=== PATIENT | female | born 1990 | race Caucasian/White ===

== ENCOUNTER 2017-05-08 08:36 | Emergency (ER) | payer OTHER ==
[2017-05-08] MEDS ORDERED: NS 0.9% 1000 ML* 1,000 ML IV ONE (09:36)
--- NOTE | 2017-05-08 10:30 | RAD ---
HISTORY: Left knee pain COMPARISONS: None VIEWS: 3, Frontal and lateral views of the left knee FINDINGS: BONE DENSITY: Normal. BONES: There is no displaced fracture. JOINTS: There is no arthropathy. ALIGNMENT: There is no dislocation. SOFT TISSUES: Unremarkable. OTHER FINDINGS: None. IMPRESSION: NO ACUTE OSSEOUS INJURY. IF SYMPTOMS PERSIST, RECOMMEND REPEAT IMAGING.
[2017-05-08 10:36] LABS: Hematocrit 38 % (35-47); Hemoglobin 12.7 g/dl (12.0-16.0); Mean Corpuscular HGB Conc 34 g/dl (31-36); Mean Corpuscular Hemoglobin 27 pg (27-31); Mean Corpuscular Volume 79 fL (80-97); Mean Platelet Volume 7 um3 (7.4-10.4); Red Blood Count 4.76 10^6/ul (4.0-5.4); Red Cell Distribution Width 14 % (10.5-15); White Blood Count 11.1 10^3/ul (3.5-10.8)
[2017-05-08] MEDS ORDERED: Ketorolac INJ* 30 MG/ML 1 ML VIAL IM ONE (10:42)
[2017-05-08 10:52] LABS: Albumin 3.7 g/dL (3.2-5.2); BUN/Creatinine Ratio 14.8 (8-20); C Reactive Protein 33.64 mg/L (< 5.00); EGFR African American 172.9 (>60); EGFR Non-African American 134.4 (>60); Globulin 2.8 g/dL (2-4); Magnesium 1.8 mg/dL (1.9-2.7); Potassium 3.5 mmol/L (3.5-5.0); Total Bilirubin 0.5 mg/dL (0.2-1.0); Total Protein 6.5 g/dL (6.4-8.9)
[2017-05-08] MEDS ORDERED: Magnesium Oxide TAB* 400 MG PO ONE (11:33)
--- NOTE | 2017-05-08 11:48 | RAD ---
HISTORY: Abdominal pain COMPARISONS: None VIEWS: Frontal views of the abdomen. FINDINGS: BOWEL: There is a nonobstructive bowel gas pattern. There is a moderate amount of stool within the colon. CALCULI: There are no abnormal calculi. BONES AND SOFT TISSUES: There is mild scoliotic curvature of the spine OTHER FINDINGS: The lung bases are clear. There is no subphrenic gas. IMPRESSION: NONOBSTRUCTIVE BOWEL GAS PATTERN
[2017-05-08 19:40] VITALS: BP 126/74
--- NOTE | 2017-05-09 12:03 | ED ---
Claudine Madden Rebecca, scribed for Nick Stearns MD on 05/08/17 at 0954 . Lower Extremity - HPI Summary HPI Summary: Pt is a 27 F presenting to the ED c/o pain and swelling in the left knee for the past year. Pt states she took Ibuprofen within the last 24 hours but had no relief. Sx is aggravated by pressure and alleviated by nothing. Denies any pain in the back of the knee and the calf. Previously seen for edema; had an XR done and physician saw no tears or breaks. Pt also c/o diarrhea that has been constant for the last three months. She has taken Imodium to treat Sx. Takes no medications and has no known allergies. - History of Current Complaint Chief Complaint: EDAbdPain Stated Complaint: LT KNEE SWELLING\PAIN Time Seen by Provider: 05/08/17 09:19 Hx Obtained From: Patient Hx Last Menstrual Period: currently Onset of Pain: Prior to Arrival Onset/Duration: Weeks - a year Severity Currently: Severe Pain Intensity: 8 Pain Scale Used: 0-10 Numeric Location: Is Discrete @ - L knee Associated Signs And Symptoms: Positive: Swelling - L knee, Other - Diarrhea for past three months Aggravating Factor(s): Movement - Bending the L knee, Other - Pressure Alleviating Factor(s): Nothing - Allergies/Home Medications Allergies/Adverse Reactions: Allergies Allergy/AdvReac Type Severity Reaction Status Date / Time No Known Allergies Allergy Verified 05/08/17 08:59 Home Medications: Home Medications Sertraline* [Zoloft*] 100 mg PO DAILY 05/08/17 [History Confirmed 05/08/17] PMH/Surg Hx/FS Hx/Imm Hx Endocrine/Hematology History: Denies: Hx Bone Marrow Disease, Hx Diabetes, Hx Sickle Cell Disease, Hx Thyroid Disease, Hx Anemia Cardiovascular History: Denies: Hx Hypertension Respiratory History: Denies: Hx Asthma, Hx Chronic Obstructive Pulmonary Disease (COPD) GI History: Reports: Hx Gastroesophageal Reflux Disease - takes tums daily Denies: Hx Ulcer Psychiatric History: Reports: Hx Anxiety, Hx Depression, Hx Panic Disorder - Surgical History Surgery Procedure, Year, and Place: May 2001 Open appy Hx Anesthesia Reactions: No Infectious Disease History: Denies: Hx Clostridium Difficile, Hx Hepatitis, Hx Human Immunodeficiency Virus (HIV), Hx of Known/Suspected MRSA, Hx Tuberculosis, History Other Infectious Disease, Traveled Outside the [place] in Last 30 Days - Family History Known Family History: Positive: Cardiac Disease - Mother had CAD - Social History Alcohol Use: Rare Hx Substance Use: No Substance Use Type: Reports: None Hx Tobacco Use: Yes Smoking Status (MU): Current Some Day Smoker Type: Cigarettes Review of Systems Positive: Diarrhea - present for last three months, did not see a physician, took Imodium Positive: Other - L knee swelling All Other Systems Reviewed And Are Negative: Yes Physical Exam - Summary Physical Exam Summary: VITAL SIGNS: Reviewed. GENERAL: ~Patient is a well-developed and nourished FEMALE who is in mild distress. HEAD AND FACE: No signs of trauma. ~No ecchymosis, hematomas or skull depressions. No sinus tenderness. EYES: PERRLA, EOMI x 2, No injected conjunctiva, no nystagmus. EARS: Hearing grossly intact. Ear canals and tympanic membranes are within normal limits. MOUTH: Oropharynx within normal limits. NECK: Supple, trachea is midline, no adenopathy, no JVD, no carotid bruit, no c- spine tenderness, neck with full ROM. CHEST: Symmetric, no tenderness at palpation LUNGS: Clear to auscultation bilaterally. No wheezing or crackles. CVS: Regular rate and rhythm, S1 and S2 present, no murmurs or gallops appreciated. ABDOMEN: Lower abdominal tenderness. No signs of distention. No rebound no guarding, and no masses palpated. Bowel sounds are normal. EXTREMITIES: FROM in all major joints, no cyanosis or clubbing. Swelling and pain in L knee, tender along medial and lateral ligaments, good pulses and capillary refill. NEURO: Alert and oriented x 3. No acute neurological deficits. Speech is normal and follows commands. SKIN: Dry and warm Triage Information Reviewed: Yes Vital Signs On Initial Exam: Initial Vitals Temp Pulse Resp BP Pulse Ox 98 F 108 20 129/95 98 05/08/17 09:00 05/08/17 09:00 05/08/17 09:00 05/08/17 09:00 05/08/17 09:00 Vital Signs Reviewed: Yes Appearance: Positive: Pain Distress - L knee edema and pain Skin: Positive: Tender - tender along med and lat ligaments Musculoskeletal: Positive: Strength/ROM Intact, Edema Left - L knee Diagnostics - Vital Signs Vital Signs Temp Pulse Resp BP Pulse Ox 05/08/17 09:00 98 F 108 20 129/95 98 - Laboratory Lab Results: Lab Results 05/08/17 05/08/17 05/08/17 Range/Units 10:20 10:20 10:20 WBC 11.1 H (3.5-10.8) 10^3/ul RBC 4.76 (4.0-5.4) 10^6/ul Hgb 12.7 (12.0-16.0) g/dl Hct 38 (35-47) % MCV 79 L (80-97) fL MCH 27 (27-31) pg MCHC 34 (31-36) g/dl RDW 14 (10.5-15) % Plt Count 383 (150-450) 10^3/ul MPV 7 L (7.4-10.4) um3 Neut % (Auto) 75.2 (38-83) % Lymph % (Auto) 17.7 L (25-47) % [place] % (Auto) 6.5 (1-9) % Eos % (Auto) 0.2 (0-6) % Baso % (Auto) 0.4 (0-2) % Absolute Neuts (auto) 8.4 H (1.5-7.7) 10^3/ul Absolute Lymphs (auto) 2.0 (1.0-4.8) 10^3/ul Absolute Monos (auto) 0.7 (0-0.8) 10^3/ul Absolute Eos (auto) 0 (0-0.6) 10^3/ul Absolute Basos (auto) 0 (0-0.2) 10^3/ul Absolute Nucleated RBC 0 10^3/ul Nucleated RBC % 0 Sodium 137 (133-145) mmol/L Potassium 3.5 (3.5-5.0) mmol/L Chloride 105 (101-111) mmol/L Carbon Dioxide 24 (22-32) mmol/L Anion Gap 8 (2-11) mmol/L BUN 8 (6-24) mg/dL Creatinine 0.54 (0.51-0.95) mg/dL Est GFR ( Amer) 172.9 (>60) Est GFR (Non-Af Amer) 134.4 (>60) BUN/Creatinine Ratio 14.8 (8-20) Glucose 84 (70-100) mg/dL Lactic Acid 0.9 (0.5-2.0) mmol/L Calcium 9.0 (8.6-10.3) mg/dL Magnesium 1.8 L (1.9-2.7) mg/dL Total Bilirubin 0.50 (0.2-1.0) mg/dL AST 9 L (13-39) U/L ALT 10 (7-52) U/L Alkaline Phosphatase 65 (34-104) U/L C-Reactive Protein 33.64 H (< 5.00) mg/L Total Protein 6.5 (6.4-8.9) g/dL Albumin 3.7 (3.2-5.2) g/dL Globulin 2.8 (2-4) g/dL Albumin/Globulin Ratio 1.3 (1-3) Lipase 20 (11.0-82.0) U/L Beta HCG, Quant 0.60 mIU/mL Result Diagrams: 05/08/17 10:20 05/08/17 10:20 Lab Statement: Any lab studies that have been ordered have been reviewed, and results considered in the medical decision making process. - Radiology Knee XR Xray Interpretation: No Acute Changes - NO ACUTE OSSEOUS INJURY. IF SYMPTOMS PERSIST, RECOMMEND REPEAT IMAGING. Radiology Interpretation Completed By: Radiologist Abd XR Xray Interpretation: No Acute Changes - NONOBSTRUCTIVE BOWEL GAS PATTERN Radiology Interpretation Completed By: Radiologist - EKG 1139 Cardiac Rate: NL - 78 bpm EKG Rhythm: Sinus Rhythm ST Segment: Normal Re-Evaluation - Re-Evaluation First Eval Re-Evaluation Time: 14:29 Change: Improved Comment: Pt has no complaints at this time. Lower Extremity Course/Dx - Course Assessment/Plan: Pt is a 27 F presenting to the ED c/o pain and swelling in the left knee for the past year. Pt states she took Ibuprofen within the last 24 hours but had no relief. Sx is aggravated by pressure and alleviated by nothing. Denies any pain in the back of the knee and the calf. Previously seen for edema; had an XR done and physician saw no tears or breaks. Pt also c/o diarrhea that has been constant for the last three months. She has taken Imodium to treat Sx. Takes no medications and has no known allergies. Test results w/o any significant abnormalities except WBC of 11.1, Magnesium of 1.8 and CRP of 33.6. Knee XR reveals NO ACUTE OSSEOUS INJURY, Abd XR reveals NONOBSTRUCTIVE BOWEL GAS PATTERN, EKG reveals sinus rhythm with no ST elevations. In the ED course, the pt was hydrated with IV fluids and she was given Toradol for the knee pain. The pt is eating and drinking without any N/V and she did not have any diarrhea. She was observed for almost 8 hours and the pt was not able to give any stool samples. The sx have improved. The pt has been having diarrhea for almost 3 months, intermittently, w/o any fever, chills and abd pain, therefore I have low suspicion for C. Diff. However, we recommended for the pt to follow up with GI for further workup and management. For the knee, the pt will f/u with orthopedics. The pt does not have any erythema, she has a FROM of the knee, therefore I have low suspicion for septic joint or cellulitis. The pt is hemodynamically stable and A&Ox3. I discussed all the findings and test results with the patient. Patient was instructed to return to the emergency room immediately if any of the symptoms return or worsens. Plan of care was discussed with the patient and understands and agrees. All questions were answered at patient satisfaction. There were no further complaints or concerns. Lung exam before discharge: CTA B/L. Good air exchange. No wheezing or crackles heard. CVS: S1 and S2 present. No murmurs appreciated. Patient is alert and oriented x 3. Patient is hemodynamically stable. Patient will be discharged home with follow up PCP in the next 2-3 days - Diagnoses Differential Diagnosis/HQI/PQRI: Positive: Bursitis, Cellulitis, Contusion, Dislocation, Fracture (Closed), Infection, Sprain, Strain, Other - Diarrhea, nausea, vomiting Provider Diagnoses: Abdominal pain, Nausea vomiting and diarrhea, Left knee pain Discharge - Discharge Plan Condition: Stable Disposition: HOME Patient Education Materials: Abdominal Pain (ED), Acute Nausea and Vomiting (ED ), Acute Diarrhea (ED) Referrals: [facility] [place] [facility] [Outside] - 3 Days The documentation as recorded by the Claudine buckner Rebecca accurately reflects the service I personally performed and the decisions made by , Nick Stearns MD.
== END 2017-05-08 15:00 | disposition home or self-care (01) ==
LOC: ED 08:36
DX: R10.9 Unspecified abdominal pain (principal); R19.7 Diarrhea, unspecified; Z72.0 Tobacco use; R11.2 Nausea with vomiting, unspecified; M25.562 Pain in left knee
CPT/HCPCS: 36415; 74020; 80053; 83605; 83690; 83735; 84702; 85025; 86140; 93005; 96372; 99284; J1885

== ENCOUNTER 2017-05-10 18:41 | Emergency (ER) | payer OTHER ==
[2017-05-10] MEDS ORDERED: Ondansetron INJ* 2 MG/ML VIAL IV ONE (20:44)
[2017-05-10] MEDS ORDERED: NS 0.9% 1000 ML* 2,000 ML IV ONE (20:44)
[2017-05-10] MEDS ORDERED: Ketorolac INJ* 30 MG/ML 1 ML VIAL IV PUSH ONE (20:45)
--- NOTE | 2017-05-10 21:21 | RAD ---
HISTORY: Right upper quadrant pain COMPARISONS: None TECHNIQUE: Multiple transverse and longitudinal ultrasound images were obtained of the right upper quadrant of the abdomen using grayscale and color Doppler imaging. FINDINGS: LIVER: The liver is normal in shape, size, contour, and echogenicity. There are no focal parenchymal masses. There is normal hepatopedal flow of the portal vein on Doppler imaging. BILIARY TREE: There is no intrahepatic or extrahepatic biliary dilatation. The common duct measures 0.2 cm. GALLBLADDER: The gallbladder is incompletely distended but is grossly normal. PANCREAS: The head of the pancreas is unremarkable. The tail of the pancreas is not well visualized secondary to overlying bowel gas. RIGHT KIDNEY: The right kidney is normal in shape, size, contour, and echogenicity. There is no hydronephrosis or nephrolithiasis. The right kidney measures 12.5 x 5.1 x 4.3 cm. AORTA AND IVC: The aorta and IVC are unremarkable. FLUID: There are no pleural effusions. There is no free fluid within the hepatorenal recess. OTHER FINDINGS: None. IMPRESSION: NO ACUTE SONOGRAPHIC PATHOLOGY OF THE VISUALIZED PORTION OF THE ABDOMEN.
[2017-05-10] MEDS ORDERED: Iohexol 300* (CONTRAST) 10 ML SDV IV ONE (21:44)
[2017-05-10 22:15] LABS: Hematocrit 36 % (35-47); Mean Corpuscular HGB Conc 34 g/dl (31-36); Mean Corpuscular Hemoglobin 27 pg (27-31); Mean Corpuscular Volume 79 fL (80-97); Mean Platelet Volume 7 um3 (7.4-10.4); Red Blood Count 4.51 10^6/ul (4.0-5.4); Red Cell Distribution Width 14 % (10.5-15); White Blood Count 10.6 10^3/ul (3.5-10.8)
[2017-05-10 22:29] LABS: Urine Bacteria Absent (Absent); Urine Bilirubin Negative (Negative); Urine Glucose Negative (Negative); Urine Nitrite Negative (Negative)
[2017-05-10 22:30] LABS: ALT 12 U/L (7-52); AST 11 U/L (13-39); Albumin 3.6 g/dL (3.2-5.2); Alkaline Phosphatase 59 U/L (34-104); Anion Gap 4 mmol/L (2-11); BUN/Creatinine Ratio 10.9 (8-20); Blood Urea Nitrogen 6 mg/dL (6-24); CO2 Carbon Dioxide 27 mmol/L (22-32); Calcium 8.9 mg/dL (8.6-10.3); Chloride 105 mmol/L (101-111); EGFR African American 169.3 (>60); EGFR Non-African American 131.6 (>60); Globulin 2.7 g/dL (2-4); Glucose 87 mg/dL (70-100); Lipase 40 U/L (11.0-82.0); Potassium 3.2 mmol/L (3.5-5.0); Sodium 136 mmol/L (133-145); Total Protein 6.3 g/dL (6.4-8.9)
[2017-05-11] MEDS ORDERED: Morphine INJ* 4 MG/ML 1 ML SYRINGE IV ONE (00:20)
--- NOTE | 2017-05-11 01:23 | ED ---
GI/ HPI - HPI Summary HPI Summary: 27F presents with diarrhea for 3 months, vomiting for 1 week. Pt also states she has had a sig wt loss of over 25lbs. Also cannot eat anything without having vomiting and diarrhea. She states it does not matter what she eats. She has been seen by her primary that is concerned for crohns. She has a follow up with GI in a couple months but she wants an immediate solution. she denies any fevers, blood in her stool. She denies any family history of GI issues. She states she was having diffuse body aches and joint pain but that has resolved. She denies any vaginal discharge, dysuria, frequency, urgency, hematuria or flank pain. - History of Current Complaint Chief Complaint: EDAbdPain Time Seen by Provider: 05/10/17 20:34 Stated Complaint: ABD PAIN/VOMITING Hx Last Menstrual Period: currently Pain Intensity: 8 - Allergy/Home Medications Allergies/Adverse Reactions: Allergies Allergy/AdvReac Type Severity Reaction Status Date / Time No Known Allergies Allergy Verified 05/08/17 08:59 PMH/Surg Hx/FS Hx/Imm Hx Endocrine/Hematology History: Denies: Hx Bone Marrow Disease, Hx Diabetes, Hx Sickle Cell Disease, Hx Thyroid Disease, Hx Anemia Cardiovascular History: Denies: Hx Hypertension Respiratory History: Denies: Hx Asthma, Hx Chronic Obstructive Pulmonary Disease (COPD) GI History: Reports: Hx Gastroesophageal Reflux Disease - takes tums daily Denies: Hx Ulcer Psychiatric History: Reports: Hx Anxiety, Hx Depression, Hx Panic Disorder - Surgical History Surgery Procedure, Year, and Place: May 2001 Open appy Hx Anesthesia Reactions: No Infectious Disease History: No Infectious Disease History: Denies: Hx Clostridium Difficile, Hx Hepatitis, Hx Human Immunodeficiency Virus (HIV), Hx of Known/Suspected MRSA, Hx Tuberculosis, History Other Infectious Disease, Traveled Outside the [place] in Last 30 Days - Family History Known Family History: Positive: Cardiac Disease - Mother had CAD - Social History Alcohol Use: Rare Alcohol Amount: a few time a week Hx Substance Use: No Substance Use Type: Reports: None Hx Tobacco Use: Yes Smoking Status (MU): Current Some Day Smoker Type: Cigarettes Review of Systems Negative: Fever Negative: Chest Pain Negative: Shortness Of Breath Positive: Abdominal Pain, Vomiting, Diarrhea, Nausea All Other Systems Reviewed And Are Negative: Yes Physical Exam Triage Information Reviewed: Yes Vital Signs On Initial Exam: Initial Vitals Temp Pulse Resp BP Pulse Ox 98.5 F 97 20 139/96 99 05/10/17 18:44 05/10/17 18:44 05/10/17 18:44 05/10/17 18:44 05/10/17 18:44 Vital Signs Reviewed: Yes Appearance: Positive: Well-Appearing Skin: Positive: Warm, Dry Head/Face: Positive: Normal Head/Face Inspection Eyes: Positive: Normal, EOMI, ERNESTO, Conjunctiva Clear ENT: Positive: Normal ENT inspection, Pharynx normal, TMs normal Respiratory/Lung Sounds: Positive: Clear to Auscultation, Breath Sounds Present Cardiovascular: Positive: Normal, RRR Abdomen Description: Positive: Soft, Other: - mild diffuse tenderness Bowel Sounds: Positive: Present - Wolfgang Coma Scale Coma Scale Total: 15 Diagnostics - Vital Signs Vital Signs Temp Pulse Resp BP Pulse Ox 05/11/17 01:00 82 135/90 100 05/11/17 00:45 137/99 05/11/17 00:43 16 05/11/17 00:01 78 124/66 99 05/11/17 00:00 78 98 05/10/17 23:44 76 99 05/10/17 23:05 80 99 05/10/17 23:00 128/84 05/10/17 22:30 106/84 05/10/17 22:00 86 124/87 99 05/10/17 21:36 98.8 F 90 16 128/69 99 05/10/17 21:35 88 99 05/10/17 21:34 128/69 05/10/17 18:44 98.5 F 97 20 139/96 99 - Laboratory Lab Results: Lab Results 05/10/17 05/10/17 05/10/17 Range/Units 21:55 21:55 21:55 WBC 10.6 (3.5-10.8) 10^3/ul RBC 4.51 (4.0-5.4) 10^6/ul Hgb 12.0 (12.0-16.0) g/dl Hct 36 (35-47) % MCV 79 L (80-97) fL MCH 27 (27-31) pg MCHC 34 (31-36) g/dl RDW 14 (10.5-15) % Plt Count 406 (150-450) 10^3/ul MPV 7 L (7.4-10.4) um3 Neut % (Auto) 66.0 (38-83) % Lymph % (Auto) 26.1 (25-47) % [place] % (Auto) 7.0 (1-9) % Eos % (Auto) 0.4 (0-6) % Baso % (Auto) 0.5 (0-2) % Absolute Neuts (auto) 7.0 (1.5-7.7) 10^3/ul Absolute Lymphs (auto) 2.8 (1.0-4.8) 10^3/ul Absolute Monos (auto) 0.7 (0-0.8) 10^3/ul Absolute Eos (auto) 0 (0-0.6) 10^3/ul Absolute Basos (auto) 0 (0-0.2) 10^3/ul Absolute Nucleated RBC 0.01 10^3/ul Nucleated RBC % 0.1 Sodium 136 (133-145) mmol/L Potassium 3.2 L (3.5-5.0) mmol/L Chloride 105 (101-111) mmol/L Carbon Dioxide 27 (22-32) mmol/L Anion Gap 4 (2-11) mmol/L BUN 6 (6-24) mg/dL Creatinine 0.55 (0.51-0.95) mg/dL Est GFR ( Amer) 169.3 (>60) Est GFR (Non-Af Amer) 131.6 (>60) BUN/Creatinine Ratio 10.9 (8-20) Glucose 87 (70-100) mg/dL Calcium 8.9 (8.6-10.3) mg/dL Total Bilirubin 0.30 (0.2-1.0) mg/dL AST 11 L (13-39) U/L ALT 12 (7-52) U/L Alkaline Phosphatase 59 (34-104) U/L C-React Prot High Sens 20.53 mg/L Total Protein 6.3 L (6.4-8.9) g/dL Albumin 3.6 (3.2-5.2) g/dL Globulin 2.7 (2-4) g/dL Albumin/Globulin Ratio 1.3 (1-3) Lipase 40 (11.0-82.0) U/L Beta HCG, Quant < 0.60 mIU/mL Urine Color Yellow Urine Appearance Cloudy Urine pH 6.0 (5-9) Ur Specific [place] 1.023 (1.010-1.030) Urine Protein Negative (Negative) Urine Ketones Negative (Negative) Urine Blood 3+ H (Negative) Urine Nitrate Negative (Negative) Urine Bilirubin Negative (Negative) Urine Urobilinogen Negative (Negative) Ur Leukocyte Esterase Trace H (Negative) Urine WBC (Auto) 1+(6-10/hpf) H (Absent) Urine RBC (Auto) 3+(>10/hpf) H (Absent) Ur Squamous Epith Cells Present H (Absent) Calcium Oxalate Crystal Present H (Absent) Urine Bacteria Absent (Absent) Urine Glucose Negative (Negative) Result Diagrams: 05/10/17 21:55 05/10/17 21:55 Lab Statement: Any lab studies that have been ordered have been reviewed, and results considered in the medical decision making process. - CT abd CT Interpretation: Positive (See Comments) - possible enteritis at distal ileum CT Interpretation Completed By: Radiologist WILSON Course/Dx - Course Course Of Treatment: 27F presents with diarrhea for 3 months, vomiting for 1 week. Pt also states she has had a sig wt loss of over 25lbs. Also cannot eat anything without having vomiting and diarrhea. She states it does not matter what she eats. She has been seen by her primary that is concerned for crohns. She has a follow up with GI in a couple months but she wants an immediate solution. she denies any fevers, blood in her stool. She denies any family history of GI issues. She states she was having diffuse body aches and joint pain but that has resolved. She denies any vaginal discharge, dysuria, frequency, urgency, hematuria or flank pain. on exam diffusely tender. labs normal wbc as compared to previous two days ago. CT shows nonspecific enteritis. patient will need to see GI for further evaluation. patient understands and agrees with plan. - Diagnoses Differential Diagnoses - Female: Gastroenteritis (Bacterial), Ulcerative Colitis /Crohn's Disease, Urinary Tract Infection Provider Diagnoses: Abdominal pain Discharge - Discharge Plan Condition: Good Disposition: HOME Prescriptions: Ondansetron ODT TAB* [Zofran 4 MG Odt TAB*] 4 mg PO Q6H PRN #30 tab.odt PRN Reason: Nausea Patient Education Materials: Abdominal Pain (ED) Referrals: Non Staff,Doctor [Primary Care Provider] - Heriberto Salazar MD [Medical Doctor] - Additional Instructions: Follow up with GI Take zofran every 6 hours for nausea Take imiodium for diarrhea Eat a bland diet Return to ED if develop any new or worsening symptoms
[2017-05-11 01:46] VITALS: BP 135/98
--- NOTE | 2017-05-11 07:53 | RAD ---
INDICATION: Right-sided abdominal pain. Diarrhea. History of appendectomy. COMPARISON: Gallbladder sonogram February 07, 2017 TECHNIQUE: Axial source images were obtained from the hemidiaphragms to the symphysis pubis following administration of oral and intravenous contrast. 97 mL Omnipaque 300 was utilized. Coronal and sagittal reconstructed images were acquired. Lung bases: The lung bases are clear. Liver: The liver is normal in size. There are no masses. There is no ductal dilatation. Gallbladder: There are no calcified gallstones. There is no evidence of wall thickening or pericholecystic fluid. Spleen: The spleen is normal in size. There are no masses. Pancreas: There is no focal pancreatic mass or ductal dilatation. Adrenal glands: There is no evidence of adrenal mass. Kidneys: The kidneys are normal in size and position. There are prompt nephrograms and there is prompt excretion bilaterally. There are no renal parenchymal masses. There is no evidence of nephrolithiasis. Adenopathy: There is no evidence of adenopathy by size criteria. Fluid collections: There are no free or localized fluid collections. Vessels:There are no significant atherosclerotic changes involving the aorta. There is no focal aneurysm. The iliac vessels are normal in caliber. The IVC appears normal. GI tract: There are no acute CT bowel findings. There is no obstruction. The stomach and small bowel appear normal. The lower GI tract is normal. The cecum, ileocecal valve, and terminal ileum appear normal. There is appendectomy by surgical history. Pelvic organs: The uterus and left adnexa are unremarkable. There is a 2.6 cm right adnexal cyst, likely functional cyst Bladder: There are no bladder masses. Abdominal and pelvic soft tissues: The extraperitoneal abdominal and pelvic soft tissues appear normal.. Osseous structures: There are no acute osseous findings. Other: None IMPRESSION: 2.6 CM RIGHT ADNEXAL CYST, LIKELY A FUNCTIONAL CYST.
== END 2017-05-11 01:46 | disposition home or self-care (01) ==
LOC: ED 18:41
DX: R10.9 Unspecified abdominal pain (principal); R11.2 Nausea with vomiting, unspecified; R19.7 Diarrhea, unspecified; R63.4 Abnormal weight loss; Z32.02 Encounter for pregnancy test, result negative; K21.9 Gastro-esophageal reflux disease without esophagitis; Z72.0 Tobacco use
CPT/HCPCS: 36415; 74177; 76705; 80053; 81003; 81015; 83690; 84702; 85025; 86141; 87086; 96361; 96374; 96375; 99284; J1885; J2270; J2405; Q9967

== ENCOUNTER 2017-08-02 11:09 | Inpatient (IN) | payer OTHER ==
[2017-08-02] MEDS ORDERED: NS 0.9% 1000 ML* 1,000 ML IV ONE ×2 (11:42→14:06)
[2017-08-02] MEDS ORDERED: Ondansetron ODT TAB* 4 MG PO ONE (11:42)
[2017-08-02] MEDS ORDERED: HYDROmorphone INJ* 1 MG/ML CARPUJECT SYRINGE IV ONE ×2 (11:42→14:06)
[2017-08-02 12:07] LABS: Hematocrit 43 % (35-47); Hemoglobin 13.9 g/dl (12.0-16.0); Mean Corpuscular HGB Conc 33 g/dl (31-36); Mean Corpuscular Hemoglobin 25 pg (27-31); Mean Corpuscular Volume 77 fL (80-97); Mean Platelet Volume 6 um3 (7.4-10.4); Red Blood Count 5.56 10^6/ul (4.0-5.4); Red Cell Distribution Width 15 % (10.5-15); White Blood Count 19.9 10^3/ul (3.5-10.8)
[2017-08-02 12:28] LABS: ALT 11 U/L (7-52); AST 9 U/L (13-39); Albumin 4.1 g/dL (3.2-5.2); Alkaline Phosphatase 70 U/L (34-104); Anion Gap 11 mmol/L (2-11); BUN/Creatinine Ratio 8.1 (8-20); Blood Urea Nitrogen 5 mg/dL (6-24); C Reactive Protein 5.22 mg/L (< 5.00); CO2 Carbon Dioxide 24 mmol/L (22-32); Calcium 9.3 mg/dL (8.6-10.3); Chloride 103 mmol/L (101-111); EGFR African American 147.4 (>60); EGFR Non-African American 114.6 (>60); Glucose 85 mg/dL (70-100); Potassium 3.1 mmol/L (3.5-5.0); Sodium 138 mmol/L (133-145); Total Protein 7.1 g/dL (6.4-8.9)
[2017-08-02] MEDS ORDERED: Ondansetron INJ* 2 MG/ML VIAL IV ONE (14:06)
[2017-08-02 16:06] LABS: Urine Bacteria Absent (Absent); Urine Bilirubin Negative (Negative); Urine Glucose Negative (Negative); Urine Nitrite Negative (Negative)
[2017-08-02] MEDS ORDERED: HYDROmorphone INJ* 2 MG/ML CARPUJECT SYRINGE ONE (16:55)
[2017-08-02] MEDS: HYDROmorphone INJ* 2 MG/ML CARPUJECT SYRINGE IV SLOW PU PRN ×3 (16:58→22:58)
[2017-08-02] MEDS ORDERED: Ondansetron INJ* 2 MG/ML VIAL IV PRN (17:08)
[2017-08-02] MEDS ORDERED: Acetaminophen TAB* 325 MG PO PRN (17:08)
[2017-08-02] MEDS ORDERED: NS 0.9% 1000 ML* 1,000 ML IV SCH ×2 (17:15→18:15)
[2017-08-02] MEDS ORDERED: Potassium Chlor TAB* 20 MEQ TAB.ER PO ONE (17:19)
[2017-08-02] MEDS ORDERED: Nicotine Inhaler* 10 MG AMP INH PRN (17:29)
--- NOTE | 2017-08-02 17:39 | ED ---
Carter Madden Thomas, scribed for Erwin Burris MD on 08/02/17 at 1405 . Abdominal Pain/Female - HPI Summary HPI Summary: The pt is a 27 y/o F with a Hx of Crohns disease presenting to the ED c/o chronic lower abdominal pain that has lasted for the past three months. The pain is constant and described as cramping. The pain is rated 8/10. The pain is aggravated by nothing and is alleviated by nothing. Pt additionally c/o constant stools described as bloody and mucous. Pt denies nausea. She takes three unspecified medication for her Crohns. - History of Current Complaint Chief Complaint: EDAbdPain Stated Complaint: GI ISSUES Time Seen by Provider: 08/02/17 11:23 Hx Obtained From: Patient Hx Last Menstrual Period: currently Onset/Duration: Lasting Weeks - x 3 months, Still Present Timing: Constant Severity Currently: Moderate Pain Intensity: 8 Pain Scale Used: 0-10 Numeric Location: Other - Lower Character: Cramping Aggravating Factor(s): Nothing Alleviating Factor(s): Nothing Associated Signs and Symptoms: Positive: Blood in Stool - with mucus. Negative : Nausea Allergies/Adverse Reactions: Allergies Allergy/AdvReac Type Severity Reaction Status Date / Time No Known Allergies Allergy Verified 08/02/17 11:14 Home Medications: Home Medications Budesonide [Entocort EC] 3 mg PO TID 08/02/17 [History Confirmed 08/02/17] Citalopram TAB* [CeleXA TAB*] 10 mg PO BEDTIME 08/02/17 [History Confirmed 08/02] Citalopram TAB* [CeleXA TAB*] 20 mg PO DAILY 08/02/17 [History Confirmed ] DULoxetine CAP* [Cymbalta CAP*] 60 mg PO DAILY 08/02/17 [History Confirmed ] Hydrocodone-Acetaminophen [Hydrocodone/Acetaminophen 5-325 mg] 1 tab PO Q6H PRN 08/02/17 [History Confirmed 08/02/17] Mesalamine [Asacol Hd] 800 mg PO TID 08/02/17 [History Confirmed 08/02/17] Pantoprazole TAB (NF) [Protonix TAB (NF)] 40 mg PO DAILY 08/02/17 [History Confirmed 08/02/17] Prednisone 5 mg PO DAILY 08/02/17 [History Confirmed 08/02/17] PMH/Surg Hx/FS Hx/Imm Hx Previously Healthy: No Endocrine/Hematology History: Denies: Hx Bone Marrow Disease, Hx Diabetes, Hx Sickle Cell Disease, Hx Thyroid Disease, Hx Anemia Cardiovascular History: Denies: Hx Hypertension Respiratory History: Denies: Hx Asthma, Hx Chronic Obstructive Pulmonary Disease (COPD) GI History: Reports: Hx Crohn's Disease, Hx Gastroesophageal Reflux Disease - takes tums daily Denies: Hx Ulcer History: Denies: Hx Renal Disease Psychiatric History: Reports: Hx Anxiety, Hx Depression, Hx Panic Disorder - Surgical History Surgery Procedure, Year, and Place: May 2001 Open appy Hx Anesthesia Reactions: No Infectious Disease History: No Infectious Disease History: Denies: Hx Clostridium Difficile, Hx Hepatitis, Hx Human Immunodeficiency Virus (HIV), Hx of Known/Suspected MRSA, Hx Tuberculosis, History Other Infectious Disease, Traveled Outside the [place] in Last 30 Days - Family History Known Family History: Positive: Cardiac Disease - Mother had CAD - Social History Alcohol Use: Rare Alcohol Amount: a few time a week Hx Substance Use: No Substance Use Type: Reports: None Hx Tobacco Use: Yes Smoking Status (MU): Current Some Day Smoker Type: Cigarettes Review of Systems Negative: Fever Positive: Abdominal Pain, Other - Bloody stools with mucus. Negative: Nausea All Other Systems Reviewed And Are Negative: Yes Physical Exam - Summary Physical Exam Summary: Appearance: The patient is well-nourished in no acute distress and in no acute pain. Skin: The skin is warm and dry and skin color reflects adequate perfusion. HEENT: The head is normocephalic and atraumatic. The pupils are equal and reactive. The conjunctivae are clear and without drainage. Nares are patent and without drainage. Mouth reveals moist mucous membranes and the throat is without erythema and exudate. The external ears are intact. The ear canals are patent and without drainage. The tympanic membranes are intact. Neck: The neck is supple with full range of motion and non-tender. There are no carotid bruits. There is no neck vein distension. Respiratory: Chest is non-tender. Lungs are clear to auscultation and breath sounds are symmetrical and equal. Cardiovascular: Heart is regular rate and rhythm. There is no murmur or rub auscultated. There is no peripheral edema and pulses are symmetrical and equal. Abdomen: The abdomen is soft. She has mild tenderness to her lower abdomen. There are normal bowel sounds heard in all four quadrants and there is no organomegaly palpated. Musculoskeletal: There is no back tenderness noted. Extremities are non-tender with full range of motion. There is good capillary refill. There is no peripheral edema or calf tenderness elicited. Neurological: Patient is alert and oriented to person, place and time. The patient has symmetrical motor strength in all four extremities. Cranial nerves are grossly intact. Deep tendon reflexes are symmetrical and equal in all four extremities. Psychiatric: The patient has an appropriate affect and does not exhibit any anxiety or depression. She is tearful. Triage Information Reviewed: Yes Vital Signs On Initial Exam: Initial Vitals Temp Pulse Resp BP Pulse Ox 97.3 F 118 17 154/93 98 08/02/17 11:11 08/02/17 11:11 08/02/17 11:11 08/02/17 11:11 08/02/17 11:11 Vital Signs Reviewed: Yes Diagnostics - Vital Signs Vital Signs Temp Pulse Resp BP Pulse Ox 08/02/17 11:11 97.3 F 118 17 154/93 98 - Laboratory Lab Results: Lab Results 08/02/17 08/02/17 08/02/17 Range/Units 11:50 11:50 11:50 WBC 19.9 H (3.5-10.8) 10^3/ul RBC 5.56 H (4.0-5.4) 10^6/ul Hgb 13.9 (12.0-16.0) g/dl Hct 43 (35-47) % MCV 77 L (80-97) fL MCH 25 L (27-31) pg MCHC 33 (31-36) g/dl RDW 15 (10.5-15) % Plt Count 504 H (150-450) 10^3/ul MPV 6 L (7.4-10.4) um3 Neut % (Auto) 80.6 (38-83) % Lymph % (Auto) 12.0 L (25-47) % [place] % (Auto) 6.8 (1-9) % Eos % (Auto) 0.2 (0-6) % Baso % (Auto) 0.4 (0-2) % Absolute Neuts (auto) 16.0 H (1.5-7.7) 10^3/ul Absolute Lymphs (auto) 2.4 (1.0-4.8) 10^3/ul Absolute Monos (auto) 1.4 H (0-0.8) 10^3/ul Absolute Eos (auto) 0 (0-0.6) 10^3/ul Absolute Basos (auto) 0.1 (0-0.2) 10^3/ul Absolute Nucleated RBC 0 10^3/ul Nucleated RBC % 0 Sodium 138 (133-145) mmol/L Potassium 3.1 L (3.5-5.0) mmol/L Chloride 103 (101-111) mmol/L Carbon Dioxide 24 (22-32) mmol/L Anion Gap 11 (2-11) mmol/L BUN 5 L (6-24) mg/dL Creatinine 0.62 (0.51-0.95) mg/dL Est GFR ( Amer) 147.4 (>60) Est GFR (Non-Af Amer) 114.6 (>60) BUN/Creatinine Ratio 8.1 (8-20) Glucose 85 (70-100) mg/dL Lactic Acid 1.7 (0.5-2.0) mmol/L Calcium 9.3 (8.6-10.3) mg/dL Total Bilirubin 0.60 (0.2-1.0) mg/dL AST 9 L (13-39) U/L ALT 11 (7-52) U/L Alkaline Phosphatase 70 (34-104) U/L C-Reactive Protein 5.22 H (< 5.00) mg/L Total Protein 7.1 (6.4-8.9) g/dL Albumin 4.1 (3.2-5.2) g/dL Globulin 3.0 (2-4) g/dL Albumin/Globulin Ratio 1.4 (1-3) Beta HCG, Quant < 0.60 mIU/mL Urine Color Urine Appearance Urine pH (5-9) Ur Specific [place] (1.010-1.030) Urine Protein (Negative) Urine Ketones (Negative) Urine Blood (Negative) Urine Nitrate (Negative) Urine Bilirubin (Negative) Urine Urobilinogen (Negative) Ur Leukocyte Esterase (Negative) Urine WBC (Auto) (Absent) Urine RBC (Auto) (Absent) Ur Squamous Epith Cells (Absent) Urine Bacteria (Absent) Urine Glucose (Negative) 08/02/17 Range/Units 15:19 WBC (3.5-10.8) 10^3/ul RBC (4.0-5.4) 10^6/ul Hgb (12.0-16.0) g/dl Hct (35-47) % MCV (80-97) fL MCH (27-31) pg MCHC (31-36) g/dl RDW (10.5-15) % Plt Count (150-450) 10^3/ul MPV (7.4-10.4) um3 Neut % (Auto) (38-83) % Lymph % (Auto) (25-47) % [place] % (Auto) (1-9) % Eos % (Auto) (0-6) % Baso % (Auto) (0-2) % Absolute Neuts (auto) (1.5-7.7) 10^3/ul Absolute Lymphs (auto) (1.0-4.8) 10^3/ul Absolute Monos (auto) (0-0.8) 10^3/ul Absolute Eos (auto) (0-0.6) 10^3/ul Absolute Basos (auto) (0-0.2) 10^3/ul Absolute Nucleated RBC 10^3/ul Nucleated RBC % Sodium (133-145) mmol/L Potassium (3.5-5.0) mmol/L Chloride (101-111) mmol/L Carbon Dioxide (22-32) mmol/L Anion Gap (2-11) mmol/L BUN (6-24) mg/dL Creatinine (0.51-0.95) mg/dL Est GFR ( Amer) (>60) Est GFR (Non-Af Amer) (>60) BUN/Creatinine Ratio (8-20) Glucose (70-100) mg/dL Lactic Acid (0.5-2.0) mmol/L Calcium (8.6-10.3) mg/dL Total Bilirubin (0.2-1.0) mg/dL AST (13-39) U/L ALT (7-52) U/L Alkaline Phosphatase (34-104) U/L C-Reactive Protein (< 5.00) mg/L Total Protein (6.4-8.9) g/dL Albumin (3.2-5.2) g/dL Globulin (2-4) g/dL Albumin/Globulin Ratio (1-3) Beta HCG, Quant mIU/mL Urine Color [place] Urine Appearance Cloudy Urine pH 5.0 (5-9) Ur Specific [place] 1.024 (1.010-1.030) Urine Protein 2+(100 mg/dl) H (Negative) Urine Ketones Trace H (Negative) Urine Blood 3+ H (Negative) Urine Nitrate Negative (Negative) Urine Bilirubin Negative (Negative) Urine Urobilinogen Negative (Negative) Ur Leukocyte Esterase Negative (Negative) Urine WBC (Auto) 1+(6-10/hpf) H (Absent) Urine RBC (Auto) Trace(0-2/hpf) (Absent) Ur Squamous Epith Cells Present H (Absent) Urine Bacteria Absent (Absent) Urine Glucose Negative (Negative) Result Diagrams: 08/02/17 11:50 08/02/17 11:50 Lab Statement: Any lab studies that have been ordered have been reviewed, and results considered in the medical decision making process. Re-Evaluation - Re-Evaluation First Eval Re-Evaluation Time: 14:01 Change: Unchanged Comment: The patient's medications are: Pantoprazole 40mg Daily, Budesonide 3mg TID, Hydrocodone / Acetaminophen 5/325 Q6H PRN, Mesalamine 800mg TID, Celexa: ( She has two orders in at the pharmacy) 10mg and 20mg. Abdominal Pain Fem Course/Dx - Course Course Of Treatment: Ms. Lynch was diagnosed four weeks ago on CT here with Crohn's. She F/U'd up [facility] who performed a colonoscopy and confirmed the diagnosis. She was started on budesimide and mesalamine but has had continued pain and bloody, mucousy stools. She was found to have a WBC of about 20 K and refractory pain. I asked the hospitalists to concult for possible admission. - Diagnoses Provider Diagnoses: Crohns disease - Provider Notifications Discussed Care Of Patient With: Gisele Kraft Time Discussed With Above Provider: 14:05 Instructed by Provider To: Other - Dr. Kraft, gastroenterology, made medication recommendations. At 16:30, I consulted Dr. Dean, hospitalist, who will admit the patient. Discharge - Discharge Plan Condition: Fair Disposition: ADMITTED TO [facility] Referrals: No Primary Care Phys,NOPCP [Medical Doctor] - The documentation as recorded by the Carter buckner Thomas accurately reflects the service I personally performed and the decisions made by me, Erwin Burris MD.
[2017-08-02] MEDS: methylPREDNISolone SOD 40 MG* 1 ML VIAL IV SCH (18:32)
[2017-08-02 18:46] LABS: Iron 48 ug/dL (50-212); Total Iron Binding Capacity 441 mcg/dL (250-450); Transferrin 315 mg/dL (203-362)
[2017-08-02] MEDS: diPHENhydraMINE IV* 50 MG/ML 1 ml VIAL (BENADRYL) SLOW PUSH PRN (19:49)
[2017-08-02] MEDS: metroNIDAZOLE TAB* 250 MG PO SCH (19:50)
[2017-08-02] MEDS: Citalopram TAB* 10 MG PO SCH (19:50)
[2017-08-02] MEDS ORDERED: LORazepam TAB(*) 0.5 MG PO ONE (22:11)
--- NOTE | 2017-08-03 00:47 | HP ---
ATTENDING ADDENDUM NOW INCLUDED ON THIS REPORT CC: Dr. Drummond of [place]; Dr. Yost of [place] * MEDICINE HISTORY AND PHYSICAL: DATE OF ADMISSION: 08/02/17 PROVIDER: Stephen Mojica NP ATTENDING PHYSICIAN: Dr. Soo Dean* (dictated by Stephen Mojica NP) PRIMARY CARE PROVIDER: Dr. Drummond of [facility]. PRIMARY TERRAZZO WORKER: Dr. Yost of [facility]. CONSULTING PHYSICIAN: Dr. Gisele Kraft, Gastroenterology. CHIEF COMPLAINT: Abdominal pain, bright red blood in stool. HISTORY OF PRESENT ILLNESS: This is a 27-year-old female who presented to the ER with concern for abdominal pain, frequent stools and bright red blood in stools that has been ongoing for several weeks, but worsening in the past week. Ms. Lynch states that she has been recently diagnosed with Crohn's sometime this past month. She has seen her gunite nozzle operator, Dr. Yost, 2 times ; the first being for endoscopy and colonoscopy and the second to receive her diagnosis and talk about medication. She states this past week she has had increase in her abdominal pain that is diffuse, but worse in the lower abdominal area as well as the rectal area. It has been ongoing for over 3 months, but worsening this week. It is constant and described as cramping. She cannot find any aggravating or alleviating factors. She also reports constant stools, stating that she has bloody mucousy stool, most recently up to 10 to 20 times a day. Prior to this past week, she notes that the stools were becoming more regulated with the medication that she was started on, but then worsened again this past week. The most recent symptoms started on Friday. She has not been able to tolerate food. She is only tolerating small amounts of soft foods and is trying to focus on keeping fluids down. She is managing her symptoms with Zofran. Her Grayson is not helping with her pain. Ms. Lynch does endorse taking her medications as prescribed. She is very agitated and frustrated and often tearful. Regarding her diagnosis, she states that she has not ever received good control of this. She denies any recent fevers and states that she has had subjective chills and hot flashes over the past week. She reports a 53 pound weight loss in this past year with 10 pounds over the last week. Again, she noticed abdominal pain, nausea, and vomiting as well as frequent watery stools with blood and mucus. She endorses rectal pain. She denies hematemesis. She generally feels dry and dehydrated. Here in the ER, the patient notably has a white count of 19,000, microcytic anemia and potassium of 3.1. Her CRP is 5. PAST MEDICAL HISTORY: Includes: 1. Crohn's disease, recently diagnosed in June of 2017. 2. 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 The patient follows with Rheumatology at [place]. 3. History of depression, the patient is currently on citalopram and duloxetine. 4. History of gastritis, the patient is currently taking pantoprazole. PAST SURGICAL HISTORY: Includes: 1. Appendectomy. 2. Ectopic . HOME MEDICATIONS: 1. Duloxetine 60 mg daily. 2. Citalopram 20 mg daily and 10 mg at bedtime. 3. Mesalamine 800 mg t.i.d. 4. Budesonide 3 mg t.i.d. 5. Grayson 5/325 one tab q.6 hours p.r.n. 6. Prednisone 5 mg daily. 7. Pantoprazole 40 mg daily. 8. Ondansetron ODT 4 mg q.6 hours p.r.n. ALLERGIES: No known allergies. FAMILY HISTORY: The patient endorses a history of IBS in her maternal grandmother. SOCIAL HISTORY: The patient is a current smoker. She reports smoking 5 to 6 cigarettes a day, although she is trying to cut back. She reports rare alcohol use stating that she cut back significantly since finding out she had Crohn's; however, her mother states that she had 3 glasses of wine last night. She denies illicit drug use. She is not currently working. She lives with her mother, Karmen Lynch, who is also her healthcare proxy. REVIEW OF SYSTEMS: As per HPI. All those not mentioned are negative. PHYSICAL EXAMINATION GENERAL APPEARANCE: This is a young female patient who is lying in the ED stretcher. She is in moderate discomfort and appears to be in pain. VITAL SIGNS: Temperature 97.3, heart rate 96, respiratory rate 18, blood pressure 122/73, and O2 saturation is 98% on room air. HEENT: Head is atraumatic, normocephalic. Face is symmetrical. Pupils are equal, round, and reactive to light. Extraocular movements are intact. Oral mucosa appears moist. There is no oropharyngeal exudate or erythema. NECK: Supple. Full range of motion present. No lymphadenopathy appreciated. LUNGS: Clear to auscultation. CARDIAC: S1 and S2 heart sounds. Regular rate and rhythm. No murmurs, rubs, or gallops. ABDOMEN: Soft. There is diffuse tenderness across the mid and lower abdomen. Bowel sounds are normoactive and present times all 4 quadrants. EXTREMITIES: No peripheral edema. Distal pulses are 2+ and symmetrical and equal. MUSCULOSKELETAL: The patient has full range of motion in all extremities. NEURO: The patient is alert and oriented x4. Strength is 5/5 in the upper and lower extremities. Cranial nerves II through XII are grossly intact. PSYCH: The patient has appropriate affect. She does have some mild anxiety that is appropriate to situation. She is tearful and visibly frustrated. LABORATORY DATA AND DIAGNOSTIC STUDIES: CBC: WBC 19.9, hemoglobin 13.9, hematocrit 43, platelet count 504. CMP: Sodium 138, potassium 3.1, chloride 103, carbon dioxide 24, BUN 5, creatinine 0.62, glucose 85, lactic acid 1.7, calcium 9.3. Total bilirubin 0.6, AST 9, ALT 11, alk phos 70, CRP 5.22, albumin 4.1. Beta hCG 0.6. Urinalysis shows 3+ blood and 1+ wbc's, no bacteria , nitrites or leukocyte esterase present. ASSESSMENT AND PLAN: This is a 27-year-old female who presents today with abdominal pain, nausea, vomiting, and reported bloody stools that appear to be secondary to her Crohn's disease flare. She will be admitted to the medicine floor. Plan is as follows: 1. Crohn's disease exacerbation with suspected infectious colitis. The patient will be admitted to the medicine floor and continued on hydration and p.r.n. pain medication. We will continue her home mesalamine as well as Zofran and p.r.n. hydromorphone for supportive care. We will hold her home budesonide and prednisone and start her on Solu-Medrol 40 mg b.i.d. per the direction of Dr. Kraft. We appreciate our consulting gunite nozzle operator, Dr. Kraft, who will see the patient tomorrow. We will attempt to obtain records from Dr. Yost and Dr. Drummond of [facility]. Given the patient's reports of increased diarrhea over the past week, I will start her on p.o. Flagyl and try to obtain a C. diff specimen, and we can also check for stool culture and fecal lactoferrin. The patient is requesting a soft diet, so that she can attempt to try a sandwich, which we will order at this time. If patient is unable to tolerate food, we could switch her back to clear liquids. 2. Crohn's arthritis. The patient should continue to follow up with Rheumatology. 3. History of gastritis. Continue home pantoprazole. 4. History of depression. Continue citalopram and duloxetine. 5. Leukocytosis. I suspect this is secondary to the inflammation from Crohn's disease flare and potential infectious etiology. We will continue to follow this and the CBC. The patient is ordered fluids, Solu-Medrol and Flagyl currently. 6. Hypokalemia. We will replace with oral potassium and recheck tomorrow, suspect that we may need to continue repleting this in the presence of significant watery stools. 7. FEN: Again, the patient is ordered soft diet and IV fluids. 8. DVT prophylaxis: The patient scores 1 on the DVT Risk Assessment Scale and is ordered SAMARA hose and should be up ab dale. 9. Code status: She is a full code. TIME SPENT: Time spent on this admission was approximately 60 minutes, more than half of that time was spent [id number] with the patient obtaining history and physical, performing physical examination, reviewing the plan of care. Plan of care was also reviewed with my attending, Dr. Dean, who is in agreement. STEPHEN MOJICA NP ADDENDUM: Ms. Lynch is a 27-year-old female who was diagnosed with Crohn's in the past month. Started on mesalamine and budesonide. Nevertheless, she had presented with exacerbation and multiple bloody stools. She has marked leukocytosis and appears dehydrated. She is going to be admitted to the hospital, started on Solu-Medrol and Gastroenterology consult will be requested. For further details of the patient's presentation and plan, please see history and physical dictated by Stephen Mojica on 08/02/17 with which I agreed. SOO DEAN MD [id number]/CPS #: [id number]/CPS #: [id number] LESA
--- NOTE | 2017-08-03 00:55 | HP ---
ADDENDUM: Ms. Lynch is a 27-year-old female who was diagnosed with Crohn' s in the past month. Started on mesalamine and budesonide. Nevertheless, she had presented with exacerbation and multiple bloody stools. She has marked leukocytosis and appears dehydrated. She is going to be admitted to the hospital, started on Solu-Medrol and Gastroenterology consult will be requested. For further details of the patient's presentation and plan, please see history and physical dictated by Sharri Eason on 08/02/17 with which I agreed. [id number]/[facility] #: [id number] MTDD
[2017-08-03] MEDS: diPHENhydraMINE IV* 50 MG/ML 1 ml VIAL (BENADRYL) SLOW PUSH PRN ×4 (01:57→20:22)
[2017-08-03] MEDS: HYDROmorphone INJ* 2 MG/ML CARPUJECT SYRINGE IV SLOW PU PRN ×9 (01:57→22:53)
[2017-08-03] MEDS: methylPREDNISolone SOD 40 MG* 1 ML VIAL IV SCH ×2 (05:04→18:04)
[2017-08-03 06:32] LABS: Hematocrit 33 % (35-47); Hemoglobin 10.7 g/dl (12.0-16.0); Mean Corpuscular HGB Conc 33 g/dl (31-36); Mean Corpuscular Hemoglobin 26 pg (27-31); Mean Corpuscular Volume 78 fL (80-97); Mean Platelet Volume 7 um3 (7.4-10.4); Red Blood Count 4.17 10^6/ul (4.0-5.4); Red Cell Distribution Width 14 % (10.5-15); White Blood Count 6.8 10^3/ul (3.5-10.8)
[2017-08-03 06:38] LABS: Calcium 8.3 mg/dL (8.6-10.3); EGFR African American 188.9 (>60); EGFR Non-African American 146.9 (>60); Potassium 3.8 mmol/L (3.5-5.0)
[2017-08-03] MEDS: DULoxetine DR CAP* 60 MG CAP.DR PO SCH (08:08)
[2017-08-03] MEDS: CMC: Pantoprazole TAB (NF) 40 MG TAB PO SCH (08:09)
[2017-08-03] MEDS: Citalopram TAB* 20 MG PO SCH (08:09)
[2017-08-03] MEDS: metroNIDAZOLE TAB* 250 MG PO SCH (08:09)
--- NOTE | 2017-08-03 13:28 | PN ---
Subjective Date of Service: 08/03/17 Interval History: Pt's abd pain got worse after eating a bagel for breakfast Pt has had multiple loose BM's, the bleeding with bowels had decreased Objective Active Medications: Acetaminophen (Tylenol Tab*) 650 mg PO Q4H PRN PRN Reason: FEVER/PAIN Citalopram Hydrobromide (Celexa Tab*) 10 mg PO BEDTIME [facility] Last Admin: 08/02/17 19:50 Dose: 10 mg Citalopram Hydrobromide (Celexa Tab*) 20 mg PO DAILY [facility] Last Admin: 08/03/17 08:09 Dose: 20 mg Diphenhydramine HCl (Benadryl Iv*) 25 mg SLOW PUSH Q6H PRN PRN Reason: ITCHING Last Admin: 08/03/17 08:11 Dose: 25 mg Duloxetine HCl (Cymbalta Cap*) 60 mg PO DAILY [facility] Last Admin: 08/03/17 08:08 Dose: Not Given Hydromorphone HCl (Dilaudid Inj*) 1.5 mg IV SLOW PU Q2H PRN PRN Reason: PAIN - BREAKTHROUGH Sodium Chloride (Ns 0.9% 1000 Ml*) 1,000 mls @ 100 mls/hr IV PER RATE [facility] Stop: 08/04/17 04:14 Last Admin: 08/03/17 04:06 Dose: 100 mls/hr Mesalamine (Mesalamine Dr Cap*) 800 mg PO TID [facility] Last Admin: 08/03/17 08:10 Dose: 800 mg Methylprednisolone Sodium Succinate (Solu-Medrol 40 Mg) 40 mg IV Q12H [facility] Last Admin: 08/03/17 05:04 Dose: 40 mg Nicotine (Nicotine Inhaler*) 10 mg INH Q2H PRN PRN Reason: CRAVING Ondansetron HCl (Zofran Inj*) 4 mg IV Q6H PRN PRN Reason: NAUSEA/VOMITING Pantoprazole Sodium (Protonix Tab (Nf)) 40 mg PO DAILY [facility] Last Admin: 08/03/17 08:09 Dose: 40 mg Vital Signs 08/02/17 08/02/17 08/02/17 16:58 17:00 17:30 Temperature Pulse Rate 96 91 Respiratory 18 Rate Blood Pressure 96/68 (mmHg) O2 Sat by Pulse 98 98 Oximetry 08/02/17 08/02/17 08/02/17 17:43 19:49 20:00 Temperature 98.3 F Pulse Rate 93 Respiratory 16 22 22 Rate Blood Pressure 124/66 (mmHg) O2 Sat by Pulse 99 Oximetry 08/02/17 08/02/17 08/02/17 20:01 22:07 22:57 Temperature Pulse Rate Respiratory 22 22 18 Rate Blood Pressure (mmHg) O2 Sat by Pulse Oximetry 08/02/17 08/02/17 08/03/17 22:58 23:27 01:50 Temperature 97.3 F Pulse Rate 82 Respiratory 20 16 20 Rate Blood Pressure 123/72 (mmHg) O2 Sat by Pulse 99 Oximetry 08/03/17 08/03/17 08/03/17 01:51 01:57 03:42 Temperature 97.7 F Pulse Rate 78 Respiratory 20 20 16 Rate Blood Pressure 109/69 (mmHg) O2 Sat by Pulse 99 Oximetry 08/03/17 08/03/17 08/03/17 03:54 05:05 07:23 Temperature 97.5 F Pulse Rate 74 Respiratory 16 18 18 Rate Blood Pressure 115/75 (mmHg) O2 Sat by Pulse 100 Oximetry 08/03/17 08/03/17 08/03/17 08:00 08:11 08:12 Temperature Pulse Rate Respiratory 18 18 18 Rate Blood Pressure (mmHg) O2 Sat by Pulse Oximetry 08/03/17 08/03/17 10:53 12:17 Temperature Pulse Rate Respiratory 18 16 Rate Blood Pressure (mmHg) O2 Sat by Pulse Oximetry Oxygen Devices in Use Now: None Appearance: 27 yo F in nAD, aAOx3 Eyes: No Scleral Icterus, PERRLA Ears/Nose/Mouth/Throat: NL Teeth, Lips, Gums, Mucous Membranes Moist Neck: NL Appearance and Movements; NL JVP, Trachea Midline Respiratory: Symmetrical Chest Expansion and Respiratory Effort, Clear to Auscultation Cardiovascular: NL Sounds; No Murmurs; No JVD, RRR Abdominal: NL Sounds; No Tenderness; No Distention, - - soft, diffuse tenderness , mostly in suprapubic area, no rebound, no guarding BS+ Extremities: No Edema, No Clubbing, Cyanosis Skin: No Rash or Ulcers, No Nodules or Sclerosis Neurological: Alert and Oriented x 3, NL Muscle Strength and Tone Result Diagrams: 08/03/17 05:39 08/03/17 05:39 Additional Lab and Data: Lab Results 08/02/17 08/02/17 08/02/17 Range/Units 11:50 11:50 11:50 WBC 19.9 H (3.5-10.8) 10^3/ul RBC 5.56 H (4.0-5.4) 10^6/ul Hgb 13.9 (12.0-16.0) g/dl Hct 43 (35-47) % MCV 77 L (80-97) fL MCH 25 L (27-31) pg MCHC 33 (31-36) g/dl RDW 15 (10.5-15) % Plt Count 504 H (150-450) 10^3/ul MPV 6 L (7.4-10.4) um3 Neut % (Auto) 80.6 (38-83) % Lymph % (Auto) 12.0 L (25-47) % [place] % (Auto) 6.8 (1-9) % Eos % (Auto) 0.2 (0-6) % Baso % (Auto) 0.4 (0-2) % Absolute Neuts (auto) 16.0 H (1.5-7.7) 10^3/ul Absolute Lymphs (auto) 2.4 (1.0-4.8) 10^3/ul Absolute Monos (auto) 1.4 H (0-0.8) 10^3/ul Absolute Eos (auto) 0 (0-0.6) 10^3/ul Absolute Basos (auto) 0.1 (0-0.2) 10^3/ul Absolute Nucleated RBC 0 10^3/ul Nucleated RBC % 0 Sodium 138 (133-145) mmol/L Potassium 3.1 L (3.5-5.0) mmol/L Chloride 103 (101-111) mmol/L Carbon Dioxide 24 (22-32) mmol/L Anion Gap 11 (2-11) mmol/L BUN 5 L (6-24) mg/dL Creatinine 0.62 (0.51-0.95) mg/dL Est GFR ( Amer) 147.4 (>60) Est GFR (Non-Af Amer) 114.6 (>60) BUN/Creatinine Ratio 8.1 (8-20) Glucose 85 (70-100) mg/dL Lactic Acid 1.7 (0.5-2.0) mmol/L Calcium 9.3 (8.6-10.3) mg/dL Total Bilirubin 0.60 (0.2-1.0) mg/dL AST 9 L (13-39) U/L ALT 11 (7-52) U/L Alkaline Phosphatase 70 (34-104) U/L C-Reactive Protein 5.22 H (< 5.00) mg/L Total Protein 7.1 (6.4-8.9) g/dL Albumin 4.1 (3.2-5.2) g/dL Globulin 3.0 (2-4) g/dL Albumin/Globulin Ratio 1.4 (1-3) Beta HCG, Quant < 0.60 mIU/mL Urine Color Urine Appearance Urine pH (5-9) Ur Specific [place] (1.010-1.030) Urine Protein (Negative) Urine Ketones (Negative) Urine Blood (Negative) Urine Nitrate (Negative) Urine Bilirubin (Negative) Urine Urobilinogen (Negative) Ur Leukocyte Esterase (Negative) Urine WBC (Auto) (Absent) Urine RBC (Auto) (Absent) Ur Squamous Epith Cells (Absent) Urine Bacteria (Absent) Urine Glucose (Negative) 08/02/17 Range/Units 15:19 WBC (3.5-10.8) 10^3/ul RBC (4.0-5.4) 10^6/ul Hgb (12.0-16.0) g/dl Hct (35-47) % MCV (80-97) fL MCH (27-31) pg MCHC (31-36) g/dl RDW (10.5-15) % Plt Count (150-450) 10^3/ul MPV (7.4-10.4) um3 Neut % (Auto) (38-83) % Lymph % (Auto) (25-47) % [place] % (Auto) (1-9) % Eos % (Auto) (0-6) % Baso % (Auto) (0-2) % Absolute Neuts (auto) (1.5-7.7) 10^3/ul Absolute Lymphs (auto) (1.0-4.8) 10^3/ul Absolute Monos (auto) (0-0.8) 10^3/ul Absolute Eos (auto) (0-0.6) 10^3/ul Absolute Basos (auto) (0-0.2) 10^3/ul Absolute Nucleated RBC 10^3/ul Nucleated RBC % Sodium (133-145) mmol/L Potassium (3.5-5.0) mmol/L Chloride (101-111) mmol/L Carbon Dioxide (22-32) mmol/L Anion Gap (2-11) mmol/L BUN (6-24) mg/dL Creatinine (0.51-0.95) mg/dL Est GFR ( Amer) (>60) Est GFR (Non-Af Amer) (>60) BUN/Creatinine Ratio (8-20) Glucose (70-100) mg/dL Lactic Acid (0.5-2.0) mmol/L Calcium (8.6-10.3) mg/dL Total Bilirubin (0.2-1.0) mg/dL AST (13-39) U/L ALT (7-52) U/L Alkaline Phosphatase (34-104) U/L C-Reactive Protein (< 5.00) mg/L Total Protein (6.4-8.9) g/dL Albumin (3.2-5.2) g/dL Globulin (2-4) g/dL Albumin/Globulin Ratio (1-3) Beta HCG, Quant mIU/mL Urine Color [place] Urine Appearance Cloudy Urine pH 5.0 (5-9) Ur Specific [place] 1.024 (1.010-1.030) Urine Protein 2+(100 mg/dl) H (Negative) Urine Ketones Trace H (Negative) Urine Blood 3+ H (Negative) Urine Nitrate Negative (Negative) Urine Bilirubin Negative (Negative) Urine Urobilinogen Negative (Negative) Ur Leukocyte Esterase Negative (Negative) Urine WBC (Auto) 1+(6-10/hpf) H (Absent) Urine RBC (Auto) Trace(0-2/hpf) (Absent) Ur Squamous Epith Cells Present H (Absent) Urine Bacteria Absent (Absent) Urine Glucose Negative (Negative) Microbiology and Other Data: Microbiology 08/03/17 01:15 Stool Gross Appearance - Final Stool C. difficile DNA Amplification - Final 027 Presumptive NEGATIVE Toxigenic C.diff NEGATIVE 08/03/17 01:15 Stool Gross Appearance - Final Stool Stool Lactoferrin - Final 08/03/17 01:15 Stool Gross Appearance - Final Stool Assess/Plan/Problems-Billing Assessment: 27 yo F with recent Crohn's dx with exacerbation of abd pain and bloody diarrhea - Patient Problems (1) Crohn disease Comment: with exacerbation Appreciate Dr. Kraft's consult continue IV steroids, stop flagyl. Cont mesalamine Pt still in significant pain-will increase frequency of Dilaudid Switch diet to clears-pt c/o more abd pain when eating, but continues to attempt to eat regular diet. (2) Depression Comment: cont home meds (3) DVT prophylaxis Comment: ambulation encouraged Status and Disposition: inpatient.
[2017-08-03] MEDS: Citalopram TAB* 10 MG PO SCH (20:23)
--- NOTE | 2017-08-03 20:45 | CONS ---
GASTROENTEROLOGY CONSULTATION: DATE OF ADMISSION: 08/02/17 DATE OF CONSULT: 08/03/17 HOSPITAL PROVIDER: Soo Dean MD PRIMARY CARE PHYSICIAN: Dr. Drummond of [facility]. PRIMARY SALES PERFORMANCE MANAGER: Dr. Yost of [facility]. REASON FOR CONSULT: Crohn's disease. HISTORY OF PRESENT ILLNESS: Frances is a 27-year-old female with a history of depression and the recent diagnosis of Crohn's disease of her large and small intestines, who presented to [facility] with complaints of severe abdominal pain, frequent watery bowel movements with bright red blood per rectum that has been worsening over the last week. She states she was diagnosed with Crohn's approximately a month ago by her accounts receivable clerk, Dr. Yost at the [facility]. She had an endoscopy and colonoscopy, which revealed severe gastritis and Crohn's disease of her small intestine and her large intestine. She was subsequently started on mesalamine therapy, budesonide therapy and was given narcotic medication for pain at that time. Since then, she initially felt better for approximately a week and then her symptoms began to return and have been worsening over time. She admits to right lower quadrant pain, epigastric pain, and left upper quadrant pain. She denies any nausea, vomiting. However, she has had a poor appetite and has lost 11 pounds over the last week. She states eating will worsen her diarrhea and increase her abdominal pain. She was started on pantoprazole 40 mg daily for her gastritis, which seems to have helped somewhat with her epigastric pain. She denies any fevers or chills. She denies odynophagia and dysphagia. Currently, she reports to 20 bowel movements occurring in a day that are described as loose and watery with occasional bright red blood per rectum. She is also taking Zofran as an outpatient to manage her symptoms and states her [place] is not alleviating any of her pain. She also admits to arthritic discomfort in her lower extremities. She has seen a perinatal breastfeeding assistant who has diagnosed her with arthritis due to her Crohn's. She also admits to some mild tenesmus that started overnight with her frequent bowel movements. She denies hematemesis. She denies a family history of inflammatory bowel disease. In the emergency room, she was noted to have a white count of 19. Her potassium was slightly low at 3.1 and her CRP was 5 on admission. Of note, she did have a CAT scan on her previous ER visit on 07/10/17 revealing inflammatory changes in the terminal ileum that were consistent with likely Crohn's disease. She has not had further imaging since then except for her subsequent endoscopy and colonoscopy. Her liver tests were normal on admission and has microcytic anemia. PAST MEDICAL HISTORY: 1. 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 2. Depression. 3. Gastritis. PAST SURGICAL HISTORY: 1. Appendectomy. 2. Ectopic . HOME MEDICATIONS: 1. Duloxetine. 2. Citalopram. 3. Mesalamine. 4. Budesonide. 5. [place]. 6. Pantoprazole. 7. Zofran. HOSPITAL MEDICATIONS: 1. Acetaminophen as needed. 2. Citalopram. 3. Benadryl. 4. Duloxetine. 5. Hydromorphone. 6. Mesalamine. 7. Methylprednisone. 8. Nicotine. 9. Zofran. 10. Pantoprazole. ALLERGIES: No known drug allergies. FAMILY HISTORY: Denies history of inflammatory bowel disease, but does admit to irritable bowel syndrome with her maternal grandmother. SOCIAL HISTORY: She is currently a smoker. She smokes about 5 to 6 cigarettes a day. She denies alcohol use, however, her mother did state that she does have frequent glasses of wine daily. Denies any recreational drug use. She currently does not have a job. She does live with her mother. REVIEW OF SYSTEMS: On a 14-point scale has been reviewed. All pertinent positives and negatives have been noted above in HPI. PHYSICAL EXAM: Vital Signs: Temperature 97.5, pulse 74, respirations 18, oxygenation is 100% on room air, blood pressure is 115/75. Generally, the patient is alert and oriented x3. Well nourished. HEENT: Anicteric sclerae bilaterally. Moist mucous membranes. Cardiovascular Exam: Regular rate and rhythm. Pulmonary Exam: Clear to auscultation bilaterally. Abdominal Exam: Positive bowel sounds in all 4 quadrants. Mild tenderness to palpation in the right lower quadrant. No rebound, guarding, or rigidity. Extremities: No clubbing, cyanosis, or edema; warm. Multiple tattoos. Neurological Exam: No gross focal deficits. LABORATORY DATA: WBC 6.8, hemoglobin 10.7, hematocrit 33, MCV 78, platelets 376. Sodium 135, potassium 3.8, chloride 108, CO2 of 25, anion gap 2, BUN 6, creatinine 0.50. Calcium 8.3. Iron 48, TIBC 441, percent sat 11, ferritin 20.0 , total bilirubin 0.6, AST 9, ALT 11, alkaline phosphatase 70, CRP 5.22, total protein 7.1, albumin 4.1, beta hCG is less than 0.60. Stool calprotectin 412. ASSESSMENT AND PLAN: Frances is a 27-year-old female with the recent diagnosis of Crohn's disease of her large and small intestines, approximately a month ago at [place]. She was initially started on budesonide, mesalamine and [place]. Her symptoms subsequently worsened over the last few weeks, which prompted her to present to [facility]. She has been having multiple loose watery bowel movements streaked with blood with abdominal pain. She admits to weight loss of 11 pounds over the last week and has had a poor appetite. She had an elevated CRP of 5 in the ER. She was admitted to the hospital for further evaluation and treatment. 1. Newly diagnosed Crohn's disease of the large and small intestines in June of 2017. We will switch the patient from budesonide to IV steroids, Solu-Medrol 40 mg twice daily for now. The patient's fecal lactoferrin was elevated on admission, which indicates likely Crohn's flare. Her C. diff was negative, therefore, Flagyl was discontinued. Enteric pathogen workup is in progress. She does not appear to be obstructed at this time. IV steroids will treat patient's arthritic symptoms as well. Given the degree of flare and exacerbation of her Crohn's and lack of response to mesalamine and budesonide, there is a possibility that the patient may need immunomodulator or biologic therapy in the future, however, for now we will treat the patient with IV steroids and see how she responds to a longer taper as an outpatient. Recommend a lactose-free and low-residue diet during her flare. Recommend minimizing narcotic use as the patient can develop narcotic bowel and dependence in the future. She will need a bone mineral density exam in the future as an outpatient for her baseline testing. 2. Leukocytosis. The patient's white blood cells count is normal now. We will continued to monitor. Again, the patient's stool for C. diff was negative. Enteric pathogens results are still pending. 3. Depression. Continue the patient's current medical regimen. 4. Iron deficiency anemia. Anemia is likely secondary to the patient's Crohn' s disease. Recent EGD and Colonoscopy was preformed with her diagnosis of Crohn 's disease. May also be due to superimposed menses. Will continue to monitor hemoglobin. 5. Gastritis. The patient is currently on her home dose of pantoprazole 40 mg daily. 6. Hypokalemia. We will continue to check electrolytes. Her potassium is back to a normal level. 7. Tobacco abuse. Thank you, Dr. Dean, for allowing us to participate in the care of your patient. If you should have any further questions or concerns, please do not hesitate to contact us. [id number]/CPS #: [id number] [place]
[2017-08-04] MEDS: HYDROmorphone INJ* 2 MG/ML CARPUJECT SYRINGE IV SLOW PU PRN ×9 (00:57→22:42)
[2017-08-04] MEDS: diPHENhydraMINE IV* 50 MG/ML 1 ml VIAL (BENADRYL) SLOW PUSH PRN ×4 (03:11→22:41)
[2017-08-04] MEDS: methylPREDNISolone SOD 40 MG* 1 ML VIAL IV SCH ×2 (05:20→18:04)
[2017-08-04 06:49] LABS: Hematocrit 33 % (35-47); Hemoglobin 10.7 g/dl (12.0-16.0); Mean Corpuscular HGB Conc 32 g/dl (31-36); Mean Corpuscular Hemoglobin 26 pg (27-31); Mean Corpuscular Volume 80 fL (80-97); Mean Platelet Volume 7 um3 (7.4-10.4); Red Blood Count 4.18 10^6/ul (4.0-5.4); Red Cell Distribution Width 15 % (10.5-15); White Blood Count 11.5 10^3/ul (3.5-10.8)
[2017-08-04 06:57] LABS: C Reactive Protein 8.5 mg/L (< 5.00); Calcium 8.6 mg/dL (8.6-10.3); EGFR African American 180.6 (>60); EGFR Non-African American 140.4 (>60); Potassium 3.7 mmol/L (3.5-5.0)
[2017-08-04] MEDS: Citalopram TAB* 20 MG PO SCH (07:25)
[2017-08-04] MEDS: CMC: Pantoprazole TAB (NF) 40 MG TAB PO SCH (07:25)
[2017-08-04] MEDS: DULoxetine DR CAP* 60 MG CAP.DR PO SCH ×2 (07:25→07:28)
[2017-08-04 08:42] LABS: BUN/Creatinine Ratio 7.7 (8-20)
--- NOTE | 2017-08-04 08:53 | PN ---
Subjective Date of Service: 08/04/17 Interval History: Pt c/o continuation of abd pain at 07/01 (pt is stating that when lying comfortably in bed, watching TV without any signs of discomfort).When told that her Dilaudid dose is going to be decreased in frequency from 2 to 3 hrs starts crying. Bowels still move "every second". Objective Active Medications: Acetaminophen (Tylenol Tab*) 650 mg PO Q4H PRN PRN Reason: FEVER/PAIN Citalopram Hydrobromide (Celexa Tab*) 10 mg PO BEDTIME [facility] Last Admin: 08/03/17 20:23 Dose: 10 mg Citalopram Hydrobromide (Celexa Tab*) 20 mg PO DAILY [facility] Last Admin: 08/04/17 07:25 Dose: 20 mg Diphenhydramine HCl (Benadryl Iv*) 25 mg SLOW PUSH Q6H PRN PRN Reason: ITCHING Last Admin: 08/04/17 03:11 Dose: 25 mg Duloxetine HCl (Cymbalta Cap*) 60 mg PO DAILY [facility] Last Admin: 08/04/17 07:28 Dose: Not Given Hydromorphone HCl (Dilaudid Inj*) 1.5 mg IV SLOW PU Q2H PRN PRN Reason: PAIN - BREAKTHROUGH Last Admin: 08/04/17 07:24 Dose: 1.5 mg Mesalamine (Mesalamine Dr Cap*) 800 mg PO TID [facility] Last Admin: 08/04/17 07:25 Dose: 800 mg Methylprednisolone Sodium Succinate (Solu-Medrol 40 Mg) 40 mg IV Q12H [facility] Last Admin: 08/04/17 05:20 Dose: 40 mg Nicotine (Nicotine Inhaler*) 10 mg INH Q2H PRN PRN Reason: CRAVING Ondansetron HCl (Zofran Inj*) 4 mg IV Q6H PRN PRN Reason: NAUSEA/VOMITING Last Admin: 08/03/17 13:55 Dose: 4 mg Pantoprazole Sodium (Protonix Tab (Nf)) 40 mg PO DAILY [facility] Last Admin: 08/04/17 07:25 Dose: 40 mg Vital Signs 08/03/17 08/03/17 08/03/17 10:53 11:19 12:17 Temperature 98.1 F Pulse Rate 63 Respiratory 18 16 16 Rate Blood Pressure 107/65 (mmHg) O2 Sat by Pulse 97 Oximetry 08/03/17 08/03/17 08/03/17 13:55 14:17 14:59 Temperature Pulse Rate Respiratory 20 18 16 Rate Blood Pressure (mmHg) O2 Sat by Pulse Oximetry 08/03/17 08/03/17 08/03/17 15:21 16:21 18:04 Temperature 97.4 F Pulse Rate 68 Respiratory 18 16 18 Rate Blood Pressure 134/82 (mmHg) O2 Sat by Pulse 100 Oximetry 08/03/17 08/03/17 08/03/17 19:15 19:31 20:00 Temperature 97.6 F Pulse Rate 68 Respiratory 18 18 16 Rate Blood Pressure 128/84 (mmHg) O2 Sat by Pulse 100 Oximetry 08/03/17 08/03/17 08/03/17 20:22 22:53 22:58 Temperature Pulse Rate Respiratory 18 16 16 Rate Blood Pressure (mmHg) O2 Sat by Pulse Oximetry 08/03/17 08/03/17 08/04/17 23:26 23:54 00:57 Temperature 98.0 F Pulse Rate 63 Respiratory 16 16 16 Rate Blood Pressure 112/62 (mmHg) O2 Sat by Pulse 100 Oximetry 08/04/17 08/04/17 08/04/17 03:11 03:12 03:18 Temperature 97.7 F Pulse Rate 71 Respiratory 16 16 16 Rate Blood Pressure 124/74 (mmHg) O2 Sat by Pulse 100 Oximetry 08/04/17 08/04/17 08/04/17 05:20 05:26 07:11 Temperature Pulse Rate Respiratory 16 16 18 Rate Blood Pressure (mmHg) O2 Sat by Pulse Oximetry 08/04/17 08/04/17 08/04/17 07:19 07:24 07:33 Temperature 97.3 F Pulse Rate 63 Respiratory 16 18 18 Rate Blood Pressure 144/80 (mmHg) O2 Sat by Pulse 100 Oximetry Oxygen Devices in Use Now: None Appearance: 27 yo F in nAD, AAOx3 Eyes: No Scleral Icterus, PERRLA Ears/Nose/Mouth/Throat: NL Teeth, Lips, Gums, Mucous Membranes Moist Neck: NL Appearance and Movements; NL JVP, Trachea Midline Respiratory: Symmetrical Chest Expansion and Respiratory Effort, Clear to Auscultation Cardiovascular: NL Sounds; No Murmurs; No JVD, RRR Abdominal: - - soft, diffuse tenderness noted on deep palpation, no rebound, no guarding, BS+. Pt is able to sit up from a lying to sitting position without worsening abd discomfort noted during eval Lymphatic: No Cervical Adenopathy Extremities: No Edema, No Clubbing, Cyanosis Skin: No Rash or Ulcers, No Nodules or Sclerosis Neurological: Alert and Oriented x 3, NL Muscle Strength and Tone Result Diagrams: 08/04/17 05:58 08/04/17 05:58 Additional Lab and Data: Lab Results 08/02/17 08/02/17 08/02/17 Range/Units 11:50 11:50 11:50 WBC 19.9 H (3.5-10.8) 10^3/ul RBC 5.56 H (4.0-5.4) 10^6/ul Hgb 13.9 (12.0-16.0) g/dl Hct 43 (35-47) % MCV 77 L (80-97) fL MCH 25 L (27-31) pg MCHC 33 (31-36) g/dl RDW 15 (10.5-15) % Plt Count 504 H (150-450) 10^3/ul MPV 6 L (7.4-10.4) um3 Neut % (Auto) 80.6 (38-83) % Lymph % (Auto) 12.0 L (25-47) % [place] % (Auto) 6.8 (1-9) % Eos % (Auto) 0.2 (0-6) % Baso % (Auto) 0.4 (0-2) % Absolute Neuts (auto) 16.0 H (1.5-7.7) 10^3/ul Absolute Lymphs (auto) 2.4 (1.0-4.8) 10^3/ul Absolute Monos (auto) 1.4 H (0-0.8) 10^3/ul Absolute Eos (auto) 0 (0-0.6) 10^3/ul Absolute Basos (auto) 0.1 (0-0.2) 10^3/ul Absolute Nucleated RBC 0 10^3/ul Nucleated RBC % 0 Sodium 138 (133-145) mmol/L Potassium 3.1 L (3.5-5.0) mmol/L Chloride 103 (101-111) mmol/L Carbon Dioxide 24 (22-32) mmol/L Anion Gap 11 (2-11) mmol/L BUN 5 L (6-24) mg/dL Creatinine 0.62 (0.51-0.95) mg/dL Est GFR ( Amer) 147.4 (>60) Est GFR (Non-Af Amer) 114.6 (>60) BUN/Creatinine Ratio 8.1 (8-20) Glucose 85 (70-100) mg/dL Lactic Acid 1.7 (0.5-2.0) mmol/L Calcium 9.3 (8.6-10.3) mg/dL Total Bilirubin 0.60 (0.2-1.0) mg/dL AST 9 L (13-39) U/L ALT 11 (7-52) U/L Alkaline Phosphatase 70 (34-104) U/L C-Reactive Protein 5.22 H (< 5.00) mg/L Total Protein 7.1 (6.4-8.9) g/dL Albumin 4.1 (3.2-5.2) g/dL Globulin 3.0 (2-4) g/dL Albumin/Globulin Ratio 1.4 (1-3) Beta HCG, Quant < 0.60 mIU/mL Urine Color Urine Appearance Urine pH (5-9) Ur Specific [place] (1.010-1.030) Urine Protein (Negative) Urine Ketones (Negative) Urine Blood (Negative) Urine Nitrate (Negative) Urine Bilirubin (Negative) Urine Urobilinogen (Negative) Ur Leukocyte Esterase (Negative) Urine WBC (Auto) (Absent) Urine RBC (Auto) (Absent) Ur Squamous Epith Cells (Absent) Urine Bacteria (Absent) Urine Glucose (Negative) 08/02/17 Range/Units 15:19 WBC (3.5-10.8) 10^3/ul RBC (4.0-5.4) 10^6/ul Hgb (12.0-16.0) g/dl Hct (35-47) % MCV (80-97) fL MCH (27-31) pg MCHC (31-36) g/dl RDW (10.5-15) % Plt Count (150-450) 10^3/ul MPV (7.4-10.4) um3 Neut % (Auto) (38-83) % Lymph % (Auto) (25-47) % [place] % (Auto) (1-9) % Eos % (Auto) (0-6) % Baso % (Auto) (0-2) % Absolute Neuts (auto) (1.5-7.7) 10^3/ul Absolute Lymphs (auto) (1.0-4.8) 10^3/ul Absolute Monos (auto) (0-0.8) 10^3/ul Absolute Eos (auto) (0-0.6) 10^3/ul Absolute Basos (auto) (0-0.2) 10^3/ul Absolute Nucleated RBC 10^3/ul Nucleated RBC % Sodium (133-145) mmol/L Potassium (3.5-5.0) mmol/L Chloride (101-111) mmol/L Carbon Dioxide (22-32) mmol/L Anion Gap (2-11) mmol/L BUN (6-24) mg/dL Creatinine (0.51-0.95) mg/dL Est GFR ( Amer) (>60) Est GFR (Non-Af Amer) (>60) BUN/Creatinine Ratio (8-20) Glucose (70-100) mg/dL Lactic Acid (0.5-2.0) mmol/L Calcium (8.6-10.3) mg/dL Total Bilirubin (0.2-1.0) mg/dL AST (13-39) U/L ALT (7-52) U/L Alkaline Phosphatase (34-104) U/L C-Reactive Protein (< 5.00) mg/L Total Protein (6.4-8.9) g/dL Albumin (3.2-5.2) g/dL Globulin (2-4) g/dL Albumin/Globulin Ratio (1-3) Beta HCG, Quant mIU/mL Urine Color [place] Urine Appearance Cloudy Urine pH 5.0 (5-9) Ur Specific [place] 1.024 (1.010-1.030) Urine Protein 2+(100 mg/dl) H (Negative) Urine Ketones Trace H (Negative) Urine Blood 3+ H (Negative) Urine Nitrate Negative (Negative) Urine Bilirubin Negative (Negative) Urine Urobilinogen Negative (Negative) Ur Leukocyte Esterase Negative (Negative) Urine WBC (Auto) 1+(6-10/hpf) H (Absent) Urine RBC (Auto) Trace(0-2/hpf) (Absent) Ur Squamous Epith Cells Present H (Absent) Urine Bacteria Absent (Absent) Urine Glucose Negative (Negative) Microbiology and Other Data: Microbiology 08/03/17 01:15 Stool Gross Appearance - Final Stool C. difficile DNA Amplification - Final 027 Presumptive NEGATIVE Toxigenic C.diff NEGATIVE 08/03/17 01:15 Stool Gross Appearance - Final Stool Stool Lactoferrin - Final 08/03/17 01:15 Stool Gross Appearance - Final Stool Assess/Plan/Problems-Billing Assessment: 27 yo F with recent Crohn's dx with exacerbation of abd pain and bloody diarrhea - Patient Problems (1) Crohn disease Comment: with exacerbation Appreciate Dr. Kraft's consult continue IV steroids. Cont mesalamine Pt still c/o significant pain that is out of proportion to the exam.-will decrease frequency of Dilaudid to Q3H and start Percocet Switch diet from clears to full liquid (2) Depression Comment: cont home meds (3) DVT prophylaxis Comment: ambulation encouraged Status and Disposition: inpatient.
[2017-08-04] MEDS ORDERED: Dicyclomine CAP* 10 MG PO PRN ×3 (09:03→14:56)
--- NOTE | 2017-08-04 18:31 | PN ---
Progress Note - Progress Note Date of Service: 08/04/17 - Gastroenterology Note: Patient seen and examined this morning. Had an episode of emesis last night with her bagel and increased abdominal pain. Diet was changed over to clear liquids. Had 20 bowel loose watery bowel movements since admission but decreasing in frequency today. Blood in stool has resolved. No fevers/chills. Requesting IV pain meds every 2 hours due to pain. No melena. +appetite and wants food to be advanced. Vital Signs: Temp Pulse Resp BP Pulse Ox 97.3 F 51 16 123/80 100 08/04/17 15:05 08/04/17 15:05 08/04/17 17:36 08/04/17 15:05 08/04/17 15:05 Physical Examination: GENERAL: AAOx3, NAD. HEENT: MMM. CV: RRR. PULM: CTAB. ABDOMEN: soft, nt/nd. +BS x 4 quadrants. EXTREMITIES: no edema. Laboratory Results - last 24 hr 08/04/17 08/04/17 05:58 05:58 WBC 11.5 H RBC 4.18 Hgb 10.7 L Hct 33 L MCV 80 MCH 26 L MCHC 32 RDW 15 Plt Count 385 MPV 7 L Neut % (Auto) 71.7 Lymph % (Auto) 18.1 L [place] % (Auto) 10.0 H Eos % (Auto) 0.1 Baso % (Auto) 0.1 Absolute Neuts (auto) 8.3 H Absolute Lymphs (auto) 2.1 Absolute Monos (auto) 1.2 H Absolute Eos (auto) 0 Absolute Basos (auto) 0 Absolute Nucleated RBC 0 Nucleated RBC % 0 Sodium 136 Potassium 3.7 Chloride 106 Carbon Dioxide 26 Anion Gap 4 BUN 4 L Creatinine 0.52 Est GFR ( Amer) 180.6 Est GFR (Non-Af Amer) 140.4 BUN/Creatinine Ratio 7.7 L Glucose 138 H Calcium 8.6 Magnesium 2.0 C-Reactive Protein 8.50 H A/P: 27 yo female with newly diagnosed Crohn's disease of small intestines and colon admitted for a Crohn's flare. Currently on IV steroids with clear liquid diet. Diarrhea is slowly improving in frequency and no longer bloody. C/o abdominal pain and need for pain medication. 1. Crohn's exacerbation (involving the small intestines and colon) ~Budesonide switched to IV steroids. Solumderol 40 mg IV BID. Will need a long prednisone taper as an outpatient. ~Recommend Pentasa as an outpatient as this targets the small intestines the best out of other mesalamines. ~C.diff and enteric pathogens negative. ~IVFs. ~Advanced diet to full liquids today. ~May advance to lactose-free and low residue diet tomorrow if no overnight issues. ~Will start bentyl 10mg q6 hours prn as this may help with underlying IBS. ~Recommend decreasing pain meds as this can cause narcotic bowel and dependence in the future. 2. Leukocytosis ~Likely due to steroids. ~Continue to monitor. 3. Microcytic Anemia ~Likely from Crohns disease and menses. ~Blood mixed with stool has resolved. 4. Depression ~On home medications. D/w Dr. Dean. Thank you for allowing us to participate in the care of this patient. Please do not hesitate to call us with any further questions or concerns. Gisele Kraft D.O.
[2017-08-04] MEDS: oxyCODONE/Acetamin 5/325 MG* TAB PO PRN ×2 (19:38→23:43)
[2017-08-04] MEDS: Citalopram TAB* 10 MG PO SCH (21:33)
[2017-08-05] MEDS: HYDROmorphone INJ* 2 MG/ML CARPUJECT SYRINGE IV SLOW PU PRN ×7 (01:47→21:25)
[2017-08-05] MEDS: diPHENhydraMINE IV* 50 MG/ML 1 ml VIAL (BENADRYL) SLOW PUSH PRN ×3 (04:58→18:16)
[2017-08-05] MEDS: methylPREDNISolone SOD 40 MG* 1 ML VIAL IV SCH ×2 (04:59→17:16)
[2017-08-05 06:54] LABS: Hematocrit 34 % (35-47); Hemoglobin 10.8 g/dl (12.0-16.0); Mean Corpuscular HGB Conc 32 g/dl (31-36); Mean Corpuscular Hemoglobin 25 pg (27-31); Mean Corpuscular Volume 79 fL (80-97); Mean Platelet Volume 7 um3 (7.4-10.4); Red Blood Count 4.25 10^6/ul (4.0-5.4); Red Cell Distribution Width 15 % (10.5-15); White Blood Count 11.4 10^3/ul (3.5-10.8)
[2017-08-05] MEDS: oxyCODONE/Acetamin 5/325 MG* TAB PO PRN ×4 (07:11→21:27)
[2017-08-05] MEDS: Citalopram TAB* 20 MG PO SCH (08:30)
[2017-08-05] MEDS: CMC: Pantoprazole TAB (NF) 40 MG TAB PO SCH (08:30)
[2017-08-05] MEDS: DULoxetine DR CAP* 60 MG CAP.DR PO SCH (08:31)
--- NOTE | 2017-08-05 11:25 | PN ---
Subjective Date of Service: 08/05/17 Interval History: Pt feels better, although still having profuse diarrhea, the pain is improving. bleeding is resolving Objective Active Medications: Acetaminophen (Tylenol Tab*) 650 mg PO Q4H PRN PRN Reason: FEVER/PAIN Citalopram Hydrobromide (Celexa Tab*) 10 mg PO BEDTIME [facility] Last Admin: 08/04/17 21:33 Dose: 10 mg Citalopram Hydrobromide (Celexa Tab*) 20 mg PO DAILY [facility] Last Admin: 08/05/17 08:30 Dose: 20 mg Dicyclomine HCl (Bentyl Cap*) 10 mg PO Q6H PRN PRN Reason: .ABDOMINAL PAIN Dicyclomine HCl (Bentyl Cap*) 20 mg PO Q6H PRN PRN Reason: .ABDOMINAL PAIN Diphenhydramine HCl (Benadryl Iv*) 25 mg SLOW PUSH Q6H PRN PRN Reason: ITCHING Last Admin: 08/05/17 04:58 Dose: 25 mg Duloxetine HCl (Cymbalta Cap*) 60 mg PO DAILY [facility] Last Admin: 08/05/17 08:31 Dose: Not Given Hydromorphone HCl (Dilaudid Inj*) 1.5 mg IV SLOW PU Q3H PRN PRN Reason: PAIN - BREAKTHROUGH Last Admin: 08/05/17 08:22 Dose: 1.5 mg Mesalamine (Mesalamine Dr Cap*) 800 mg PO TID [facility] Last Admin: 08/05/17 08:30 Dose: 800 mg Methylprednisolone Sodium Succinate (Solu-Medrol 40 Mg) 40 mg IV Q12H [facility] Last Admin: 08/05/17 04:59 Dose: 40 mg Nicotine (Nicotine Inhaler*) 10 mg INH Q2H PRN PRN Reason: CRAVING Ondansetron HCl (Zofran Inj*) 4 mg IV Q6H PRN PRN Reason: NAUSEA/VOMITING Last Admin: 08/03/17 13:55 Dose: 4 mg Oxycodone/Acetaminophen (Percocet 5/325 Tab*) 1 tab PO Q4H PRN PRN Reason: PAIN Last Admin: 08/05/17 07:11 Dose: 1 tab Pantoprazole Sodium (Protonix Tab (Nf)) 40 mg PO DAILY [facility] Last Admin: 11/14/17 08:30 Dose: 40 mg Vital Signs 08/04/17 08/04/17 08/04/17 11:27 13:26 14:11 Temperature 97.6 F Pulse Rate 69 Respiratory 16 18 16 Rate Blood Pressure 134/76 (mmHg) O2 Sat by Pulse 100 Oximetry 08/04/17 08/04/17 08/04/17 15:05 16:29 17:36 Temperature 97.3 F Pulse Rate 51 Respiratory 16 18 16 Rate Blood Pressure 123/80 (mmHg) O2 Sat by Pulse 100 Oximetry 08/04/17 08/04/17 08/04/17 19:31 19:38 20:00 Temperature Pulse Rate Respiratory 16 16 16 Rate Blood Pressure (mmHg) O2 Sat by Pulse Oximetry 08/04/17 08/04/17 08/04/17 20:27 20:46 22:09 Temperature 97.7 F Pulse Rate 69 Respiratory 18 16 16 Rate Blood Pressure 127/81 (mmHg) O2 Sat by Pulse 100 Oximetry 08/04/17 08/04/17 08/04/17 22:41 22:42 23:01 Temperature 98.0 F Pulse Rate 60 Respiratory 16 16 16 Rate Blood Pressure 143/95 (mmHg) O2 Sat by Pulse 100 Oximetry 08/04/17 08/04/17 08/05/17 23:43 23:45 00:13 Temperature Pulse Rate Respiratory 16 14 14 Rate Blood Pressure (mmHg) O2 Sat by Pulse Oximetry 08/05/17 08/05/17 08/05/17 01:47 03:10 03:31 Temperature 97.8 F Pulse Rate 68 Respiratory 14 14 16 Rate Blood Pressure 121/83 (mmHg) O2 Sat by Pulse 100 Oximetry 08/05/17 08/05/17 08/05/17 04:58 06:03 07:11 Temperature Pulse Rate Respiratory 16 14 18 Rate Blood Pressure (mmHg) O2 Sat by Pulse Oximetry 08/05/17 08/05/17 08/05/17 07:14 07:35 08:22 Temperature 98.0 F Pulse Rate 127 88 Respiratory 16 18 16 Rate Blood Pressure 152/94 138/74 (mmHg) O2 Sat by Pulse 100 Oximetry 08/05/17 08/05/17 08/05/17 09:19 09:22 09:53 Temperature Pulse Rate Respiratory 16 16 16 Rate Blood Pressure (mmHg) O2 Sat by Pulse Oximetry Oxygen Devices in Use Now: None Appearance: 27 yo F in nAD, AAOx3 Eyes: No Scleral Icterus, PERRLA Ears/Nose/Mouth/Throat: NL Teeth, Lips, Gums, Mucous Membranes Moist Neck: NL Appearance and Movements; NL JVP, Trachea Midline Respiratory: Symmetrical Chest Expansion and Respiratory Effort, Clear to Auscultation Cardiovascular: NL Sounds; No Murmurs; No JVD, RRR Abdominal: - - mild diffuse tenderness, no rebound, no guarding, BS+ Lymphatic: No Cervical Adenopathy Extremities: No Edema, No Clubbing, Cyanosis Skin: No Rash or Ulcers, No Nodules or Sclerosis Neurological: Alert and Oriented x 3, NL Muscle Strength and Tone Result Diagrams: 08/05/17 06:07 08/04/17 05:58 Additional Lab and Data: Lab Results 08/02/17 08/02/17 08/02/17 Range/Units 11:50 11:50 11:50 WBC 19.9 H (3.5-10.8) 10^3/ul RBC 5.56 H (4.0-5.4) 10^6/ul Hgb 13.9 (12.0-16.0) g/dl Hct 43 (35-47) % MCV 77 L (80-97) fL MCH 25 L (27-31) pg MCHC 33 (31-36) g/dl RDW 15 (10.5-15) % Plt Count 504 H (150-450) 10^3/ul MPV 6 L (7.4-10.4) um3 Neut % (Auto) 80.6 (38-83) % Lymph % (Auto) 12.0 L (25-47) % [place] % (Auto) 6.8 (1-9) % Eos % (Auto) 0.2 (0-6) % Baso % (Auto) 0.4 (0-2) % Absolute Neuts (auto) 16.0 H (1.5-7.7) 10^3/ul Absolute Lymphs (auto) 2.4 (1.0-4.8) 10^3/ul Absolute Monos (auto) 1.4 H (0-0.8) 10^3/ul Absolute Eos (auto) 0 (0-0.6) 10^3/ul Absolute Basos (auto) 0.1 (0-0.2) 10^3/ul Absolute Nucleated RBC 0 10^3/ul Nucleated RBC % 0 Sodium 138 (133-145) mmol/L Potassium 3.1 L (3.5-5.0) mmol/L Chloride 103 (101-111) mmol/L Carbon Dioxide 24 (22-32) mmol/L Anion Gap 11 (2-11) mmol/L BUN 5 L (6-24) mg/dL Creatinine 0.62 (0.51-0.95) mg/dL Est GFR ( Amer) 147.4 (>60) Est GFR (Non-Af Amer) 114.6 (>60) BUN/Creatinine Ratio 8.1 (8-20) Glucose 85 (70-100) mg/dL Lactic Acid 1.7 (0.5-2.0) mmol/L Calcium 9.3 (8.6-10.3) mg/dL Total Bilirubin 0.60 (0.2-1.0) mg/dL AST 9 L (13-39) U/L ALT 11 (7-52) U/L Alkaline Phosphatase 70 (34-104) U/L C-Reactive Protein 5.22 H (< 5.00) mg/L Total Protein 7.1 (6.4-8.9) g/dL Albumin 4.1 (3.2-5.2) g/dL Globulin 3.0 (2-4) g/dL Albumin/Globulin Ratio 1.4 (1-3) Beta HCG, Quant < 0.60 mIU/mL Urine Color Urine Appearance Urine pH (5-9) Ur Specific [place] (1.010-1.030) Urine Protein (Negative) Urine Ketones (Negative) Urine Blood (Negative) Urine Nitrate (Negative) Urine Bilirubin (Negative) Urine Urobilinogen (Negative) Ur Leukocyte Esterase (Negative) Urine WBC (Auto) (Absent) Urine RBC (Auto) (Absent) Ur Squamous Epith Cells (Absent) Urine Bacteria (Absent) Urine Glucose (Negative) 08/02/17 Range/Units 15:19 WBC (3.5-10.8) 10^3/ul RBC (4.0-5.4) 10^6/ul Hgb (12.0-16.0) g/dl Hct (35-47) % MCV (80-97) fL MCH (27-31) pg MCHC (31-36) g/dl RDW (10.5-15) % Plt Count (150-450) 10^3/ul MPV (7.4-10.4) um3 Neut % (Auto) (38-83) % Lymph % (Auto) (25-47) % [place] % (Auto) (1-9) % Eos % (Auto) (0-6) % Baso % (Auto) (0-2) % Absolute Neuts (auto) (1.5-7.7) 10^3/ul Absolute Lymphs (auto) (1.0-4.8) 10^3/ul Absolute Monos (auto) (0-0.8) 10^3/ul Absolute Eos (auto) (0-0.6) 10^3/ul Absolute Basos (auto) (0-0.2) 10^3/ul Absolute Nucleated RBC 10^3/ul Nucleated RBC % Sodium (133-145) mmol/L Potassium (3.5-5.0) mmol/L Chloride (101-111) mmol/L Carbon Dioxide (22-32) mmol/L Anion Gap (2-11) mmol/L BUN (6-24) mg/dL Creatinine (0.51-0.95) mg/dL Est GFR ( Amer) (>60) Est GFR (Non-Af Amer) (>60) BUN/Creatinine Ratio (8-20) Glucose (70-100) mg/dL Lactic Acid (0.5-2.0) mmol/L Calcium (8.6-10.3) mg/dL Total Bilirubin (0.2-1.0) mg/dL AST (13-39) U/L ALT (7-52) U/L Alkaline Phosphatase (34-104) U/L C-Reactive Protein (< 5.00) mg/L Total Protein (6.4-8.9) g/dL Albumin (3.2-5.2) g/dL Globulin (2-4) g/dL Albumin/Globulin Ratio (1-3) Beta HCG, Quant mIU/mL Urine Color [place] Urine Appearance Cloudy Urine pH 5.0 (5-9) Ur Specific [place] 1.024 (1.010-1.030) Urine Protein 2+(100 mg/dl) H (Negative) Urine Ketones Trace H (Negative) Urine Blood 3+ H (Negative) Urine Nitrate Negative (Negative) Urine Bilirubin Negative (Negative) Urine Urobilinogen Negative (Negative) Ur Leukocyte Esterase Negative (Negative) Urine WBC (Auto) 1+(6-10/hpf) H (Absent) Urine RBC (Auto) Trace(0-2/hpf) (Absent) Ur Squamous Epith Cells Present H (Absent) Urine Bacteria Absent (Absent) Urine Glucose Negative (Negative) Microbiology and Other Data: Microbiology 08/03/17 01:15 Stool Gross Appearance - Final Stool C. difficile DNA Amplification - Final 027 Presumptive NEGATIVE Toxigenic C.diff NEGATIVE 08/03/17 01:15 Stool Gross Appearance - Final Stool Stool Lactoferrin - Final 08/03/17 01:15 Stool Gross Appearance - Final Stool Assess/Plan/Problems-Billing Assessment: 27 yo F with recent Crohn's dx with exacerbation of abd pain and bloody diarrhea - Patient Problems (1) Crohn disease Comment: with exacerbation Appreciate Dr. Kraft's consult continue IV steroids. Cont mesalamine Pain is improving. Switch diet to low residue, pt argrees (2) Depression Comment: cont home meds (3) Anemia Comment: with mild micorcytosis, due to GI bleed secondary to Crohn's as well as hemodilution-stable Hb x 3 days (4) DVT prophylaxis Comment: ambulation encouraged Status and Disposition: inpatient.
--- NOTE | 2017-08-05 20:51 | PN ---
Progress Note - Progress Note Date of Service: 08/05/17 - Gastroenterology Note: Patient seen and examined. Only 10 loose bowel watery bowel movements and one bowel movement was brown and mushy this am. Abdominal pain improving and pain medications keeping pain under control. No nausea/emesis. No rectal bleeding. Tolerating a sandwich tonight. Vital Signs: Temp Pulse Resp BP Pulse Ox 97.4 F 57 14 131/73 100 08/05/17 16:32 08/05/17 16:32 08/05/17 20:29 08/05/17 16:32 08/05/17 16:32 Physical Examination: GENERAL: AAOx3, NAD. HEENT: Anicteric sclera b/l. CV: RRR. PULM: CTAB ABDOMINAL: soft, NT/ND. +BS. EXTREMITIES: No edema. Laboratory Results - last 24 hr 08/05/17 06:07 WBC 11.4 H RBC 4.25 Hgb 10.8 L Hct 34 L MCV 79 L MCH 25 L MCHC 32 RDW 15 Plt Count 375 MPV 7 L Neut % (Auto) 71.8 Lymph % (Auto) 18.2 L [place] % (Auto) 9.7 H Eos % (Auto) 0.2 Baso % (Auto) 0.1 Absolute Neuts (auto) 8.2 H Absolute Lymphs (auto) 2.1 Absolute Monos (auto) 1.1 H Absolute Eos (auto) 0 Absolute Basos (auto) 0 Absolute Nucleated RBC 0.01 Nucleated RBC % 0.1 A/P: 27 yo female with newly diagnosed Crohn's disease of small intestines and colon admitted for a Crohn's flare. Currently on IV steroids with low residue diet. Diarrhea is slowly improving in frequency and no longer bloody. Abdominal pain is well-controlled on pain medication. 1. Crohn's exacerbation (involving the small intestines and colon) ~Budesonide switched to IV steroids. Solumedrol 40 mg IV BID. Will need a long prednisone taper as an outpatient. ~Recommend Pentasa as an outpatient as this targets the small intestines the best out of other mesalamines. ~C.diff and enteric pathogens negative. ~IVFs. ~Advanced diet to lactose-free and low residue. ~On Bentyl 10mg q6 hours prn as this may help with underlying IBS. ~May need Biologics +/-immunomodulators in the future. Will follow-up with Dr. Yost (GI at [place]) as outpatient to discuss further treatments. ~Recommend minimal narcotics for pain management. 2. Leukocytosis ~Likely due to steroids. ~Continue to monitor. 3. Microcytic Anemia ~Likely from Crohn's disease and hx of menses. ~Rectal bleeding has resolved. 4. Depression ~On home medications. D/w Dr. Dean. Thank you for allowing us to participate in the care of this patient. Please do not hesitate to call us with any further questions or concerns. Gisele Kraft D.O.
[2017-08-05] MEDS: Citalopram TAB* 10 MG PO SCH (21:26)
[2017-08-06] MEDS: HYDROmorphone INJ* 2 MG/ML CARPUJECT SYRINGE IV SLOW PU PRN ×6 (00:33→19:56)
[2017-08-06] MEDS: diPHENhydraMINE IV* 50 MG/ML 1 ml VIAL (BENADRYL) SLOW PUSH PRN ×4 (00:33→20:02)
[2017-08-06] MEDS: oxyCODONE/Acetamin 5/325 MG* TAB PO PRN ×2 (01:32→07:28)
[2017-08-06] MEDS: methylPREDNISolone SOD 40 MG* 1 ML VIAL IV SCH ×2 (06:41→17:54)
[2017-08-06] MEDS: DULoxetine DR CAP* 60 MG CAP.DR PO SCH (08:28)
[2017-08-06] MEDS: CMC: Pantoprazole TAB (NF) 40 MG TAB PO SCH (08:31)
[2017-08-06] MEDS: Citalopram TAB* 20 MG PO SCH (08:31)
--- NOTE | 2017-08-06 11:14 | PN ---
Subjective Date of Service: 08/06/17 Interval History: Pt has had 15 loose BM's in 24 hrs, only scant blood. Agreed to stretching out Dilaudid dose and doubling the oxycodone PO instead. Vomited after a sandwich , but was able to keep another one down. Objective Active Medications: Acetaminophen (Tylenol Tab*) 650 mg PO Q4H PRN PRN Reason: FEVER/PAIN Citalopram Hydrobromide (Celexa Tab*) 10 mg PO BEDTIME [facility] Last Admin: 08/05/17 21:26 Dose: 10 mg Citalopram Hydrobromide (Celexa Tab*) 20 mg PO DAILY [facility] Last Admin: 08/06/17 08:31 Dose: 20 mg Dicyclomine HCl (Bentyl Cap*) 10 mg PO Q6H PRN PRN Reason: .ABDOMINAL PAIN Dicyclomine HCl (Bentyl Cap*) 20 mg PO Q6H PRN PRN Reason: .ABDOMINAL PAIN Last Admin: 08/06/17 01:31 Dose: 20 mg Diphenhydramine HCl (Benadryl Iv*) 25 mg SLOW PUSH Q6H PRN PRN Reason: ITCHING Last Admin: 08/06/17 06:41 Dose: 25 mg Duloxetine HCl (Cymbalta Cap*) 60 mg PO DAILY [facility] Last Admin: 08/06/17 08:28 Dose: Not Given Hydromorphone HCl (Dilaudid Inj*) 1 mg IV SLOW PU Q5H PRN PRN Reason: PAIN Mesalamine (Mesalamine Dr Cap*) 800 mg PO TID [facility] Last Admin: 08/06/17 08:31 Dose: 800 mg Methylprednisolone Sodium Succinate (Solu-Medrol 40 Mg) 40 mg IV Q12H [facility] Last Admin: 08/06/17 06:41 Dose: 40 mg Nicotine (Nicotine Inhaler*) 10 mg INH Q2H PRN PRN Reason: CRAVING Ondansetron HCl (Zofran Inj*) 4 mg IV Q6H PRN PRN Reason: NAUSEA/VOMITING Last Admin: 08/03/17 13:55 Dose: 4 mg Oxycodone HCl (Roxycodone Tab*) 10 mg PO Q4H PRN PRN Reason: PAIN Pantoprazole Sodium (Protonix Tab (Nf)) 40 mg PO DAILY [facility] Last Admin: 08/06/17 08:31 Dose: 40 mg Vital Signs 08/05/17 08/05/17 08/05/17 11:55 12:45 12:57 Temperature Pulse Rate Respiratory 18 16 18 Rate Blood Pressure (mmHg) O2 Sat by Pulse Oximetry 08/05/17 08/05/17 08/05/17 13:16 14:43 15:15 Temperature Pulse Rate 60 Respiratory 16 16 18 Rate Blood Pressure 144/92 (mmHg) O2 Sat by Pulse 100 Oximetry 08/05/17 08/05/17 08/05/17 16:32 17:16 18:14 Temperature 97.4 F Pulse Rate 57 Respiratory 18 18 16 Rate Blood Pressure 131/73 (mmHg) O2 Sat by Pulse 100 Oximetry 08/05/17 08/05/17 08/05/17 18:16 20:00 20:29 Temperature Pulse Rate Respiratory 18 14 14 Rate Blood Pressure (mmHg) O2 Sat by Pulse Oximetry 08/05/17 08/05/17 08/05/17 20:44 21:25 21:27 Temperature 98.1 F Pulse Rate 61 Respiratory 18 16 16 Rate Blood Pressure 140/92 (mmHg) O2 Sat by Pulse 100 Oximetry 08/05/17 08/05/17 08/05/17 22:41 23:09 23:51 Temperature 98.1 F Pulse Rate 56 Respiratory 14 16 16 Rate Blood Pressure 148/87 (mmHg) O2 Sat by Pulse 99 Oximetry 08/06/17 08/06/17 08/06/17 00:33 01:31 01:32 Temperature Pulse Rate Respiratory 14 16 14 Rate Blood Pressure (mmHg) O2 Sat by Pulse Oximetry 08/06/17 08/06/17 08/06/17 03:41 04:53 06:41 Temperature Pulse Rate Respiratory 16 14 16 Rate Blood Pressure (mmHg) O2 Sat by Pulse Oximetry 08/06/17 08/06/17 08/06/17 07:16 07:28 07:30 Temperature 98.1 F Pulse Rate 59 Respiratory 18 16 16 Rate Blood Pressure 152/89 (mmHg) O2 Sat by Pulse 100 Oximetry 08/06/17 08/06/17 08/06/17 07:36 09:44 09:45 Temperature Pulse Rate Respiratory 16 18 16 Rate Blood Pressure (mmHg) O2 Sat by Pulse Oximetry Oxygen Devices in Use Now: None Appearance: 27 yo f in nAD, aAOx3 Eyes: No Scleral Icterus, PERRLA Ears/Nose/Mouth/Throat: NL Teeth, Lips, Gums, Mucous Membranes Moist Neck: NL Appearance and Movements; NL JVP, Trachea Midline Respiratory: Symmetrical Chest Expansion and Respiratory Effort, Clear to Auscultation Cardiovascular: NL Sounds; No Murmurs; No JVD, RRR Abdominal: - - soft, mild diffuse tenderness, no rebound, no guarding, BS+ Lymphatic: No Cervical Adenopathy, No Inguinal Adenopathy Extremities: No Edema, No Clubbing, Cyanosis Skin: No Rash or Ulcers, No Nodules or Sclerosis Neurological: Alert and Oriented x 3, NL Muscle Strength and Tone Result Diagrams: 08/05/17 06:07 08/04/17 05:58 Additional Lab and Data: Lab Results 08/02/17 08/02/17 08/02/17 Range/Units 11:50 11:50 11:50 WBC 19.9 H (3.5-10.8) 10^3/ul RBC 5.56 H (4.0-5.4) 10^6/ul Hgb 13.9 (12.0-16.0) g/dl Hct 43 (35-47) % MCV 77 L (80-97) fL MCH 25 L (27-31) pg MCHC 33 (31-36) g/dl RDW 15 (10.5-15) % Plt Count 504 H (150-450) 10^3/ul MPV 6 L (7.4-10.4) um3 Neut % (Auto) 80.6 (38-83) % Lymph % (Auto) 12.0 L (25-47) % [place] % (Auto) 6.8 (1-9) % Eos % (Auto) 0.2 (0-6) % Baso % (Auto) 0.4 (0-2) % Absolute Neuts (auto) 16.0 H (1.5-7.7) 10^3/ul Absolute Lymphs (auto) 2.4 (1.0-4.8) 10^3/ul Absolute Monos (auto) 1.4 H (0-0.8) 10^3/ul Absolute Eos (auto) 0 (0-0.6) 10^3/ul Absolute Basos (auto) 0.1 (0-0.2) 10^3/ul Absolute Nucleated RBC 0 10^3/ul Nucleated RBC % 0 Sodium 138 (133-145) mmol/L Potassium 3.1 L (3.5-5.0) mmol/L Chloride 103 (101-111) mmol/L Carbon Dioxide 24 (22-32) mmol/L Anion Gap 11 (2-11) mmol/L BUN 5 L (6-24) mg/dL Creatinine 0.62 (0.51-0.95) mg/dL Est GFR ( Amer) 147.4 (>60) Est GFR (Non-Af Amer) 114.6 (>60) BUN/Creatinine Ratio 8.1 (8-20) Glucose 85 (70-100) mg/dL Lactic Acid 1.7 (0.5-2.0) mmol/L Calcium 9.3 (8.6-10.3) mg/dL Total Bilirubin 0.60 (0.2-1.0) mg/dL AST 9 L (13-39) U/L ALT 11 (7-52) U/L Alkaline Phosphatase 70 (34-104) U/L C-Reactive Protein 5.22 H (< 5.00) mg/L Total Protein 7.1 (6.4-8.9) g/dL Albumin 4.1 (3.2-5.2) g/dL Globulin 3.0 (2-4) g/dL Albumin/Globulin Ratio 1.4 (1-3) Beta HCG, Quant < 0.60 mIU/mL Urine Color Urine Appearance Urine pH (5-9) Ur Specific [place] (1.010-1.030) Urine Protein (Negative) Urine Ketones (Negative) Urine Blood (Negative) Urine Nitrate (Negative) Urine Bilirubin (Negative) Urine Urobilinogen (Negative) Ur Leukocyte Esterase (Negative) Urine WBC (Auto) (Absent) Urine RBC (Auto) (Absent) Ur Squamous Epith Cells (Absent) Urine Bacteria (Absent) Urine Glucose (Negative) 08/02/17 Range/Units 15:19 WBC (3.5-10.8) 10^3/ul RBC (4.0-5.4) 10^6/ul Hgb (12.0-16.0) g/dl Hct (35-47) % MCV (80-97) fL MCH (27-31) pg MCHC (31-36) g/dl RDW (10.5-15) % Plt Count (150-450) 10^3/ul MPV (7.4-10.4) um3 Neut % (Auto) (38-83) % Lymph % (Auto) (25-47) % [place] % (Auto) (1-9) % Eos % (Auto) (0-6) % Baso % (Auto) (0-2) % Absolute Neuts (auto) (1.5-7.7) 10^3/ul Absolute Lymphs (auto) (1.0-4.8) 10^3/ul Absolute Monos (auto) (0-0.8) 10^3/ul Absolute Eos (auto) (0-0.6) 10^3/ul Absolute Basos (auto) (0-0.2) 10^3/ul Absolute Nucleated RBC 10^3/ul Nucleated RBC % Sodium (133-145) mmol/L Potassium (3.5-5.0) mmol/L Chloride (101-111) mmol/L Carbon Dioxide (22-32) mmol/L Anion Gap (2-11) mmol/L BUN (6-24) mg/dL Creatinine (0.51-0.95) mg/dL Est GFR ( Amer) (>60) Est GFR (Non-Af Amer) (>60) BUN/Creatinine Ratio (8-20) Glucose (70-100) mg/dL Lactic Acid (0.5-2.0) mmol/L Calcium (8.6-10.3) mg/dL Total Bilirubin (0.2-1.0) mg/dL AST (13-39) U/L ALT (7-52) U/L Alkaline Phosphatase (34-104) U/L C-Reactive Protein (< 5.00) mg/L Total Protein (6.4-8.9) g/dL Albumin (3.2-5.2) g/dL Globulin (2-4) g/dL Albumin/Globulin Ratio (1-3) Beta HCG, Quant mIU/mL Urine Color [place] Urine Appearance Cloudy Urine pH 5.0 (5-9) Ur Specific [place] 1.024 (1.010-1.030) Urine Protein 2+(100 mg/dl) H (Negative) Urine Ketones Trace H (Negative) Urine Blood 3+ H (Negative) Urine Nitrate Negative (Negative) Urine Bilirubin Negative (Negative) Urine Urobilinogen Negative (Negative) Ur Leukocyte Esterase Negative (Negative) Urine WBC (Auto) 1+(6-10/hpf) H (Absent) Urine RBC (Auto) Trace(0-2/hpf) (Absent) Ur Squamous Epith Cells Present H (Absent) Urine Bacteria Absent (Absent) Urine Glucose Negative (Negative) Microbiology and Other Data: Microbiology 08/03/17 01:15 Stool Gross Appearance - Final Stool C. difficile DNA Amplification - Final 027 Presumptive NEGATIVE Toxigenic C.diff NEGATIVE 08/03/17 01:15 Stool Gross Appearance - Final Stool Stool Lactoferrin - Final 08/03/17 01:15 Stool Gross Appearance - Final Stool Assess/Plan/Problems-Billing Assessment: 27 yo F with recent Crohn's dx with exacerbation of abd pain and bloody diarrhea - Patient Problems (1) Crohn disease Comment: with exacerbation Appreciate Dr. Kraft's consult continue IV steroids. Cont mesalamine Pain is improving slowly cont low residue (2) Depression Comment: cont home meds (3) Anemia Comment: with mild micorcytosis, due to GI bleed secondary to Crohn's as well as hemodilution-stable Hb x 3 days (4) DVT prophylaxis Comment: ambulation encouraged Status and Disposition: inpatient.
[2017-08-06] MEDS: oxyCODONE TAB* 5 MG TAB PO PRN ×3 (11:37→22:49)
[2017-08-06] MEDS ORDERED: Tuberculin PPD* 5 TU/DOSE/0.1 ML INTRADERM ONE (17:30)
[2017-08-06] MEDS: Citalopram TAB* 10 MG PO SCH (21:02)
[2017-08-07] MEDS: HYDROmorphone INJ* 2 MG/ML CARPUJECT SYRINGE IV SLOW PU PRN ×5 (02:04→22:17)
[2017-08-07] MEDS: diPHENhydraMINE IV* 50 MG/ML 1 ml VIAL (BENADRYL) SLOW PUSH PRN ×5 (02:04→22:21)
[2017-08-07] MEDS: oxyCODONE TAB* 5 MG TAB PO PRN ×6 (04:22→20:58)
[2017-08-07] MEDS: methylPREDNISolone SOD 40 MG* 1 ML VIAL IV SCH ×2 (05:44→16:57)
[2017-08-07] MEDS: CMC: Pantoprazole TAB (NF) 40 MG TAB PO SCH (07:25)
[2017-08-07] MEDS: Citalopram TAB* 20 MG PO SCH (07:25)
[2017-08-07] MEDS: DULoxetine DR CAP* 60 MG CAP.DR PO SCH (07:26)
--- NOTE | 2017-08-07 09:06 | PN ---
Subjective Date of Service: 08/07/17 Interval History: Pt's pain is difficult t control. Has had 3 loose BM's /24 hrs-down form 15 previously Objective Active Medications: Acetaminophen (Tylenol Tab*) 650 mg PO Q4H PRN PRN Reason: FEVER/PAIN Citalopram Hydrobromide (Celexa Tab*) 10 mg PO BEDTIME [facility] Last Admin: 08/06/17 21:02 Dose: 10 mg Citalopram Hydrobromide (Celexa Tab*) 20 mg PO DAILY [facility] Last Admin: 08/07/17 07:25 Dose: 20 mg Dicyclomine HCl (Bentyl Cap*) 10 mg PO Q6H PRN PRN Reason: .ABDOMINAL PAIN Dicyclomine HCl (Bentyl Cap*) 20 mg PO Q6H PRN PRN Reason: .ABDOMINAL PAIN Last Admin: 08/06/17 01:31 Dose: 20 mg Diphenhydramine HCl (Benadryl Iv*) 25 mg SLOW PUSH Q6H PRN PRN Reason: ITCHING Last Admin: 08/07/17 06:57 Dose: 25 mg Duloxetine HCl (Cymbalta Cap*) 60 mg PO DAILY [facility] Last Admin: 08/07/17 07:26 Dose: Not Given Hydromorphone HCl (Dilaudid Inj*) 1 mg IV SLOW PU Q5H PRN PRN Reason: PAIN Last Admin: 08/07/17 06:57 Dose: 1 mg Mesalamine (Mesalamine Dr Cap*) 800 mg PO TID [facility] Last Admin: 08/07/17 07:25 Dose: 800 mg Methylprednisolone Sodium Succinate (Solu-Medrol 40 Mg) 40 mg IV Q12H [facility] Last Admin: 08/07/17 05:44 Dose: 40 mg Nicotine (Nicotine Inhaler*) 10 mg INH Q2H PRN PRN Reason: CRAVING Ondansetron HCl (Zofran Inj*) 4 mg IV Q6H PRN PRN Reason: NAUSEA/VOMITING Last Admin: 08/03/17 13:55 Dose: 4 mg Oxycodone HCl (Roxycodone Tab*) 10 mg PO Q4H PRN PRN Reason: PAIN Last Admin: 08/07/17 07:22 Dose: 10 mg Pantoprazole Sodium (Protonix Tab (Nf)) 40 mg PO DAILY [facility] Last Admin: 08/07/17 07:25 Dose: 40 mg Pharmacy Profile Note (Ppd Reading Note*) 1 note .SEE ORDER .ONCE NISA Stop: 08/08/17 23:59 Vital Signs 08/06/17 08/06/17 08/06/17 09:44 09:45 11:37 Temperature Pulse Rate Respiratory 18 16 16 Rate Blood Pressure (mmHg) O2 Sat by Pulse Oximetry 08/06/17 08/06/17 08/06/17 11:38 12:41 13:39 Temperature Pulse Rate Respiratory 16 16 16 Rate Blood Pressure (mmHg) O2 Sat by Pulse Oximetry 08/06/17 08/06/17 08/06/17 13:44 14:09 14:45 Temperature 98.6 F 98.1 F Pulse Rate 64 80 Respiratory 14 16 20 Rate Blood Pressure 136/84 121/55 (mmHg) O2 Sat by Pulse 96 97 Oximetry 08/06/17 08/06/17 08/06/17 15:40 15:41 18:00 Temperature Pulse Rate Respiratory 16 16 16 Rate Blood Pressure (mmHg) O2 Sat by Pulse Oximetry 08/06/17 08/06/17 08/06/17 19:25 19:56 20:00 Temperature 98.4 F Pulse Rate 60 Respiratory 17 16 16 Rate Blood Pressure 147/88 (mmHg) O2 Sat by Pulse 99 Oximetry 08/06/17 08/06/17 08/06/17 20:02 21:06 22:49 Temperature Pulse Rate Respiratory 16 16 16 Rate Blood Pressure (mmHg) O2 Sat by Pulse Oximetry 08/06/17 08/07/17 08/07/17 23:12 02:04 02:12 Temperature 98.1 F Pulse Rate 63 Respiratory 16 15 15 Rate Blood Pressure 135/79 (mmHg) O2 Sat by Pulse 97 Oximetry 08/07/17 08/07/17 08/07/17 03:44 04:22 06:57 Temperature 98.0 F Pulse Rate 63 Respiratory 16 16 16 Rate Blood Pressure 137/89 (mmHg) O2 Sat by Pulse 100 Oximetry 08/07/17 08/07/17 07:22 07:55 Temperature 98.1 F Pulse Rate 61 Respiratory 16 18 Rate Blood Pressure 185/99 (mmHg) O2 Sat by Pulse 100 Oximetry Oxygen Devices in Use Now: None Appearance: 27 yo F in nAD, aAOx3 Eyes: No Scleral Icterus, PERRLA Ears/Nose/Mouth/Throat: NL Teeth, Lips, Gums, Mucous Membranes Moist Neck: NL Appearance and Movements; NL JVP, Trachea Midline Respiratory: Symmetrical Chest Expansion and Respiratory Effort, Clear to Auscultation Cardiovascular: NL Sounds; No Murmurs; No JVD, RRR Abdominal: - - diffuse mild tenderness, no rebound, no guarding, soft, BS+ Extremities: No Edema, No Clubbing, Cyanosis Skin: No Rash or Ulcers, No Nodules or Sclerosis Neurological: Alert and Oriented x 3, NL Muscle Strength and Tone Result Diagrams: 08/05/17 06:07 08/04/17 05:58 Additional Lab and Data: Lab Results 08/02/17 08/02/17 08/02/17 Range/Units 11:50 11:50 11:50 WBC 19.9 H (3.5-10.8) 10^3/ul RBC 5.56 H (4.0-5.4) 10^6/ul Hgb 13.9 (12.0-16.0) g/dl Hct 43 (35-47) % MCV 77 L (80-97) fL MCH 25 L (27-31) pg MCHC 33 (31-36) g/dl RDW 15 (10.5-15) % Plt Count 504 H (150-450) 10^3/ul MPV 6 L (7.4-10.4) um3 Neut % (Auto) 80.6 (38-83) % Lymph % (Auto) 12.0 L (25-47) % [place] % (Auto) 6.8 (1-9) % Eos % (Auto) 0.2 (0-6) % Baso % (Auto) 0.4 (0-2) % Absolute Neuts (auto) 16.0 H (1.5-7.7) 10^3/ul Absolute Lymphs (auto) 2.4 (1.0-4.8) 10^3/ul Absolute Monos (auto) 1.4 H (0-0.8) 10^3/ul Absolute Eos (auto) 0 (0-0.6) 10^3/ul Absolute Basos (auto) 0.1 (0-0.2) 10^3/ul Absolute Nucleated RBC 0 10^3/ul Nucleated RBC % 0 Sodium 138 (133-145) mmol/L Potassium 3.1 L (3.5-5.0) mmol/L Chloride 103 (101-111) mmol/L Carbon Dioxide 24 (22-32) mmol/L Anion Gap 11 (2-11) mmol/L BUN 5 L (6-24) mg/dL Creatinine 0.62 (0.51-0.95) mg/dL Est GFR ( Amer) 147.4 (>60) Est GFR (Non-Af Amer) 114.6 (>60) BUN/Creatinine Ratio 8.1 (8-20) Glucose 85 (70-100) mg/dL Lactic Acid 1.7 (0.5-2.0) mmol/L Calcium 9.3 (8.6-10.3) mg/dL Total Bilirubin 0.60 (0.2-1.0) mg/dL AST 9 L (13-39) U/L ALT 11 (7-52) U/L Alkaline Phosphatase 70 (34-104) U/L C-Reactive Protein 5.22 H (< 5.00) mg/L Total Protein 7.1 (6.4-8.9) g/dL Albumin 4.1 (3.2-5.2) g/dL Globulin 3.0 (2-4) g/dL Albumin/Globulin Ratio 1.4 (1-3) Beta HCG, Quant < 0.60 mIU/mL Urine Color Urine Appearance Urine pH (5-9) Ur Specific [place] (1.010-1.030) Urine Protein (Negative) Urine Ketones (Negative) Urine Blood (Negative) Urine Nitrate (Negative) Urine Bilirubin (Negative) Urine Urobilinogen (Negative) Ur Leukocyte Esterase (Negative) Urine WBC (Auto) (Absent) Urine RBC (Auto) (Absent) Ur Squamous Epith Cells (Absent) Urine Bacteria (Absent) Urine Glucose (Negative) 08/02/17 Range/Units 15:19 WBC (3.5-10.8) 10^3/ul RBC (4.0-5.4) 10^6/ul Hgb (12.0-16.0) g/dl Hct (35-47) % MCV (80-97) fL MCH (27-31) pg MCHC (31-36) g/dl RDW (10.5-15) % Plt Count (150-450) 10^3/ul MPV (7.4-10.4) um3 Neut % (Auto) (38-83) % Lymph % (Auto) (25-47) % [place] % (Auto) (1-9) % Eos % (Auto) (0-6) % Baso % (Auto) (0-2) % Absolute Neuts (auto) (1.5-7.7) 10^3/ul Absolute Lymphs (auto) (1.0-4.8) 10^3/ul Absolute Monos (auto) (0-0.8) 10^3/ul Absolute Eos (auto) (0-0.6) 10^3/ul Absolute Basos (auto) (0-0.2) 10^3/ul Absolute Nucleated RBC 10^3/ul Nucleated RBC % Sodium (133-145) mmol/L Potassium (3.5-5.0) mmol/L Chloride (101-111) mmol/L Carbon Dioxide (22-32) mmol/L Anion Gap (2-11) mmol/L BUN (6-24) mg/dL Creatinine (0.51-0.95) mg/dL Est GFR ( Amer) (>60) Est GFR (Non-Af Amer) (>60) BUN/Creatinine Ratio (8-20) Glucose (70-100) mg/dL Lactic Acid (0.5-2.0) mmol/L Calcium (8.6-10.3) mg/dL Total Bilirubin (0.2-1.0) mg/dL AST (13-39) U/L ALT (7-52) U/L Alkaline Phosphatase (34-104) U/L C-Reactive Protein (< 5.00) mg/L Total Protein (6.4-8.9) g/dL Albumin (3.2-5.2) g/dL Globulin (2-4) g/dL Albumin/Globulin Ratio (1-3) Beta HCG, Quant mIU/mL Urine Color [place] Urine Appearance Cloudy Urine pH 5.0 (5-9) Ur Specific [place] 1.024 (1.010-1.030) Urine Protein 2+(100 mg/dl) H (Negative) Urine Ketones Trace H (Negative) Urine Blood 3+ H (Negative) Urine Nitrate Negative (Negative) Urine Bilirubin Negative (Negative) Urine Urobilinogen Negative (Negative) Ur Leukocyte Esterase Negative (Negative) Urine WBC (Auto) 1+(6-10/hpf) H (Absent) Urine RBC (Auto) Trace(0-2/hpf) (Absent) Ur Squamous Epith Cells Present H (Absent) Urine Bacteria Absent (Absent) Urine Glucose Negative (Negative) Microbiology and Other Data: Microbiology 08/03/17 01:15 Stool Gross Appearance - Final Stool C. difficile DNA Amplification - Final 027 Presumptive NEGATIVE Toxigenic C.diff NEGATIVE 08/03/17 01:15 Stool Gross Appearance - Final Stool Stool Lactoferrin - Final 08/03/17 01:15 Stool Gross Appearance - Final Stool Assess/Plan/Problems-Billing Assessment: 27 yo F with recent Crohn's dx with exacerbation of abd pain and bloody diarrhea - Patient Problems (1) Crohn disease Comment: with exacerbation . Pain and narcotic tolerance has been an issue. Will ask pain management to see pt in consult. For now will cont Oxycodone 10 mg and dilauudid [address] Kraft's consult. Dr. Roldan is scheduling pt for Remicade tx early next week(CMV, hepatitis titers pending, PPD placed) Pt would like to be ready to go home Friday. continue IV steroids. Cont mesalamine Pain is improving slowly cont low residue diet (2) Depression Comment: cont home meds (3) Anemia Comment: with mild micorcytosis, due to GI bleed secondary to Crohn's as well as hemodilution-stable Hb x 3 days (4) DVT prophylaxis Comment: ambulation encouraged Status and Disposition: inpatient.
--- NOTE | 2017-08-07 19:51 | PN ---
Progress Note - Progress Note Date of Service: 08/07/17 - Gastroenterology Note: Patient seen and examined this morning. Only 3 bowel movements overnight described as mushy and no blood. Abdominal pain improved. No nausea/emesis. Tolerating low residue diet. No fevers/chills. Arthritis slightly improved. Vital Signs: Temp Pulse Resp BP Pulse Ox 98.1 F 62 16 125/74 100 08/07/17 07:55 08/07/17 13:31 08/07/17 18:13 08/07/17 13:31 08/07/17 13:31 GENERAL: AAOx3, NAD. HEENT: Anicteric sclera B/L. CV: RRR. PULM: CTAB. ABDOMEN: Soft, NT/ND. +BS. EXTREMITIES: No edema. Laboratory Results - last 24 hr 08/07/17 05:41 Hepatitis B Antibody Reactive Hep Bs Antigen Nonreactive Hep Bs Antibody, Quant 12.06 A/P: 27 yo female with newly diagnosed Crohn's disease of small intestines and colon admitted for a Crohn's flare. Currently on IV steroids with low residue diet. Diarrhea is improving in frequency, consistency and no longer bloody. Abdominal pain is well-controlled on pain medication. 1. Crohn's exacerbation (involving the small intestines and colon) ~Solumedrol 40 mg IV BID. Will need a long prednisone taper as an outpatient. ~On mesalamine TID. ~C.diff and enteric pathogens negative. CMV pending. ~IVFs. ~On low-residue diet. ~Bentyl 10mg q6 hours prn as this may help with underlying IBS. ~Recommend minimal narcotics for pain management. ~Hepatitis panel negative. Awaiting TB testing results. ~Plan for Remicade on Friday as outpatient. Pre-authorization in progress. ~Recommend bone density as outpatient due to frequent use of prednisone in the past since January 2017. ~Has a nutritional assistant appt scheduled already as outpatient. 2. Leukocytosis ~Likely due to steroids. 3. Microcytic Anemia ~Stable. ~Rectal bleeding has resolved. 4. Depression ~On home medications. Thank you for allowing us to participate in the care of this patient. Please do not hesitate to call us with any further questions or concerns. Gisele Kraft D.O.
[2017-08-07] MEDS: Citalopram TAB* 10 MG PO SCH (20:58)
[2017-08-08] MEDS: oxyCODONE TAB* 5 MG TAB PO PRN ×6 (01:36→21:53)
[2017-08-08] MEDS: HYDROmorphone INJ* 2 MG/ML CARPUJECT SYRINGE IV SLOW PU PRN ×5 (03:21→19:51)
[2017-08-08] MEDS: diPHENhydraMINE IV* 50 MG/ML 1 ml VIAL (BENADRYL) SLOW PUSH PRN ×4 (03:21→19:50)
[2017-08-08] MEDS: methylPREDNISolone SOD 40 MG* 1 ML VIAL IV SCH ×2 (05:45→17:04)
[2017-08-08 05:54] LABS: Hematocrit 38 % (35-47); Hemoglobin 12.2 g/dl (12.0-16.0); Mean Corpuscular HGB Conc 33 g/dl (31-36); Mean Corpuscular Hemoglobin 26 pg (27-31); Mean Corpuscular Volume 78 fL (80-97); Mean Platelet Volume 7 um3 (7.4-10.4); Red Blood Count 4.79 10^6/ul (4.0-5.4); Red Cell Distribution Width 15 % (10.5-15); White Blood Count 20.8 10^3/ul (3.5-10.8)
[2017-08-08 05:58] LABS: Add Diff/Slide Review? Slide Review Added; Comments Flag Yes
[2017-08-08] MEDS ORDERED: PPD Reading 48-72 HRS NOTE SCH (06:00)
[2017-08-08 06:09] LABS: BUN/Creatinine Ratio 27.3 (8-20); Calcium 9.2 mg/dL (8.6-10.3); EGFR African American 169.3 (>60); EGFR Non-African American 131.6 (>60)
[2017-08-08] MEDS: CMC: Pantoprazole TAB (NF) 40 MG TAB PO SCH (08:06)
[2017-08-08] MEDS: Citalopram TAB* 20 MG PO SCH (08:06)
[2017-08-08] MEDS: DULoxetine DR CAP* 60 MG CAP.DR PO SCH (08:56)
--- NOTE | 2017-08-08 12:14 | PN ---
Subjective Date of Service: 08/08/17 Interval History: Patient seen and examined at bedside. Denies fever, chills, nasal congestion, sore throat, shortness of breath, chest discomfort, N/V/D. Pt reports joint pain and general malaise. She is very frustrated with being sick for so long and feels like she is never going to get better. Pt is very anxious about getting home, but continues to be using a fair amount of IV/PO narcotics. Family History: Unchanged from Admission Social History: Unchanged from Admission Past Medical History: Unchanged from Admission Objective Active Medications: Acetaminophen (Tylenol Tab*) 650 mg PO Q4H PRN Reason: FEVER/PAIN Citalopram Hydrobromide (Celexa Tab*) 10 mg PO BEDTIME [facility] Citalopram Hydrobromide (Celexa Tab*) 20 mg PO DAILY [facility] Dicyclomine HCl (Bentyl Cap*) 10 mg PO Q6H PRN Reason: .ABDOMINAL PAIN Dicyclomine HCl (Bentyl Cap*) 20 mg PO Q6H PRN Reason: .ABDOMINAL PAIN Diphenhydramine HCl (Benadryl Iv*) 25 mg SLOW PUSH Q6H PRN Reason: ITCHING Duloxetine HCl (Cymbalta Cap*) 60 mg PO DAILY [facility] Hydromorphone HCl (Dilaudid Inj*) 1 mg IV SLOW PU Q4H PRN Reason: PAIN Mesalamine (Mesalamine Dr Cap*) 800 mg PO TID [facility] Methylprednisolone Sodium Succinate (Solu-Medrol 40 Mg) 40 mg IV Q12H [facility] Nicotine (Nicotine Inhaler*) 10 mg INH Q2H PRN Reason: CRAVING Ondansetron HCl (Zofran Inj*) 4 mg IV Q6H PRN Reason: NAUSEA/VOMITING Oxycodone HCl (Roxycodone Tab*) 10 mg PO Q4H PRN Reason: PAIN Pantoprazole Sodium (Protonix Tab (Nf)) 40 mg PO DAILY [facility] Pharmacy Profile Note (Ppd Reading Note*) 1 note .SEE ORDER .ONCE NISA Stop: 08/08/17 23:59 Vital Signs 08/07/17 08/07/17 08/07/17 13:04 13:23 13:31 Temperature Pulse Rate 62 Respiratory 18 16 14 Rate Blood Pressure 125/74 (mmHg) O2 Sat by Pulse 100 Oximetry 08/07/17 08/07/17 08/07/17 22:21 22:25 23:02 Temperature 98.3 F Pulse Rate 79 Respiratory 16 14 14 Rate Blood Pressure 140/92 (mmHg) O2 Sat by Pulse 100 Oximetry 08/08/17 08/08/17 08/08/17 04:31 04:42 05:44 Temperature 97.9 F Pulse Rate 54 Respiratory 16 14 14 Rate Blood Pressure 139/82 (mmHg) O2 Sat by Pulse 99 Oximetry 08/08/17 08/08/17 08/08/17 07:57 08:00 08:05 Temperature 98.2 F Pulse Rate 57 Respiratory 16 16 18 Rate Blood Pressure 154/99 (mmHg) O2 Sat by Pulse 100 Oximetry Oxygen Devices in Use Now: None Appearance: NAD, laying in bed Respiratory: Symmetrical Chest Expansion and Respiratory Effort, Clear to Auscultation Cardiovascular: NL Sounds; No Murmurs; No JVD, RRR Abdominal: NL Sounds; No Tenderness; No Distention Extremities: No Edema Skin: No Rash or Ulcers Neurological: Alert and Oriented x 3, NL Muscle Strength and Tone Lines/Tubes/Other Access: Clean, Dry and Intact Peripheral IV - site benign Nutrition: Taking PO's Result Diagrams: 08/08/17 05:34 08/08/17 05:34 Additional Lab and Data: Microbiology and Other Data: Microbiology 08/03/17 01:15 Stool Gross Appearance - Final Stool C. difficile DNA Amplification - Final 027 Presumptive NEGATIVE Toxigenic C.diff NEGATIVE 08/03/17 01:15 Stool Gross Appearance - Final Stool Stool Lactoferrin - Final 08/03/17 01:15 Stool Gross Appearance - Final Stool Assess/Plan/Problems-Billing Assessment: Ms. Lynch is a 27 yo F with recent Crohn's dx with exacerbation of abd pain and bloody diarrhea - Patient Problems (1) Crohn disease Code(s): K50.90 - CROHN'S DISEASE, UNSPECIFIED, WITHOUT COMPLICATIONS SNOMED Code(s): 56785627 Comment: - with exacerbation . - Pain and narcotic tolerance has been an issue. Will ask pain management to see pt in consult. - For now will cont Oxycodone 10 mg and dilauudid 1 mg Q4H (increased today from 1mg Q5H). - Appreciate Dr. Kraft's consult. Dr. Roldan is scheduling pt for Remicade tx early next week (CMV, hepatitis titers pending, PPD placed) - Pt would like to be ready to go home Friday. - Continue IV steroids, plan for long prednisone taper at discharge. - Continue mesalamine. - Continue low residue diet. (2) Leukocytosis Code(s): D72.829 - ELEVATED WHITE BLOOD CELL COUNT, UNSPECIFIED SNOMED Code(s) : 492827560 Comment: - Suspect secondary to steroids vs viral illness - Afebrile - Will recheck CBC in AM (3) Anemia Code(s): D64.9 - ANEMIA, UNSPECIFIED SNOMED Code(s): 810475396 Comment: - With mild micorcytosis, due to GI bleed secondary to Crohn's as well as hemodilution - Stable Hb x 4 days (4) Depression Code(s): F32.9 - MAJOR DEPRESSIVE DISORDER, SINGLE EPISODE, UNSPECIFIED SNOMED Code(s): 27731503 Comment: - Continue home meds (5) DVT prophylaxis Code(s): UIO7042 - SNOMED Code(s): 975454166 Comment: - Ambulation encouraged (6) Full code status Code(s): Z78.9 - OTHER SPECIFIED HEALTH STATUS SNOMED Code(s): 654267499 Status and Disposition: Inpatient. Discharge to home when medically stable, possibly in 1-2 days.
[2017-08-08] MEDS ORDERED: fentaNYL PATCH 25 MCG/HR TRANSDERM SCH (17:00)
[2017-08-08] MEDS: fentaNYL Patch Check Q Shift 1 NOTE SCH (18:45)
[2017-08-08] MEDS: Citalopram TAB* 10 MG PO SCH (21:45)
[2017-08-08] MEDS: traZODone TAB* 50 MG TAB PO SCH (21:46)
[2017-08-09] MEDS: diPHENhydraMINE IV* 50 MG/ML 1 ml VIAL (BENADRYL) SLOW PUSH PRN ×4 (01:52→20:15)
--- NOTE | 2017-08-09 02:09 | CONS ---
INPATIENT PAIN CONSULTATION: DATE OF CONSULT: 08/08/17 REASON FOR CONSULT: Joint pain in a patient with Crohn's disease. HISTORY OF PRESENT ILLNESS: Frances Lynch is a 27-year-old female. She has had on and off diarrhea for the past 7 years. It became bloody about a year ago. She would have frequent episodes of bloody diarrhea with tissue in it. She was diagnosed with Crohn's disease. She has seen a new egg processing supervisor, Dr. Yost. She had been started on some medications by Dr. Yost. They were not entirely effective. She was started on mesalamine. She was also put on low dose prednisone. The patient continued to have significant diarrhea. The patient was admitted to the hospital on 08/02/17 with abdominal pain and bright red blood in the stool. She has continued to have 20 or so bowel movements. She was seen in consultation by Dr. Ramana Roldan, the local egg processing supervisor. She was put on high dose steroid. Plans are for her to start Remicade next week. I am asked to see her because of her significant complaints of pain. The patient tells me she has significant pain in both her hips and knees. Pain can be bad in both places. She is currently taking Percocet for her pain. The Percocet; however, because of her diarrhea can pass through undigested. She also has been taking IV Dilaudid for her pain. She wishes to go home; however, and cannot go home on IV Dilaudid. PAST MEDICAL HISTORY: The patient's past medical history outside of the Crohn' s disease is fairly benign. She has a history of depression in the past. CURRENT MEDICATIONS: As mentioned she is on oxycodone as well as IV Dilaudid. She is also on IV Solu-Medrol. She is on mesalamine, Bentyl, Celexa, and Cymbalta. ALLERGIES: No known drug allergies. SOCIAL HISTORY: She tells me she used to drink heavily in her early 20s, but has stopped drinking. She is a smoker, smokes 5 to 6 cigarettes a day. She denies illicit drug use. She lives with her mother and her father. She is not currently working. REVIEW OF SYSTEMS: No current shortness of breath or chest pain. PHYSICAL EXAM: The patient's temperature is 98.2, blood pressure is 126/69, pulse is 67, respirations 16. Brief physical exam, her heart sounds are regular. Abdomen is diffusely tender. Lungs: Sounded clear to auscultation. Her knees felt slightly warm to the touch. She was able to bend them to at least 90 degrees. Hips, decrease in range of motion. ASSESSMENT: Crohn's disease with polyarthropathy. PLAN: As the patient if continues to have diarrhea, I am not sure how much of the oral oxycodone she is absorbing. I would recommend trying a fentanyl patch 25 mcg an hour and see if this is able to provide her better relief. In addition, the patient reports significant stress and anxiety and trouble sleeping. I am going to start her on trazodone 50 mg at bedtime. The difficulty will be in how much she absorbs. I will stop by and see her tomorrow. Thank you for the consult. [id number]/CPS #: [id number] [place]
[2017-08-09] MEDS: HYDROmorphone INJ* 2 MG/ML CARPUJECT SYRINGE IV SLOW PU PRN ×3 (04:04→08:06)
[2017-08-09] MEDS: methylPREDNISolone SOD 40 MG* 1 ML VIAL IV SCH ×2 (06:03→18:34)
[2017-08-09] MEDS: oxyCODONE TAB* 5 MG TAB PO PRN ×3 (06:07→23:16)
[2017-08-09] MEDS: fentaNYL Patch Check Q Shift 1 NOTE SCH ×3 (07:19→21:07)
[2017-08-09] MEDS: DULoxetine DR CAP* 60 MG CAP.DR PO SCH (07:54)
[2017-08-09] MEDS: Citalopram TAB* 20 MG PO SCH (08:05)
[2017-08-09] MEDS: CMC: Pantoprazole TAB (NF) 40 MG TAB PO SCH (08:05)
[2017-08-09 08:44] LABS: Hematocrit 39 % (35-47); Hemoglobin 12.5 g/dl (12.0-16.0); Mean Corpuscular HGB Conc 33 g/dl (31-36); Mean Corpuscular Hemoglobin 25 pg (27-31); Mean Corpuscular Volume 77 fL (80-97); Mean Platelet Volume 7 um3 (7.4-10.4); Red Blood Count 4.97 10^6/ul (4.0-5.4); Red Cell Distribution Width 15 % (10.5-15); White Blood Count 22.8 10^3/ul (3.5-10.8)
[2017-08-09 08:47] LABS: Comments Flag Yes
[2017-08-09 08:48] LABS: Add Diff/Slide Review? Slide Review Added
--- NOTE | 2017-08-09 12:22 | PN ---
Subjective Date of Service: 08/09/17 Interval History: patient reports she feels better today but continues to be in significant pain. She reports only a small BM, no blood or mucous noted. No fever or chills. She is not sure she can go home yet due to the pain, mostly in her RLQ. Family History: Unchanged from Admission Social History: Unchanged from Admission Past Medical History: Unchanged from Admission Objective Active Medications: Acetaminophen (Tylenol Tab*) 650 mg PO Q4H PRN PRN Reason: FEVER/PAIN Citalopram Hydrobromide (Celexa Tab*) 10 mg PO BEDTIME [facility] Last Admin: 08/08/17 21:45 Dose: 10 mg Citalopram Hydrobromide (Celexa Tab*) 20 mg PO DAILY [facility] Last Admin: 08/09/17 08:05 Dose: 20 mg Dicyclomine HCl (Bentyl Cap*) 10 mg PO Q6H PRN PRN Reason: .ABDOMINAL PAIN Dicyclomine HCl (Bentyl Cap*) 20 mg PO Q6H PRN PRN Reason: .ABDOMINAL PAIN Last Admin: 08/06/17 01:31 Dose: 20 mg Diphenhydramine HCl (Benadryl Iv*) 25 mg SLOW PUSH Q6H PRN PRN Reason: ITCHING Last Admin: 08/09/17 08:05 Dose: 25 mg Duloxetine HCl (Cymbalta Cap*) 60 mg PO DAILY [facility] Last Admin: 08/09/17 07:54 Dose: Not Given Fentanyl (Duragesic Patch 25 Mcg/Hr*) 25 mcg TRANSDERM Q72H [facility] Last Admin: 08/08/17 17:01 Dose: 25 mcg Hydromorphone HCl (Dilaudid Inj*) 1 mg IV SLOW PU Q4H PRN PRN Reason: PAIN Mesalamine (Mesalamine Dr Cap*) 800 mg PO TID [facility] Last Admin: 08/09/17 08:05 Dose: 800 mg Methylprednisolone Sodium Succinate (Solu-Medrol 40 Mg) 40 mg IV Q12H [facility] Last Admin: 08/09/17 06:03 Dose: 40 mg Nicotine (Nicotine Inhaler*) 10 mg INH Q2H PRN PRN Reason: CRAVING Ondansetron HCl (Zofran Inj*) 4 mg IV Q6H PRN PRN Reason: NAUSEA/VOMITING Last Admin: 08/03/17 13:55 Dose: 4 mg Oxycodone HCl (Roxycodone Tab*) 5 mg PO Q3H PRN PRN Reason: PAIN - MODERATE TO SEVERE Last Admin: 08/09/17 06:07 Dose: 5 mg Pantoprazole Sodium (Protonix Tab (Nf)) 40 mg PO DAILY [facility] Last Admin: 08/09/17 08:05 Dose: 40 mg Pharmacy Profile Note (Fentanyl Patch Check Q Shift) 1 note N/A 0700,1900 [facility] Last Admin: 08/09/17 07:19 Dose: 1 note Trazodone HCl (Desyrel Tab*) 50 mg PO BEDTIME [facility] Last Admin: 08/08/17 21:46 Dose: 50 mg Vital Signs 08/09/17 08/09/17 08/09/17 06:07 06:32 08:05 Temperature 97.6 F Pulse Rate 130 Respiratory 16 16 16 Rate Blood Pressure 115/77 (mmHg) O2 Sat by Pulse 99 Oximetry 08/09/17 08/09/17 08/09/17 08:06 08:10 08:22 Temperature Pulse Rate 64 Respiratory 16 16 Rate Blood Pressure (mmHg) O2 Sat by Pulse Oximetry 08/09/17 08/09/17 09:37 11:45 Temperature 98.1 F Pulse Rate 69 Respiratory 16 18 Rate Blood Pressure 131/65 (mmHg) O2 Sat by Pulse 99 Oximetry Oxygen Devices in Use Now: None Appearance: 27 yo female A+O x3 in NAD Eyes: No Scleral Icterus, PERRLA Ears/Nose/Mouth/Throat: NL Teeth, Lips, Gums, Mucous Membranes Moist Neck: NL Appearance and Movements; NL JVP Respiratory: Symmetrical Chest Expansion and Respiratory Effort, Clear to Auscultation Cardiovascular: NL Sounds; No Murmurs; No JVD, RRR, No Edema Abdominal: - - soft, RLQ tender with some mild guarding; NL BS Lymphatic: No Cervical Adenopathy Extremities: No Edema, No Clubbing, Cyanosis Skin: No Rash or Ulcers, No Nodules or Sclerosis Neurological: Alert and Oriented x 3 Lines/Tubes/Other Access: Clean, Dry and Intact Peripheral IV Nutrition: Taking PO's Result Diagrams: 08/09/17 08:12 08/08/17 05:34 Additional Lab and Data: Microbiology and Other Data: Microbiology 08/03/17 01:15 Stool Gross Appearance - Final Stool C. difficile DNA Amplification - Final 027 Presumptive NEGATIVE Toxigenic C.diff NEGATIVE 08/03/17 01:15 Stool Gross Appearance - Final Stool Stool Lactoferrin - Final 08/03/17 01:15 Stool Gross Appearance - Final Stool Assess/Plan/Problems-Billing Assessment: Ms. Lynch is a 27 yo F with recent Crohn's dx with exacerbation of abd pain and bloody diarrhea - Patient Problems (1) Crohn disease Comment: - with exacerbation . - Pain and narcotic tolerance has been an issue. Appreciate pain management consult, started fentanyl patch 25 mcg/hr on 08/08 - she reports some relief but not much. Dr. Kitchen to f/u today. - Cont Oxycodone 5 mg and dilauudid 1 mg Q4H - Appreciate Dr. Kraft's consult. Dr. Roldan is scheduling pt for Remicade tx Friday (CMV, hepatitis titers pending, PPD placed) - Continue IV steroids, plan for long prednisone taper at discharge. - Continue mesalamine. - Continue low residue diet. (2) Anemia Comment: - resolved (3) Leukocytosis Current Visit: Yes Status: Acute Code(s): D72.829 - ELEVATED WHITE BLOOD CELL COUNT, UNSPECIFIED SNOMED Code(s): 343399920 Comment: - Suspect secondary to steroids - Afebrile - Will recheck CBC in AM (4) Depression Comment: - Continue home meds (5) DVT prophylaxis Comment: - Ambulation encouraged (6) Full code status Status and Disposition: Inpatient. Discharge to home when medically stable, possibly in 1-2 days.
[2017-08-09] MEDS: HYDROmorphone INJ* 1 MG/ML CARPUJECT SYRINGE IV SLOW PU PRN ×3 (12:36→20:16)
[2017-08-09] MEDS ORDERED: Fluconazole 100 MG TAB* TAB PO ONE (12:46)
[2017-08-09 16:45] LABS: Cytomegalovirus Detection Undetected IU/mL (Undetected)
--- NOTE | 2017-08-09 16:59 | PN ---
Progress Note - Progress Note Date of Service: 08/09/17 Note: I met with patient. She thinks she is more comfortable today but is unsure if she attributes it to the Fentanyl patch or the steroids. She feels like she is now having some trouble with BMs-she hasn't had one since the patch went on Current Medications Acetaminophen (Tylenol Tab*) 650 mg PO Q4H PRN PRN Reason: FEVER/PAIN Citalopram Hydrobromide (Celexa Tab*) 10 mg PO BEDTIME [facility] Last Admin: 08/08/17 21:45 Dose: 10 mg Citalopram Hydrobromide (Celexa Tab*) 20 mg PO DAILY [facility] Last Admin: 08/09/17 08:05 Dose: 20 mg Dicyclomine HCl (Bentyl Cap*) 10 mg PO Q6H PRN PRN Reason: .ABDOMINAL PAIN Dicyclomine HCl (Bentyl Cap*) 20 mg PO Q6H PRN PRN Reason: .ABDOMINAL PAIN Last Admin: 08/06/17 01:31 Dose: 20 mg Diphenhydramine HCl (Benadryl Iv*) 25 mg SLOW PUSH Q4H PRN PRN Reason: ITCHING Duloxetine HCl (Cymbalta Cap*) 60 mg PO DAILY [facility] Last Admin: 08/09/17 07:54 Dose: Not Given Fentanyl (Duragesic Patch 25 Mcg/Hr*) 25 mcg TRANSDERM Q72H [facility] Last Admin: 08/08/17 17:01 Dose: 25 mcg Hydromorphone HCl (Dilaudid Injic*) 0.5 mg IV SLOW PU Q4H PRN PRN Reason: PAIN Lactobacillus Rhamnosus (Culturelle*) 1 cap PO BID [facility] Mesalamine (Mesalamine Dr Cap*) 800 mg PO TID [facility] Last Admin: 08/09/17 12:36 Dose: 800 mg Methylprednisolone Sodium Succinate (Solu-Medrol 40 Mg) 40 mg IV Q12H [facility] Last Admin: 08/09/17 06:03 Dose: 40 mg Nicotine (Nicotine Inhaler*) 10 mg INH Q2H PRN PRN Reason: CRAVING Ondansetron HCl (Zofran Inj*) 4 mg IV Q6H PRN PRN Reason: NAUSEA/VOMITING Last Admin: 08/03/17 13:55 Dose: 4 mg Oxycodone HCl (Roxycodone Tab*) 5 mg PO Q3H PRN PRN Reason: PAIN - MODERATE TO SEVERE Last Admin: 08/09/17 15:57 Dose: 5 mg Pantoprazole Sodium (Protonix Tab (Nf)) 40 mg PO DAILY [facility] Last Admin: 08/09/17 08:05 Dose: 40 mg Pharmacy Profile Note (Fentanyl Patch Check Q Shift) 1 note N/A 0700,1900 [facility] Last Admin: 08/09/17 07:19 Dose: 1 note Trazodone HCl (Desyrel Tab*) 50 mg PO BEDTIME [facility] Last Admin: 08/08/17 21:46 Dose: 50 mg Vital Signs Temp Pulse Resp BP Pulse Ox 97.3 F 60 16 111/64 100 08/09/17 15:50 08/09/17 15:50 08/09/17 16:30 08/09/17 15:50 08/09/17 15:50 BRIEF EXAM: ABDOMEN: tender NEUROLOGIC: Muscle strength 5/5 in LEs and UEs ASSESSMENT/PLAN: 1. Crohn's disease with polyarthropathy: Continue Fentanyl. Will lower Dilaudid to 0.5 mg.
[2017-08-09] MEDS: Lactobacillus Acidophilu (GG)* 1 CAP CAP PO SCH (20:16)
[2017-08-09] MEDS: traZODone TAB* 50 MG TAB PO SCH ×2 (20:16→21:10)
[2017-08-09] MEDS: Citalopram TAB* 10 MG PO SCH (20:16)
[2017-08-09] MEDS ORDERED: Mouth Piece, Nicotine* 1 EACH CARTRIDGE ONE (23:22)
[2017-08-10] MEDS: HYDROmorphone INJ* 1 MG/ML CARPUJECT SYRINGE IV SLOW PU PRN ×4 (00:10→12:55)
[2017-08-10] MEDS: diPHENhydraMINE IV* 50 MG/ML 1 ml VIAL (BENADRYL) SLOW PUSH PRN ×5 (00:15→17:01)
[2017-08-10] MEDS: oxyCODONE TAB* 5 MG TAB PO PRN ×3 (02:25→09:59)
[2017-08-10] MEDS: methylPREDNISolone SOD 40 MG* 1 ML VIAL IV SCH ×2 (06:03→18:21)
[2017-08-10 07:05] LABS: Hematocrit 39 % (35-47); Hemoglobin 12.5 g/dl (12.0-16.0); Mean Corpuscular HGB Conc 32 g/dl (31-36); Mean Corpuscular Hemoglobin 25 pg (27-31); Mean Corpuscular Volume 78 fL (80-97); Mean Platelet Volume 7 um3 (7.4-10.4); Red Blood Count 5.05 10^6/ul (4.0-5.4); Red Cell Distribution Width 15 % (10.5-15); White Blood Count 23.6 10^3/ul (3.5-10.8)
[2017-08-10 07:08] LABS: Add Diff/Slide Review? Slide Review Added; Comments Flag Yes
[2017-08-10 07:22] LABS: BUN/Creatinine Ratio 26.5 (8-20); Calcium 8.9 mg/dL (8.6-10.3); EGFR African American 193.4 (>60); EGFR Non-African American 150.4 (>60); Potassium 4.3 mmol/L (3.5-5.0)
[2017-08-10] MEDS: fentaNYL Patch Check Q Shift 1 NOTE SCH ×2 (07:44→19:29)
[2017-08-10 08:41] LABS: Immature Granulocytes 3 % (0-9); Metamyelocytes % 1 % (0-2); Myelocytes % 2 % (0-1); Neutrophil % 81 % (38-83); RBC Morphology Normal (Normal)
[2017-08-10] MEDS: Lactobacillus Acidophilu (GG)* 1 CAP CAP PO SCH (08:43)
[2017-08-10] MEDS: Citalopram TAB* 20 MG PO SCH (08:43)
--- NOTE | 2017-08-10 08:58 | PN ---
Subjective Date of Service: 08/10/17 Interval History: Patient reports she feels better today with less pain. No BM since Friday but reports she feels like she has to have one this morning. She did report she passed some bloody mucous. Less RLQ pain today. No fevers or chills. Tolerating PO. Plan for DC home in am prior to infusion Patient would like to follow up with the pain clinic for pain management Family History: Unchanged from Admission Social History: Unchanged from Admission Past Medical History: Unchanged from Admission Objective Active Medications: Acetaminophen (Tylenol Tab*) 650 mg PO Q4H PRN PRN Reason: FEVER/PAIN Citalopram Hydrobromide (Celexa Tab*) 10 mg PO BEDTIME [facility] Last Admin: 08/09/17 20:16 Dose: 10 mg Citalopram Hydrobromide (Celexa Tab*) 20 mg PO DAILY [facility] Last Admin: 08/10/17 08:43 Dose: 20 mg Dicyclomine HCl (Bentyl Cap*) 10 mg PO Q6H PRN PRN Reason: .ABDOMINAL PAIN Dicyclomine HCl (Bentyl Cap*) 20 mg PO Q6H PRN PRN Reason: .ABDOMINAL PAIN Last Admin: 08/06/17 01:31 Dose: 20 mg Diphenhydramine HCl (Benadryl Iv*) 25 mg SLOW PUSH Q4H PRN PRN Reason: ITCHING Last Admin: 08/10/17 08:42 Dose: 25 mg Duloxetine HCl (Cymbalta Cap*) 60 mg PO DAILY [facility] Last Admin: 08/09/17 07:54 Dose: Not Given Fentanyl (Duragesic Patch 25 Mcg/Hr*) 25 mcg TRANSDERM Q72H [facility] Last Admin: 08/08/17 17:01 Dose: 25 mcg Hydromorphone HCl (Dilaudid Injic*) 0.5 mg IV SLOW PU Q4H PRN PRN Reason: PAIN Last Admin: 08/10/17 08:42 Dose: 0.5 mg Lactobacillus Rhamnosus (Culturelle*) 1 cap PO BID [facility] Last Admin: 08/10/17 08:43 Dose: 1 cap Mesalamine (Mesalamine Dr Cap*) 800 mg PO TID [facility] Last Admin: 08/09/17 20:16 Dose: 800 mg Methylprednisolone Sodium Succinate (Solu-Medrol 40 Mg) 40 mg IV Q12H [facility] Last Admin: 08/10/17 06:03 Dose: 40 mg Nicotine (Nicotine Inhaler*) 10 mg INH Q2H PRN PRN Reason: CRAVING Last Admin: 08/09/17 23:22 Dose: 10 mg Ondansetron HCl (Zofran Inj*) 4 mg IV Q6H PRN PRN Reason: NAUSEA/VOMITING Last Admin: 08/03/17 13:55 Dose: 4 mg Oxycodone HCl (Roxycodone Tab*) 5 mg PO Q3H PRN PRN Reason: PAIN - MODERATE TO SEVERE Last Admin: 08/10/17 06:02 Dose: 5 mg Pantoprazole Sodium (Protonix Tab (Nf)) 40 mg PO DAILY [facility] Last Admin: 08/09/17 08:05 Dose: 40 mg Pharmacy Profile Note (Fentanyl Patch Check Q Shift) 1 note N/A 0700,1900 [facility] Last Admin: 08/10/17 07:44 Dose: 1 note Trazodone HCl (Desyrel Tab*) 50 mg PO BEDTIME [facility] Last Admin: 08/09/17 21:10 Dose: Not Given Vital Signs 08/10/17 08/10/17 08/10/17 04:15 04:50 06:02 Temperature Pulse Rate Respiratory 16 16 16 Rate Blood Pressure (mmHg) O2 Sat by Pulse Oximetry 08/10/17 08/10/17 08/10/17 06:09 07:22 07:58 Temperature 97.7 F Pulse Rate 70 Respiratory 14 18 14 Rate Blood Pressure 104/63 (mmHg) O2 Sat by Pulse 98 Oximetry 08/10/17 08:42 Temperature Pulse Rate Respiratory 18 Rate Blood Pressure (mmHg) O2 Sat by Pulse Oximetry Oxygen Devices in Use Now: None Appearance: 27 yo female A+O x3 in NAD Eyes: No Scleral Icterus, PERRLA Ears/Nose/Mouth/Throat: NL Teeth, Lips, Gums, Mucous Membranes Moist Neck: NL Appearance and Movements; NL JVP Respiratory: Symmetrical Chest Expansion and Respiratory Effort, Clear to Auscultation Cardiovascular: NL Sounds; No Murmurs; No JVD, RRR, No Edema Abdominal: - - + BS throughout; tender in RLQ with mild guarding Extremities: No Edema Skin: No Rash or Ulcers, No Nodules or Sclerosis Neurological: Alert and Oriented x 3, NL Sensation, NL Gait, NL Muscle Strength and Tone Lines/Tubes/Other Access: Clean, Dry and Intact Peripheral IV Nutrition: Taking PO's Result Diagrams: 08/10/17 06:51 08/10/17 06:51 Additional Lab and Data: Microbiology and Other Data: Microbiology 08/03/17 01:15 Stool Gross Appearance - Final Stool C. difficile DNA Amplification - Final 027 Presumptive NEGATIVE Toxigenic C.diff NEGATIVE 08/03/17 01:15 Stool Gross Appearance - Final Stool Stool Lactoferrin - Final 08/03/17 01:15 Stool Gross Appearance - Final Stool Assess/Plan/Problems-Billing Assessment: Ms. Lynch is a 27 yo F with recent Crohn's dx with exacerbation of abd pain and bloody diarrhea - Patient Problems (1) Crohn disease Comment: - Crohn's disease of the small & large intestines diagnosed approx 1 month ago by GI at [place], now with severe exacerbation. Has lost a total 60lbs over the past 8 months. - Symptoms improving. - Pain and narcotic tolerance has been an issue. Appreciate pain management consult, started fentanyl patch 25 mcg/hr on 08/08 - she reports some relief but not sure if it is from steroids or patch. - Cont Oxycodone 5 mg and dilauudid 0.5 mg IV Q4H - Appreciate Dr. Kraft's consult. Dr. Roldan is scheduling pt for Remicade tx Friday (CMV, hepatitis titers pending, PPD placed) - Continue IV steroids for now, plan for long prednisone taper at discharge - switch to 40 mg po daily for 2-3 weeks and f/u with Dr. Roldan in 2 weeks ( spoke with him on the phone) - DC per GI- mesalamine and Bentyl - Continue low residue diet. (2) Anemia Comment: - resolved (3) Leukocytosis Comment: - Suspect secondary to steroids - Afebrile (4) Depression Comment: - Continue home meds (5) DVT prophylaxis Comment: - Ambulation encouraged (6) Full code status Status and Disposition: Inpatient. Plan for DC to home in am prior to infusion.
[2017-08-10] MEDS: DULoxetine DR CAP* 60 MG CAP.DR PO SCH (09:55)
[2017-08-10] MEDS: CMC: Pantoprazole TAB (NF) 40 MG TAB PO SCH (10:00)
[2017-08-10] MEDS ORDERED: oxyCODONE TAB* 5 MG TAB PO PRN (15:15)
[2017-08-10 16:57] VITALS: BP 148/81
--- NOTE | 2017-08-10 17:36 | PN ---
Progress Note - Progress Note Date of Service: 08/10/17 Note: Asked by Jada oMck NP to follow up with patient. Spoke with Dr. Lr who recommended that patient be discharged on 25mcg fentanyl patch with hydrocodone/apap 5/325 for breakthrough pain. Patient to be discharged today and to follow up with Remicade infusion tomorrow. Patient will call Dr. Lr's office on Fri for an appointment.
[2017-08-10] MEDS ORDERED: HYDROmorphone INJ* 1 MG/ML CARPUJECT SYRINGE IV SLOW PU PRN (18:55)
--- NOTE | 2017-08-11 00:54 | DS ---
DISCHARGE SUMMARY: DATE OF ADMISSION: 08/02/17 DATE OF DISCHARGE: 08/10/17 PROVIDER: MYRIAM Still. ATTENDING PHYSICIAN: Dr. Hoang * (report dictated by Leola Vizcarra NP) PRIMARY CARE PROVIDER: Dr. Drummond of [place]. FARM MORTGAGE AGENT: Dr. Yost of [place]. DISCHARGE DIAGNOSES: 1. Crohn's exacerbation. 2. Tobacco abuse. SECONDARY DIAGNOSES: 1. 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 2. Depression. 3. History of gastritis. DISCHARGE MEDICATIONS: 1. Cymbalta 60 mg p.o. daily. 2. Celexa 10 mg p.o. at bedtime. 3. Celexa 20 mg in the morning. 4. Hydrocodone/acetaminophen 5/325 mg 1 tab p.o. q.6 hours p.r.n. 5. Protonix 40 mg p.o. daily. 6. Zofran 4 mg p.o. q.6 hours p.r.n. 7. Prednisone 40 mg p.o. daily for 2 to 3 weeks until seen by GI. 8. Fentanyl patch 25 mcg transderm q.72 hours, dispensed 3 patches. 9. Culturelle probiotic 1 cap p.o. b.i.d. HISTORY OF PRESENT ILLNESS AND HOSPITAL COURSE: Please see history and physical by Sharri Eason NP for full admission details but in summary, this is a 27-year- old female who presented to the emergency department on 08/02/17 with complaints of abdominal pain, frequent stools and bright red blood in her stools, reporting ongoing symptoms for several weeks but worse in the past week. She was recently diagnosed approximately a month ago with Crohn's in the small and large intestine and has been followed by her roll on man, Dr. Yost at [place]. She was started on mesalamine and budesonide as well as narcotic pain medications at that time and reports worsening symptoms. As well , she was started on low dose prednisone. She was seen and evaluated in the emergency department due to her significant pain, reported nausea and vomiting with frequent stools. She was admitted to the hospitalist service. She presented with a leukocytosis of 19.9 with CRP of 5.22. She had no reported fevers. She was seen and evaluated by our roll on man, Gisele Kraft, who started the patient on 40 mg of IV Solu- Medrol q.12. The patient has slowly improved, gaining most of her improvement over the past 24 hours. She was tested for C. diff, which was negative. Her biggest complaint has been severe right lower quadrant pain, which has been difficult to control and she was evaluated by Dr. Lr from pain management to place the patient on a 25 mcg q.72 hour fentanyl patch and followed up with the patient yesterday. The patient reports that between the patch and taking Benadryl has been her biggest relief. She was reporting insomnia and Dr. Lr ordered for her to have trazodone 50 mg at nighttime which she reported to me did not work for her and this medication was discontinued. She preferred to take the Benadryl. She has had Dilaudid IV for breakthrough pain. The plan per GI is to start Remicade tomorrow at the infusion clinic as an outpatient. The patient's symptoms quickly improved. However, she will stay in the hospital to continue IV Solu- Medrol today and start oral prednisone in the morning and is stable for discharge after her morning meds and will go to the infusion clinic at 1 p.m. for her Remicade infusion. I spoke with roll on man, Dr. Roldan who will follow the patient as an outpatient and will see the patient in the office in 2 weeks. She is to continue on 40 mg of prednisone up until that point and recommendation was to discontinue the Bentyl and mesalamine. I discussed smoking cessation with the patient and spent approximately 10 minutes counseling her. She reports that she would like to quit but denied nicotine patches at this time. As well, we discussed diet and she was given references regarding a low residue antiinflammatory diet. DISCHARGE PLAN: 1. Followup with primary care provider within 7 to 10 days. 2. Followup with Dr. Roldan, roll on man in 2 weeks. She was instructed to call and make this appointment. 3. Follow up with Dr. Lr, Pain Management, to follow for chronic pain. 4. A referral to [facility] has been provided to the patient for care to the transition program as well as smoking cessation. 5. Infusion center at 1 p.m. tomorrow for Remicade first infusion. 6. The patient is stable for discharge on 08/11/17. This was discussed with the primary nurse and will be discussed with the oncoming hospitalist. LEOLA VIZCARRA, CLIENT SERVICES REPRESENTATIVE [id number]/[facility] #: [id number] [place]
[2017-08-11] MEDS ORDERED: predniSONE TAB* 20 MG PO SCH (09:00)
== END 2017-08-10 19:30 | disposition home or self-care (01) | DRG 245 ==
LOC: ED 11:09 → MED 16:08
PROVIDERS: ADMIT Internal Medicine; ATTEND Hospitalist
DX: K50.80 Crohn's disease of both small and large intestine without complications (principal); K92.1 Melena; D50.9 Iron deficiency anemia, unspecified; F32.9 Major depressive disorder, single episode, unspecified; F17.210 Nicotine dependence, cigarettes, uncomplicated; E87.6 Hypokalemia; D72.829 Elevated white blood cell count, unspecified; K21.9 Gastro-esophageal reflux disease without esophagitis; F41.0 Panic disorder [episodic paroxysmal anxiety]; M13.89 Other specified arthritis, multiple sites; K29.70 Gastritis, unspecified, without bleeding; G47.00 Insomnia, unspecified; R63.4 Abnormal weight loss; Z68.21 Body mass index [BMI] 21.0-21.9, adult; Z82.49 Family history of ischemic heart disease and other diseases of the circulatory system
CPT/HCPCS: 36415; 80048; 80053; 81003; 81015; 82728; 83540; 83550; 83605; 83630; 83735; 84702; 85025; 86140; 86706; 87045; 87046; 87340; 87493; 87497; 87899; A9270-GY; J1170; J1200; J2405; J2920

== ENCOUNTER 2017-08-25 15:03 | Emergency (ER) | payer OTHER ==
[2017-08-25 15:43] LABS: Hematocrit 35 % (35-47); Hemoglobin 11.5 g/dl (12.0-16.0); Mean Corpuscular HGB Conc 32 g/dl (31-36); Mean Corpuscular Hemoglobin 25 pg (27-31); Mean Corpuscular Volume 78 fL (80-97); Mean Platelet Volume 7 um3 (7.4-10.4); Red Blood Count 4.51 10^6/ul (4.0-5.4); Red Cell Distribution Width 16 % (10.5-15); White Blood Count 6.8 10^3/ul (3.5-10.8)
[2017-08-25 16:19] LABS: Albumin 3.4 g/dL (3.2-5.2); BUN/Creatinine Ratio 14.1 (8-20); C Reactive Protein 23.67 mg/L (< 5.00); Calcium 8.7 mg/dL (8.6-10.3); EGFR African American 142.1 (>60); EGFR Non-African American 110.5 (>60); Globulin 2.6 g/dL (2-4); Potassium 4.2 mmol/L (3.5-5.0); Total Bilirubin 0.3 mg/dL (0.2-1.0)
[2017-08-25] MEDS: NS 0.9% 1000 ML* 2,000 ML IV ONE ×2 (17:46→18:21)
[2017-08-25] MEDS ORDERED: Ondansetron INJ* 2 MG/ML VIAL IV ONE (17:52)
[2017-08-25] MEDS ORDERED: Morphine INJ* 2 MG/ML 1 ML CARPUJECT IV ONE (17:53)
[2017-08-25] MEDS ORDERED: Famotidine IV* 10 MG/ML 2 ML (20 mg) IV SLOW PU ONE (17:53)
[2017-08-25] MEDS ORDERED: Morphine INJ* 4 MG/ML 1 ML CARPUJECT ONE (18:08)
[2017-08-25] MEDS ORDERED: Morphine INJ* 4 MG/ML 1 ML CARPUJECT IV ONE (18:08)
[2017-08-25] MEDS ORDERED: Diphenoxylat/Atrop 2.5-0.025M* 1 TAB PO ONE (18:40)
[2017-08-25 19:24] VITALS: BP 135/98
--- NOTE | 2017-08-26 16:04 | ED ---
Amparo Madden Edward, scribed for Nick Stearns MD on 08/25/17 at 1705 . GI/ HPI - HPI Summary HPI Summary: 27 y/o female presents to the ED c/o diarrhea, around 10-15 times a day, starting 6 days ago. The diarrhea is aggravated with PO intake. Associated sx: diffuse ABD pain, blood in diarrhea. Pt states she was in the ED recently for similar symptoms. Pt also c/o pain and swelling under her bottom lip. Pt states her meds are passing through her bowel and can't get any to obtain. PMHx crohn' s disease. - History of Current Complaint Chief Complaint: EDGeneral Time Seen by Provider: 08/25/17 16:59 Stated Complaint: VOMITING/DIARRHEA Hx Obtained From: Patient Hx Last Menstrual Period: currently Onset/Duration: Started Days Ago Timing: Intermittent Pain Intensity: 10 Associated Signs and Symptoms: Positive: Diarrhea, Abdominal Pain, Other: - pain and swelling under bottom lip - Additional Pertinent History Primary Care Physician: OTTONIEL - Allergy/Home Medications Allergies/Adverse Reactions: Allergies Allergy/AdvReac Type Severity Reaction Status Date / Time No Known Allergies Allergy Verified 08/11/17 14:47 PMH/Surg Hx/FS Hx/Imm Hx Previously Healthy: No Endocrine/Hematology History: Denies: Hx Bone Marrow Disease, Hx Diabetes, Hx Sickle Cell Disease, Hx Thyroid Disease, Hx Anemia Cardiovascular History: Denies: Hx Hypertension Respiratory History: Denies: Hx Asthma, Hx Chronic Obstructive Pulmonary Disease (COPD) GI History: Reports: Hx Crohn's Disease, Hx Gastroesophageal Reflux Disease - takes tums daily Denies: Hx Ulcer History: Denies: Hx Renal Disease Sensory History: Denies: Hx Contacts or Glasses, Hx Hearing Aid Opthamlomology History: Denies: Hx Contacts or Glasses Psychiatric History: Reports: Hx Anxiety, Hx Depression, Hx Panic Disorder - Surgical History Surgery Procedure, Year, and Place: May 2001 Open appy Hx Anesthesia Reactions: No Infectious Disease History: No Infectious Disease History: Denies: Hx Clostridium Difficile, Hx Hepatitis, Hx Human Immunodeficiency Virus (HIV), Hx of Known/Suspected MRSA, Hx Tuberculosis, History Other Infectious Disease, Traveled Outside the [place] in Last 30 Days - Family History Known Family History: Positive: Cardiac Disease - Mother had CAD - Social History Alcohol Use: None Alcohol Amount: a few time a week Hx Substance Use: No Substance Use Type: Reports: None Hx Tobacco Use: Yes Smoking Status (MU): Current Some Day Smoker Type: Cigarettes Amount Used/How Often: 1-6/day Review of Systems Constitutional: Negative Eyes: Negative Positive: Dental Pain - pain and swelling under bottom lip Cardiovascular: Negative Respiratory: Negative Positive: Abdominal Pain - diffuse, Diarrhea Genitourinary: Negative Musculoskeletal: Negative Skin: Negative Neurological: Negative Psychological: Normal All Other Systems Reviewed And Are Negative: Yes Physical Exam - Summary Physical Exam Summary: VITAL SIGNS: Reviewed. GENERAL: ~Patient is a well-developed and nourished female who is lying comfortable in the stretcher. ~Patient is not in any acute respiratory distress. HEAD AND FACE: No signs of trauma. ~No ecchymosis, hematomas or skull depressions. No sinus tenderness. EYES: PERRLA, EOMI x 2, No injected conjunctiva, no nystagmus. EARS: Hearing grossly intact. Ear canals and tympanic membranes are within normal limits. MOUTH: Oropharynx within normal limits. NECK: Supple, trachea is midline, no adenopathy, no JVD, no carotid bruit, no c- spine tenderness, neck with full ROM. CHEST: Symmetric, no tenderness at palpation LUNGS: Clear to auscultation bilaterally. No wheezing or crackles. CVS: Regular rate and rhythm, S1 and S2 present, no murmurs or gallops appreciated. ABDOMEN: Soft, non-tender. No signs of distention. No rebound no guarding, and no masses palpated. Hyperactive bowel sounds. EXTREMITIES: FROM in all major joints, no edema, no cyanosis or clubbing. NEURO: Alert and oriented x 3. No acute neurological deficits. Speech is normal and follows commands. SKIN: Dry and warm Triage Information Reviewed: Yes Vital Signs On Initial Exam: Initial Vitals Temp Pulse Resp BP Pulse Ox 98.4 F 89 17 141/89 99 08/25/17 15:20 08/25/17 15:20 08/25/17 15:20 08/25/17 15:20 08/25/17 15:20 Vital Signs Reviewed: Yes Diagnostics - Vital Signs Vital Signs Temp Pulse Resp BP Pulse Ox 08/25/17 15:20 98.4 F 89 17 141/89 99 - Laboratory Lab Results: Lab Results 08/25/17 08/25/17 Range/Units 15:33 15:33 WBC 6.8 (3.5-10.8) 10^3/ul RBC 4.51 (4.0-5.4) 10^6/ul Hgb 11.5 L (12.0-16.0) g/dl Hct 35 (35-47) % MCV 78 L (80-97) fL MCH 25 L (27-31) pg MCHC 32 (31-36) g/dl RDW 16 H (10.5-15) % Plt Count 334 (150-450) 10^3/ul MPV 7 L (7.4-10.4) um3 Neut % (Auto) 61.2 (38-83) % Lymph % (Auto) 28.0 (25-47) % Towner % (Auto) 7.9 (1-9) % Eos % (Auto) 1.7 (0-6) % Baso % (Auto) 1.2 (0-2) % Absolute Neuts (auto) 4.2 (1.5-7.7) 10^3/ul Absolute Lymphs (auto) 1.9 (1.0-4.8) 10^3/ul Absolute Monos (auto) 0.5 (0-0.8) 10^3/ul Absolute Eos (auto) 0.1 (0-0.6) 10^3/ul Absolute Basos (auto) 0.1 (0-0.2) 10^3/ul Absolute Nucleated RBC 0 10^3/ul Nucleated RBC % 0 Sodium 138 (133-145) mmol/L Potassium 4.2 (3.5-5.0) mmol/L Chloride 106 (101-111) mmol/L Carbon Dioxide 27 (22-32) mmol/L Anion Gap 5 (2-11) mmol/L BUN 9 (6-24) mg/dL Creatinine 0.64 (0.51-0.95) mg/dL Est GFR ( Amer) 142.1 (>60) Est GFR (Non-Af Amer) 110.5 (>60) BUN/Creatinine Ratio 14.1 (8-20) Glucose 109 H (70-100) mg/dL Calcium 8.7 (8.6-10.3) mg/dL Total Bilirubin 0.30 (0.2-1.0) mg/dL AST 13 (13-39) U/L ALT 19 (7-52) U/L Alkaline Phosphatase 48 (34-104) U/L C-Reactive Protein 23.67 H (< 5.00) mg/L Total Protein 6.0 L (6.4-8.9) g/dL Albumin 3.4 (3.2-5.2) g/dL Globulin 2.6 (2-4) g/dL Albumin/Globulin Ratio 1.3 (1-3) Lipase 46 (11.0-82.0) U/L Result Diagrams: 08/25/17 15:33 08/25/17 15:33 Lab Statement: Any lab studies that have been ordered have been reviewed, and results considered in the medical decision making process. Re-Evaluation - Re-Evaluation 1 Re-Evaluation Time: 18:40 Comment: Discussed plan of care, pt wants to be d/c home GIGU Course/Dx - Course Assessment/Plan: 27 y/o female presents to the ED c/o diarrhea, around 10-15 times a day, starting 6 days ago. The diarrhea is aggravated with PO intake. Associated sx: diffuse ABD pain, blood in diarrhea. Pt states she was in the ED recently for similar symptoms. Pt also c/o pain and swelling under her bottom lip. Pt states her meds are passing through her bowel and can't get any to obtain. PMHx crohn's disease. Test results are without significant abnormalities except CRP 23.6. Pt was hydrated with IV fluids, Zofran for nausea and morphine for pain. Test results are without significant abnormalities except CRP 23.6. Pt was hydrated with IV fluids, Zofran for nausea and morphine for pain. The pt reports she is feeling better and hydrated but she is unable to give stool samples. Since the pt has diarrhea she will be observed for a couple hours. The pt had a CT in 05/10/17 and she doesnt want to repeat it. She is schedule to do Remicade infusion for Crohns diseas with her GI doctor on . However she is dealing with a dental infection. Therefore she has to reschedule. Her diarrhea has made her unable to keep Augmentin and she has lost her meds, therefore she requested something to stop her diarrhea and to give her a prescription for augmentin for 7 days. The pt will be d/c home with f/u with her GI doctor. The pt is hemodynamically stable, A&Ox3. She is in pain management at home with fentanyl patches, which she only uses as needed for her chronic pain. - Diagnoses Provider Diagnoses: Diffuse abdominal pain, Nausea, vomiting and diarrhea Discharge - Discharge Plan Condition: Stable Disposition: HOME Prescriptions: Amoxicillin PO (*) [Amoxicillin 875 MG (*)] 875 mg PO BID #14 tab Diphenoxylat/Atrop 2.5-0.025M* [Lomotil TAB*] 1 tab PO TID PRN #10 tab MDD 3 PRN Reason: Diarrhea Patient Education Materials: Acute Nausea and Vomiting (ED), Acute Diarrhea (ED ), Abdominal Pain (ED) Referrals: Fredis Drummond DO [Primary Care Provider] - 4 Days (PLEASE F/U IN 3-5 DAYS) The documentation as recorded by the Amparo buckner Edward accurately reflects the service I personally performed and the decisions made by Daryn san Walter, MD.
== END 2017-08-25 19:22 | disposition home or self-care (01) ==
LOC: ED 15:03
DX: R10.9 Unspecified abdominal pain (principal); R11.2 Nausea with vomiting, unspecified; R19.7 Diarrhea, unspecified; Z72.0 Tobacco use
CPT/HCPCS: 36415; 80053; 83690; 85025; 86140; 96361; 96374; 99283; A9270-GY; J2270; J2405

== ENCOUNTER 2017-08-30 13:02 | Emergency (ER) | payer OTHER ==
[2017-08-30 13:09] VITALS: BP 127/71
[2017-08-30] MEDS ORDERED: NS 0.9% 1000 ML* 1,000 ML IV ONE (13:43)
[2017-08-30] MEDS ORDERED: Iohexol 300* (CONTRAST) 10 ML SDV IV ONE (13:52)
[2017-08-30 14:01] LABS: Hematocrit 34 % (35-47); Hemoglobin 11.2 g/dl (12.0-16.0); Mean Corpuscular HGB Conc 33 g/dl (31-36); Mean Corpuscular Hemoglobin 25 pg (27-31); Mean Corpuscular Volume 78 fL (80-97); Mean Platelet Volume 6 um3 (7.4-10.4); Red Blood Count 4.42 10^6/ul (4.0-5.4); Red Cell Distribution Width 16 % (10.5-15); White Blood Count 7.2 10^3/ul (3.5-10.8)
[2017-08-30 14:16] LABS: Albumin 3.7 g/dL (3.2-5.2); C Reactive Protein 30.73 mg/L (< 5.00); Calcium 9.4 mg/dL (8.6-10.3); EGFR African American 118.3 (>60); Globulin 2.8 g/dL (2-4); Potassium 3.8 mmol/L (3.5-5.0); Total Bilirubin 0.3 mg/dL (0.2-1.0); Total Protein 6.5 g/dL (6.4-8.9)
--- NOTE | 2017-08-30 14:30 | RAD ---
INDICATION: LEFT side neck pain and swelling. Root canal about one week ago. LEFT lower jaw pain. COMPARISON: No relevant prior exams available on the [facility] for comparison. TECHNIQUE: Multidetector CT images skull base to lung apices with 50 mL Omnipaque 300 IV contrast. Multiplanar reformation. REPORT: Artifact from dental amalgam. No fracture, focal osteolysis, or periosteal reaction evident. There is mild soft tissue inflammatory change posterior to the LEFT mandibular angle and inferior to the LEFT mandibular body and masseter muscle. No loculated soft tissue abscess collection evident. Small LEFT submandibular lymph nodes noted measuring up to 0.5 cm short axis. Upper normal range bilateral 1 cm short axis jugulodigastric lymph nodes noted. Negative for lymphadenopathy based on short axis size criteria. Unremarkable bilateral parotid and submandibular glands. Unremarkable CT appearance of the thyroid gland. Unremarkable pharyngeal mucosal space contours. Unremarkable symmetric parapharyngeal fat. Unremarkable epiglottis, larynx, visualized subglottic airway, and visualized lung apices. Patent bilateral internal jugular veins. Clear paranasal sinuses and mastoid air spaces. IMPRESSION: 1. Mild soft tissue inflammatory change posterior to the LEFT mandibular angle and inferior to the LEFT mandibular body and masseter muscle. No loculated soft tissue abscess collection evident. 2. Small LEFT submandibular lymph nodes noted measuring up to 0.5 cm short axis. Upper normal range bilateral 1 cm short axis jugulodigastric lymph nodes noted. Negative for lymphadenopathy. 3. No CT evidence for osteomyelitis.
[2017-08-30 14:54] LABS: EBV Response NO
[2017-08-30 14:55] LABS: Manual Entry Verification HAN0055; Mono Internal Control QC Line Present
[2017-08-30] MEDS ORDERED: Ibuprofen TAB* 600 MG ONE ×2 (15:12→15:15)
[2017-08-30] MEDS ORDERED: Ibuprofen TAB* 600 MG PO ONE (15:16)
[2017-08-30] MEDS ORDERED: diPHENhydraMINE IV* 50 MG/ML 1 ml VIAL (BENADRYL) SLOW PUSH ONE (15:42)
[2017-08-30] MEDS ORDERED: HYDROcodone/ACETAMIN 5-325 MG* 1 TAB PO ONE ×2 (15:53→15:54)
--- NOTE | 2017-08-31 16:39 | ED ---
Shelli Madden Alfonso, scribed for Nick Stearns MD on 08/30/17 at 1344 . Complex/Multi-Sys Presentation - HPI Summary HPI Summary: This patient is a 27 year old F presenting to [facility] accompanied by male with a chief complaint of left lower dental pain since one week ago. She was treated for a root canal and given abx at [facility]. The patient rates the pain 5/10 in severity. Symptoms alleviated by nothing. Patient reports left cheek throbbing and numbness. - History Of Current Complaint Chief Complaint: EDDentalPain Time Seen by Provider: 08/30/17 13:29 Hx Obtained From: Patient Onset/Duration: Gradual Onset, Lasting Weeks - 2, Still Present Timing: Constant Severity Currently: Moderate - 5/10 pain Alleviating Factor(s): nothing Associated Signs And Symptoms: Positive: Other - left cheek throbbing and numbness. - Allergies/Home Medications Allergies/Adverse Reactions: Allergies Allergy/AdvReac Type Severity Reaction Status Date / Time No Known Allergies Allergy Verified 08/11/17 14:47 PMH/Surg Hx/FS Hx/Imm Hx Endocrine/Hematology History: Denies: Hx Bone Marrow Disease, Hx Diabetes, Hx Sickle Cell Disease, Hx Thyroid Disease, Hx Anemia Cardiovascular History: Denies: Hx Hypertension Respiratory History: Denies: Hx Asthma, Hx Chronic Obstructive Pulmonary Disease (COPD) GI History: Reports: Hx Crohn's Disease, Hx Gastroesophageal Reflux Disease - takes tums daily Denies: Hx Ulcer History: Denies: Hx Renal Disease Sensory History: Denies: Hx Contacts or Glasses, Hx Hearing Aid Opthamlomology History: Denies: Hx Contacts or Glasses Psychiatric History: Reports: Hx Anxiety, Hx Depression, Hx Panic Disorder - Surgical History Surgery Procedure, Year, and Place: May 2001 Open appy Hx Anesthesia Reactions: No Infectious Disease History: No Infectious Disease History: Denies: Hx Clostridium Difficile, Hx Hepatitis, Hx Human Immunodeficiency Virus (HIV), Hx of Known/Suspected MRSA, Hx Tuberculosis, History Other Infectious Disease, Traveled Outside the [place] in Last 30 Days - Family History Known Family History: Positive: Cardiac Disease - Mother had CAD - Social History Alcohol Use: Occasionally Alcohol Amount: a few time a week Hx Substance Use: No Substance Use Type: Reports: None Hx Tobacco Use: Yes Smoking Status (MU): Current Some Day Smoker Type: Cigarettes Amount Used/How Often: 1-6/day Review of Systems Negative: Fever Positive: Dental Pain - left lower Neurological: Other - left cheek throbbing and numbness. All Other Systems Reviewed And Are Negative: Yes Physical Exam - Summary Physical Exam Summary: VITAL SIGNS: Reviewed. GENERAL: Patient is a well-developed and nourished female who is lying comfortable in the stretcher. Patient is not in any acute respiratory distress. HEAD AND FACE: No signs of trauma. No ecchymosis, hematomas or skull depressions. No sinus tenderness. Multiple dental cavities. EYES: PERRLA, EOMI x 2, No injected conjunctiva, no nystagmus. EARS: Hearing grossly intact. Ear canals and tympanic membranes are within normal limits. MOUTH: Oropharynx within normal limits. NECK: Supple, trachea is midline, no adenopathy, no JVD, no carotid bruit, no c- spine tenderness, neck with full ROM. CHEST: Symmetric, no tenderness at palpation LUNGS: Clear to auscultation bilaterally. No wheezing or crackles. CVS: Regular rate and rhythm, S1 and S2 present, no murmurs or gallops appreciated. ABDOMEN: Soft, non-tender. No signs of distention. No rebound no guarding, and no masses palpated. Bowel sounds are normal. EXTREMITIES: FROM in all major joints, no edema, no cyanosis or clubbing. NEURO: Alert and oriented x 3. No acute neurological deficits. Speech is normal and follows commands. SKIN: Dry and warm Triage Information Reviewed: Yes Vital Signs On Initial Exam: Initial Vitals Temp Pulse Resp BP Pulse Ox 98.1 F 95 18 127/71 100 08/30/17 13:05 08/30/17 13:05 08/30/17 13:05 08/30/17 13:05 08/30/17 13:05 Vital Signs Reviewed: Yes - [place] Coma Scale Coma Scale Total: 15 Diagnostics - Vital Signs Vital Signs Temp Pulse Resp BP Pulse Ox 08/30/17 13:05 98.1 F 95 18 127/71 100 - Laboratory Result Diagrams: 08/30/17 13:51 08/30/17 13:51 Lab Statement: Any lab studies that have been ordered have been reviewed, and results considered in the medical decision making process. - CT Neck CT Interpretation Completed By: Radiologist - 1. Mild soft tissue inflammatory change posterior to the LEFT mandibular angle and inferior to the LEFT mandibular body and masseter muscle. No loculated soft tissue abscess collection evident. 2. Small LEFT submandibular lymph nodes noted measuring up to 0.5 cm short axis. Upper normal range bilateral 1 cm short axis jugulodigastric lymph nodes noted. Negative for lymphadenopathy. 3. No CT evidence for osteomyelitis. ED physician has reviewed this radiology report and agrees. Complex Multi-Symp Course/Dx Assessment/Plan: This patient is a 27 year old F presenting to [facility] accompanied by male with a chief complaint of left lower dental pain since one week ago. She was treated for a root canal and given abx at [facility]. The patient rates the pain 5/10 in severity. Symptoms alleviated by nothing. Patient reports left cheek throbbing and numbness. Test results with no significant abnormalities except for slight anemia. Monoscreen, rapid strep, and influenza A and B all negative. Since the patient has multiple visits with the same complain and no obvious physical exam findings, I decided to do a CT Neck. CT Neck reveals, per radiologist, 1. Mild soft tissue inflammatory change posterior to the LEFT mandibular angle and inferior to the LEFT mandibular body and masseter muscle. No loculated soft tissue abscess collection evident. 2. Small LEFT submandibular lymph nodes noted measuring up to 0.5 cm short axis. Upper normal range bilateral 1 cm short axis jugulodigastric lymph nodes noted. Negative for lymphadenopathy. 3. No CT evidence for osteomyelitis. ED physician has reviewed this radiology report and agrees. It appears the abx are working, and since there is no abscess formation, the patient will be discharged with follow up from PCP and dentist. The patient is agreeable with this plan. The patient is hemodynamically stable, alert and oriented x3. - Diagnoses Provider Diagnoses: Pain, dental Discharge - Discharge Plan Condition: Stable Disposition: HOME Patient Education Materials: Toothache (ED) Referrals: Fredis Drummond DO [Primary Care Provider] - Additional Instructions: RETURN TO THE EMERGENCY DEPARTMENT FOR CHANGING OR WORSENING SYMPTOMS. The documentation as recorded by the Shelli buckner Alfonso accurately reflects the service I personally performed and the decisions made by , Nick Stearns MD.
== END 2017-08-30 16:09 | disposition home or self-care (01) ==
LOC: ED 13:02
DX: K08.89 Other specified disorders of teeth and supporting structures (principal); F17.210 Nicotine dependence, cigarettes, uncomplicated; K21.9 Gastro-esophageal reflux disease without esophagitis
CPT/HCPCS: 36415; 70491; 80053; 85025; 86140; 86308; 87502; 87651; 96360; 96374; 96375; 99282; A9270-GY; J1200; Q9967

== ENCOUNTER 2017-09-01 09:33 | Inpatient (IN) | payer OTHER ==
[2017-09-01] MEDS ORDERED: NS 0.9% 1000 ML*IV.FLUID IV ONE (12:34)
[2017-09-01] MEDS ORDERED: methylPREDNISolone 125 MG* 2 ML VIAL IV ONE (12:36)
[2017-09-01] MEDS ORDERED: HYDROmorphone INJ* 2 MG/ML CARPUJECT SYRINGE IV SLOW PU ONE ×3 (12:36→17:03)
[2017-09-01] MEDS ORDERED: diPHENhydraMINE IV* 50 MG/ML 1 ml VIAL (BENADRYL) IV ONE ×2 (12:49→15:24)
[2017-09-01 12:57] LABS: Hematocrit 33 % (35-47); Hemoglobin 10.9 g/dl (12.0-16.0); Mean Corpuscular HGB Conc 33 g/dl (31-36); Mean Corpuscular Hemoglobin 25 pg (27-31); Mean Corpuscular Volume 77 fL (80-97); Mean Platelet Volume 7 um3 (7.4-10.4); Red Blood Count 4.28 10^6/ul (4.0-5.4); Red Cell Distribution Width 16 % (10.5-15); White Blood Count 8.8 10^3/ul (3.5-10.8)
[2017-09-01 13:23] LABS: Troponin I 0.01 ng/mL (<0.04)
[2017-09-01 13:29] LABS: Albumin 3.5 g/dL (3.2-5.2); BUN/Creatinine Ratio 10.3 (8-20); C Reactive Protein 52.91 mg/L (< 5.00); Calcium 9.1 mg/dL (8.6-10.3); EGFR African American 159.2 (>60); EGFR Non-African American 123.8 (>60); Globulin 3.2 g/dL (2-4); Potassium 3.9 mmol/L (3.5-5.0); Total Bilirubin 0.4 mg/dL (0.2-1.0); Total Protein 6.7 g/dL (6.4-8.9)
[2017-09-01] MEDS ORDERED: Iohexol 300* (CONTRAST) 10 ML SDV IV ONE (13:33)
[2017-09-01 14:01] LABS: Erythrocyte Sed Rate 75 mm/Hr (0-14)
--- NOTE | 2017-09-01 14:14 | RAD ---
HISTORY: Swelling, pain, status post root canal COMPARISONS: CT of the neck dated August 30, 2017 TECHNIQUE: Multiple contiguous axial CT scans were obtained of the face with intravenous contrast, with coronal and sagittal multiplanar reformations. FINDINGS: BONES: There is no displaced fracture or dislocation. The orbital rim is intact. The zygomatic arch is intact. The pterygoid plates are intact. ORBITS: The globes are round. The optic nerves are symmetric. The extraocular musculature is normal. There is no post septal or intraconal inflammatory change. There is no retrobulbar hematoma. PARANASAL SINUSES: There is nasal septal deviation to the left. BRAIN AND SOFT TISSUE: Unremarkable. OTHER: There is a loculated enhancing fluid collection in the expected location of the left sublingual gland measuring 1.6 x 1 x 0.9 cm in size. There is no associated sialolithiasis. There is inflammatory changes adjacent soft tissue IMPRESSION: THERE IS A LOCULATED ENHANCING FLUID COLLECTION IN THE EXPECTED LOCATION OF THE LEFT SUBLINGUAL GLAND MEASURING UP TO 1.6 CM IN SIZE WITH ASSOCIATED INFLAMMATORY CHANGE, CONCERNING FOR ABSCESS GIVEN THE CLINICAL HISTORY
[2017-09-01 15:14] LABS: Urine Bacteria Absent (Absent); Urine Bilirubin Negative (Negative); Urine Glucose Negative (Negative); Urine Nitrite Negative (Negative)
[2017-09-01] MEDS ORDERED: diPHENhydraMINE IV* 50 MG/ML 1 ml VIAL (BENADRYL) ONE (15:23)
[2017-09-01] MEDS ORDERED: Vancomycin(*) 1,000 MG - ED ONCE IVPB ONE ×2 (15:30)
[2017-09-01] MEDS ORDERED: Vancomycin(*) 1,000 MG BAG IVPB ONE (15:37)
[2017-09-01] MEDS ORDERED: Vancomycin(*) 1,000 MG VIAL IVPB SCH (16:00)
[2017-09-01] MEDS ORDERED: Clindamycin 900 MG IVPREMIX(* 900 MG/50 ML SDV IV ONE (17:03)
[2017-09-01] MEDS ORDERED: Piperacillin/Tazobac ADVAN(*) 3.375 GM in NS 0.9% 100 ML* 100 ML IVPB ONE (17:17)
[2017-09-01] MEDS ORDERED: Zosyn per Pharmacy* NOTE FOLLOW UP SCH (18:00)
[2017-09-01] MEDS ORDERED: NS 0.9% 1000 ML* 1,000 ML IV SCH (18:15)
[2017-09-01] MEDS ORDERED: Ondansetron INJ* 2 MG/ML VIAL IV PRN (18:28)
[2017-09-01] MEDS: fentaNYL PATCH 25 MCG/HR TRANSDERM SCH (19:42)
[2017-09-01] MEDS: HYDROmorphone INJ* 2 MG/ML CARPUJECT SYRINGE IV SLOW PU PRN ×2 (19:45→22:53)
--- NOTE | 2017-09-01 21:12 | ED ---
Shelli Madden Alfonso, scribed for Gabbie Boykin MD on 09/01/17 at 1213 . Complex/Multi-Sys Presentation - HPI Summary HPI Summary: This patient is a 27 year old F presenting to [facility] accompanied by boyfriend with a chief complaint of left facial swelling and pain since gradually worsening since 08/23/17. She a remicade infusion on 08/18/17 and the left facial swelling started after this, before a root canal that occurred 3 days later. The patient believes these symptoms are secondary to a remicade adverse reaction. She reports "this is the worst pain of my life. Pt is using her fentanyl patch for pain, but states she has been unable to swallow the mesalamine or her oral narcotic due to the swelling in her mouth. She was treated by Dr. Maria Victoria Collier DDS at [facility] on 08/26/17 whi did a root canal which was followed up by him on 08/29/17 and she was started on Clindamycin orally (she does not know the dose) by Dr. Collier when she complained of the facial swelling and swelling under the left mandible. The patient was seen by Dr. Collier this am and he cleaned the tooth again, and stated that it was dry, and the tooth itself did not appear infected so he advised pt to seek medical attention in the ED. The patient rates the pain 10/ 10 in severity. Symptoms aggravated by swallowing and eating. Symptoms alleviated by nothing. Patient reports diaphoresis by denies fever and diarrhea (watery) but denies abd pain, melena, hematochezia. She has no hx of C diff. She states her Crohn's disease is not flaring. She would be due for more remicade today, but Dr. Roldan advised that they hold the remicade and that pt present for further evaluation. Pt was seen in the ED on 08/30/[address] neck with IV contrast which showed only induration and inflammation of the mandible on the left, but no abscess. Pt states she has difficulty talking because her tongue can't lie flat in the floor of her mouth due to the swelling on the left side which has gotten worse since 08/30/17. - History Of Current Complaint Chief Complaint: EDGeneral Time Seen by Provider: 09/01/17 11:57 Hx Obtained From: Patient, Family/Endband Cutter Hand, Medical Records, Other: - Dr. Roldan, Dr. Collier Onset/Duration: Gradual Onset, Still Present, Worse Since - 08/23/17 Timing: Constant, Days Severity Currently: Severe - 10/10 pain Severity Initially: Severe Location: Pain At: - inside left lower mandible, floor of mouth Character: Sharp, Throbbing Aggravating Factor(s): swallowing and eating Alleviating Factor(s): nothing Associated Signs And Symptoms: Positive: Diarrhea, Diaphoresis, Other. Negative : Fever Related History: Other - ED visits 08/25/17 and 08/30/17 - Allergies/Home Medications Allergies/Adverse Reactions: Allergies Allergy/AdvReac Type Severity Reaction Status Date / Time No Known Allergies Allergy Verified 09/01/17 12:48 Home Medications: Home Medications Mesalamine [Mesalamine Dr] 800 mg PO TID 09/01/17 [History Confirmed 09/01/17] PMH/Surg Hx/FS Hx/Imm Hx Previously Healthy: No - Crohn's disease Endocrine/Hematology History: Denies: Hx Bone Marrow Disease, Hx Diabetes, Hx Sickle Cell Disease, Hx Thyroid Disease, Hx Anemia Cardiovascular History: Denies: Hx Hypertension Respiratory History: Denies: Hx Asthma, Hx Chronic Obstructive Pulmonary Disease (COPD) GI History: Reports: Hx Crohn's Disease, Hx Gastroesophageal Reflux Disease Denies: Hx Ulcer History: Denies: Hx Renal Disease Sensory History: Denies: Hx Contacts or Glasses, Hx Hearing Aid Opthamlomology History: Denies: Hx Contacts or Glasses Psychiatric History: Reports: Hx Anxiety, Hx Depression, Hx Panic Disorder - Surgical History Surgery Procedure, Year, and Place: May 2001 Open appy Hx Anesthesia Reactions: No Infectious Disease History: No Infectious Disease History: Denies: Hx Clostridium Difficile, Hx Hepatitis, Hx Human Immunodeficiency Virus (HIV), Hx of Known/Suspected MRSA, Hx Tuberculosis, History Other Infectious Disease, Traveled Outside the [place] in Last 30 Days - Family History Known Family History: Positive: Cardiac Disease - Mother had CAD - Social History Lives: With Family Alcohol Use: Occasionally Alcohol Amount: a few time a week Hx Substance Use: No Substance Use Type: Reports: None Hx Tobacco Use: Yes Smoking Status (MU): Current Some Day Smoker Type: Cigarettes Amount Used/How Often: 1-6/day Review of Systems Positive: Skin Diaphoresis. Negative: Fever Eyes: Negative Positive: Dental Pain, Other - left facial swelling and pain Cardiovascular: Negative Respiratory: Negative Positive: Diarrhea Skin: Negative Neurological: Negative Positive: Anxious All Other Systems Reviewed And Are Negative: Yes Physical Exam Triage Information Reviewed: Yes Vital Signs On Initial Exam: Initial Vitals Temp Pulse Resp BP Pulse Ox 97.4 F 95 20 143/96 100 09/01/17 09:35 09/01/17 09:35 09/01/17 09:35 09/01/17 09:35 09/01/17 09:35 Vital Signs Reviewed: Yes Appearance: Positive: Well-Nourished, Ill-Appearing, Pain Distress Skin: Positive: Warm, Skin Color Reflects Adequate Perfusion Head/Face: Positive: Other - swelling left cheek and left submandibular area Eyes: Positive: Conjunctiva Clear ENT: Positive: Normal ENT inspection Dental: Positive: Dental Fracture @ - 19, Cervical Lymphadenopathy, Other - Left lower premolar tooth #19 s/p root canal. Dry and no gingival abscess apparent. Left lower mandible ridge on the lingual aspect with diffuse induration and swelling and exquisite tenderness to touch. Submandibular swelling on left Neck: Positive: Supple, Nontender Respiratory/Lung Sounds: Positive: Clear to Auscultation, Breath Sounds Present , Other - No respiratory distress Cardiovascular: Positive: RRR, Pulses are Symmetrical in both Upper and Lower Extremities, Other - brisk capillary refill. Negative: Murmur Abdomen Description: Positive: Nontender, Soft Bowel Sounds: Positive: Present Musculoskeletal: Positive: Strength/ROM Intact Neurological: Positive: Alert, Oriented to Person Place, Time, Facial Symmetry, Speech Normal, Other - muscle tone normal, facial symmetry, speech normal, sensory/motor intact Psychiatric: Positive: Anxious - [place] Coma Scale Coma Scale Total: 15 Diagnostics - Vital Signs Vital Signs Temp Pulse Resp BP Pulse Ox 09/01/17 09:35 97.4 F 95 20 143/96 100 - Laboratory Lab Results: Lab Results 09/01/17 09/01/17 09/01/17 Range/Units 12:30 12:30 12:30 WBC 8.8 (3.5-10.8) 10^3/ul RBC 4.28 (4.0-5.4) 10^6/ul Hgb 10.9 L (12.0-16.0) g/dl Hct 33 L (35-47) % MCV 77 L (80-97) fL MCH 25 L (27-31) pg MCHC 33 (31-36) g/dl RDW 16 H (10.5-15) % Plt Count 417 (150-450) 10^3/ul MPV 7 L (7.4-10.4) um3 Neut % (Auto) 68.9 (38-83) % Lymph % (Auto) 22.8 L (25-47) % [place] % (Auto) 6.3 (1-9) % Eos % (Auto) 1.0 (0-6) % Baso % (Auto) 1.0 (0-2) % Absolute Neuts (auto) 6.0 (1.5-7.7) 10^3/ul Absolute Lymphs (auto) 2.0 (1.0-4.8) 10^3/ul Absolute Monos (auto) 0.6 (0-0.8) 10^3/ul Absolute Eos (auto) 0.1 (0-0.6) 10^3/ul Absolute Basos (auto) 0.1 (0-0.2) 10^3/ul Absolute Nucleated RBC 0 10^3/ul Nucleated RBC % 0 ESR 75 H (0-14) mm/Hr INR (Anticoag Therapy) 1.04 H (0.77-1.02) APTT 34.6 (26.0-36.3) seconds Sodium 136 (133-145) mmol/L Potassium 3.9 (3.5-5.0) mmol/L Chloride 106 (101-111) mmol/L Carbon Dioxide 21 L (22-32) mmol/L Anion Gap 9 (2-11) mmol/L BUN 6 (6-24) mg/dL Creatinine 0.58 (0.51-0.95) mg/dL Est GFR ( Amer) 159.2 (>60) Est GFR (Non-Af Amer) 123.8 (>60) BUN/Creatinine Ratio 10.3 (8-20) Glucose 75 (70-100) mg/dL Lactic Acid (0.5-2.0) mmol/L Calcium 9.1 (8.6-10.3) mg/dL Total Bilirubin 0.40 (0.2-1.0) mg/dL AST 14 (13-39) U/L ALT 12 (7-52) U/L Alkaline Phosphatase 48 (34-104) U/L Total Creatine Kinase 22 (10-223) U/L Troponin I 0.01 (<0.04) ng/mL C-Reactive Protein 52.91 H (< 5.00) mg/L Total Protein 6.7 (6.4-8.9) g/dL Albumin 3.5 (3.2-5.2) g/dL Globulin 3.2 (2-4) g/dL Albumin/Globulin Ratio 1.1 (1-3) Urine Color Urine Appearance Urine pH (5-9) Ur Specific [place] (1.010-1.030) Urine Protein (Negative) Urine Ketones (Negative) Urine Blood (Negative) Urine Nitrate (Negative) Urine Bilirubin (Negative) Urine Urobilinogen (Negative) Ur Leukocyte Esterase (Negative) Urine WBC (Auto) (Absent) Urine RBC (Auto) (Absent) Ur Squamous Epith Cells (Absent) Urine Bacteria (Absent) Urine Glucose (Negative) 09/01/17 09/01/17 09/01/17 Range/Units 12:30 14:43 16:35 WBC (3.5-10.8) 10^3/ul RBC (4.0-5.4) 10^6/ul Hgb (12.0-16.0) g/dl Hct (35-47) % MCV (80-97) fL MCH (27-31) pg MCHC (31-36) g/dl RDW (10.5-15) % Plt Count (150-450) 10^3/ul MPV (7.4-10.4) um3 Neut % (Auto) (38-83) % Lymph % (Auto) (25-47) % [place] % (Auto) (1-9) % Eos % (Auto) (0-6) % Baso % (Auto) (0-2) % Absolute Neuts (auto) (1.5-7.7) 10^3/ul Absolute Lymphs (auto) (1.0-4.8) 10^3/ul Absolute Monos (auto) (0-0.8) 10^3/ul Absolute Eos (auto) (0-0.6) 10^3/ul Absolute Basos (auto) (0-0.2) 10^3/ul Absolute Nucleated RBC 10^3/ul Nucleated RBC % ESR (0-14) mm/Hr INR (Anticoag Therapy) (0.77-1.02) APTT (26.0-36.3) seconds Sodium (133-145) mmol/L Potassium (3.5-5.0) mmol/L Chloride (101-111) mmol/L Carbon Dioxide (22-32) mmol/L Anion Gap (2-11) mmol/L BUN (6-24) mg/dL Creatinine (0.51-0.95) mg/dL Est GFR ( Amer) (>60) Est GFR (Non-Af Amer) (>60) BUN/Creatinine Ratio (8-20) Glucose (70-100) mg/dL Lactic Acid 0.9 0.7 (0.5-2.0) mmol/L Calcium (8.6-10.3) mg/dL Total Bilirubin (0.2-1.0) mg/dL AST (13-39) U/L ALT (7-52) U/L Alkaline Phosphatase (34-104) U/L Total Creatine Kinase (10-223) U/L Troponin I (<0.04) ng/mL C-Reactive Protein (< 5.00) mg/L Total Protein (6.4-8.9) g/dL Albumin (3.2-5.2) g/dL Globulin (2-4) g/dL Albumin/Globulin Ratio (1-3) Urine Color Straw Urine Appearance Clear Urine pH 5.0 (5-9) Ur Specific [place] 1.031 H (1.010-1.030) Urine Protein Negative (Negative) Urine Ketones Trace H (Negative) Urine Blood 2+ H (Negative) Urine Nitrate Negative (Negative) Urine Bilirubin Negative (Negative) Urine Urobilinogen Negative (Negative) Ur Leukocyte Esterase Negative (Negative) Urine WBC (Auto) Trace(0-5/hpf) (Absent) Urine RBC (Auto) Trace(0-2/hpf) (Absent) Ur Squamous Epith Cells Present H (Absent) Urine Bacteria Absent (Absent) Urine Glucose Negative (Negative) Result Diagrams: 09/02/17 06:05 09/01/17 12:30 Lab Statement: Any lab studies that have been ordered have been reviewed, and results considered in the medical decision making process. - CT Maxillofacial CT Interpretation Completed By: Radiologist - THERE IS A LOCULATED ENHANCING FLUID COLLECTION IN THE EXPECTED LOCATION OF THE LEFT SUBLINGUAL GLAND MEASURING UP TO 1.6 CM IN SIZE WITH ASSOCIATED INFLAMMATORY CHANGE, CONCERNING FOR ABSCESS GIVEN THE CLINICAL HISTORY. ED physician has reviewed this radiology report. Re-Evaluation - Re-Evaluation First Eval Re-Evaluation Time: 12:29 Change: Unchanged Comment: still in pain, shaky, and anxious. Second Eval Re-Evaluation Time: 15:05 Change: Improved Comment: Informed patient on CT results and changes from two days ago. Complex Multi-Symp Course/Dx Assessment/Plan: I-Stop reveals prescriptions for fentanyl patch and 120 tabs of oxycodone on 08/19/17. Patients medications reviewed this visit. In the ED course the patient was given IV fluids, IV Clindamycin 900mg, IV Benadryl, IV hydromorphone total 2 mg, Solu-MEDROL 125mg IV, and Vancomycin. Patient will be admitted to [facility]. The patient is agreeable with this plan. - Diagnoses Differential Diagnoses/HQI/PQRI: Sepsis, Other - allergic reaction, abscess Provider Diagnoses: Submandibular abscess, Crohns disease, Mandibular abscess, Complication due to root canal treatment - Physician Notifications Discussed Care Of Patient With: Ramana Roldan Time Discussed With Above Provider: 12:20 Instructed by Provider To: Other - Consulted Dr. Roldan (GI) at 1220 regarding the patients case and he is scheduled to see her in 2 days. He states this is not an allergic reaction to remicade. I Called [facility] at [address] Maria Victoria Collier DDS will call back. Dr. Collier (dentist) returned the call at 1254 and he reports the tooth was broken with an exposed nerve root, so he did the root canal on 08/26/17, and started Clindamycin liquid orally on 08/29/17 when he saw her in follow up and then saw her again this am and stated the tooth itself did not look infected this am but he did not the swelling of the mandible ridge and submandibular gland. Consulted Dr. Marie (oral surgery) at 1431 who recommends transfer to a higher level of care as she needs IV antibiotics and management of the abscess and he is not sediment remediation consultant today or tomorrow. Consulted call out at [phone] Person (ENT) who returned the call at [phone] and he will see the patient in the ED. Consulted Dr. Cervantes (hospitalist) who, per Dr. Person's recommendation and consultation, agrees to admit. Dr. Person recommends IV antibiotics and he will drain abscess if necessary and will manage any airway emergencies. Discharge - Discharge Plan Condition: Stable Disposition: ADMITTED TO [facility] The documentation as recorded by the Shelli buckner Alfonso accurately reflects the service I personally performed and the decisions made by , Gabbie Boykin MD.
--- NOTE | 2017-09-01 22:36 | HP ---
CC: Dr. Fredis Drummond * HISTORY AND PHYSICAL: DATE OF ADMISSION: 09/01/17. PRIMARY CARE PROVIDER: Dr. Fredis Drummond. ATTENDING PHYSICIAN: Dr. Kandice Baron * (dictated by Deja Hewitt NP). CHIEF COMPLAINT: Left-sided facial swelling and pain. HISTORY OF PRESENT ILLNESS: Ms. Lynch is a 27-year-old female with a past medical significant for Crohn's disease, depression, gastritis, who developed submaxillary left-sided facial swelling approximately 8 days ago. The patient states that 1 week ago on 08/25/17, she underwent a root canal. She was seen in followup by the dentist on 08/27/17, at which time he stated everything looked okay. The patient was then again seen by him today, he did a repeat root canal and the patient was told that the area looks dry and not infected, but he recommended that the patient present to the emergency room for further evaluation of her symptoms. The patient denies any fevers, but she reports chills and feeling hot and sweaty. She denies chest pain, cough, shortness of breath, nausea, vomiting. She has baseline abdominal pain due to her Crohn's. She denies any diarrhea. The patient states that she last received a Remicade infusion on 08/18/17. While in the emergency room, the patient received vancomycin, Solu-Medrol, 2 liters of normal saline, IV Dilaudid, and Benadryl. She also underwent a maxillofacial CT showing a loculated enhancing fluid collection at the left sublingual gland, measuring up to 1.6 cm that was concerning for an abscess. Dr. Person was consulted with ENT, who recommended admitting the patient for IV antibiotics and steroids. Hospitalists were asked to evaluate the patient for admission. PAST MEDICAL HISTORY: 1. Crohn's disease. 2. Crohn's arthritis per the patient with her hips and knees affected. 3. Depression. 4. Gastritis. PAST SURGICAL HISTORY: 1. Status post appendectomy. 2. Status post removal of an ectopic . HOME MEDICATIONS: Include: 1. Mesalamine 800 mg oral 3 times daily. 2. Celexa 20 mg oral daily in the morning and 10 mg oral daily at bedtime. 3. Protonix 40 mg oral daily. 4. Zofran 4 mg oral every 6 hours as needed for nausea. 5. Oxycodone 5 mg oral every 4 hours as needed for pain. 6. Fentanyl patch 25 mcg transdermal every 72 hours. ALLERGIES: No known drug allergies. FAMILY HISTORY: The patient's paternal grandparents both had a history of coronary artery disease. The patient's maternal grandmother, paternal aunt and all of her maternal grandmother's siblings had diabetes mellitus. The patient has a paternal uncle with a history of lung cancer, paternal grandfather with lung cancer and a paternal aunt with breast cancer. SOCIAL HISTORY: The patient has smoked for approximately 15 years and smokes approximately 5 cigarettes daily. She denies alcohol or recreational drug use. She notes that in the past she was a heavy alcohol drinker, but no longer drinks alcohol after being diagnosed with Crohn's. The patient's mother, Karmen Lynch, will be her surrogate decision maker in the event that she is unable to make decisions for herself. REVIEW OF SYSTEMS: I performed a 14-point review systems. All the pertinent positives and negatives are mentioned in the history of present illness. The remaining review of systems are negative. PHYSICAL EXAMINATION GENERAL APPEARANCE: The patient is alert, pleasant, appears to be in no acute distress. VITAL SIGNS: Temperature 97.4, heart rate 76, respiratory rate 16, O2 sat 97% on room air, blood pressure is 125/84. HEENT: Normocephalic, atraumatic. Pupils are equal and reactive to light. Extraocular movements are intact. The patient has a ridge on the inside of her mouth, on the left side, that is swollen and tender to touch. Her left premolar tooth 19 appears dry with no signs of an abscess. She has a large swollen submandibular gland on the left side. NECK: Supple. RESPIRATORY: There is no accessory muscle use and lungs are clear to auscultation bilaterally. CARDIOVASCULAR: Regular rate and rhythm. S1 and S2 present. There are no murmurs, rubs, or gallops heard. ABDOMEN: Soft, nontender, nondistended. Bowel sounds present x4. EXTREMITIES: There is no lower extremity edema. DP and PT pulses are 2+ and symmetric. MUSCULOSKELETAL: There is no clubbing or cyanosis noted. The patient exhibits good strength in all extremities. NEUROLOGICAL: The patient is alert and oriented x4. Cranial nerves II through XII are grossly intact. PSYCHOLOGICAL: The patient is calm and cooperative. SKIN: There are no rashes or abnormalities seen. DIAGNOSTIC STUDIES/LABORATORY DATA: Sodium 136, potassium 3.9, chloride 106, CO2 21, BUN 6, creatinine 0.58, glucose 75. CRP is 52.91, ESR 75. White blood cell count 8.8, hemoglobin 10.9, hematocrit 83, and platelet count 419. Urinalysis significant for specific gravity of 1.031, trace ketones, 2+ blood, and squamous epithelial cells present. Maxillofacial CT from today. Radiologist's impression: There is a loculated enhancing fluid collection in the expected location of the left sublingual gland measuring up to 1.6 cm in size and associated inflammatory change, concerning for abscess given the clinical history. IMPRESSION: Ms. Lynch is a 27-year-old female with a past medical history significant for Crohn's disease, Crohn's arthritis, depression, gastritis, who presents to the emergency room with complaints of left-sided swelling after breaking a tooth and undergoing a root canal. The patient will be admitted as an inpatient for a submandibular abscess. ASSESSMENT/PLAN: 1. Submandibular abscess. Dr. Person will consult on the patient in the next day. According to Dr. Collier, the dentist, he reports the tooth was broken with an exposed nerve root. The patient will be started on Zosyn and continued on Decadron 12 mg daily. At this point, her airway is intact and she is able to handle her own secretions. We will place her on a soft diet as she is having some difficulty swallowing. 2. Crohn's disease. There are no signs of exacerbation at this time. The patient will be continued on her mesalamine. As far as the patient's Crohn's arthritis, she will continue to follow outpatient with Rheumatology. 3. History of gastritis. The patient will be continued on a PPI. 4. Depression. The patient will be continued on her citalopram when she is able to take p.o. medications. 5. Chronic pain. The patient will be continued on her home fentanyl patch and oxycodone. 6. Fluids, electrolytes, and nutrition. The patient will be on a soft diet. 7. Code status. Full code. 8. DVT prophylaxis. The patient is at low risk and will be encouraged to ambulate. 9. Disposition. Inpatient. TIME SPENT: Time for this admission was approximately 60 minutes, greater than half of that was spent with the patient discussing medications, past medical history, and the events leading up to her arrival today, and performing a physical examination. The case has been reviewed with the attending, Dr. Baron, who agrees with the plan of care. DEJA GUDINO, KELLEY [id number]/[facility] #: [id number] [facility]
[2017-09-02] MEDS: ZOSYN 3.375 GM Q8H per EXTENDED INFUSION IVPB SCH ×6 (00:13→16:57)
--- NOTE | 2017-09-02 00:25 | CONS ---
CONSULTATION REPORT: DATE OF CONSULTATION: 09/01/17 REQUESTING CONSULTATION: Emergency room, Dr. Boykin. CONSULTATION PERFORMED BY: Dr. Person. HISTORY OF PRESENT ILLNESS: The patient is a 27-year-old, who has been having some dental work in her left lower mandible and she has been developing some increasing pain and swelling. The dentist says that the root that where she had her surgery done looks good. CT scan shows a 1 cm abscess has been forming in this area. PHYSICAL EXAMINATION: She has got small amount of induration on the floor of her mouth, but it is still soft and she has what appears to be the subperiosteal abscess on the medial aspect of her mandible on the left side. There is no base of tongue retropulsion at this time. ASSESSMENT: The patient has developed an abscess along her left mandible following dental procedure. RECOMMENDATION: I do not think there is an emergency for surgery at this time and it might respond well to intra-venous antibiotics. I have spoken with Dr. Cervantes from the hospitalist service who will admit her. Options are clindamycin and penicillin or Zosyn and we are going to give her 12 mg of Decadron daily for couple of days to see how she will respond. [id number]/[facility] #: [id number] [place]
[2017-09-02] MEDS: HYDROmorphone INJ* 2 MG/ML CARPUJECT SYRINGE IV SLOW PU PRN ×10 (01:26→22:35)
[2017-09-02 06:48] LABS: Hematocrit 33 % (35-47); Hemoglobin 10.9 g/dl (12.0-16.0); Mean Corpuscular HGB Conc 33 g/dl (31-36); Mean Corpuscular Hemoglobin 26 pg (27-31); Mean Corpuscular Volume 77 fL (80-97); Mean Platelet Volume 7 um3 (7.4-10.4); Red Blood Count 4.25 10^6/ul (4.0-5.4); Red Cell Distribution Width 16 % (10.5-15)
[2017-09-02] MEDS ORDERED: DEXAMETHASONE IVPB ONE (08:00)
[2017-09-02] MEDS ORDERED: NS 0.9% IVPB ONE (08:00)
[2017-09-02] MEDS: Citalopram TAB* 20 MG PO SCH (08:45)
[2017-09-02] MEDS: CMCS Pantoprazole TAB (NF) 40 MG TAB PO SCH (08:45)
[2017-09-02] MEDS: fentaNYL Patch Check Q Shift 1 NOTE SCH ×2 (08:54→19:12)
--- NOTE | 2017-09-02 09:45 | PN ---
Subjective Date of Service: 09/02/17 Interval History: Patient seen and examined at bedside. Patient reports swelling improved. She was able to take her pills this AM. Pain controlled with current regimen. Family History: Unchanged from Admission Social History: Unchanged from Admission Past Medical History: Unchanged from Admission Objective Active Medications: Citalopram Hydrobromide (Celexa Tab*) 20 mg PO DAILY [facility] Citalopram Hydrobromide (Celexa Tab*) 10 mg PO BEDTIME [facility] Fentanyl (Duragesic Patch 25 Mcg/Hr*) 25 mcg TRANSDERM Q72H [facility] Hydromorphone HCl (Dilaudid Inj*) 1 mg IV SLOW PU Q2H PRN Sodium Chloride (Ns 0.9% 1000 Ml*) 1,000 mls @ 100 mls/hr IV PER RATE [facility] Piperacillin Sod/Tazobactam (Sod 3.375 gm/ Sodium Chloride) 100 mls @ 25 mls/ hr IVPB Q8H [facility] Dexamethasone Sodium Phosphate (12 mg/ Dextrose) 53 mls @ 210 mls/hr IVPB DAILY [facility] Mesalamine (Mesalamine Dr Cap*) 400 mg PO TID [facility] Ondansetron HCl (Zofran Inj*) 4 mg IV Q6H PRN Oxycodone HCl (Roxycodone Tab*) 5 mg PO Q4H PRN Pantoprazole Sodium (Protonix Tab (Nf)) 40 mg PO DAILY [facility] Pharmacy Consult (Zosyn Per Pharmacy*) 1 note FOLLOW UP .ZOSYN PER PHARMACY [facility] Pharmacy Profile Note (Fentanyl Patch Check Q Shift) 1 note N/A 0700,1900 [facility] Vital Signs Temp Pulse Resp BP Pulse Ox 98.0 F 68 18 158/114 99 09/02/17 03:15 09/02/17 07:41 09/02/17 08:56 09/02/17 07:41 09/02/17 07:41 Oxygen Devices in Use Now: None Appearance: sitting up in bed, NAD Eyes: No Scleral Icterus, PERRLA Ears/Nose/Mouth/Throat: - - slight left sided facial swelling. Neck: NL Appearance and Movements; NL JVP Respiratory: Symmetrical Chest Expansion and Respiratory Effort, Clear to Auscultation Cardiovascular: NL Sounds; No Murmurs; No JVD, RRR Abdominal: NL Sounds; No Tenderness; No Distention Extremities: No Edema Skin: No Rash or Ulcers Neurological: Alert and Oriented x 3, NL Muscle Strength and Tone Lines/Tubes/Other Access: Clean, Dry and Intact Peripheral IV Nutrition: Taking PO's Result Diagrams: 09/02/17 06:05 09/01/17 12:30 Additional Lab and Data: . Assess/Plan/Problems-Billing Patient is a 27 y/o F w/ hx of Crohns, chronic pain, depression who presented to the ED w/ the c/o of left sided mandibular swelling after a root canal found to have a mandibular abscess. - Patient Problems (1) Mandibular abscess Comment: Appreciate ENT consult. No need for surgical intervention at this time. Continue IV steroids and augmentin. Pain control. Soft diet. (2) Gastritis Comment: Continue PPI. (3) Chronic pain Comment: Continue Fentanyl Patch and PO oxycodone. PRN IV dilaudid for breakthrough. (4) Crohn disease Comment: Not in acute exacerbation at this time. Last Remicade was 08/18. Continue mesalamine. (5) DVT prophylaxis Comment: low risk; ambulation (6) Full code status Status and Disposition: Inpatient for IV abx and steroids. Discharge home when stable.
[2017-09-02] MEDS: oxyCODONE TAB* 5 MG TAB PO PRN ×3 (11:24→20:28)
[2017-09-02] MEDS: diPHENhydraMINE IV* 50 MG/ML 1 ml VIAL (BENADRYL) IV PRN (14:06)
[2017-09-02] MEDS: HYDROmorphone INJ* 1 MG/ML CARPUJECT SYRINGE IV PRN (17:45)
[2017-09-02] MEDS ORDERED: LORazepam INJ* 2 MG/ML 1 ML VIAL IV PUSH PRN (18:40)
[2017-09-02] MEDS: Citalopram TAB* 10 MG PO SCH (20:28)
--- NOTE | 2017-09-02 22:22 | CONS ---
CONSULTATION REPORT: DATE OF CONSULT: 09/02/17 HISTORY OF PRESENT ILLNESS: I came by this evening to check on the patient's floor of mouth and neck abscess and she says she is doing better from a neck standpoint, but she still has swelling and pain within her mouth. She has been getting the IV antibiotics and Decadron. PHYSICAL EXAMINATION: The neck is soft and this area is clearly better but with intraoral palpation, she has what appears to be an abscess along the medial aspect of the body of the mandible. After discussing with her, we decided to attempt an incision and drainage. She was injected with 2% lidocaine and then an 18-gauge needle was used to do some aspirations. I was not able to aspirate anything, but she felt that I did pop something that started tasting, which she thinks is the infection. She did not tolerate this well in terms of pain. We did give her 1 mg of Dilaudid and before the procedure and giving her second one after the procedure. ASSESSMENT: I wound up doing an aspiration of what I thought is an abscess along the medial aspect of her mandible probably in the subperiosteal plain. I did not get any pus but this still might be therapeutic in terms of puncturing it. She will continue with the IV antibiotics and we will continue to monitor. [id number]/[facility] #: [id number] [place]
[2017-09-03] MEDS: ZOSYN 3.375 GM Q8H per EXTENDED INFUSION IVPB SCH ×8 (00:30→23:23)
[2017-09-03] MEDS ORDERED: LORazepam TAB(*) 0.5 MG PO ONE (01:00)
[2017-09-03] MEDS: oxyCODONE TAB* 5 MG TAB PO PRN ×4 (01:00→13:18)
[2017-09-03] MEDS: HYDROmorphone INJ* 2 MG/ML CARPUJECT SYRINGE IV SLOW PU PRN ×2 (01:01→06:56)
[2017-09-03] MEDS: diPHENhydraMINE IV* 50 MG/ML 1 ml VIAL (BENADRYL) IV PRN ×3 (03:58→21:22)
[2017-09-03] MEDS: HYDROmorphone INJ* 1 MG/ML CARPUJECT SYRINGE IV PRN ×6 (05:07→19:40)
[2017-09-03] MEDS: fentaNYL Patch Check Q Shift 1 NOTE SCH ×2 (06:58→21:48)
--- NOTE | 2017-09-03 08:03 | CONS ---
CONSULTATION REPORT: DATE OF CONSULT: 09/03/17. HISTORY OF PRESENT ILLNESS: The patient took an hour for her pain to go away after I did the aspiration last night and otherwise she is feeling the same this morning. The neck swelling is still reduced, but she still has the severe pain and swelling within the floor of her mouth. PHYSICAL EXAMINATION: Her neck is soft, but again it appears she has a periosteal abscess involving the medial aspect of her mandible in the floor of the mouth on the left side. ASSESSMENT: The patient has stabilized, but still has the abscess along the inner table of the mandible. Our options are to continue antibiotics. She has been on 3 days of IV antibiotics and I do not think it will change much with continued antibiotic therapy, but we could continue antibiotics in her home on oral, but the risk is that things will recur over time. The other option is to take her to the operating room for an incision and drainage of the floor of mouth abscess and she has opted for that procedure. The risk is bleeding, worsening of infection, and numbness of the tongue. [id number]/[facility] #: [id number] [place]
[2017-09-03] MEDS: DEXAMETHASONE IVPB SCH (08:37)
[2017-09-03] MEDS: D5W IVPB SCH (08:37)
[2017-09-03] MEDS: Citalopram TAB* 20 MG PO SCH (08:37)
[2017-09-03] MEDS: HYDROmorphone INJ* 1 MG/ML CARPUJECT SYRINGE IV SLOW PU PRN ×7 (09:13→23:22)
[2017-09-03] MEDS: CMCS Pantoprazole TAB (NF) 40 MG TAB PO SCH (09:13)
[2017-09-03] MEDS: LORazepam TAB(*) 0.5 MG PO SCH ×2 (13:38→22:41)
--- NOTE | 2017-09-03 14:35 | PN ---
Subjective Date of Service: 09/03/17 Interval History: Patient seen and examined at bedside. Patient reports not feeling well. She had a bedside I&D by ENT yesterday afternoon and feels the pain was worse after that. Today she reports area that is still bothering her. Afebrile. Family History: Unchanged from Admission Social History: Unchanged from Admission Past Medical History: Unchanged from Admission Objective Active Medications: Citalopram Hydrobromide (Celexa Tab*) 20 mg PO DAILY [facility] Citalopram Hydrobromide (Celexa Tab*) 10 mg PO BEDTIME [facility] Diphenhydramine HCl (Benadryl Iv*) 25 mg IV Q6H PRN Fentanyl (Duragesic Patch 25 Mcg/Hr*) 25 mcg TRANSDERM Q72H [facility] Hydromorphone HCl (Dilaudid Injic*) 1 mg IV ONCE PRN Hydromorphone HCl (Dilaudid Injic*) 1 mg IV SLOW PU Q2H PRN Piperacillin Sod/Tazobactam (Sod 3.375 gm/ Sodium Chloride) 100 mls @ 25 mls/ hr IVPB Q8H [facility] Dexamethasone Sodium Phosphate (12 mg/ Dextrose) 53 mls @ 210 mls/hr IVPB DAILY [facility] Lorazepam (Ativan Tab(*)) 0.5 mg PO TID [facility] Mesalamine (Mesalamine Dr Cap*) 400 mg PO TID [facility] Ondansetron HCl (Zofran Inj*) 4 mg IV Q6H PRN Oxycodone HCl (Roxycodone Tab*) 5 mg PO Q4H PRN Pantoprazole Sodium (Protonix Tab (Nf)) 40 mg PO DAILY [facility] Pharmacy Consult (Zosyn Per Pharmacy*) 1 note FOLLOW UP .ZOSYN PER PHARMACY [facility] Pharmacy Profile Note (Fentanyl Patch Check Q Shift) 1 note N/A 0700,1900 [facility] Vital Signs Temp Pulse Resp BP Pulse Ox 98.4 F 59 22 150/87 99 09/03/17 11:42 09/03/17 11:42 09/03/17 13:38 09/03/17 11:42 09/03/17 11:42 Oxygen Devices in Use Now: None Appearance: sitting up in bed, NAD Eyes: No Scleral Icterus, PERRLA Ears/Nose/Mouth/Throat: NL Teeth, Lips, Gums Neck: NL Appearance and Movements; NL JVP, - - L sided facial swelling. Respiratory: Symmetrical Chest Expansion and Respiratory Effort, Clear to Auscultation Cardiovascular: NL Sounds; No Murmurs; No JVD, RRR Abdominal: NL Sounds; No Tenderness; No Distention Extremities: No Edema Skin: No Rash or Ulcers Neurological: Alert and Oriented x 3, NL Muscle Strength and Tone Lines/Tubes/Other Access: Clean, Dry and Intact Peripheral IV Result Diagrams: 09/02/17 06:05 09/01/17 12:30 Additional Lab and Data: . Assess/Plan/Problems-Billing Patient is a 27 y/o F w/ hx of Crohns, chronic pain, depression who presented to the ED w/ the c/o of left sided mandibular swelling after a root canal found to have a mandibular abscess. - Patient Problems (1) Mandibular abscess Comment: Appreciate ENT consult. Plan for I&D abscess in the OR today. Continue steroids and Zosyn. NPO for OR. (2) Gastritis Comment: Continue PPI. (3) Chronic pain Comment: Continue Fentanyl Patch and PO oxycodone. PRN IV dilaudid for breakthrough. (4) Crohn disease Comment: Not in acute exacerbation at this time. Last Remicade was 08/18. Continue mesalamine. No BM since admission but refused stool softeners for now. (5) DVT prophylaxis Comment: low risk; ambulation (6) Full code status Status and Disposition: Inpatient for IV abx and steroids. Discharge home when stable.
[2017-09-03] MEDS ORDERED: Buffered Lidocaine 0.9% SYRIN* 5 ML/SYR SYRINGE ONE (15:45)
[2017-09-03] MEDS ORDERED: Succinylcholine* 20 MG/ML 10 ML VIAL ONE (17:28)
[2017-09-03] MEDS ORDERED: Propofol* 10 MG/ML 20 ML BTL IV PUSH ONE (17:28)
[2017-09-03] MEDS ORDERED: fentaNYL* 50 MCG/ML 2 ML VIAL (100 MCG VIAL) ONE (17:29)
[2017-09-03] MEDS ORDERED: Midazolam* 1 MG/ML 2 ML VIAL (2 MG) ONE (17:29)
[2017-09-03] MEDS ORDERED: Bupivacaine 0.5% SDV PF* 30 ML VIAL ONE (17:32)
[2017-09-03] MEDS ORDERED: Lidocaine 1% MPF wEPI 200,000* 30 ML SDV ONE (17:32)
[2017-09-03] MEDS ORDERED: DiMENhydriNATE IV* 50 MG/ML VIAL IV PUSH PRN (18:07)
[2017-09-03] MEDS ORDERED: Ondansetron INJ* 2 MG/ML VIAL IV PRN (18:07)
[2017-09-03] MEDS ORDERED: Ketorolac INJ* 30 MG/ML 1 ML VIAL ONE (18:11)
[2017-09-03] MEDS ORDERED: Dexamethasone IV* 4 MG/ML 1 ML (4 MG) ONE (18:20)
[2017-09-03] MEDS ORDERED: Ondansetron INJ* 2 MG/ML VIAL ONE (18:20)
[2017-09-03] MEDS: fentaNYL* 50 MCG/ML 2 ML VIAL (100 MCG VIAL) IV PRN ×4 (18:55→19:31)
[2017-09-03] MEDS ORDERED: Chlorhexidine MOUTHWASH 0.12%* 15 ML UDC ONE (19:00)
[2017-09-03] MEDS ORDERED: Labetalol IV* 5 MG/ML 20 ML VIAL ONE (19:19)
[2017-09-03] MEDS: fentaNYL PATCH 25 MCG/HR TRANSDERM SCH (21:29)
[2017-09-03] MEDS: Citalopram TAB* 10 MG PO SCH (21:49)
[2017-09-03] MEDS ORDERED: LORazepam INJ* 2 MG/ML 1 ML VIAL IV PUSH ONE (21:56)
[2017-09-03] MEDS: Chlorhexidine MOUTHWASH 0.12%* 15 ML UDC SWISH SPIT SCH (22:42)
[2017-09-04] MEDS: HYDROmorphone INJ* 1 MG/ML CARPUJECT SYRINGE IV SLOW PU PRN ×6 (01:16→12:05)
[2017-09-04] MEDS: oxyCODONE TAB* 5 MG TAB PO PRN ×5 (01:23→20:24)
[2017-09-04] MEDS: Chlorhexidine MOUTHWASH 0.12%* 15 ML UDC SWISH SPIT SCH ×6 (02:00→20:25)
[2017-09-04] MEDS: diPHENhydraMINE IV* 50 MG/ML 1 ml VIAL (BENADRYL) IV PRN ×4 (03:28→22:04)
[2017-09-04] MEDS: fentaNYL Patch Check Q Shift 1 NOTE SCH ×2 (07:07→18:36)
[2017-09-04] MEDS: Citalopram TAB* 20 MG PO SCH (07:42)
[2017-09-04] MEDS: CMCS Pantoprazole TAB (NF) 40 MG TAB PO SCH (07:42)
[2017-09-04] MEDS: LORazepam TAB(*) 0.5 MG PO SCH ×4 (07:43→20:24)
[2017-09-04] MEDS: DEXAMETHASONE IVPB SCH (09:05)
[2017-09-04] MEDS: D5W IVPB SCH (09:05)
[2017-09-04 09:42] LABS: Hematocrit 33 % (35-47); Hemoglobin 10.5 g/dl (12.0-16.0); Mean Corpuscular HGB Conc 32 g/dl (31-36); Mean Corpuscular Hemoglobin 25 pg (27-31); Mean Corpuscular Volume 78 fL (80-97); Mean Platelet Volume 7 um3 (7.4-10.4); Red Blood Count 4.19 10^6/ul (4.0-5.4); Red Cell Distribution Width 16 % (10.5-15); White Blood Count 11.7 10^3/ul (3.5-10.8)
[2017-09-04 09:52] LABS: BUN/Creatinine Ratio 15.3 (8-20); Calcium 9.3 mg/dL (8.6-10.3); EGFR African American 156.1 (>60); EGFR Non-African American 121.4 (>60); Potassium 3.5 mmol/L (3.5-5.0)
[2017-09-04] MEDS: ZOSYN 3.375 GM Q8H per EXTENDED INFUSION IVPB SCH ×4 (09:56→16:58)
--- NOTE | 2017-09-04 10:03 | OP ---
DATE OF OPERATION: 09/03/17 - ROOM #420 DATE OF : 88 SURGEON: Ronn Person MD ANESTHESIOLOGIST: Frederick Liriano MD ANESTHESIA: General PRE-OP DIAGNOSIS: Floor of mouth abscess. POST-OP DIAGNOSIS: Floor of mouth abscess. OPERATIVE PROCEDURE: Incision and drainage of floor of the mouth abscess under general endotracheal anesthesia. COMPLICATIONS: None. DISPOSITION: Good. SPECIMENS: None. BLOOD LOSS: Minimum. DESCRIPTION OF PROCEDURE: The patient was taken to the operating room, placed in the supine position on the operating table. General anesthesia was induced and endotracheally intubated. She was draped for the surgery. A bite block was placed to open her mouth. The abscess was along the left floor of the mouth from just posterior to the anterior symphysis to where the posterior molars are. It appeared to be tracking along the inferior mandible and in the subperiosteal plane. She was injected with 0.5% Marcaine with epinephrine with 1:200,000 epinephrine. I initially used a seeker needle to try to aspirate some pus, did not find it. I made two small incisions, one at the anterior extent of the swelling and one towards the posterior. I used a fine tip Cryo to break in to the plane and with release of bloody serous white pus. I tracked along the inferior edge of the mandible in that subperiosteal plane. She was irrigated with chlorhexidine oral rinse. The patient tolerated this well. There were no complications. Transferred to the recovery room in stable condition. [id number]/[facility] #: [id number] [facility]
--- NOTE | 2017-09-04 13:49 | PN ---
Subjective Date of Service: 09/04/17 Interval History: Patient seen and examined. Very concerned with her pain management regimen. Also states she's getting a yeast infection from antibiotics.Denies fever or chills. No n/v, states it's difficult to swallow pills, but nurse says patient is eating fine. Family History: Unchanged from Admission Social History: Unchanged from Admission Past Medical History: Unchanged from Admission Objective Active Medications: Chlorhexidine Gluconate (Peridex Mouth Wash 0.12%*) 15 ml SWISH SPIT Q4HR [facility] Last Admin: 09/04/17 09:59 Dose: Not Given Citalopram Hydrobromide (Celexa Tab*) 20 mg PO DAILY [facility] Last Admin: 09/04/17 07:42 Dose: 20 mg Citalopram Hydrobromide (Celexa Tab*) 10 mg PO BEDTIME [facility] Last Admin: 09/03/17 21:49 Dose: Not Given Diphenhydramine HCl (Benadryl Iv*) 25 mg IV Q6H PRN PRN Reason: PRURITIS Last Admin: 09/04/17 09:55 Dose: 25 mg Fentanyl (Duragesic Patch 25 Mcg/Hr*) 25 mcg TRANSDERM Q72H [facility] Hydromorphone HCl (Dilaudid Injic*) 1 mg IV SLOW PU Q2H PRN PRN Reason: PAIN - SEVERE Last Admin: 09/04/17 12:05 Dose: 1 mg Piperacillin Sod/Tazobactam (Sod 3.375 gm/ Sodium Chloride) 100 mls @ 25 mls/ hr IVPB Q8H [facility] Last Admin: 09/04/17 09:56 Dose: 25 mls/hr Dexamethasone Sodium Phosphate (12 mg/ Dextrose) 53 mls @ 210 mls/hr IVPB DAILY [facility] Last Admin: 09/04/17 09:05 Dose: 210 mls/hr Lorazepam (Ativan Tab(*)) 0.5 mg PO TID [facility] Last Admin: 09/04/17 12:06 Dose: 0.5 mg Mesalamine (Mesalamine Dr Cap*) 400 mg PO TID [facility] Last Admin: 09/04/17 07:29 Dose: Not Given Ondansetron HCl (Zofran Inj*) 4 mg IV Q6H PRN PRN Reason: NAUSEA Oxycodone HCl (Roxycodone Tab*) 5 mg PO Q4H PRN PRN Reason: PAIN Last Admin: 09/04/17 12:06 Dose: 5 mg Pantoprazole Sodium (Protonix Tab (Nf)) 40 mg PO DAILY [facility] Last Admin: 09/04/17 07:42 Dose: 40 mg Pharmacy Consult (Zosyn Per Pharmacy*) 1 note FOLLOW UP .ZOSYN PER PHARMACY [facility] Pharmacy Profile Note (Fentanyl Patch Check Q Shift) 1 note N/A 0700,1900 [facility] Last Admin: 09/04/17 07:07 Dose: 1 note Vital Signs - 8 hr 09/04/17 09/04/17 09/04/17 06:30 07:31 07:42 Temperature 98.5 F Pulse Rate 69 Respiratory 16 16 18 Rate Blood Pressure 150/104 (mmHg) O2 Sat by Pulse 100 Oximetry 09/04/17 09/04/17 09/04/17 07:46 08:00 09:05 Temperature Pulse Rate Respiratory 18 18 16 Rate Blood Pressure (mmHg) O2 Sat by Pulse 100 Oximetry 09/04/17 09/04/17 09/04/17 09:55 10:00 12:04 Temperature Pulse Rate Respiratory 16 16 16 Rate Blood Pressure (mmHg) O2 Sat by Pulse Oximetry 09/04/17 09/04/17 12:05 12:06 Temperature Pulse Rate Respiratory 16 16 Rate Blood Pressure (mmHg) O2 Sat by Pulse Oximetry Oxygen Devices in Use Now: None Eyes: No Scleral Icterus Ears/Nose/Mouth/Throat: Mucous Membranes Moist, - - I&D site left oral cavity is clear, no erythema or drainage noted Neck: Trachea Midline Respiratory: Clear to Auscultation Cardiovascular: NL Sounds; No Murmurs; No JVD Extremities: No Edema, No Clubbing, Cyanosis Skin: No Rash or Ulcers Neurological: Alert and Oriented x 3 Nutrition: Taking PO's Result Diagrams: 09/04/17 09:24 09/04/17 09:24 Additional Lab and Data: Abnormal Lab Results 09/04/17 09/04/17 09:24 09:24 WBC 11.7 H RBC 4.19 Hgb 10.5 L Hct 33 L MCV 78 L MCH 25 L MCHC 32 RDW 16 H Plt Count 501 H D MPV 7 L Neut % (Auto) 73.9 Lymph % (Auto) 19.9 L [place] % (Auto) 5.8 Eos % (Auto) 0 Baso % (Auto) 0.4 Absolute Neuts (auto) 8.7 H Absolute Lymphs (auto) 2.3 Absolute Monos (auto) 0.7 Absolute Eos (auto) 0 Absolute Basos (auto) 0 Absolute Nucleated RBC 0 Nucleated RBC % 0 Sodium 137 Potassium 3.5 Chloride 101 Carbon Dioxide 28 Anion Gap 8 BUN 9 Creatinine 0.59 Est GFR ( Amer) 156.1 Est GFR (Non-Af Amer) 121.4 BUN/Creatinine Ratio 15.3 Glucose 109 H Calcium 9.3 Assess/Plan/Problems-Billing This is a 27 year old patient with hx of Crohns, chronic pain and depression that is s/p I&D for mandibular abcess on IV zosyn. Remain inpatient until tomorrow and DC home on PO augmentin. - Patient Problems (1) Chronic pain Code(s): G89.29 - OTHER CHRONIC PAIN SNOMED Code(s): 59170427 Comment: - Continue Fentanyl Patch and PO oxycodone. - Change to PO dilaudid for breakthrough as opposed to IV and taper (2) Mandibular abscess Code(s): M27.2 - INFLAMMATORY CONDITIONS OF JAWS SNOMED Code(s): 776105062 Comment: - S/P Surgical I&D POD1 - DC steroids, continue IV zosyn Q8H - Would recommend DC on PO augmentin for 10 days starting tomorrow (3) Crohn disease Code(s): K50.90 - CROHN'S DISEASE, UNSPECIFIED, WITHOUT COMPLICATIONS SNOMED Code(s): 61505959 Comment: - No acute exacerbation at this time, last Remicade was 08/18/17 - Continue mesalamine - No BM since admission but refused stool softeners per record (4) Leukocytosis Code(s): D72.829 - ELEVATED WHITE BLOOD CELL COUNT, UNSPECIFIED SNOMED Code(s) : 057576938 Comment: - Suspect secondary to steroids and infection - Afebrile, monitor temps (5) Depression Code(s): F32.9 - MAJOR DEPRESSIVE DISORDER, SINGLE EPISODE, UNSPECIFIED SNOMED Code(s): 46935918 Comment: - Continue home meds (6) Vaginal yeast infection Code(s): B37.3 - CANDIDIASIS OF VULVA AND VAGINA SNOMED Code(s): 34852012 Comment: - One dose diflucan now Status and Disposition: Continue IV zosyn through today. DC home on augmentin in AM. Counseling and/or Coordination of Care Minutes: Coordinated with patient and RN , time spent >60mins
[2017-09-04] MEDS ORDERED: HYDROmorphone INJ* 1 MG/ML CARPUJECT SYRINGE IV SLOW PU ONE (14:15)
[2017-09-04] MEDS ORDERED: HYDROmorphone INJ* 1 MG/ML CARPUJECT SYRINGE ONE (14:19)
[2017-09-04] MEDS ORDERED: Fluconazole 100 MG TAB* TAB PO ONE (15:19)
[2017-09-04] MEDS: HYDROmorphone TAB* 2 MG PO PRN ×2 (18:03→22:04)
[2017-09-04] MEDS: Citalopram TAB* 10 MG PO SCH (20:24)
[2017-09-05] MEDS: oxyCODONE TAB* 5 MG TAB PO PRN ×3 (00:17→08:18)
[2017-09-05] MEDS: ZOSYN 3.375 GM Q8H per EXTENDED INFUSION IVPB SCH ×4 (00:18→09:56)
[2017-09-05] MEDS: HYDROmorphone TAB* 2 MG PO PRN ×3 (02:16→10:28)
[2017-09-05] MEDS: Chlorhexidine MOUTHWASH 0.12%* 15 ML UDC SWISH SPIT SCH ×3 (02:18→08:19)
[2017-09-05] MEDS: diPHENhydraMINE IV* 50 MG/ML 1 ml VIAL (BENADRYL) IV PRN ×2 (02:49→08:19)
[2017-09-05] MEDS: fentaNYL Patch Check Q Shift 1 NOTE SCH (07:22)
[2017-09-05] MEDS: Citalopram TAB* 20 MG PO SCH (08:19)
[2017-09-05] MEDS: LORazepam TAB(*) 0.5 MG PO SCH (08:19)
[2017-09-05] MEDS: CMCS Pantoprazole TAB (NF) 40 MG TAB PO SCH (08:19)
[2017-09-05 08:26] VITALS: BP 168/103
[2017-09-05] MEDS: DEXAMETHASONE IVPB SCH (09:19)
[2017-09-05] MEDS: D5W IVPB SCH (09:19)
--- NOTE | 2017-09-05 10:49 | PN ---
Progress Note - Progress Note Date of Service: 09/05/17 Note: INPATIENT PAIN CONSULTATION Frances Lynch is a 27 year old female with Crohn's disease whom I first met August 08. At that time, she was complaining of severe joint pains from her Crohn's disease. She was having 20 bowel movements a day. Based on her frequency of bowel movements, I lowered her dose of oral Percocet and gave her a transdermal Fentanyl Patch which did not use the GI tract for absorption. She was also subsequently started on Remicade. She was supposed to follow up with me in the Pain Clinic yesterday, but could not because of hospitalization for an oral abcess which developed after a dental procedure. She has had a surgical I & D by Dr. Person and is ready for discharge. She called the Pain Clinic earlier yesterday to say she needs her medications renewed as she is going out of town for [place]. She says the Fentanyl patch helps, but she still has pain. She also states she took more Percocet than prescribed because of her dental abcess. Current Medications Amoxicillin/Clavulanate Potassium (Augmentin Tab*) 875 mg PO BID [facility] Stop: 09/15/17 09:01 Chlorhexidine Gluconate (Peridex Mouth Wash 0.12%*) 15 ml SWISH SPIT Q4HR [facility] Last Admin: 09/05/17 08:19 Dose: 15 ml Citalopram Hydrobromide (Celexa Tab*) 20 mg PO DAILY [facility] Last Admin: 09/05/17 08:19 Dose: 20 mg Citalopram Hydrobromide (Celexa Tab*) 10 mg PO BEDTIME [facility] Last Admin: 09/04/17 20:24 Dose: 10 mg Diphenhydramine HCl (Benadryl Iv*) 25 mg IV Q6H PRN PRN Reason: PRURITIS Last Admin: 09/05/17 08:19 Dose: 25 mg Fentanyl (Duragesic Patch 25 Mcg/Hr*) 25 mcg TRANSDERM Q72H [facility] Hydromorphone HCl (Dilaudid Tab*) 2 mg PO Q4H PRN PRN Reason: PAIN - SEVERE Last Admin: 09/05/17 06:26 Dose: 2 mg Dexamethasone Sodium Phosphate (12 mg/ Dextrose) 53 mls @ 210 mls/hr IVPB DAILY [facility] Last Admin: 09/05/17 09:19 Dose: 210 mls/hr Lorazepam (Ativan Tab(*)) 0.5 mg PO TID [facility] Last Admin: 09/05/17 08:19 Dose: 0.5 mg Mesalamine (Mesalamine Dr Cap*) 400 mg PO TID [facility] Last Admin: 09/05/17 08:19 Dose: 400 mg Ondansetron HCl (Zofran Inj*) 4 mg IV Q6H PRN PRN Reason: NAUSEA Oxycodone HCl (Roxycodone Tab*) 5 mg PO Q4H PRN PRN Reason: PAIN Last Admin: 09/05/17 08:18 Dose: 5 mg Pantoprazole Sodium (Protonix Tab (Nf)) 40 mg PO DAILY [facility] Last Admin: 09/05/17 08:19 Dose: 40 mg Pharmacy Profile Note (Fentanyl Patch Check Q Shift) 1 note N/A 0700,1900 [facility] Last Admin: 09/05/17 07:22 Dose: 1 note Vital Signs Temp Pulse Resp BP Pulse Ox 98.1 F 57 16 168/103 99 09/05/17 07:57 09/05/17 07:57 09/05/17 09:43 09/05/17 07:57 09/05/17 08:00 EXAM: EXTREMITIES: No swelling, joints move freely NEUROLOGIC: Alert and oriented. Muscle strength 5/5 in UEs and LEs ASSESSMENT/PLAN: 1. Crohn's disease with arthropathy: Will follow up with me in Pain Clinic. D/C Dilaudid. She can have Fentanyl, 25 mcg/hr and Percocet, 5/325 up to 4 a day I explained that as a young woman, we do not want to keep going up on medications and I saw no reason to at this time. Do not write for any additional pain medications. Medication Agreement given to patient who freely signed the agreement. Follow up with me in Pain Clinic
[2017-09-05] MEDS ORDERED: Amoxicillin/Clavulanate TAB* 875 MG PO SCH (21:00)
--- NOTE | 2017-09-06 10:04 | DS ---
AMENDED REPORT NOW INCLUDES COSIGNER DESIGNATION - ESIGNED BEFORE ADJUSTMENT CC: Dr. Kenny Person; Dr. Lr. * DISCHARGE SUMMARY: DATE OF ADMISSION: 09/01/17 DATE OF DISCHARGE: 09/05/17 ATTENDING PHYSICIAN: Kandice Baron MD * (DICTATED BY PJ RANGEL NP) PRIMARY CARE PROVIDER: Dr. Fredis Briones [facility] COURSE: This is a 27-year-old female patient who presented after having a dental procedure, had some left-sided jaw and submaxillary facial swelling. Apparently 8 days prior to her arrival she underwent a root canal. She was seen for followup at the dentist on 08/27/17 and then was set to go see him again for followup and then stated she had significant amount of swelling and pain and was sent promptly to the emergency department for evaluation. CAT scan revealed a periosteal mandibular abscess beneath the area of the root canal. The patient was admitted for IV antibiotics. ENT was consulted. Given the nature of the abscess, it was determined that a surgical incision and drainage wound be her best course of action given that the CT was showing a loculated enhancing fluid collection and the left sublingual gland was measuring 1.6 cm that was concerning for this growing abscess. The patient was also placed on IV steroids to reduce inflammation. The patient underwent an incisional drainage in the surgical suite on 09/03/17. Also of significant note , the patient has recently been diagnosed with Crohn's disease and has been on mesalamine and has undergone a significant amount of pain medication and management to take care of her ongoing joint pain and abdominal pain so given the significant nature of the oral pain it was difficult to control her dental pain on top of her existing pain that she had. She was seen by Dr. Kenny Person ENT surgeon who performed the I and D. Also Dr. Juan David Lr is the tumbling barrel painter that she follows for her chronic pain who also saw the patient on 09/05/17. The patient was cleared for discharge in stable condition and placed on oral antibiotics. MEDICATIONS AT THE TIME OF DISCHARGE: Include: 1. Augmentin 875 mg one tab p.o. b.i.d. for 10 days. 2. Chlorhexidine gluconate Peridex mouthwash 15 mL swish and spit once daily. 3. Citalopram hydrobromide 20 mg one tablet daily and 10 mg at night. 4. Fentanyl patch 25 mcg one patch every 72 hours. 5. Mesalamine 400 mg p.o. 3 times a day. 6. Percocet 5/325 q.4 hours as needed. LABORATORY DATA: WBC 11.7, RBC 4.9, hemoglobin 10.5, hematocrit 33, platelets 501. Chemistries: Sodium 137, potassium 3.5, chloride 101, CO2 of 28, BUN 9, creatinine 0.59, glucose 109, INR 1.04, APTT 34.6. Vital Signs: Temperature 98.1, heart rate 57, respiratory rate 18, oxygen saturation 99% on room air, and blood pressure 156/84. The patient was cleared by all disciplines on 09/05/17. She was discharged in stable condition. Prescriptions were sent to her pharmacy. FOLLOWUP: The patient was indicated to follow up with ENT, primary care, and Pain Clinic after discharge. The patient verbalized her understanding of her discharge medications and followups. PJ RANGEL NP [id number]/[facility] #: [id number] [place]
[2017-09-06] MEDS ORDERED: fentaNYL PATCH 25 MCG/HR TRANSDERM SCH (21:00)
== END 2017-09-05 10:30 | disposition home or self-care (01) | DRG 98 ==
LOC: ED 09:33 → MED 17:58
PROVIDERS: ADMIT Internal Medicine; ATTEND Internal Medicine
PROC: 0CJY3ZZ Inspection of Mouth and Throat, Percutaneous Approach (ICD-10-PCS; 2017-09-02)
PROC: 0W930ZZ Drainage of Oral Cavity and Throat, Open Approach (ICD-10-PCS; principal; 2017-09-03 16:00)
DX: M27.2 Inflammatory conditions of jaws (principal); K50.90 Crohn's disease, unspecified, without complications; F33.9 Major depressive disorder, recurrent, unspecified; F17.210 Nicotine dependence, cigarettes, uncomplicated; D72.829 Elevated white blood cell count, unspecified; B37.3 Candidiasis of vulva and vagina; K29.70 Gastritis, unspecified, without bleeding; M13.852 Other specified arthritis, left hip; M13.851 Other specified arthritis, right hip; M13.862 Other specified arthritis, left knee; M13.861 Other specified arthritis, right knee; Z79.891 Long term (current) use of opiate analgesic; Z79.899 Other long term (current) drug therapy; Z82.49 Family history of ischemic heart disease and other diseases of the circulatory system; Z83.3 Family history of diabetes mellitus; Z80.3 Family history of malignant neoplasm of breast; Z80.1 Family history of malignant neoplasm of trachea, bronchus and lung; G89.29 Other chronic pain
CPT/HCPCS: 36415; 70487; 80048; 80053; 81003; 81015; 81025; 82550; 83605; 84484; 85025; 85610; 85652; 85730; 86140; 87040; 93005; A9270-GY; J0330; J1100; J1170; J1200; J1885; J2001; J2060; J2250; J2405; J2543; J2704; J2930; J3010; J3370; Q9967

== ENCOUNTER 2017-12-29 14:30 | Emergency (ER) | payer OTHER ==
[2017-12-29 14:38] VITALS: BP 146/103
[2017-12-29] MEDS ORDERED: Ketorolac INJ* 60 MG/2 ML VIAL IM ONE (15:04)
--- NOTE | 2017-12-29 19:37 | ED ---
Throat Pain/Nasal Congestion - HPI Summary HPI Summary: Pt. is a 27 y.o female who presents to the ER for dental pain x 6 mos. Pt. has a hx of Crohn's disease and states local oral surgeons will not see her because she is immunosuppressed. She was receiving Humira injection but not currently. Pt. denies facial swelling, fever, or vomiting. Symptoms are mild in severity. She is on chronic narcotics. Eating and touching the affected tooth makes symptoms worse. Nothing makes symptoms better. - History of Current Complaint Chief Complaint: EDDentalPain Time Seen by Provider: 12/29/17 14:38 Hx Obtained From: Patient Onset/Duration: Other - Chronic Severity: Moderate Associated Signs And Symptoms: Positive: Negative - Allergies/Home Medications Allergies/Adverse Reactions: Allergies Allergy/AdvReac Type Severity Reaction Status Date / Time No Known Allergies Allergy Verified 12/29/17 14:34 PMH/Surg Hx/FS Hx/Imm Hx Previously Healthy: Yes Endocrine/Hematology History: Denies: Hx Bone Marrow Disease, Hx Diabetes, Hx Sickle Cell Disease, Hx Thyroid Disease, Hx Anemia Cardiovascular History: Denies: Hx Hypertension Respiratory History: Denies: Hx Asthma, Hx Chronic Obstructive Pulmonary Disease (COPD) GI History: Reports: Hx Crohn's Disease, Hx Gastroesophageal Reflux Disease Denies: Hx Ulcer History: Denies: Hx Renal Disease Sensory History: Denies: Hx Contacts or Glasses, Hx Hearing Aid Opthamlomology History: Denies: Hx Contacts or Glasses Psychiatric History: Reports: Hx Anxiety, Hx Depression, Hx Panic Disorder - Surgical History Surgery Procedure, Year, and Place: May 2001 Open appy. knee surgery. mouth/ dental cyst draining August 2017 during hospitalization at [facility] [place] Hx Anesthesia Reactions: No Infectious Disease History: No Infectious Disease History: Denies: Hx Clostridium Difficile, Hx Hepatitis, Hx Human Immunodeficiency Virus (HIV), Hx of Known/Suspected MRSA, Hx Tuberculosis, History Other Infectious Disease, Traveled Outside the [place] in Last 30 Days - Family History Known Family History: Positive: Cardiac Disease - Mother had CAD - Social History Occupation: Unemployed Lives: Alone Alcohol Use: None Alcohol Amount: a few time a week Hx Substance Use: No Substance Use Type: Reports: None Hx Tobacco Use: Yes Smoking Status (MU): Former Smoker Type: Cigarettes Amount Used/How Often: 1 PPD Review of Systems Constitutional: Negative Negative: Fever, Chills Positive: Other - Dental pain All Other Systems Reviewed And Are Negative: Yes Physical Exam - Summary Physical Exam Summary: Appearance: Pt. is awake and alert. Sitting up in bed holding the right side of her face. Skin: Warm, dry. Head/Face: No trauma. Normocephalic. Eyes: PERRLA. Neck: Full ROM. No cervical lymphadenopathy ENT: Nose without drainage. Oropharynx patent. Poor dentition throughout with diffuse dental decay. Pain on palpation to right bottom back molar. No drainable abscess noted. No trismus. No submandibular edema. No gum necrosis. . MS/Extremity: Moving all 4 extremities. Neuro: Awake, alert. Cranial nerves II through XII grossly intact. Pscyh: Normal affect. Triage Information Reviewed: Yes Vital Signs On Initial Exam: Initial Vitals Temp Pulse Resp BP Pulse Ox 98.3 F 95 20 146/103 96 12/29/17 14:34 12/29/17 14:34 12/29/17 14:34 12/29/17 14:34 12/29/17 14:34 Vital Signs Reviewed: Yes Appearance: Positive: Pain Distress Skin: Positive: Warm, Dry Diagnostics - Vital Signs Vital Signs Temp Pulse Resp BP Pulse Ox 12/29/17 14:34 98.3 F 95 20 146/103 96 - Laboratory Lab Statement: Any lab studies that have been ordered have been reviewed, and results considered in the medical decision making process. EENT Course/Dx - Course Course Of Treatment: Pt. presenting to the ER for a 6mos. hx of dental pain. She is afebrile and well appearing. No drainable abscess. Pt. was given a dose of toradol for pain. Pt. states she cannot take pills secondary to her Crohn's disease even though she take PO oxycodone. She was given the INFO for oncall oral sx. To f.u with her PCP as well. To return to ER for fever, facial swelling vomiting or if concerned. - Differential Diagnoses Differential Diagnoses: Dental Abscess, Dental Caries, Fractured Tooth, Gingivitis - Diagnoses Provider Diagnoses: Dentalgia, Dental decay Discharge - Sign-Out/Discharge Documenting (check all that apply): Discharge - Discharge Plan Condition: Good Disposition: HOME Patient Education Materials: Toothache (ED) Referrals: Manny Alarcon MD [Doctor of Dental Medicine] - Fredis Drummond DO [Primary Care Provider] - Additional Instructions: Call Dr. Alarcon' office today to schedule an appointment Tylenol or Motrin for pain as directed Return to ER if symptoms change or worsen - Billing Disposition and Condition Condition: GOOD Disposition: HOME
== END 2017-12-29 16:15 | disposition home or self-care (01) ==
LOC: ED 14:30
DX: K08.89 Other specified disorders of teeth and supporting structures (principal); K02.9 Dental caries, unspecified; Z87.891 Personal history of nicotine dependence
CPT/HCPCS: 96372; 99281; J1885

== ENCOUNTER 2018-02-28 10:31 | Emergency (ER) | payer OTHER ==
[2018-02-28 11:55] LABS: ABS Basophils 0.1 10^3/ul (0-0.2); ABS Eosinophils 0 10^3/ul (0-0.6); ABS Lymphocytes 2.7 10^3/ul (1.0-4.8); ABS Monocytes 0.7 10^3/ul (0-0.8); ABS Neutrophils 7.3 10^3/ul (1.5-7.7); ABS Nucleated RBC 0 10^3/ul; Eosinophil % 0.4 % (0-6); Hematocrit 38 % (35-47); Hemoglobin 12.7 g/dl (12.0-16.0); Mean Corpuscular HGB Conc 33 g/dl (31-36); Mean Corpuscular Hemoglobin 25 pg (27-31); Mean Corpuscular Volume 75 fL (80-97); Mean Platelet Volume 6.3 um3 (7.4-10.4); Nucleated Red Blood Cells % 0.1; Platelet Count 381 10^3/ul (150-450); Red Blood Count 5.04 10^6/ul (4.0-5.4); Red Cell Distribution Width 16 % (10.5-15); White Blood Count 10.8 10^3/ul (3.5-10.8)
[2018-02-28 12:00] LABS: INR 0.93 (0.77-1.02)
[2018-02-28] MEDS ORDERED: cefTRIAXone(*) 1 GM in NS 0.9% 50 ML* 50 ML IVPB ONE (12:01)
[2018-02-28] MEDS ORDERED: HYDROmorphone INJ* 2 MG/ML CARPUJECT SYRINGE IV SLOW PU ONE ×2 (12:02→13:47)
[2018-02-28 12:16] LABS: EGFR Non-African American 116.8 (>60)
[2018-02-28 13:03] LABS: Urine Appearance Clear; Urine Blood Negative (Negative); Urine Color Yellow; Urine Ketones Negative (Negative); Urine Protein Negative (Negative); Urine Specific Gravity 1.005 (1.010-1.030); Urine Urobilinogen Negative (Negative)
[2018-02-28 15:09] VITALS: BP 131/97
--- NOTE | 2018-02-28 23:45 | ED ---
Randi Madden Emily, scribed for Gabbie Boykin MD on 02/28/18 at 1141 . Throat Pain/Nasal Congestion - HPI Summary HPI Summary: This patient is a 27 year old F presenting to [facility] accompanied by mother with a chief complaint of L ear pain that began 02/26/2018. The patient rates the pain 8/10 in severity. Patient reports that Tylenol has not been helping her symptoms. Patient reports sore throat and cough. Pt reports that she has Crohn' s disease and recently stopped taking Humira on 02/24/2018 when she became ill. Pt is referred by Dr. Blevins for further evaluation after she reports that she is not absorbing pills, so unable to treat infection with oral antibiotics and unable to take pills for pain. Pt is known to me from prior ED visit in Aug 2017 when she had submandibular abscess following root canal while on remicade that required IV antibiotics, and surgical drainage by ENT. - History of Current Complaint Chief Complaint: EDUpperRespComplaint Time Seen by Provider: 02/28/18 11:30 Hx Obtained From: Patient, Other: - Dr. Blevins Onset/Duration: Sudden Onset, Lasting Days, Still Present Severity: Severe Associated Signs And Symptoms: Positive: Negative Cough: Nonproductive Related History: Other (Noted In Comments) - submandibular abscess, 08/2017; immunosuppressed due to Crohn's disease on humira - Allergies/Home Medications Allergies/Adverse Reactions: Allergies Allergy/AdvReac Type Severity Reaction Status Date / Time No Known Allergies Allergy Verified 02/28/18 10:44 Home Medications: Home Medications Multivitamins/Minerals TAB* [Theragran/minerals TAB*] 1 tab PO DAILY 02/28/18 [ History Confirmed 02/28/18] Ranitidine TAB (NF) [Zantac TAB (NF)] 150 mg PO BID 02/28/18 [History Confirmed 02/28/18] oxyCODONE TAB* [Roxycodone TAB 5 mg*] 10 mg PO TID PRN 02/28/18 [History Confirmed 02/28/18] PMH/Surg Hx/FS Hx/Imm Hx Previously Healthy: No - Crohn's on humira; submandibular abscess Endocrine/Hematology History: Denies: Hx Bone Marrow Disease, Hx Diabetes, Hx Sickle Cell Disease, Hx Thyroid Disease, Hx Anemia Cardiovascular History: Denies: Hx Hypertension Respiratory History: Denies: Hx Asthma, Hx Chronic Obstructive Pulmonary Disease (COPD) GI History: Reports: Hx Crohn's Disease, Hx Gastroesophageal Reflux Disease Denies: Hx Ulcer History: Denies: Hx Renal Disease Sensory History: Denies: Hx Contacts or Glasses, Hx Hearing Aid Opthamlomology History: Denies: Hx Contacts or Glasses Psychiatric History: Reports: Hx Anxiety, Hx Depression, Hx Panic Disorder - Cancer History Cancer Type, Location and Year: none Hx Chemotherapy: Yes - Humira for Crohn's - Surgical History Surgery Procedure, Year, and Place: May 2001 Open appy. knee surgery. submandibular abscess drained August 2017 during hospitalization at [facility] [place], Dr. Person Hx Anesthesia Reactions: No Infectious Disease History: No Infectious Disease History: Denies: Hx Clostridium Difficile, Hx Hepatitis, Hx Human Immunodeficiency Virus (HIV), Hx of Known/Suspected MRSA, Hx Tuberculosis, History Other Infectious Disease, Traveled Outside the [place] in Last 30 Days - Family History Known Family History: Positive: Cardiac Disease - Mother had CAD - Social History Occupation: Employed Full-time Lives: Alone Alcohol Use: Occasionally Alcohol Amount: a few time a week Hx Substance Use: No Substance Use Type: Reports: None Hx Tobacco Use: Yes Smoking Status (MU): Light Every Day Tobacco Smoker Type: Cigarettes Amount Used/How Often: 1 pack per week Review of Systems Constitutional: Negative Positive: Sore Throat, Ear Ache Cardiovascular: Negative Positive: Cough Positive: Other - not absorbing pills, has whole pill fragments in her stool. Musculoskeletal: Negative Skin: Negative Neurological: Negative Psychological: Normal All Other Systems Reviewed And Are Negative: Yes Physical Exam - Summary Physical Exam Summary: Appearance: ill-appearing, severe pain distress, well-nourished Skin: Warm, color reflects adequate perfusion, dry Head: Normal Head/Face inspection, atraumatic Eyes: Conjunctiva clear ENT: left TM swollen, bulging, umbo is red, generalized erythema, R TM normal Neck: Supple, left anterior cervical adenopathy, no JVD Respiratory: Lungs clear, normal breath sounds, no respiratory distress Cardio: RRR, No murmur, pulses normal, brisk capillary refill Abdomen: Soft, nontender Bowel sounds: Present Musculoskeletal: Strength Intact/ROM intact, no calf tenderness, no edema. Psychological: Normal Neuro: Alert, muscle tone normal, no focal deficit Triage Information Reviewed: Yes Vital Signs On Initial Exam: Initial Vitals Temp Pulse Resp BP Pulse Ox 96.9 F 87 18 136/112 100 02/28/18 10:41 02/28/18 10:41 02/28/18 10:41 02/28/18 10:41 02/28/18 10:41 Vital Signs Reviewed: Yes Diagnostics - Vital Signs Vital Signs Temp Pulse Resp BP Pulse Ox 02/28/18 10:41 96.9 F 87 18 136/112 100 - Laboratory Lab Results: Lab Results 02/28/18 02/28/18 02/28/18 Range/Units 11:47 11:47 11:47 WBC 10.8 (3.5-10.8) 10^3/ul RBC 5.04 (4.0-5.4) 10^6/ul Hgb 12.7 (12.0-16.0) g/dl Hct 38 (35-47) % MCV 75 L (80-97) fL MCH 25 L (27-31) pg MCHC 33 (31-36) g/dl RDW 16 H (10.5-15) % Plt Count 381 (150-450) 10^3/ul MPV 6.3 L (7.4-10.4) um3 Neut % (Auto) 67.6 (38-83) % Lymph % (Auto) 25.0 (25-47) % Hardy % (Auto) 6.4 (0-7) % Eos % (Auto) 0.4 (0-6) % Baso % (Auto) 0.6 (0-2) % Absolute Neuts (auto) 7.3 (1.5-7.7) 10^3/ul Absolute Lymphs (auto) 2.7 (1.0-4.8) 10^3/ul Absolute Monos (auto) 0.7 (0-0.8) 10^3/ul Absolute Eos (auto) 0 (0-0.6) 10^3/ul Absolute Basos (auto) 0.1 (0-0.2) 10^3/ul Absolute Nucleated RBC 0 10^3/ul Nucleated RBC % 0.1 INR (Anticoag Therapy) (0.77-1.02) Sodium 136 L (139-145) mmol/L Potassium 4.0 (3.5-5.0) mmol/L Chloride 106 (101-111) mmol/L Carbon Dioxide 23 (22-32) mmol/L Anion Gap 7 (2-11) mmol/L BUN 7 (6-24) mg/dL Creatinine 0.61 (0.51-0.95) mg/dL Est GFR ( Amer) 150.2 (>60) Est GFR (Non-Af Amer) 116.8 (>60) BUN/Creatinine Ratio 11.5 (8-20) Glucose 78 (70-100) mg/dL Lactic Acid 0.7 (0.5-2.0) mmol/L Calcium 9.2 (8.6-10.3) mg/dL Magnesium 1.9 (1.9-2.7) mg/dL Total Bilirubin 0.40 (0.2-1.0) mg/dL AST 9 L (13-39) U/L ALT 9 (7-52) U/L Alkaline Phosphatase 66 (34-104) U/L C-Reactive Protein 6.62 H (< 5.00) mg/L Total Protein 6.6 (6.4-8.9) g/dL Albumin 3.8 (3.2-5.2) g/dL Globulin 2.8 (2-4) g/dL Albumin/Globulin Ratio 1.4 (1-3) Amylase 40 (29-103) U/L Lipase 28 (11.0-82.0) U/L Urine Color Urine Appearance Urine pH (5-9) Ur Specific Hilbert (1.010-1.030) Urine Protein (Negative) Urine Ketones (Negative) Urine Blood (Negative) Urine Nitrate (Negative) Urine Bilirubin (Negative) Urine Urobilinogen (Negative) Ur Leukocyte Esterase (Negative) Urine Glucose (Negative) 02/28/18 02/28/18 Range/Units 11:47 12:50 WBC (3.5-10.8) 10^3/ul RBC (4.0-5.4) 10^6/ul Hgb (12.0-16.0) g/dl Hct (35-47) % MCV (80-97) fL MCH (27-31) pg MCHC (31-36) g/dl RDW (10.5-15) % Plt Count (150-450) 10^3/ul MPV (7.4-10.4) um3 Neut % (Auto) (38-83) % Lymph % (Auto) (25-47) % Hardy % (Auto) (0-7) % Eos % (Auto) (0-6) % Baso % (Auto) (0-2) % Absolute Neuts (auto) (1.5-7.7) 10^3/ul Absolute Lymphs (auto) (1.0-4.8) 10^3/ul Absolute Monos (auto) (0-0.8) 10^3/ul Absolute Eos (auto) (0-0.6) 10^3/ul Absolute Basos (auto) (0-0.2) 10^3/ul Absolute Nucleated RBC 10^3/ul Nucleated RBC % INR (Anticoag Therapy) 0.93 (0.77-1.02) Sodium (139-145) mmol/L Potassium (3.5-5.0) mmol/L Chloride (101-111) mmol/L Carbon Dioxide (22-32) mmol/L Anion Gap (2-11) mmol/L BUN (6-24) mg/dL Creatinine (0.51-0.95) mg/dL Est GFR ( Amer) (>60) Est GFR (Non-Af Amer) (>60) BUN/Creatinine Ratio (8-20) Glucose (70-100) mg/dL Lactic Acid (0.5-2.0) mmol/L Calcium (8.6-10.3) mg/dL Magnesium (1.9-2.7) mg/dL Total Bilirubin (0.2-1.0) mg/dL AST (13-39) U/L ALT (7-52) U/L Alkaline Phosphatase (34-104) U/L C-Reactive Protein (< 5.00) mg/L Total Protein (6.4-8.9) g/dL Albumin (3.2-5.2) g/dL Globulin (2-4) g/dL Albumin/Globulin Ratio (1-3) Amylase (29-103) U/L Lipase (11.0-82.0) U/L Urine Color Yellow Urine Appearance Clear Urine pH 5.0 (5-9) Ur Specific Hilbert 1.005 L (1.010-1.030) Urine Protein Negative (Negative) Urine Ketones Negative (Negative) Urine Blood Negative (Negative) Urine Nitrate Negative (Negative) Urine Bilirubin Negative (Negative) Urine Urobilinogen Negative (Negative) Ur Leukocyte Esterase Negative (Negative) Urine Glucose Negative (Negative) Result Diagrams: 02/28/18 11:47 02/28/18 11:47 Lab Statement: Any lab studies that have been ordered have been reviewed, and results considered in the medical decision making process. Re-Evaluation - Re-Evaluation First Eval Re-Evaluation Time: 13:05 Change: Improved Comment: Discussed the plan of care with the patient and mother. Pain better after dilaudid IV and rocephin IV Second Eval Re-Evaluation Time: 13:45 Change: Unchanged Comment: Discussed results with the patient. Still c/o pain. Requests more dilaudid. Agrees to try oral cefdinir liquid and liquid tylenol with codeine for pain, since she "is not absorbing pills". EENT Course/Dx - Course Course Of Treatment: This patient is a 27 year old F presenting to [facility] accompanied by mother with a chief complaint of L ear pain that began 02/26/2018. Pt is immunosuppressed on Humira for Crohn's and states she is currently not absorbing pill medications and notes whole pill fragments in her stool. Pt is diagnosed with bullous myringitis, and will be treated with IV rocephin to be aggressive in light of the severity of pain and physical findings and her immunosuppression. IV Rochephin given. Bloodwork including blood cultures and UA obtained. In the ED course the patient received, Dilaudid and Rocephin. The patient will be discharge home with prescriptions for Omnicef and tylenol with codeine elixir in a trial of oral liquid medication to see if pt can absorb oral liquids, and advised to follow up with PCP and ENT (established pt). The patient (and mother) are agreeable with this plan. - Differential Diagnoses Differential Diagnoses: Cellulitis, Dental Abscess, Otitis Externa, Otitis Media , Perforated TM, Trigeminal Neuralgia, TMJ Syndrome - Diagnoses Provider Diagnoses: Bullous myringitis of left ear, Crohn's disease, Immunosuppression Discharge - Sign-Out/Discharge Documenting (check all that apply): Discharge/Admit/Transfer - Discharge Plan Condition: Stable Disposition: HOME Prescriptions: Acetaminoph/Cod 120/12 mg LIQ* [Tylenol/Codeine 120/12 LIQ*] 10 ml PO Q4H PRN # 180 ml MDD 60ml PRN Reason: Pain Cefdinir 250mg/5 ml* [Omnicef 250 mg/5 ml*] 300 mg PO BID #120 ml Patient Education Materials: Crohn Disease (ED), Ear Infection (ED) Referrals: Nael Tamez MD [Medical Doctor] - As Soon As Possible Fredis Drummond DO [Primary Care Provider] - Additional Instructions: You were given rocephin 1gm IV in the ER with a total of dilaudid 2mg IV for treatment of bullous myringitis and Crohn's disease flare. These medications were given IV because you are not absorbing pills at this time. We are trying oral liquid medications to treat the infection and pain. Have definite follow up with ENT [place]. Return to the ER if you have new or worsening symptoms. - Billing Disposition and Condition Condition: STABLE Disposition: Home The documentation as recorded by the Randi buckner Emily accurately reflects the service I personally performed and the decisions made by , Gabbie Boykin MD.
== END 2018-02-28 15:08 | disposition home or self-care (01) ==
LOC: ED 10:31
DX: H73.012 Bullous myringitis, left ear (principal); K50.90 Crohn's disease, unspecified, without complications; D89.9 Disorder involving the immune mechanism, unspecified
CPT/HCPCS: 36415; 80053; 81003; 82150; 83605; 83690; 83735; 85025; 85610; 86140; 96360; 96374; 96375; 99283; J0696; J1170

== ENCOUNTER 2018-03-01 08:49 | Emergency (ER) | payer OTHER ==
[2018-03-01] MEDS ORDERED: NS 0.9% 1000 ML* 1,000 ML IV ONE (09:38)
[2018-03-01] MEDS ORDERED: cefTRIAXone(*) 1 GM in NS 0.9% 50 ML* 50 ML IVPB ONE (09:38)
[2018-03-01 10:11] LABS: ABS Basophils 0 10^3/ul (0-0.2); ABS Eosinophils 0 10^3/ul (0-0.6); ABS Lymphocytes 2.2 10^3/ul (1.0-4.8); ABS Monocytes 0.5 10^3/ul (0-0.8); ABS Neutrophils 4.3 10^3/ul (1.5-7.7); ABS Nucleated RBC 0 10^3/ul; Eosinophil % 0.5 % (0-6); Hematocrit 36 % (35-47); Lymphocyte % 31.1 % (25-47); Mean Corpuscular HGB Conc 33 g/dl (31-36); Mean Corpuscular Hemoglobin 25 pg (27-31); Mean Corpuscular Volume 75 fL (80-97); Mean Platelet Volume 6.6 um3 (7.4-10.4); Nucleated Red Blood Cells % 0; Platelet Count 334 10^3/ul (150-450); Red Blood Count 4.83 10^6/ul (4.0-5.4); Red Cell Distribution Width 16 % (10.5-15); White Blood Count 7.1 10^3/ul (3.5-10.8)
[2018-03-01 10:18] LABS: INR 0.99 (0.77-1.02)
[2018-03-01] MEDS ORDERED: HYDROmorphone INJ* 2 MG/ML CARPUJECT SYRINGE IV SLOW PU ONE ×2 (10:25→11:43)
[2018-03-01 10:26] LABS: EGFR Non-African American 104.8 (>60)
[2018-03-01 13:55] VITALS: BP 122/79
--- NOTE | 2018-03-02 01:44 | ED ---
Luisa Madden Gabriel, scribed for Gabbie Boykin MD on 03/01/18 at 0919 . Throat Pain/Nasal Congestion - HPI Summary HPI Summary: This patient is a 27 year old F presenting to [facility] with a chief complaint of left ear pain that has gotten worse since yesterday. Pt was seen in the ED yesterday for similar symptoms and given rocephin 1gm IV and dilaudid 2mg IV total. The patient rates the pain 8/10 in severity. Patient reports ringing in her ear. Patient denies hearing loss. Pt states she was able to tolerate the antibiotic medication that was given yesterday (cefdinir), but the tylenol with codeine liquid made her vomit. Pt has Crohn's disease and is immunosuppressed due to Humira. She just had a dose of Humira on 02-24-18. Pt states that her Crohn 's disease is flaring such that she is not absorbing pills, which is why we tried liquid medication. Pt has a severe left OM (bullous myringitis). Pt had severe left submandibular abscess while on Remicade in Aug 2017, requiring surgical drainage by Dr. Person, ENT. - History of Current Complaint Chief Complaint: EDGeneral Hx Obtained From: Patient, Other: - pt known to me from yesterday's ED visit, and August 2017 ED visit leading to admission and surgery Onset/Duration: Still Present, Worse Since - yesterday Severity: Severe Associated Signs And Symptoms: Positive: Negative - hearing loss Cough: None Related History: Prior ENT Surgery - submandibular abscess drainage on left 2017, Other (Noted In Comments) - seen yesterday for similar issue - Allergies/Home Medications Allergies/Adverse Reactions: Allergies Allergy/AdvReac Type Severity Reaction Status Date / Time No Known Allergies Allergy Verified 03/01/18 08:56 PMH/Surg Hx/FS Hx/Imm Hx Previously Healthy: No Endocrine/Hematology History: Denies: Hx Bone Marrow Disease, Hx Diabetes, Hx Sickle Cell Disease, Hx Thyroid Disease, Hx Anemia Cardiovascular History: Denies: Hx Hypertension Respiratory History: Denies: Hx Asthma, Hx Chronic Obstructive Pulmonary Disease (COPD) GI History: Reports: Hx Crohn's Disease, Hx Gastroesophageal Reflux Disease Denies: Hx Ulcer History: Denies: Hx Renal Disease Sensory History: Denies: Hx Contacts or Glasses, Hx Hearing Aid Opthamlomology History: Denies: Hx Contacts or Glasses EENT History: Reports: Other - submandibular abscess drained 08/2017 Psychiatric History: Reports: Hx Anxiety, Hx Depression, Hx Panic Disorder, Other Psychiatric Issues/Disorders - chronic pain, sees Dr. Castilloo - Cancer History Cancer Type, Location and Year: none Hx Chemotherapy: Yes - Humira for Crohn's - Surgical History Surgery Procedure, Year, and Place: May 2001 Open appy. knee surgery. submandibular abscess drained August 2017 during hospitalization at [facility] [place], Dr. Person Hx Anesthesia Reactions: No Infectious Disease History: No Infectious Disease History: Denies: Hx Clostridium Difficile, Hx Hepatitis, Hx Human Immunodeficiency Virus (HIV), Hx of Known/Suspected MRSA, Hx Tuberculosis, History Other Infectious Disease, Traveled Outside the [place] in Last 30 Days - Family History Known Family History: Positive: Cardiac Disease - Mother had CAD - Social History Alcohol Use: Occasionally Alcohol Amount: a few time a week Hx Substance Use: No Substance Use Type: Reports: None Hx Tobacco Use: Yes Smoking Status (MU): Light Every Day Tobacco Smoker Type: Cigarettes Amount Used/How Often: 1 pack per week Review of Systems Constitutional: Negative Positive: Ear Ache, Other - ringing in ears Cardiovascular: Negative Respiratory: Negative Positive: Abdominal Pain, Diarrhea - chronic due to Crohn's, not bloody at present , Other - pills passing through her undigested Skin: Negative Positive: Headache Psychological: Normal All Other Systems Reviewed And Are Negative: Yes Physical Exam - Summary Physical Exam Summary: Appearance: ill-appearing, severe pain distress, well-nourished Skin: Warm, color reflects adequate perfusion, dry Head: Normal Head/Face inspection, atraumatic Eyes: Conjunctiva clear ENT: left TM swollen, bulging, umbo is red, generalized erythema, R TM normal, there is no drainage in the left canal and no left canal swelling. Neck: Supple, left anterior cervical adenopathy, no JVD Respiratory: Lungs clear, normal breath sounds, no respiratory distress Cardio: RRR, No murmur, pulses normal, brisk capillary refill Abdomen: Soft, nontender Bowel sounds: Present Musculoskeletal: Strength Intact/ROM intact, no calf tenderness, no edema. Psychological: Normal Neuro: Alert, muscle tone normal, no focal deficit Triage Information Reviewed: Yes Vital Signs On Initial Exam: Initial Vitals Temp Pulse Resp BP Pulse Ox 98.1 F 86 17 127/80 99 03/01/18 08:54 03/01/18 08:54 03/01/18 08:54 03/01/18 08:54 03/01/18 08:54 Vital Signs Reviewed: Yes Diagnostics - Vital Signs Vital Signs Temp Pulse Resp BP Pulse Ox 03/01/18 08:54 98.1 F 86 17 127/80 99 - Laboratory Result Diagrams: 03/01/18 10:00 03/01/18 10:00 Lab Statement: Any lab studies that have been ordered have been reviewed, and results considered in the medical decision making process. Re-Evaluation - Re-Evaluation First Eval Re-Evaluation Time: 11:40 Change: Improved Comment: Pain is improved after rocephin and dilaudid 1mg given. Will give additional dilaudid 1mg IV. EENT Course/Dx - Course Assessment/Plan: Pt returns with uncontrolled pain after treatment yesterday with IV rocephin and IV dilaudid. She tolerated liquid abx, cefdinir, but did not tolerate Tylenol with codeine due to nausea. Pt was given rocephin 1gram IV and Dilaudid 2mg again today and will try rx of liquid morphine for pain and will be seen by Dr Tamez tomorrow. The patient is agreeable with this plan. - Differential Diagnoses Differential Diagnoses: Cellulitis, Mastoiditis, Otitis Media - Diagnoses Provider Diagnoses: Bullous myringitis of left ear, Crohn disease, Receiving intravenous antibiotic treatment as outpatient - Provider Notifications Discussed Care Of Patient With: Nael Tamez Time Discussed With Above Provider: 11:48 Instructed by Provider To: Other - He has agreed to see the patient in the office tomorrow. Discharge - Sign-Out/Discharge Documenting (check all that apply): Discharge/Admit/Transfer - Discharge Plan Condition: Stable Disposition: HOME Prescriptions: Morphine ORAL CONCENTRATE* 5 mg PO Q4H #12 oral.syrin MDD 6 Patient Education Materials: Ear Infection (ED) Referrals: Nael Tamez MD [Medical Doctor] - 1 Day Fredis Drummond DO [Primary Care Provider] - Additional Instructions: You were given Rocephin 1gm again today, as you were yesterday, and also dilaudid 2mg total for pain today as you were yesterday. Continue the cefdinir as directed. Stop the tylenol with codein. Try oral morphine for pain. Have definite follow up with Dr. Tamez tomorrow in the ENT office. We have spoken with Dr. Tamez today and he has approved this. Return to the ER if you have any new or worsening symptoms. We have given you a copy of your labs. - Billing Disposition and Condition Condition: STABLE Disposition: Home The documentation as recorded by the Luisa buckner Gabriel accurately reflects the service I personally performed and the decisions made by me, Gabbie Boykin MD.
== END 2018-03-01 13:57 | disposition home or self-care (01) ==
LOC: ED 08:49
DX: H73.012 Bullous myringitis, left ear (principal); K50.90 Crohn's disease, unspecified, without complications; Z79.899 Other long term (current) drug therapy; F17.210 Nicotine dependence, cigarettes, uncomplicated
CPT/HCPCS: 36415; 80053; 83605; 83735; 84702; 85025; 85610; 86140; 96361; 96365; 96375; 96376; 99282; J0696; J1170

== ENCOUNTER 2018-08-31 09:59 | Emergency (ER) | payer OTHER ==
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
[2018-08-31] MEDS ORDERED: Ketorolac INJ* 30 MG/ML 1 ML VIAL IV PUSH ONE (10:35)
[2018-08-31] MEDS ORDERED: Clindamycin 300 MG IVPREMIX(* 300 MG/50 ML SDV IVPB ONE (10:39)
--- NOTE | 2018-08-31 10:39 | ED ---
Throat Pain/Nasal Congestion - HPI Summary HPI Summary: Patient is a 28-year-old female presents emergency department for left-sided facial pain and swelling times several days. Patient notes she had her wisdom teeth extracted about 10 days ago by in orthopedic surgeon in [facility]. Patient has a history of Crohn's disease and is currently on Humira and prednisone. Patient states she gets infects infections. Patient states she was on a 5 day course of amoxicillin she finished 5 days ago. Patient states maturity of swelling has resolved but swelling to the left jaw has persisted and became more painful. She denies fever, chills, nausea, vomiting. She notes she does not absorb pills very well and has frequent diarrhea per usual. Symptoms are mild in severity. Touching affected area makes symptoms worse. Nothing makes symptoms better. Is on chronic oxycodone rx by PCP. - History of Current Complaint Chief Complaint: EDDentalPain Time Seen by Provider: 08/31/18 10:15 Hx Obtained From: Patient - Allergies/Home Medications Allergies/Adverse Reactions: Allergies Allergy/AdvReac Type Severity Reaction Status Date / Time No Known Allergies Allergy Verified 08/31/18 10:05 Home Medications: Home Medications Adalimumab (NF) [Humira Pen (NF)] 20 mg IM SEE INSTRUCTIONS 08/31/18 [History Confirmed 08/31/18] predniSONE [Prednisone 5 MG TAB] 25 mg PO DAILY 08/31/18 [History Confirmed 07/09] PMH/Surg Hx/FS Hx/Imm Hx Previously Healthy: Yes Endocrine/Hematology History: Denies: Hx Bone Marrow Disease, Hx Diabetes, Hx Sickle Cell Disease, Hx Thyroid Disease, Hx Anemia Cardiovascular History: Denies: Hx Hypertension Respiratory History: Denies: Hx Asthma, Hx Chronic Obstructive Pulmonary Disease (COPD) GI History: Reports: Hx Crohn's Disease, Hx Gastroesophageal Reflux Disease Denies: Hx Ulcer History: Denies: Hx Renal Disease Sensory History: Denies: Hx Contacts or Glasses, Hx Hearing Aid Opthamlomology History: Denies: Hx Contacts or Glasses Psychiatric History: Reports: Hx Anxiety, Hx Depression, Hx Panic Disorder, Other Psychiatric Issues/Disorders - chronic pain, sees Dr. Lr - Cancer History Cancer Type, Location and Year: none Hx Chemotherapy: Yes - Humira for Crohn's - Surgical History Surgery Procedure, Year, and Place: May 2001 Open appy. knee surgery. submandibular abscess drained August 2017 during hospitalization at [facility], Dr. Person Hx Anesthesia Reactions: No Infectious Disease History: No Infectious Disease History: Denies: Hx Clostridium Difficile, Hx Hepatitis, Hx Human Immunodeficiency Virus (HIV), Hx of Known/Suspected MRSA, Hx Tuberculosis, History Other Infectious Disease, Traveled Outside the [place] in Last 30 Days - Family History Known Family History: Positive: Cardiac Disease - Mother had CAD - Social History Occupation: Unemployed Lives: With Family Alcohol Use: None Alcohol Amount: a few time a week Hx Substance Use: No Substance Use Type: Reports: None Hx Tobacco Use: Yes Smoking Status (MU): Current Every Day Smoker Type: Cigarettes Amount Used/How Often: 1 PPD Review of Systems Constitutional: Negative Negative: Fever, Chills Eyes: Negative Positive: Dental Pain Cardiovascular: Negative Respiratory: Negative Positive: Diarrhea. Negative: Abdominal Pain, Vomiting Neurological: Negative All Other Systems Reviewed And Are Negative: Yes Physical Exam Triage Information Reviewed: Yes Vital Signs On Initial Exam: Initial Vitals Temp Pulse Resp BP Pulse Ox 97.8 F 94 16 132/95 100 08/31/18 10:01 08/31/18 10:01 08/31/18 10:01 08/31/18 10:01 08/31/18 10:01 Vital Signs Reviewed: Yes Appearance: Positive: Pain Distress - Pt. sitting up in bed appears in pain but nontoxic. Skin: Positive: Warm, Dry Head/Face: Positive: Normal Head/Face Inspection Eyes: Positive: Normal, EOMI ENT: Positive: Other - Recent extraction to the bottom left gumline. Gingiva is very erythematous and edematous. No drainage. No drainable abscess. Mild edema and pain to the right mandibular region. No submandibular edema, no swelling under tongue, no trismus. Neck: Positive: Supple, Nontender, No Lymphadenopathy. Negative: Nuchal Rigidity Respiratory/Lung Sounds: Positive: Clear to Auscultation, Breath Sounds Present Cardiovascular: Positive: Normal, RRR Neurological: Positive: Normal, CN Intact II-III Psychiatric: Positive: Affect/Mood Appropriate Diagnostics - Vital Signs Vital Signs Temp Pulse Resp BP Pulse Ox 08/31/18 10:01 97.8 F 94 16 132/95 100 - Laboratory Result Diagrams: 08/31/18 10:49 08/31/18 10:49 Lab Statement: Any lab studies that have been ordered have been reviewed, and results considered in the medical decision making process. EENT Course/Dx - Course Course Of Treatment: Patient presenting with worsening anginal pain after wisdom tooth extraction 10 days ago. She is afebrile with stable vital signs. She does have mild swelling and pain to the left mandibular region and gingiva is erythematous and edematous. No drainable abscess. Given patient's concerned that she is unable to absorb medication secondary to her Crohn's will emergency IV clindamycin check basic labs she was on Humira. CBC shows mild leukocytosis at 13.2. Normal CRP. Labs otherwise unremarkable. Patient was given a dose of Toradol for pain. We'll place her on a course of clindamycin. Strongly advised her to call her oral surgeon today for close follow-up appointment. Advised she can continue pain medication as directed or take Tylenol as directed. Warm compresses to face. Advised patient she'll need to return to the ER for fever, increased swelling, pain and may need imaging at that time. Patient understands and is agreeable with plan. - Differential Diagnoses Differential Diagnoses: Cellulitis, Dental Abscess, Gingivitis - Diagnoses Provider Diagnoses: S/P wisdom tooth extraction, Dental infection Discharge - Sign-Out/Discharge Documenting (check all that apply): Patient Departure - Discharge Plan Condition: Good Disposition: HOME Prescriptions: Clindamycin Cap(NF) [Clindamycin Cap 300 mg Cap(NF)] 300 mg PO Q6H #40 cap Patient Education Materials: Dental Abscess (ED) Referrals: Fredis Drummond DO [Primary Care Provider] - Additional Instructions: Call your oral surgeon today to schedule a close follow up appointment Take clindamycin as directed Tylenol for pain as directed Return to ER for increased pain, fever, swelling, vomiting or if concerned - Billing Disposition and Condition Condition: GOOD Disposition: Home
[2018-08-31 11:01] LABS: Hematocrit 39 % (35-47); Hemoglobin 12.5 g/dl (12.0-16.0); Mean Corpuscular HGB Conc 32 g/dl (31-36); Mean Corpuscular Hemoglobin 25 pg (27-31); Mean Corpuscular Volume 77 fL (80-97); Mean Platelet Volume 6.2 fL (7.4-10.4); Platelet Count 480 10^3/ul (150-450); Red Blood Count 5.06 10^6/ul (4.00-5.40); Red Cell Distribution Width 16 % (10.5-15); White Blood Count 13.2 10^3/ul (3.5-10.8)
[2018-08-31 12:20] LABS: ABS Basophils 0.1 10^3/ul (0-0.2); ABS Eosinophils 0 10^3/ul (0-0.6); ABS Lymphocytes 3.4 10^3/ul (1.0-4.8); ABS Monocytes 0.8 10^3/ul (0-0.8); ABS Neutrophils 8.9 10^3/ul (1.5-7.7); ABS Nucleated RBC 0 10^3/ul; Eosinophil % 0.3 %; Lymphocyte % 25.7 %; Nucleated Red Blood Cells % 0
[2018-08-31 12:21] VITALS: BP 117/80
== END 2018-08-31 12:20 | disposition home or self-care (01) ==
LOC: ED 09:59
DX: K04.7 Periapical abscess without sinus (principal); Z98.890 Other specified postprocedural states; F17.210 Nicotine dependence, cigarettes, uncomplicated; K50.90 Crohn's disease, unspecified, without complications; Z79.891 Long term (current) use of opiate analgesic; Z79.52 Long term (current) use of systemic steroids
CPT/HCPCS: 36415; 80053; 85025; 86140; 96374; 96375; 99282; J1885

== ENCOUNTER 2018-09-03 17:20 | Emergency (ER) | payer OTHER ==
[2018-09-03] MEDS ORDERED: Morphine VIAL* 4 MG/ML VIAL (1 ml vial) IV ONE (17:43)
[2018-09-03] MEDS ORDERED: Clindamycin 300 MG IVPREMIX(* 300 MG/50 ML SDV IVPB ONE (18:31)
[2018-09-03] MEDS ORDERED: Morphine VIAL* 10 MG/ML 1 ML VIAL IV ONE (18:32)
[2018-09-03] MEDS ORDERED: Morphine VIAL* 4 MG/ML VIAL (1 ml vial) ONE (18:40)
[2018-09-03 18:44] LABS: ABS Basophils 0.1 10^3/ul (0-0.2); ABS Eosinophils 0.1 10^3/ul (0-0.6); ABS Lymphocytes 3.7 10^3/ul (1.0-4.8); ABS Monocytes 0.8 10^3/ul (0-0.8); ABS Nucleated RBC 0 10^3/ul; Eosinophil % 0.4 %; Hematocrit 36 % (35-47); Hemoglobin 11.8 g/dl (12.0-16.0); Mean Corpuscular HGB Conc 33 g/dl (31-36); Mean Corpuscular Hemoglobin 25 pg (27-31); Mean Corpuscular Volume 77 fL (80-97); Mean Platelet Volume 6.1 fL (7.4-10.4); Nucleated Red Blood Cells % 0.1; Platelet Count 491 10^3/ul (150-450); Red Blood Count 4.72 10^6/ul (4.00-5.40); Red Cell Distribution Width 16 % (10.5-15); White Blood Count 13.6 10^3/ul (3.5-10.8)
[2018-09-03 19:03] LABS: EGFR Non-African American 113.8 (>60)
[2018-09-03 19:38] LABS: Urine Appearance Cloudy; Urine Blood 3+ (Negative); Urine Color Yellow; Urine Ketones Negative (Negative); Urine Protein 1+(30 mg/dL) (Negative); Urine Red Blood Cell 3+(>10/hpf) (Absent); Urine Specific Gravity 1.021 (1.010-1.030); Urine Urobilinogen Negative (Negative); Urine White Blood Cell 2+(11-20/hpf) (Absent)
[2018-09-03] MEDS ORDERED: Iohexol 300* (CONTRAST) 10 ML SDV IV ONE (19:40)
[2018-09-03] MEDS ORDERED: Amoxicillin/Clavulanate TAB* 875 MG PO ONE (20:55)
[2018-09-03] MEDS ORDERED: HYDROcodone/ACETAMIN 5-325 MG* 1 TAB PO ONE (20:56)
--- NOTE | 2018-09-03 20:56 | ED ---
Throat Pain/Nasal Congestion - HPI Summary HPI Summary: Patient complains of dental pain to left lower jaw after having wisdom tooth removed 08/22/18. Patient seen here [facility] [facility] ED 08/31, started on clindamycin by mouth with no improvement in symptoms. Patient has not followed up with oral surgeon in [facility]. States she felt pus in mouth today and the pain is increased. Also states fever 100.4 today. Patient has history of Crohn's, currently on Humira and prednisone, states only oral surgeons in [facility] will handle her case, and she often gets dental abscesses after dental work. Also complains of chronic vomiting and diarrhea per Crohn's. Patient has been compliant with clindamycin. Denies cough, sore throat, CP, SOB, N/V/D, abdominal pain, change in urine. - History of Current Complaint Chief Complaint: EDDentalPain Time Seen by Provider: 09/03/18 17:53 Hx Obtained From: Patient Onset/Duration: Gradual Onset, Lasting Weeks Severity: Severe Associated Signs And Symptoms: Positive: Negative Cough: None - Allergies/Home Medications Allergies/Adverse Reactions: Allergies Allergy/AdvReac Type Severity Reaction Status Date / Time No Known Allergies Allergy Verified 08/31/18 10:05 PMH/Surg Hx/FS Hx/Imm Hx Endocrine/Hematology History: Denies: Hx Bone Marrow Disease, Hx Diabetes, Hx Sickle Cell Disease, Hx Thyroid Disease, Hx Anemia Cardiovascular History: Denies: Hx Hypertension Respiratory History: Denies: Hx Asthma, Hx Chronic Obstructive Pulmonary Disease (COPD) GI History: Reports: Hx Crohn's Disease, Hx Gastroesophageal Reflux Disease Denies: Hx Ulcer History: Denies: Hx Renal Disease Sensory History: Denies: Hx Contacts or Glasses, Hx Hearing Aid Opthamlomology History: Denies: Hx Contacts or Glasses Psychiatric History: Reports: Hx Anxiety, Hx Depression, Hx Panic Disorder, Other Psychiatric Issues/Disorders - chronic pain, sees Dr. Lr - Cancer History Cancer Type, Location and Year: none Hx Chemotherapy: Yes - Humira for Crohn's - Surgical History Surgery Procedure, Year, and Place: May 2001 Open appy. knee surgery. submandibular abscess drained August 2017 during hospitalization at [facility], Dr. Person Hx Anesthesia Reactions: No Infectious Disease History: No Infectious Disease History: Denies: Hx Clostridium Difficile, Hx Hepatitis, Hx Human Immunodeficiency Virus (HIV), Hx of Known/Suspected MRSA, Hx Tuberculosis, History Other Infectious Disease, Traveled Outside the [place] in Last 30 Days - Family History Known Family History: Positive: Cardiac Disease - Mother had CAD - Social History Alcohol Use: None Alcohol Amount: a few time a week Hx Substance Use: No Substance Use Type: Reports: None Hx Tobacco Use: Yes Smoking Status (MU): Current Every Day Smoker Type: Cigarettes Amount Used/How Often: 1 PPD Review of Systems Positive: Fever Eyes: Negative Positive: Dental Pain Cardiovascular: Negative Respiratory: Negative Positive: Vomiting, Diarrhea Genitourinary: Negative Musculoskeletal: Negative Skin: Negative Neurological: Negative Psychological: Normal All Other Systems Reviewed And Are Negative: Yes Physical Exam - Summary Physical Exam Summary: Abdomen mildly tender diffusely. No evidence of dental abscess, lesions, masses. Gums are mildly edematous lower left side. Mild swelling to left side face over mandible. Some limitation of jaw or range of motion. Triage Information Reviewed: Yes Vital Signs On Initial Exam: Initial Vitals Temp Pulse Resp BP Pulse Ox 99.4 F 93 20 132/98 100 09/03/18 17:33 09/03/18 17:33 09/03/18 17:33 09/03/18 17:33 09/03/18 17:33 Vital Signs Reviewed: Yes Appearance: Positive: Well-Appearing Skin: Positive: Warm Head/Face: Positive: Normal Head/Face Inspection Eyes: Positive: Normal ENT: Positive: Normal ENT inspection Dental: Negative: Abscess @, Bleeding Neck: Positive: Supple Respiratory/Lung Sounds: Positive: Clear to Auscultation Cardiovascular: Positive: Normal Abdomen Description: Positive: Other: Musculoskeletal: Positive: Normal Neurological: Positive: Normal Psychiatric: Positive: Normal AVPU Assessment: Alert - Wolfgang Coma Scale Best Eye Response: 4 - Spontaneous Best Motor Response: 6 - Obeys Commands Best Verbal Response: 5 - Oriented Coma Scale Total: 15 Diagnostics - Vital Signs Vital Signs Temp Pulse Resp BP Pulse Ox 09/03/18 18:43 18 09/03/18 17:33 99.4 F 93 20 132/98 100 - Laboratory Lab Results: Lab Results 09/03/18 09/03/18 09/03/18 Range/Units 18:37 18:37 18:37 WBC 13.6 H (3.5-10.8) 10^3/ul RBC 4.72 (4.00-5.40) 10^6/ul Hgb 11.8 L (12.0-16.0) g/dl Hct 36 (35-47) % MCV 77 L (80-97) fL MCH 25 L (27-31) pg MCHC 33 (31-36) g/dl RDW 16 H (10.5-15) % Plt Count 491 H (150-450) 10^3/ul MPV 6.1 L (7.4-10.4) fL Neut % (Auto) 65.8 % Lymph % (Auto) 27.0 % Norman % (Auto) 6.0 % Eos % (Auto) 0.4 % Baso % (Auto) 0.8 % Absolute Neuts (auto) 9.0 H (1.5-7.7) 10^3/ul Absolute Lymphs (auto) 3.7 (1.0-4.8) 10^3/ul Absolute Monos (auto) 0.8 (0-0.8) 10^3/ul Absolute Eos (auto) 0.1 (0-0.6) 10^3/ul Absolute Basos (auto) 0.1 (0-0.2) 10^3/ul Absolute Nucleated RBC 0 10^3/ul Nucleated RBC % 0.1 ESR 31 H (0-14) mm/Hr Sodium 139 (135-145) mmol/L Potassium 4.0 (3.5-5.0) mmol/L Chloride 105 (101-111) mmol/L Carbon Dioxide 25 (22-32) mmol/L Anion Gap 9 (2-11) mmol/L BUN 13 (6-24) mg/dL Creatinine 0.62 (0.51-0.95) mg/dL Est GFR ( Amer) 137.7 (>60) Est GFR (Non-Af Amer) 113.8 (>60) BUN/Creatinine Ratio 21.0 H (8-20) Glucose 81 (70-100) mg/dL Lactic Acid 0.9 (0.5-2.0) mmol/L Calcium 9.1 (8.6-10.3) mg/dL Total Bilirubin 0.30 (0.2-1.0) mg/dL AST 10 L (13-39) U/L ALT 11 (7-52) U/L Alkaline Phosphatase 51 (34-104) U/L C-Reactive Protein 2.00 (<8.01) mg/L Total Protein 6.6 (6.4-8.9) g/dL Albumin 3.7 (3.2-5.2) g/dL Globulin 2.9 (2-4) g/dL Albumin/Globulin Ratio 1.3 (1-3) Lipase 44 (11.0-82.0) U/L Beta HCG, Quant < 0.60 mIU/mL Urine Color Urine Appearance Urine pH (5-9) Ur Specific [place] (1.010-1.030) Urine Protein (Negative) Urine Ketones (Negative) Urine Blood (Negative) Urine Nitrate (Negative) Urine Bilirubin (Negative) Urine Urobilinogen (Negative) Ur Leukocyte Esterase (Negative) Urine WBC (Auto) (Absent) Urine RBC (Auto) (Absent) Ur Squamous Epith Cells (Absent) Urine Bacteria (Absent) Urine Glucose (Negative) 09/03/18 Range/Units 19:25 WBC (3.5-10.8) 10^3/ul RBC (4.00-5.40) 10^6/ul Hgb (12.0-16.0) g/dl Hct (35-47) % MCV (80-97) fL MCH (27-31) pg MCHC (31-36) g/dl RDW (10.5-15) % Plt Count (150-450) 10^3/ul MPV (7.4-10.4) fL Neut % (Auto) % Lymph % (Auto) % Norman % (Auto) % Eos % (Auto) % Baso % (Auto) % Absolute Neuts (auto) (1.5-7.7) 10^3/ul Absolute Lymphs (auto) (1.0-4.8) 10^3/ul Absolute Monos (auto) (0-0.8) 10^3/ul Absolute Eos (auto) (0-0.6) 10^3/ul Absolute Basos (auto) (0-0.2) 10^3/ul Absolute Nucleated RBC 10^3/ul Nucleated RBC % ESR (0-14) mm/Hr Sodium (135-145) mmol/L Potassium (3.5-5.0) mmol/L Chloride (101-111) mmol/L Carbon Dioxide (22-32) mmol/L Anion Gap (2-11) mmol/L BUN (6-24) mg/dL Creatinine (0.51-0.95) mg/dL Est GFR ( Amer) (>60) Est GFR (Non-Af Amer) (>60) BUN/Creatinine Ratio (8-20) Glucose (70-100) mg/dL Lactic Acid (0.5-2.0) mmol/L Calcium (8.6-10.3) mg/dL Total Bilirubin (0.2-1.0) mg/dL AST (13-39) U/L ALT (7-52) U/L Alkaline Phosphatase (34-104) U/L C-Reactive Protein (<8.01) mg/L Total Protein (6.4-8.9) g/dL Albumin (3.2-5.2) g/dL Globulin (2-4) g/dL Albumin/Globulin Ratio (1-3) Lipase (11.0-82.0) U/L Beta HCG, Quant mIU/mL Urine Color Yellow Urine Appearance Cloudy Urine pH 5.0 (5-9) Ur Specific [place] 1.021 (1.010-1.030) Urine Protein 1+(30 mg/dl) A (Negative) Urine Ketones Negative (Negative) Urine Blood 3+ A (Negative) Urine Nitrate Negative (Negative) Urine Bilirubin Negative (Negative) Urine Urobilinogen Negative (Negative) Ur Leukocyte Esterase Trace A (Negative) Urine WBC (Auto) 2+(11-20/hpf) A (Absent) Urine RBC (Auto) 3+(>10/hpf) A (Absent) Ur Squamous Epith Cells Present A (Absent) Urine Bacteria Absent (Absent) Urine Glucose Negative (Negative) Result Diagrams: 09/03/18 18:37 09/03/18 18:37 Lab Statement: Any lab studies that have been ordered have been reviewed, and results considered in the medical decision making process. EENT Course/Dx - Course Course Of Treatment: Patient complains of dental pain to left lower jaw after having wisdom tooth removed 08/22/18. Patient seen here [facility] ED 08/31, started on clindamycin by mouth with no improvement in symptoms. Patient has not followed up with oral surgeon in [facility]. States she felt pus in mouth today and the pain is increased. Also states fever 100.4 today. Patient has history of Crohn's, currently on Humira and prednisone, states only oral surgeons in [facility] will handle her case, and she often gets dental abscesses after dental work. Also complains of chronic vomiting and diarrhea per Crohn's. Patient has been compliant with clindamycin. Denies cough, sore throat, CP, SOB , N/V/D, abdominal pain, change in urine. Physical exam:Abdomen mildly tender diffusely. No evidence of dental abscess, lesions, masses. Gums are mildly edematous lower left side. Mild swelling to left side face over mandible. Some limitation of jaw or range of motion. Vital signs within normal limits. WBC 13.6, however patient on prednisone. CRP normal, lower than prior visit. Sedimentation rate mildly elevated at 31. Labs otherwise unremarkable. Possible UTI, patient asymptomatic. CT maxillofacial negative for abscess. Clinda mycin 300mg IV here in the ED. Switched antibiotics from clindamycin to Augmentin, Rx for lidocaine. Patient has existing prescription for oxycodone for chronic Crohn's pain. Recommended follow-up with oral surgeon. Patient understands plan, but states [facility] oral surgeon not easy to get to. States, given history, she will likely be back here in the ED in a couple days. - Diagnoses Provider Diagnoses: Pain, dental Discharge - Sign-Out/Discharge Documenting (check all that apply): Patient Departure - Discharge Plan Condition: Stable Disposition: HOME Prescriptions: Amoxicillin/Clavulanate TAB* [Augmentin TAB 875*] 875 mg PO BID #20 tab Lidocaine 2% VISCOUS* [Xylocaine 2% Viscous*] 15 ml SWISH SPIT Q6H PRN #1 btl PRN Reason: Pain Patient Education Materials: Toothache (ED) Referrals: Fredis Drummond DO [Primary Care Provider] - Additional Instructions: Stop taking clindamycin. Start taking Augmentin. Follow-up with your dental surgeon for further evaluation. Follow-up with your GI doctor for management of Crohn's. Return to the ED for any new or worsening symptoms. - Billing Disposition and Condition Condition: STABLE Disposition: Home
[2018-09-03] MEDS ORDERED: Lidocaine 2% VISCOUS* 15 ML UDC PO ONE (21:14)
[2018-09-03 21:33] VITALS: BP 121/86
--- NOTE | 2018-09-06 05:47 | ED ---
Progress - Progress Note Progress Note: Patient's final urine culture reveals no growth of clinical significance. She was seen and treated for a toothache. No change in treatment at this time. Course/Dx - Course Course Of Treatment: Patient complains of dental pain to left lower jaw after having wisdom tooth removed 08/22/18. Patient seen here [facility] ED 08/31, started on clindamycin by mouth with no improvement in symptoms. Patient has not followed up with oral surgeon in [facility]. States she felt pus in mouth today and the pain is increased. Also states fever 100.4 today. Patient has history of Crohn's, currently on Humira and prednisone, states only oral surgeons in [facility] will handle her case, and she often gets dental abscesses after dental work. Also complains of chronic vomiting and diarrhea per Crohn's. Patient has been compliant with clindamycin. Denies cough, sore throat, CP, SOB , N/V/D, abdominal pain, change in urine. Physical exam:Abdomen mildly tender diffusely. No evidence of dental abscess, lesions, masses. Gums are mildly edematous lower left side. Mild swelling to left side face over mandible. Some limitation of jaw or range of motion. Vital signs within normal limits. WBC 13.6, however patient on prednisone. CRP normal, lower than prior visit. Sedimentation rate mildly elevated at 31. Labs otherwise unremarkable. Possible UTI, patient asymptomatic. CT maxillofacial negative for abscess. Clinda mycin 300mg IV here in the ED. Switched antibiotics from clindamycin to Augmentin, Rx for lidocaine. Patient has existing prescription for oxycodone for chronic Crohn's pain. Recommended follow-up with oral surgeon. Patient understands plan, but states [facility] oral surgeon not easy to get to. States, given history, she will likely be back here in the ED in a couple days. - Diagnoses Provider Diagnoses: Pain, dental Discharge - Sign-Out/Discharge Documenting (check all that apply): Post-Discharge Follow Up - Discharge Plan Condition: Stable Disposition: HOME Prescriptions: Amoxicillin/Clavulanate TAB* [Augmentin TAB 875*] 875 mg PO BID #20 tab Lidocaine 2% VISCOUS* [Xylocaine 2% Viscous*] 15 ml SWISH SPIT Q6H PRN #1 btl PRN Reason: Pain Patient Education Materials: Toothache (ED) Referrals: Fredis Drummond, [Primary Care Provider] - Additional Instructions: Stop taking clindamycin. Start taking Augmentin. Follow-up with your dental surgeon for further evaluation. Follow-up with your GI doctor for management of Crohn's. Return to the ED for any new or worsening symptoms. - Billing Disposition and Condition Condition: STABLE Disposition: Home
== END 2018-09-03 21:32 | disposition home or self-care (01) ==
LOC: ED 17:20
DX: K08.89 Other specified disorders of teeth and supporting structures (principal); R50.9 Fever, unspecified; F17.210 Nicotine dependence, cigarettes, uncomplicated
CPT/HCPCS: 36415; 70487; 80053; 81003; 81015; 83605; 83690; 84702; 85025; 85652; 86140; 87086; 96365; 96375; 99283; A9270-GY; J2270; Q9967

== ENCOUNTER 2018-10-06 11:08 | Observation (INO) | payer OTHER ==
[2018-10-06] MEDS ORDERED: NS 0.9% 1000 ML* 1,000 ML IV ONE ×2 (13:42→17:58)
[2018-10-06] MEDS ORDERED: Ondansetron INJ* 2 MG/ML VIAL IV ONE (14:00)
[2018-10-06] MEDS ORDERED: Morphine VIAL* 4 MG/ML VIAL (1 ml vial) IV ONE ×2 (14:00→17:44)
[2018-10-06 14:26] LABS: ABS Basophils 0.1 10^3/ul (0-0.2); ABS Eosinophils 0.1 10^3/ul (0-0.6); ABS Lymphocytes 3.3 10^3/ul (1.0-4.8); ABS Monocytes 0.8 10^3/ul (0-0.8); ABS Neutrophils 6.8 10^3/ul (1.5-7.7); ABS Nucleated RBC 0 10^3/ul; Eosinophil % 0.8 %; Hematocrit 42 % (35-47); Hemoglobin 13.9 g/dl (12.0-16.0); Lymphocyte % 29.8 %; Mean Corpuscular HGB Conc 33 g/dl (31-36); Mean Corpuscular Hemoglobin 25 pg (27-31); Mean Corpuscular Volume 75 fL (80-97); Mean Platelet Volume 6.5 fL (7.4-10.4); Nucleated Red Blood Cells % 0; Platelet Count 559 10^3/ul (150-450); Red Cell Distribution Width 16 % (10.5-15); White Blood Count 11.1 10^3/ul (3.5-10.8)
[2018-10-06 14:38] LABS: Activated Partial Thrombo Time 31.7 seconds (26.0-36.3); INR 0.93 (0.77-1.02)
[2018-10-06 14:40] LABS: ALT 11 U/L (7-52); AST 13 U/L (13-39); Albumin 4.3 g/dL (3.2-5.2); Albumin/Globulin Ratio 1.5 (1-3); Alkaline Phosphatase 65 U/L (34-104); Anion Gap 9 mmol/L (2-11); BUN/Creatinine Ratio 14.5 (8-20); Blood Urea Nitrogen 11 mg/dL (6-24); CO2 Carbon Dioxide 23 mmol/L (22-32); Calcium 9.6 mg/dL (8.6-10.3); Chloride 104 mmol/L (101-111); Globulin 2.9 g/dL (2-4); Glucose 75 mg/dL (70-100); Magnesium 2.1 mg/dL (1.9-2.7); Potassium 3.8 mmol/L (3.5-5.0); Sodium 136 mmol/L (135-145); Total Protein 7.2 g/dL (6.4-8.9)
[2018-10-06 14:46] LABS: HCG Pregnancy < 0.60 mIU/mL
[2018-10-06 15:22] LABS: Urine Appearance Turbid; Urine Bacteria Absent (Absent); Urine Bilirubin Negative (Negative); Urine Blood Negative (Negative); Urine Color Amber; Urine Glucose Negative (Negative); Urine Ketones Negative (Negative); Urine Nitrite Negative (Negative); Urine Protein 1+(30 mg/dL) (Negative); Urine Red Blood Cell Trace(0-2/hpf) (Absent); Urine Specific Gravity 1.026 (1.010-1.030); Urine Urobilinogen Negative (Negative); Urine White Blood Cell Trace(0-5/hpf) (Absent)
[2018-10-06 16:58] LABS: Erythrocyte Sed Rate 29 mm/Hr (0-14)
[2018-10-06] MEDS ORDERED: Metoclopramide IV* 5 MG/ML 2 ML VIAL IV ONE (17:44)
[2018-10-06] MEDS ORDERED: methylPREDNISolone SOD 40 MG* 1 ML VIAL IV ONE (17:47)
[2018-10-06] MEDS ORDERED: methylPREDNISolone 125 MG* 2 ML VIAL IV ONE (17:56)
--- NOTE | 2018-10-06 18:05 | ED ---
GI/ HPI - HPI Summary HPI Summary: Pt here w/ what she believes is a Crohn's flairup. Started last Friday with nausea/vomiting and ab pain. Progressed to bloody stools so she self treated with prednisone at home - 50mg daily. This helped bloody stools but did not resolve N/V/diarrhea - has not been eating past 2-3 days. Tried zofran at home w /o relief. Was seen today at pain management who referred her here for pain and poor PO intake. Admits to taking clindamycin and augmentin over the past month for wisdom teeth infection. I am concerned about possible c. diff as a result as she does not take probiotics (states she can't afford them). Reports her stools are green which is not normal for her and has a different odor. Also struggling with bowel incontinence since flair. Had to stop humira during treatment of wisdom teeth - thinks this has contributed to her flair up. She is waiting to start remicade but has been fighting to get insurance to cover this - recently approved but she hasn't gotten it yet. Reports h/o ulcerations and has taken PPI in the past. - History of Current Complaint Chief Complaint: EDNauseaVomitDiarrh Time Seen by Provider: 10/06/18 13:41 Stated Complaint: POSS CROHNS FLARE UP Hx Obtained From: Patient Hx Last Menstrual Period: currently Pain Intensity: 8 - Additional Pertinent History Primary Care Physician: [id number] - Allergy/Home Medications Allergies/Adverse Reactions: Allergies Allergy/AdvReac Type Severity Reaction Status Date / Time No Known Allergies Allergy Verified 10/06/18 11:27 PMH/Surg Hx/FS Hx/Imm Hx Previously Healthy: Yes Endocrine/Hematology History: Reports: Autoimmune Disease - Crohn's Denies: Hx Anticoagulant Therapy, Hx Blood Disorders, Hx Bone Marrow Disease , Hx Diabetes, Hx Sickle Cell Disease, Hx Thyroid Disease, Hx Anemia Cardiovascular History: Denies: Hx Hypertension Respiratory History: Denies: Hx Asthma, Hx Chronic Obstructive Pulmonary Disease (COPD) GI History: Reports: Hx Crohn's Disease - flair up q 6 months per pt, Hx Gastroesophageal Reflux Disease Denies: Hx Ulcer History: Denies: Hx Renal Disease Sensory History: Denies: Hx Contacts or Glasses, Hx Hearing Aid Opthamlomology History: Denies: Hx Contacts or Glasses Psychiatric History: Reports: Hx Anxiety, Hx Depression, Hx Panic Disorder, Other Psychiatric Issues/Disorders - chronic pain, sees Dr. Lr - Cancer History Cancer Type, Location and Year: none Hx Chemotherapy: Yes - Humira for Crohn's - Surgical History Surgery Procedure, Year, and Place: May 2001 Open appy. knee surgery. submandibular abscess drained August 2017 during [place] [facility] Hx Anesthesia Reactions: No Infectious Disease History: No Infectious Disease History: Denies: Hx Clostridium Difficile, Hx Hepatitis, Hx Human Immunodeficiency Virus (HIV), Hx of Known/Suspected MRSA, Hx Tuberculosis, History Other Infectious Disease, Traveled Outside the [place] in Last 30 Days - Family History Known Family History: Positive: Cardiac Disease - Mother had CAD - Social History Occupation: Employed Full-time Alcohol Use: None Alcohol Amount: a few time a week Hx Substance Use: No Substance Use Type: Reports: None Hx Tobacco Use: Yes Smoking Status (MU): Current Every Day Smoker Type: Cigarettes Amount Used/How Often: 1 PPD Review of Systems Positive: Fatigue - wiped out from not eating and intractable diarrhea Eyes: Negative ENT: Negative Cardiovascular: Negative Respiratory: Negative Positive: Abdominal Pain, Vomiting, Diarrhea, Nausea Genitourinary: Negative Musculoskeletal: Other - body aches - chronic pain Neurological: Negative Positive: Anxious All Other Systems Reviewed And Are Negative: Yes Physical Exam Triage Information Reviewed: Yes Vital Signs On Initial Exam: Initial Vitals Temp Pulse Resp BP Pulse Ox 97.7 F 115 16 121/92 96 10/06/18 11:23 10/06/18 11:23 10/06/18 11:23 10/06/18 11:23 10/06/18 11:23 Vital Signs Reviewed: Yes Appearance: Positive: Well-Appearing, Well-Nourished, Pain Distress - mild at rest Skin: Positive: Warm, Skin Color Reflects Adequate Perfusion, Dry Head/Face: Positive: Normal Head/Face Inspection Eyes: Positive: Normal, EOMI, ERNESTO, Conjunctiva Clear - anicteric sclera ENT: Positive: Normal ENT inspection, Hearing grossly normal, Pharynx normal Neck: Positive: Supple Respiratory/Lung Sounds: Positive: Clear to Auscultation, Breath Sounds Present Cardiovascular: Positive: Normal, Tachycardia, S1, S2. Negative: Murmur, Rub Abdomen Description: Positive: Soft, Other: - diffuse TTP - no rebounding Bowel Sounds: Positive: Present Pelvic Exam: Positive: Other - deferred Musculoskeletal: Positive: Normal, Strength/ROM Intact Neurological: Positive: Normal, Sensory/Motor Intact, Alert, Oriented to Person Place, Time, CN Intact II-III Psychiatric: Positive: Anxious Diagnostics - Vital Signs Vital Signs Temp Pulse Resp BP Pulse Ox 10/06/18 14:08 16 10/06/18 13:30 98.4 F 88 135/89 100 10/06/18 11:23 97.7 F 115 16 121/92 96 - Laboratory Lab Results: Lab Results 10/06/18 10/06/18 10/06/18 Range/Units 14:04 14:04 14:04 WBC 11.1 H (3.5-10.8) 10^3/ul RBC 5.60 H (4.00-5.40) 10^6/ul Hgb 13.9 (12.0-16.0) g/dl Hct 42 (35-47) % MCV 75 L (80-97) fL MCH 25 L (27-31) pg MCHC 33 (31-36) g/dl RDW 16 H (10.5-15) % Plt Count 559 H (150-450) 10^3/ul MPV 6.5 L (7.4-10.4) fL Neut % (Auto) 61.3 % Lymph % (Auto) 29.8 % Scott % (Auto) 7.3 % Eos % (Auto) 0.8 % Baso % (Auto) 0.8 % Absolute Neuts (auto) 6.8 (1.5-7.7) 10^3/ul Absolute Lymphs (auto) 3.3 (1.0-4.8) 10^3/ul Absolute Monos (auto) 0.8 (0-0.8) 10^3/ul Absolute Eos (auto) 0.1 (0-0.6) 10^3/ul Absolute Basos (auto) 0.1 (0-0.2) 10^3/ul Absolute Nucleated RBC 0 10^3/ul Nucleated RBC % 0 ESR 29 H (0-14) mm/Hr INR (Anticoag Therapy) 0.93 (0.77-1.02) APTT 31.7 (26.0-36.3) seconds Sodium 136 (135-145) mmol/L Potassium 3.8 (3.5-5.0) mmol/L Chloride 104 (101-111) mmol/L Carbon Dioxide 23 (22-32) mmol/L Anion Gap 9 (2-11) mmol/L BUN 11 (6-24) mg/dL Creatinine 0.76 (0.51-0.95) mg/dL Est GFR ( Amer) 108.9 (>60) Est GFR (Non-Af Amer) 90.0 (>60) BUN/Creatinine Ratio 14.5 (8-20) Glucose 75 (70-100) mg/dL Lactic Acid (0.5-2.0) mmol/L Calcium 9.6 (8.6-10.3) mg/dL Magnesium 2.1 (1.9-2.7) mg/dL Total Bilirubin 0.50 (0.2-1.0) mg/dL AST 13 (13-39) U/L ALT 11 (7-52) U/L Alkaline Phosphatase 65 (34-104) U/L C-Reactive Protein 2.60 (<8.01) mg/L Total Protein 7.2 (6.4-8.9) g/dL Albumin 4.3 (3.2-5.2) g/dL Globulin 2.9 (2-4) g/dL Albumin/Globulin Ratio 1.5 (1-3) Lipase 26 (11.0-82.0) U/L Beta HCG, Quant < 0.60 mIU/mL Urine Color Urine Appearance Urine pH (5-9) Ur Specific [place] (1.010-1.030) Urine Protein (Negative) Urine Ketones (Negative) Urine Blood (Negative) Urine Nitrate (Negative) Urine Bilirubin (Negative) Urine Urobilinogen (Negative) Ur Leukocyte Esterase (Negative) Urine WBC (Auto) (Absent) Urine RBC (Auto) (Absent) Ur Squamous Epith Cells (Absent) Urine Bacteria (Absent) Urine Glucose (Negative) 10/06/18 10/06/18 Range/Units 14:04 14:57 WBC (3.5-10.8) 10^3/ul RBC (4.00-5.40) 10^6/ul Hgb (12.0-16.0) g/dl Hct (35-47) % MCV (80-97) fL MCH (27-31) pg MCHC (31-36) g/dl RDW (10.5-15) % Plt Count (150-450) 10^3/ul MPV (7.4-10.4) fL Neut % (Auto) % Lymph % (Auto) % Scott % (Auto) % Eos % (Auto) % Baso % (Auto) % Absolute Neuts (auto) (1.5-7.7) 10^3/ul Absolute Lymphs (auto) (1.0-4.8) 10^3/ul Absolute Monos (auto) (0-0.8) 10^3/ul Absolute Eos (auto) (0-0.6) 10^3/ul Absolute Basos (auto) (0-0.2) 10^3/ul Absolute Nucleated RBC 10^3/ul Nucleated RBC % ESR (0-14) mm/Hr INR (Anticoag Therapy) (0.77-1.02) APTT (26.0-36.3) seconds Sodium (135-145) mmol/L Potassium (3.5-5.0) mmol/L Chloride (101-111) mmol/L Carbon Dioxide (22-32) mmol/L Anion Gap (2-11) mmol/L BUN (6-24) mg/dL Creatinine (0.51-0.95) mg/dL Est GFR ( Amer) (>60) Est GFR (Non-Af Amer) (>60) BUN/Creatinine Ratio (8-20) Glucose (70-100) mg/dL Lactic Acid 1.2 (0.5-2.0) mmol/L Calcium (8.6-10.3) mg/dL Magnesium (1.9-2.7) mg/dL Total Bilirubin (0.2-1.0) mg/dL AST (13-39) U/L ALT (7-52) U/L Alkaline Phosphatase (34-104) U/L C-Reactive Protein (<8.01) mg/L Total Protein (6.4-8.9) g/dL Albumin (3.2-5.2) g/dL Globulin (2-4) g/dL Albumin/Globulin Ratio (1-3) Lipase (11.0-82.0) U/L Beta HCG, Quant mIU/mL Urine Color [place] Urine Appearance Turbid Urine pH 5.0 (5-9) Ur Specific [place] 1.026 (1.010-1.030) Urine Protein 1+(30 mg/dl) A (Negative) Urine Ketones Negative (Negative) Urine Blood Negative (Negative) Urine Nitrate Negative (Negative) Urine Bilirubin Negative (Negative) Urine Urobilinogen Negative (Negative) Ur Leukocyte Esterase Negative (Negative) Urine WBC (Auto) Trace(0-5/hpf) (Absent) Urine RBC (Auto) Trace(0-2/hpf) (Absent) Ur Squamous Epith Cells Present A (Absent) Urine Bacteria Absent (Absent) Urine Glucose Negative (Negative) Result Diagrams: 10/07/18 06:39 10/07/18 06:39 Lab Statement: Any lab studies that have been ordered have been reviewed, and results considered in the medical decision making process. Re-Evaluation - Re-Evaluation First Eval Change: Improved - nausea and pain improved but has not had a BM yet - would like to try food as she's very hungry and feels this may stimulate a BM as she hasn't eaten in past 3 days Second Eval Change: Worse - ate turkey sandwich and vomited water - nausea and pain returned - still no BM GIGU Course/Dx - Course Course Of Treatment: Pt presents w/ what appears to be crohn's flair up however given recent anbx use, concern for c. diff. Attempted to collect stool sample here but pt was not moving her bowels despite fluids and food. Sx improved initially then worsened - reports she typically needs 2 days of IV steroids before sx improve and she can go home. She's concerned that if she leaves now, she'll be back with failed home tx as this has happened before. We also still do not know her c. diff status. Labs are unremarkable for significantly acute infection/inflammation however given history and concern for c. diff, will admit. Pt in stable condition at time of transition of care. Discussed w/ Dr. Dean - Diagnoses Provider Diagnoses: Crohns disease Discharge - Sign-Out/Discharge Documenting (check all that apply): Patient Departure - Discharge Plan Condition: Improved Disposition: ADMITTED TO [facility] - Billing Disposition and Condition Condition: IMPROVED Disposition: Admitted to [facility]
[2018-10-06] MEDS ORDERED: Ondansetron INJ* 2 MG/ML VIAL IV PRN (18:55)
[2018-10-06] MEDS ORDERED: Acetaminophen TAB* 325 MG PO PRN (18:55)
[2018-10-06] MEDS ORDERED: oxyCODONE/Acetamin 5/325 MG* TAB PO PRN (18:55)
[2018-10-06] MEDS ORDERED: Al Hydrox/Mg Hydrox/Simet LIQ* 30 ML UDC PO PRN (18:55)
[2018-10-06] MEDS ORDERED: NS 0.9% 1000 ML* 1,000 ML IV SCH (19:00)
[2018-10-06] MEDS ORDERED: Nicotine PATCH 14 MG/24 HR* PATCH TRANSDERM ONE (19:05)
--- NOTE | 2018-10-06 21:36 | HP ---
CC: Dr. Hanley; Dr. Yost; Dr. Fredis Drummond * HISTORY AND PHYSICAL: DATE OF ADMISSION: 10/06/18 PRIMARY CARE PROVIDER: Dr. Fredis Drummond. TOWER FOREMAN: Dr. Yost from [facility]. CHIEF COMPLAINT: Abdominal pain, nausea, vomiting, diarrhea. HISTORY OF PRESENT ILLNESS: Frances Lynch is a 28-year-old female with a history of Crohn's, who stated that she had been on Humira up to July 2018. In August 2018, she had a tooth abscess for which she had a surgery at the beginning of August. Since then, she had been intermittently on antibiotics and those were mostly Augmentin and clindamycin. The last round of antibiotics she finished a week ago. She also is in the process of being pre-approved for Remicade and she has not had her infusions of Humira for the past almost 2 months. She stated that approximately a week ago when she stopped her antibiotics, she started having problems with nausea and vomiting. She stated that she had been vomiting almost with every meal on daily basis for the past 7 days. She also complains of bloody bowel movements. She complains of diarrhea up to 15 times a day for the past 7 days with intermittent blood in the stool noted. She also complains of crampy abdominal pain mostly in bilateral lower quadrants. Her workup in the ED was grossly unremarkable apart from slight thrombocytosis and slight leukocytosis. Nevertheless, the patient feels that she would benefit from treatment with intravenous steroids. At this point, we are going to place the patient on overnight observation for intractable nausea and vomiting. The patient also stated that she has had diarrhea, but she had been in the ER for the past 7, almost 8 hours without a bowel movement. We attempted to get a stool sample for C. diff, but once again without the patient having diarrhea at this point, we were unable to do so. The patient is going to be placed on overnight observation. I discussed briefly the patient's case with Dr. Hanley from [facility], who recommended for the patient to be checked for C. diff and if that is negative, the patient can be started on p.o. prednisone. For the time being, the patient is going to be placed on intravenous fluids. PAST MEDICAL HISTORY: 1. History of Crohn's. 2. History of Crohn's arthritis and chronic pain due to that. 4. History of depression. 3. Gastritis. 4. Status post appendectomy. 5. History of an ectopic . MEDICATIONS: At home include: 1. Zoloft 100 mg daily. 2. Zantac 150 mg b.i.d. 3. Oxycodone 10 mg t.i.d. p.r.n. 4. Protonix 40 mg daily. ALLERGIES: No known drug allergies. FAMILY HISTORY: History of heart disease in grandparents. Maternal grandmother , paternal aunt and all of the maternal grandmother's siblings have diabetes. Uncle with history of lung cancer as well as paternal grandfather with lung cancer. SOCIAL HISTORY: The patient smokes approximately 10 cigarettes a day. She denies any alcohol, marijuana, or other drug use. She does not have children, and as her surrogate, she indicated her mother who lives in [place], [place]. REVIEW OF SYSTEMS: The patient complains of crampy abdominal pain in bilateral lower quadrants as mentioned above. She complains of bowel movements of 15 times a day, sometimes bloody, but she has not had one in the past 8 hours in the ED. She complains of nausea and vomiting with every meal and that has been ongoing for 7 to 8 days. Before that, she had been on antibiotics , Augmentin and clindamycin off and on in the past 1 month. All the remaining 12 systems were reviewed with the patient and were otherwise negative. PHYSICAL EXAMINATION GENERAL: The patient is a very pleasant 28-year-old female, who is in no acute distress. Alert, awake, and oriented x3. VITAL SIGNS: Blood pressure of 144/91, heart rate of 90 and regular, respiratory rate 20, oxygen saturation 97% on room air, temperature of 98.4. HEENT: Head: Atraumatic, normocephalic. Eyes: Pupils are equal, reactive to light and accommodation. Oropharynx clear. Mucosa moist. NECK: Supple. No JVD, no bruits bilaterally. RESPIRATORY: Clear to auscultation bilaterally. CARDIOVASCULAR: Regular rate and rhythm. No murmurs. ABDOMEN: Soft. Diffusely tender, mostly in bilateral lower quadrants. No rebound. No guarding. Bowel sounds are present in all 4 quadrants. EXTREMITIES: There is no edema. Pulses are +2 bilaterally. No clubbing or cyanosis. NEUROLOGIC: On neuro evaluation, speech is clear. Cranial nerves II through XII grossly intact. Motor strength is 5/5 bilaterally. PSYCHIATRIC: On psychiatric evaluation, oriented x3 with no anxiety or depression. SKIN: On evaluation of the skin, the patient has multiple tattoos with no evidence of skin lesions or rashes. LABORATORY DATA: Showed white blood cell count of 11.1, hemoglobin of 13.9, hematocrit of 42, MCV of 72, platelets of 559. Sodium of 136, potassium of 3.8, chloride 104, carbon dioxide 23, anion gap of 9 , BUN 11, creatinine 0.76. Beta-hCG was below detectable. C-reactive protein was 2.6. ESR of 29. Urinalysis positive for trace protein, otherwise unremarkable. Lactic acid of 1.2. ASSESSMENT AND PLAN: 1. In regards to the patient's intractable nausea and vomiting. The patient also complained of diarrhea, but once again none so far for us to be able to obtain the stool samples for C. diff. As per curbside discussion with Dr. Hanley from Gastroenterology, if the patient's C. diff test is negative, the patient can be treated for Crohn's exacerbation with p.o. prednisone. For the time being, the patient is going to be placed on intravenous hydration and antiemetics for her intractable nausea and vomiting. At this point, the patient 's inflammatory markers are rather low and I do not believe that further imaging is necessary. 2. The patient still has chronic pain and she is on oxycodone. I will give the patient an additional treatment with Percocet as needed. 3. For the patient's history of smoking, the patient requested to be on nicotine patch, which is going to be provided. 4. The patient's code status is full and her surrogate is her mother. TIME SPENT: Approximately 55 minutes were spent on the admission of this patient; more than half of that time was spent [id number] with the patient during the interview and physical exam. [id number]/[facility] #: [id number] HEALTH SYSTEMJose Alfredo
[2018-10-06] MEDS: oxyCODONE TAB* 5 MG TAB PO PRN (21:41)
[2018-10-07] MEDS ORDERED: PROCHLORPERAZINE INJ 5 MG/ML 2 ML VIAL ONE (00:45)
[2018-10-07] MEDS ORDERED: PROCHLORPERAZINE INJ 5 MG/ML 2 ML VIAL IV PRN (00:47)
[2018-10-07] MEDS ORDERED: Morphine VIAL* 4 MG/ML VIAL (1 ml vial) IV PRN (01:14)
[2018-10-07] MEDS: Vancomycin CAP* 125 MG CAP PO SCH ×2 (01:20→07:18)
[2018-10-07 07:14] LABS: ABS Basophils 0 10^3/ul (0-0.2); ABS Eosinophils 0 10^3/ul (0-0.6); ABS Lymphocytes 1.8 10^3/ul (1.0-4.8); ABS Monocytes 0.7 10^3/ul (0-0.8); ABS Nucleated RBC 0 10^3/ul; Eosinophil % 0 %; Hematocrit 32 % (35-47); Hemoglobin 10.2 g/dl (12.0-16.0); Lymphocyte % 15.4 %; Mean Corpuscular HGB Conc 32 g/dl (31-36); Mean Corpuscular Hemoglobin 24 pg (27-31); Mean Corpuscular Volume 75 fL (80-97); Mean Platelet Volume 6.7 fL (7.4-10.4); Nucleated Red Blood Cells % 0; Platelet Count 415 10^3/ul (150-450); Red Blood Count 4.23 10^6/ul (4.00-5.40); Red Cell Distribution Width 16 % (10.5-15); White Blood Count 11.5 10^3/ul (3.5-10.8)
[2018-10-07] MEDS: oxyCODONE TAB* 5 MG TAB PO PRN (07:17)
[2018-10-07 07:26] VITALS: BP 112/70
[2018-10-07 07:43] LABS: BUN/Creatinine Ratio 14.3 (8-20); Calcium 8.3 mg/dL (8.6-10.3); EGFR Non-African American 149.3 (>60)
--- NOTE | 2018-10-07 07:52 | PN ---
"Progress Note - Progress Note Date of Service: 10/07/18 Note: This report was requested by: Fili Cervantes | Reference #: [id number] Others' Prescriptions Patient Name: Frances Lynch Date: 1990 Address: [address] [place] [address] Sex: Female Rx Written Rx Dispensed Drug Quantity Days Supply Prescriber Name 09/16/2018 09/17/2018 oxycodone hcl 10 mg tablet 90 30 Juan David Lr MD 07/22/2018 07/22/2018 oxycodone hcl 10 mg tablet 90 30 SternCandice mckinley 06/22/2018 06/22/2018 oxycodone hcl 10 mg tablet 90 30 Candice Stern 05/26/2018 05/26/2018 oxycodone hcl 10 mg tablet 90 30 Candice Stern 05/08/2018 05/08/2018 oxycodone hcl 5 mg tablet 28 7 Caitlyn Munoz 04/22/2018 04/25/2018 oxycodone hcl 10 mg tablet 90 30 Candice Stern 03/06/2018 03/07/2018 oxycodone hcl 10 mg tablet 90 30 Candice Stern 03/01/2018 03/01/2018 morphine sulf 100 mg/5 ml (20 mg/ml) solution 12ml 9 Gabbie Boykin MD 02/28/2018 02/28/2018 acetaminophen-codeine 120 mg-12 mg/5 ml solution 180ml 2 Gabbie Boykin MD 02/02/2018 02/05/2018 oxycodone hcl 10 mg tablet 90 30 Candice Stern 01/07/2018 01/07/2018 oxycodone hcl 10 mg tablet 90 30 Candice Stern 12/08/2017 12/08/2017 oxycodone hcl 5 mg tablet 120 30 Candice Stern 11/03/2017 11/13/2017 fentanyl 25 mcg/hr patch 5 15 Candice Stern 11/12/2017 11/13/2017 oxycodone hcl 5 mg tablet 120 30 Candice Stern 10/14/2017 10/14/2017 oxycodone hcl 5 mg tablet 120 30 Candice Stern 10/14/2017 10/14/2017 fentanyl 25 mcg/hr patch 10 30 Candice Stern Patient Name: Frances Lynch Date: 1990 Address: [address] [place] [id number] Sex: Female Rx Written Rx Dispensed Drug Quantity Days Supply Prescriber Name 08/18/2018 08/19/2018 oxycodone hcl 10 mg tablet 90 30 Candice Stern Patient Name: Frances Lynch Date: 1990 Address: [address] [place] [id number] Sex: Female Rx Written Rx Dispensed Drug Quantity Days Supply Prescriber Name 04/07/2018 04/07/2018 oxycodone hcl 10 mg tablet 42 14 Candice Stern"
[2018-10-07] MEDS ORDERED: Fluconazole 150 MG TAB PO ONE (08:23)
[2018-10-07] MEDS ORDERED: Sertraline* 100 MG TAB PO SCH (09:00)
[2018-10-07] MEDS ORDERED: Pantoprazole TAB * 40 MG TAB PO SCH (09:00)
--- NOTE | 2018-10-07 09:34 | DS ---
CC: Dr. Fredis Drummond; Dr. Juan David Lr DISCHARGE SUMMARY: DATE OF ADMISSION: 10/06/18 DATE OF DISCHARGE: 10/07/18 HISTORY OF PRESENT ILLNESS: This 28-year-old woman presented with abdominal pain, nausea, vomiting, and diarrhea. She pretty much has diarrhea and abdominal pain every day due to her Crohn's disease. She said on a normal day she would have anywhere from 5 to 10 bowel movements a day. She takes oxyc odone 10 mg 3 times a day at home on a routine basis for her chronic abdominal pain. She was followe d in the pain clinic. The patient is in the process of switching over from Humira to Remicade as the Humira was not working that well; however, she has not had either drug for several weeks. She was treated for tooth absces s with several courses of antibiotics including Augmentin and clindamycin. The patient was found to have C. difficile positive assay in her stool. She was started on oral vanc omycin the following morning, after just a couple of doses she was seen much improved. She had no mo re vomiting. Abdominal pain was probably a little more than usual for her. She had not had a bowel movement for at least 12 hours. She was hydrating herself adequately by mouth and was anxious to go home. FINAL DIAGNOSES: 1. Clostridium difficile disease. 2. Crohn's disease. 3. Gastritis. DISCHARGE MEDICATIONS: 1. Vancomycin 125 mg p.o. every 6 hours for 14 days. 2. Oxycodone 10 mg every 4 hours p.r.n., dispensed 20. 3. Pantoprazole 40 mg daily. 4. Sertraline 100 mg daily. 5. Ranitidine 150 mg b.i.d. 6. Oxycodone 10 mg t.i.d. p.r.n. CONDITION ON DISCHARGE: Improved. DISPOSITION ON DISCHARGE: Discharged home. [id number]/[facility] #: [id number]
--- NOTE | 2018-10-08 14:59 | ED ---
Progress - Progress Note Progress Note: Patient's stool culture is negative for Shiga toxin however positive for Klebsiella oxytoca. This organism can be found with over treatment of antibiotics which correlates with this patient's case. Discussed with Dr. Gomes - no additional treatment is necessary at this time. Re-Evaluation - Re-Evaluation First Eval Change: Improved - nausea and pain improved but has not had a BM yet - would like to try food as she's very hungry and feels this may stimulate a BM as she hasn't eaten in past 3 days Second Eval Change: Worse - ate turkey sandwich and vomited water - nausea and pain returned - still no BM Course/Dx - Course Course Of Treatment: Pt presents w/ what appears to be crohn's flair up however given recent anbx use, concern for c. diff. Attempted to collect stool sample here but pt was not moving her bowels despite fluids and food. Sx improved initially then worsened - reports she typically needs 2 days of IV steroids before sx improve and she can go home. She's concerned that if she leaves now, she'll be back with failed home tx as this has happened before. We also still do not know her c. diff status. Labs are unremarkable for significantly acute infection/inflammation however given history and concern for c. diff, will admit. Pt in stable condition at time of transition of care. Discussed w/ Dr. Dean - Diagnoses Provider Diagnoses: Crohns disease Discharge - Sign-Out/Discharge Documenting (check all that apply): Post-Discharge Follow Up - Discharge Plan Condition: Improved Disposition: ADMITTED TO [facility] - Billing Disposition and Condition Condition: IMPROVED Disposition: Admitted to [facility]
== END 2018-10-07 09:30 | disposition home or self-care (01) ==
LOC: ED 11:08 → MED 18:55
PROVIDERS: ADMIT Internal Medicine; ATTEND Internal Medicine
DX: A04.72 Enterocolitis due to Clostridium difficile, not specified as recurrent (principal); K50.90 Crohn's disease, unspecified, without complications; K29.70 Gastritis, unspecified, without bleeding; R10.9 Unspecified abdominal pain; R11.2 Nausea with vomiting, unspecified; R19.7 Diarrhea, unspecified; Z90.89 Acquired absence of other organs
CPT/HCPCS: 36415; 80048; 80053; 81003; 81015; 82272; 83605; 83690; 83735; 84702; 85025; 85610; 85652; 85730; 86140; 87045; 87046; 87077; 87086; 87493; 87899; 96361; 96374; 96375; 96376; 99284; A9270-GY; G0378; J0780; J2270; J2405; J2765; J2930

== ENCOUNTER 2018-10-12 15:28 | Emergency (ER) | payer OTHER ==
[2018-10-12] MEDS ORDERED: NS 0.9% 1000 ML* 1,000 ML IV ONE (16:29)
[2018-10-12] MEDS ORDERED: Vancomycin CAP* 125 MG CAP PO ONE (16:30)
--- NOTE | 2018-10-12 16:33 | ED ---
Abdominal Pain/Female - HPI Summary HPI Summary: A 28 y/o F with Crohn's presents to ED with severe, diffuse abd pain onset one week ago. Pain is rated as 10 out of 10 and described as stabbing. Pt was diagnosed with c. diff one week ago. On 2017, she had her wisdom teeth removed in [facility] and put on a 20-day course of Augmentin. Associated sx: vomiting/ diarrhea; syncopal episode 2x including this morning; fatigue; weakness; decreased oral intake. She says any time she swallows, she has diarrhea. Denies CP, palpitations. She's been hospitalized for the Crohn's 2-3 times prior. She says the only thing that helps her when she is sick is IV ABX. She takes Oxy 10mg for pain which has not been alleviating the pain. - History of Current Complaint Chief Complaint: EDAbdPain Stated Complaint: SYNCOPE/ POSS C-DIFF Time Seen by Provider: 10/12/18 16:29 Hx Obtained From: Patient Hx Last Menstrual Period: currently Onset/Duration: Lasting Weeks, Still Present Timing: Constant Severity Initially: Severe Severity Currently: Severe Pain Intensity: 10 Pain Scale Used: 0-10 Numeric Location: Diffuse Character: Sharp - stabbing Associated Signs and Symptoms: Positive: Decreased Appetite - decreased oral intake, Vomiting, Diarrhea, Other: - pos: syncope 2x; fatigue; weakness Allergies/Adverse Reactions: Allergies Allergy/AdvReac Type Severity Reaction Status Date / Time No Known Allergies Allergy Verified 10/12/18 15:53 Home Medications: Home Medications Oxycodone TAB(NF) [Oxycodone HCl 10 MG] 10 mg PO .TID-QID PRN 10/12/18 [History Confirmed 10/12/18] predniSONE TAB* [Deltasone 20 MG TAB*] 20 mg PO DAILY 10/12/18 [History Confirmed 10/12/18] PMH/Surg Hx/FS Hx/Imm Hx Previously Healthy: No Endocrine/Hematology History: Denies: Hx Bone Marrow Disease, Hx Diabetes, Hx Sickle Cell Disease, Hx Thyroid Disease, Hx Anemia Cardiovascular History: Denies: Hx Hypertension Respiratory History: Denies: Hx Asthma, Hx Chronic Obstructive Pulmonary Disease (COPD) GI History: Reports: Hx Crohn's Disease - flair up q 8 months, Hx Gastroesophageal Reflux Disease Denies: Hx Ulcer History: Denies: Hx Renal Disease Sensory History: Denies: Hx Contacts or Glasses, Hx Hearing Aid Opthamlomology History: Denies: Hx Contacts or Glasses Psychiatric History: Reports: Hx Anxiety, Hx Depression, Hx Panic Disorder, Other Psychiatric Issues/Disorders - chronic pain, sees Dr. Lr - Cancer History Cancer Type, Location and Year: none Hx Chemotherapy: Yes - Humira for Crohn's - Surgical History Surgery Procedure, Year, and Place: May 2001 Open appy. knee surgery. submandibular abscess drained August 2017 during hospitalization at [facility], Dr. Person Hx Anesthesia Reactions: No Infectious Disease History: Yes Infectious Disease History: Denies: Hx Clostridium Difficile, Hx Hepatitis, Hx Human Immunodeficiency Virus (HIV), Hx of Known/Suspected MRSA, Hx Tuberculosis, History Other Infectious Disease, Traveled Outside the [place] in Last 30 Days - Family History Known Family History: Positive: Cardiac Disease - Mother had CAD - Social History Occupation: Employed Full-time Lives: With Family Alcohol Use: None Alcohol Amount: a few time a week Hx Substance Use: No Substance Use Type: Reports: None Hx Tobacco Use: Yes Smoking Status (MU): Current Every Day Smoker Type: Cigarettes Amount Used/How Often: 1 PPD Review of Systems Positive: Fatigue Negative: Palpitations, Chest Pain Positive: Abdominal Pain, Vomiting, Diarrhea, Other - decreased oral intake Positive: Weakness All Other Systems Reviewed And Are Negative: Yes Physical Exam - Summary Physical Exam Summary: Appearance: Ill appearing, uncomfortable in stretcher Skin: warm, dry, reflects adequate perfusion Head/face: normal Eyes: EOMI, ERNESTO ENT: mucous membranes moist Neck: supple, non-tender Respiratory: CTA, breath sounds present Cardiovascular: RRR, pulses symmetrical Abdomen: mild RLQ tenderness, soft Bowel Sounds: present Musculoskeletal: normal, strength/ROM intact Neuro: normal, sensory motor intact, A&Ox3 Triage Information Reviewed: Yes Vital Signs On Initial Exam: Initial Vitals Temp Pulse Resp BP Pulse Ox 98.1 F 110 16 119/91 97 10/12/18 15:47 10/12/18 15:47 10/12/18 15:47 10/12/18 15:47 10/12/18 15:47 Vital Signs Reviewed: Yes Diagnostics - Vital Signs Vital Signs Temp Pulse Resp BP Pulse Ox 10/12/18 15:47 98.1 F 110 16 119/91 97 - Laboratory Result Diagrams: 10/12/18 17:03 10/12/18 17:03 Lab Statement: Any lab studies that have been ordered have been reviewed, and results considered in the medical decision making process. - EKG 1650 Cardiac Rate: NL - 81 bpm EKG Rhythm: Sinus Rhythm ST Segment: Normal Summary of EKG Findings: Normal axis, normal interval Re-Evaluation - Re-Evaluation 1 Re-Evaluation Time: 18:01 Change: Unchanged Comment: Dicussing results with pt and plans for dispo. Abdominal Pain Fem Course/Dx - Course Course Of Treatment: Nurse's notes reviewed. Patient with a history of Crohn's disease and recent C. difficile colitis on oral Flagyl. She complains of pain and generalized weakness with possible syncope. Her vitals are very normal and her laboratories showed normal WBC and CRP of 10. This despite oral prednisone. She is not a been able to produce a stool specimen. This appears mostly as an insurance issue and patient feels as though IV antibiotics would be helpful. She is explained that oral antibiotics for C. difficile far superior. Discussed the case with the hospitalist who is well aware of the patient having had admitted her before. She feels as though the patient does not meet admission criteria today. She is improved with IV hydration, pain medication and nausea control. She is discharged to follow up closely with her primary care physician tomorrow and also should see her GI doctor. Also, she likely would benefit from colorectal surgery consultation. - Diagnoses Differential Diagnosis: Positive: Bowel Obstruction, Constipation, Other - C. difficile colitis, recurrent, Crohn's disease Provider Diagnoses: Crohns disease, C. difficile colitis - Provider Notifications Discussed Care Of Patient With: Soo Dean - hospitalist Time Discussed With Above Provider: 17:50 Instructed by Provider To: Other - Discussed case, recommends D/C. Discharge - Sign-Out/Discharge Documenting (check all that apply): Patient Departure - D/C - Discharge Plan Condition: Improved Disposition: HOME Patient Education Materials: Crohn Disease (ED), C Diff (Clostridium Difficile ) Infection (ED) Referrals: Fredis Drummond DO [Primary Care Provider] - Additional Instructions: You may benefit from oral vancomycin but this needs to go through an approval process through insurance. Discussed this with your family doctor tomorrow. Call your GI doctor at [facility] tomorrow to schedule appointment. I would also suggest referral to colorectal surgeon at [facility]. Return with high fever, increased discomfort, weakness, new symptoms or other concerns. Continue oral Flagyl - Billing Disposition and Condition Condition: IMPROVED Disposition: Home - Attestation Statements Document Initiated by Tom: Yes Documenting Scribe: Vaibhav Felipe Provider For Whom Tom is Documenting (Include Credential): Dr. Sree Kruse MD Scribe Attestation: I, Vaibhav Felipe, scribed for Dr. Sree Kruse MD on 10/12/18 at 1805. Scribe Documentation Reviewed: Yes Provider Attestation: The documentation as recorded by the Vaibhav buckner accurately reflects the service I personally performed and the decisions made by me, Dr. Sree Kruse MD Status of Scribblanche Document: Viewed
[2018-10-12] MEDS ORDERED: Ondansetron INJ* 2 MG/ML VIAL IV ONE (16:45)
[2018-10-12] MEDS ORDERED: Morphine VIAL* 4 MG/ML VIAL (1 ml vial) IV ONE (16:54)
[2018-10-12 17:10] LABS: ABS Basophils 0.1 10^3/ul (0-0.2); ABS Eosinophils 0.1 10^3/ul (0-0.6); ABS Lymphocytes 2.3 10^3/ul (1.0-4.8); ABS Monocytes 0.7 10^3/ul (0-0.8); ABS Neutrophils 5.9 10^3/ul (1.5-7.7); ABS Nucleated RBC 0 10^3/ul; Eosinophil % 0.6 %; Hematocrit 37 % (35-47); Hemoglobin 12.3 g/dl (12.0-16.0); Lymphocyte % 25.6 %; Mean Corpuscular HGB Conc 33 g/dl (31-36); Mean Corpuscular Hemoglobin 25 pg (27-31); Mean Corpuscular Volume 75 fL (80-97); Mean Platelet Volume 6.6 fL (7.4-10.4); Nucleated Red Blood Cells % 0.1; Platelet Count 426 10^3/ul (150-450); Red Blood Count 4.98 10^6/ul (4.00-5.40); Red Cell Distribution Width 16 % (10.5-15); White Blood Count 9.2 10^3/ul (3.5-10.8)
[2018-10-12 17:34] LABS: Albumin 3.6 g/dL (3.2-5.2); Albumin/Globulin Ratio 1.3 (1-3); BUN/Creatinine Ratio 13.8 (8-20); C Reactive Protein 10.64 mg/L (<8.01); Calcium 9.1 mg/dL (8.6-10.3); EGFR Non-African American 122.9 (>60); Globulin 2.8 g/dL (2-4); Potassium 3.9 mmol/L (3.5-5.0); Total Bilirubin 0.3 mg/dL (0.2-1.0); Total Protein 6.4 g/dL (6.4-8.9)
[2018-10-12 18:19] VITALS: BP 111/76
== END 2018-10-12 18:21 | disposition home or self-care (01) ==
LOC: ED 15:28
DX: K50.90 Crohn's disease, unspecified, without complications (principal); A04.72 Enterocolitis due to Clostridium difficile, not specified as recurrent; R10.9 Unspecified abdominal pain; R11.10 Vomiting, unspecified; R19.7 Diarrhea, unspecified; R53.1 Weakness; R53.83 Other fatigue; F17.210 Nicotine dependence, cigarettes, uncomplicated
CPT/HCPCS: 36415; 80053; 85025; 86140; 93005; 96361; 96374; 96375; 99282; A9270-GY; J2270; J2405

== ENCOUNTER 2019-11-29 12:45 | Emergency (ER) | payer OTHER ==
--- OUTSIDE RECORDS SUMMARY | 2019-11-29 12:56 | XMS REPORT | Summary of Care ---
:1990 Author Organization [facility] Address [address] [address] Care Team Providers Name Role Phone Bree Fields Primary Care Provider Fredis Drummond-Araceli Pcp Reason for Referral Refer to Department Only (Routine) Status Reason Specialty Diagnoses / Referred By Referred To Procedures Contact Contact Pending Review Orthopedics Diagnoses Crohn's related arthritis (HCC) Bree Fields NP [address] [place] [address] Reason for Visit Reason Comments Check Up L knee swollen x2 days Encounter Details Date Type Department Care Team Description 11/16/2019 Office Visit Bree Jeffers Crohn's related Practice 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) [address] [facility] [address] [place] [address] (Primary Dx) [place], [place] [id number] [place] [address] [phone] Allergies Active Allergy Reactions Severity Noted Date Comments Infliximab Swelling High 11/19/2018 Periorbital swelling, wheezing, shortness of breath, headache, dry cough, nausea, vomiting, abdominal pain, dizziness after remicade infusion at infusion center on 11/19/18 documented as of this encounter (statuses as of 11/16/2019) Medications Medication Sig Dispensed Refills Start Date End Date Status acetaminophen Take 1 Tab by mouth 60 Tab 0 05/08/2018 Active (TYLENOL) 500 MG Oral EVERY FOUR HOURS Tab NEEDED (for mild to moderate pain). vedolizumab (ENTYVIO) 300 mg by 3 Each 0 12/22/2018 Active 300 MG Intravenous Intravenous route Recon Soln DIRECTED for 1 dose. Infuse 300 mg IV at Weeks 0, 2 & 6. Varenicline Tartrate Take 1 Package by 1 Kit 0 01/12/2019 Active 0.5 MG X 11 & 1 MG X mouth DIRECTED. 42 Oral MiscIndications: Encounter for smoking cessation counseling metroNIDAZOLE 1 applicator at 70 g 0 07/07/2019 Active (METROGEL) 0.75 % bedtime Vaginal Gel nystatin (MYCOSTATIN) Take 5 mL by mouth 280 mL 0 07/26/2019 Active 357379 UNIT/ML FOUR TIMES DAILY. Mouth/Throat Suspension sertraline (ZOLOFT) Take 1 Tab by mouth 120 Tab 0 11/03/2019 Active 100 MG Oral DAILY. TabIndications: Anxiety and depression VALacyclovir 1 g Oral Take 1 Tab by mouth 21 Tab 2 11/03/2019 Active TabIndications: EVERY TWELVE HOURS. History of herpes genitalis pantoprazole Take 1 Tab by mouth 30 Tab 5 11/03/2019 Active (PROTONIX) 40 MG Oral DAILY. Tab ECIndications: Crohn's disease of ileum with other complication (HCC) sertraline (ZOLOFT) Take 1 Tab by mouth 30 Tab 1 11/03/2019 Active 50 MG Oral DAILY. TabIndications: Anxiety and depression zolpidem (AMBIEN) 5 Take 1 Tab by mouth 30 Tab 0 11/03/2019 Active MG Oral EVERY BEDTIME TabIndications: NEEDED (insomnia). Insomnia, unspecified Max Daily Amount: 5 type mg. documented as of this encounter (statuses as of 11/16/2019) Active Problems Problem Noted Date Allergic reaction caused by a drug 11/19/2018 Malnutrition related to chronic disease 11/18/2018 History of Clostridium difficile colitis 10/28/2018 Recurrent Clostridium difficile diarrhea 10/15/2018 Exacerbation of Crohn's disease 05/02/2018 Overview: -Patient presenting with symptoms representing likely exacerbation of Crohn's disease. CT confirmed active ileitis with reactive lymph nodes -Admit to hospitalist -Vitals qshift -Daily CBC/BMP -BCx, UCx, stool cx, C diff toxin screen -NS @ 100 ml/hr for 2 L -Clear liquid diet -Will begin Solu-Medrol 40 mg PIV TID, Cipro 400 mg PIV BID and Flagyl 500 mg PIV TID -Consult to GI for further management Crohn's related arthritis 02/03/2018 Insomnia 12/03/2017 Crohn's disease of ileum 07/09/2017 Rho(D) positive 12/22/2009 Depression Overview: -Continue home doxepin and Zoloft documented as of this encounter (statuses as of 11/16/2019) Resolved Problems Problem Noted Date Resolved Date Anxiety 02/03/2018 Swelling of left knee joint 02/03/2018 Chronic diarrhea 02/03/2018 documented as of this encounter (statuses as of 11/16/2019) Immunizations Name Administration Dates Next Due Influenza (IM) Preservative Free 06/29/2019 PNEUMOCOCCAL POLYSACCHARIDE VACCINE 11/12/2017 TDAP Vaccine 11/12/2017 documented as of this encounter Social History Tobacco Use Types Packs/Day Years Used Date Current Every Day Smoker Cigarettes 0.25 10 Smokeless Tobacco: Never Used Comments: Chantix Alcohol Use Drinks/Week oz/Week Comments No did do excess for 10 years Social Isolation Answer Date Recorded In a typical week, how many times do you talk on the Three times a week 11/03 phone with family, friends, or neighbors? How often do you get together with friends or Three times a week 11/03/2019 relatives? How often do you attend gnosticist or voodoo Never 11/03/2019 services? Do you belong to any clubs or organizations such as No 11/03/2019 gnosticist groups, unions, fraternal or athletic groups, or school groups? How often do you attend meetings of the clubs or Never 11/03/2019 organizations you belong to? Are you now , , , , Not asked never or living with a partner? Physical Activity Answer Date Recorded On average, how many days per week do you engage in moderate to 3 days 2019 strenuous exercise (like walking fast, running, jogging, dancing, swimming, biking, or other activities that cause a light or heavy sweat)? On average, how many minutes do you engage in exercise at this 30 min 2019 level? Stress Answer Date Recorded Do you feel stress - tense, restless, nervous, or anxious, Not at all 2019 or unable to sleep at night because your mind is troubled all the time - these days? Financial Resource Strain Answer Date Recorded How hard is it for you to pay for the very basics like Not hard at all 2019 food, housing, medical care, and heating? Intimate Partner Violence Answer Date Recorded Within the last year, have you been afraid of your partner or No 11/03/2019 ex-partner? Within the last year, have you been humiliated or emotionally No 11/03/2019 abused in other ways by your partner or ex-partner? Within the last year, have you been kicked, hit, slapped, or No 11/03/2019 otherwise physically hurt by your partner or ex-partner? Within the last year, have you been raped or forced to have any No 11/03/2019 kind of sexual activity by your partner or ex-partner? Food Insecurity Answer Date Recorded Within the past 12 months, you worried that your food would Never true 2019 run out before you got money to buy more. Within the past 12 months, the food you bought just didn't Never true 2019 last and you didn't have money to get more. Transportation Needs Answer Date Recorded In the past 12 months, has lack of transportation kept you from No 11/03/2019 medical appointments or from getting medications? In the past 12 months, has lack of transportation kept you from No 11/03/2019 meetings, work, or getting things needed for daily living? Sex Assigned at Date Recorded Not on file documented as of this encounter Last Filed Vital Signs Vital Sign Reading Time Taken Comments Blood Pressure 128/72 11/16/2019 1:03 PM EST Pulse 90 11/16/2019 1:03 PM EST Temperature 37.8 11/16/2019 1:03 PM C (100.1 EST F) Respiratory Rate - - Oxygen Saturation 98% 11/16/2019 1:03 PM EST Inhaled Oxygen Concentration - - Weight 73.5 kg (162 lb) 11/16/2019 1:03 PM EST Height 170.2 cm (5' 7") 11/16/2019 1:03 PM EST Body Mass Index 25.37 11/16/2019 1:03 PM EST documented in this encounter Patient Instructions Patient InstructionsBree Fields NP - 11/16/2019 1:00 PM ESTOrtho at 2: 20 pm this afternoon - with Dr. Covarrubias (he did your knee previously in 2017). If you develop crohns flare symptoms, fevers, chills body aches, or any other concerning symptoms, please make appointment with Chaya Anguiano NP or go to the ER. documented in this encounter Progress Notes Bree Fields NP - 11/16/2019 1:00 PM EST PATIENT: Frances Lynch : 1990 DATE OF SERVICE: 11/16/2019 CHIEF COMPLAINT: Chief Complaint Patient presents with ? Check Up L knee swollen x2 days Subjective HISTORY OF PRESENT ILLNESS: Frances Lynch is a 29-y.o. female. HPI Here for right knee pain and swelling. She was previously referred to ortho by Dr. Drummond then last visit by me for this. Has not gone. Has appointment with pain clinic on 11/25/19 for chronic pain related to crohns disease. Has crohns arthritis in the left knee. Has been taking iburpfoen and tylenol - last dose ibuprofen 3 hours prior to OV here. Increased zoloft to 150 mg last ov, doing well on this dose, no side effects, depression controlled. Ambien for insomnia is working well, no problems with the medication, no adverse side effects. Ableto fall asleep easily and sleep through the night with it. She feels maybe a crohns flare coming up but not quite there yet - she has not had entyvio infusion since January 2019, missed appointments. Last saw Chaya Anguiano NP in June. Has had increased diarrhea and abd pain for the last few days. Past Medical History: Diagnosis Date ? Anxiety ? Chronic diarrhea ? Depression has been on SSRI ? Insomnia 12/03/2017 ? Smoker ? Swelling of left knee joint ? Tubal Family History Problem Relation Age of Onset ? Heart Mother 58 [place] ? Stroke Mother 3 strokes in 40's ? Kidney Disease Mother ? Depression/Depressed Father Current Outpatient Medications Medication Sig ? acetaminophen (TYLENOL) 500 MG Oral Tab Take 1 Tab by mouth EVERY FOUR HOURS NEEDED (formild to moderate pain). ? metroNIDAZOLE (METROGEL) 0.75 % Vaginal Gel 1 applicator at bedtime ? nystatin (MYCOSTATIN) 326543 UNIT/ML Mouth/Throat Suspension Take 5 mL by mouth FOUR TIMES DAILY. ? pantoprazole (PROTONIX) 40 MG Oral Tab EC Take 1 Tab by mouth DAILY. ? sertraline (ZOLOFT) 100 MG Oral Tab Take 1 Tab by mouth DAILY. ? sertraline (ZOLOFT) 50 MG Oral Tab Take 1 Tab by mouth DAILY. ? VALacyclovir 1 g Oral Tab Take 1 Tab by mouth EVERY TWELVE HOURS. ? Varenicline Tartrate 0.5 MG X 11 & 1 MG X 42 Oral Misc Take 1 Package by mouth DIRECTED. ? vedolizumab (ENTYVIO) 300 MG Intravenous Recon Soln 300 mg by Intravenous route DIRECTED for 1 dose. Infuse 300 mg IV at Weeks 0, 2 & 6. ? zolpidem (AMBIEN) 5 MG Oral Tab Take 1 Tab by mouth EVERY BEDTIME NEEDED (insomnia). Max Daily Amount: 5 mg. No current facility-administered medications for this visit. Allergies Allergen Reactions ? Remicade [Infliximab] Swelling Periorbital swelling, wheezing, shortness of breath, headache, dry cough, nausea, vomiting, abdominal pain, dizziness after remicade infusion at infusion center on 11/19/18 Social History Socioeconomic History ? Marital status: Single Spouse name: Not on file ? Number of children: Not on file ? Years of education: Not on file ? Highest education level: Not on file Occupational History ? Not on file Social Needs ? Financial resource strain: Not hard at all ? Food insecurity Worry: Never true Inability: Never true ? Transportation needs Medical: No Non-medical: No Tobacco Use ? Smoking status: Current Every Day Smoker Packs/day: 0.25 Years: 10.00 Pack years: 2.50 Types: Cigarettes ? Smokeless tobacco: Never Used ? Tobacco comment: Chantix Substance and Sexual Activity ? Alcohol use: No Comment: did do excess for 10 years ? Drug use: No Comment: never IV ? Sexual activity: Yes Partners: Male Comment: off [facility] Lifestyle ? Physical activity Days per week: 3 days Minutes per session: 30 min ? Stress: Not at all Relationships ? Social connections Talks on phone: Three times a week Gets together: Three times a week Attends voodoo service: Never Active member of club or organization: No Attends meetings of clubs or organizations: Never Relationship status: Not on file ? Intimate partner violence Fear of current or ex partner: No Emotionally abused: No Physically abused: No Forced sexual activity: No Other Topics Concern ? Back Care Not Asked ? Bike Helmet Not Asked ? Blood Transfusions Not Asked ? Caffeine Concern Not Asked ? Exercise Not Asked ? Hobby Hazards Not Asked ? International Travel Not Asked ? Service Not Asked ? Occupational Exposure Not Asked ? Seat Belt Not Asked ? Self-Exams Not Asked ? Sleep Concern Not Asked ? Special Diet Not Asked ? Stress Concern Not Asked ? 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 REVIEW OF SYSTEMS: Review of Systems Constitutional: Positive for chills, fever and malaise/fatigue. Respiratory: Negative for shortness of breath. Cardiovascular: Negative for chest pain and palpitations. Gastrointestinal: Positive for abdominal pain, blood in stool and diarrhea. Negative for constipation, nausea and vomiting. Musculoskeletal: Positive for joint pain (see hpi). Negative for myalgias. Neurological: Negative for tingling, sensory change and weakness. Psychiatric/Behavioral: Negative for depression and suicidal ideas. The patient is not nervous/anxious and does not have insomnia. Objective PHYSICAL EXAM: VITALS: BP 128/72 (BP Location: Left arm, Patient Position: Sitting) | Pulse 90 | Temp 100.1 F (37.8 C) (Tympanic) | Ht 5' 7" (1.702 m) | Wt 162 lb (73.5 kg) | SpO2 98% | BMI 25.37 kg/m Body mass index is 25.37 kg/m . Physical Exam Vitals signs and nursing note reviewed. Constitutional: General: She is not in acute distress. Appearance: Normal appearance. She is well-developed. She is not ill- appearing. Cardiovascular: Rate and Rhythm: Normal rate and regular rhythm. Pulses: Dorsalis pedis pulses are 2+ on the left side. Heart sounds: Normal heart sounds. No murmur. No friction rub. No gallop. Pulmonary: Effort: Pulmonary effort is normal. No respiratory distress. Breath sounds: Normal breath sounds. Abdominal: General: Abdomen is flat. Bowel sounds are normal. There is no distension. Palpations: Abdomen is soft. Abdomen is not rigid. There is no hepatomegaly, splenomegaly or mass. Tenderness: There is abdominal tenderness in the left upper quadrant and left lower quadrant. There is no right CVA tenderness, left CVA tenderness, guarding or rebound. Negative signs include Vaughn's sign and McBurney's sign. Hernia: No hernia is present. Musculoskeletal: Left knee: She exhibits decreased range of motion, swelling and effusion. She exhibits no erythema. Tenderness found. Neurological: General: No focal deficit present. Mental Status: She is alert. Psychiatric: Mood and Affect: Mood and affect normal. Speech: Speech normal. Behavior: Behavior normal. Behavior is cooperative. ASSESSMENT / IMPRESSION: ICD-9-CM ICD-10-CM 1. Crohn's related arthritis (HCC) 555.9 M07.60 713.1 K50.90 Plan 1. Crohn's related arthritis (HCC) -Worry about septic arthritis - swelling pain and temp 100.1 -Sent to ortho for possible joint aspiration - Dr. Colmenares at 2:20pm. -She wants to deal with the knee before the possible crohns flare - agrees to go to hospital if needed for increasing crohns symptoms, or follow up with Chaya Anguiano NP for regular follow up. Author: Bree Fields NP 11/16/2019 14:18 documented in this encounter Plan of Treatment Date Type Specialty Care Team Description 11/16/2019 Ancillary Procedure Radiology Chronic pain of left knee 11/25/2019 Office Visit [facility] Rosa Shearer, Hyacinth JACOBS [address] [address] [phone] Name Type Priority Associated Diagnoses Order Schedule REFER TO ORTHOPEDICS Referral Routine Crohn's related Expected: 11/16/2019, arthritis (HCC) Expires: 11/16/2020 Health Maintenance Due Date Last Done Comments PAP SMEAR 12/11/2012 12/11/2009 DEPRESSION SCREENING 01/13/2020 01/12/2019, 01/12/2019 Colonoscopy 07/01/2020 07/01/2017, 06/12/2017 DTaP/Tdap/Td Vaccines (2 - 11/12/2027 11/12/2017 Tdap) HIV SCREENING Completed 05/09/2017 PNEUMOCOCCAL 0-64 YRS Completed 11/12/2017 INFLUENZA VACCINE Completed 06/29/2019, 12/03/2017 HEPATITIS A IMMUNIZATION Aged Out No longer eligible based SERIES on patient's age to complete this topic HPV IMMUNIZATION SERIES Aged Out No longer eligible based on patient's age to complete this topic MENINGOCOCCAL VACCINE IMM Aged Out No longer eligible based on patient's age to complete this topic documented as of this encounter Goals Goal Patient Goal Associated Recent Patient-Stated? Author Type Problems Progress Depression Depression 21 No Fredis Drummond screen (PHQ-9) (01/12/2019 Joel total score < 5 10:49 AM EDT) Note: This is an individualized treatment (depression) goal for Frances Lynch: Displayed above is your goal for a depression screening (PHQ-9) score that would indicate good control of your depression. Keep a regular sleep schedule Lifestyle No Fredis Drummond DO Note: This is an individualized lifestyle goal for Frances Lynch: Please maintain a regular sleep schedule. This may help with some symptoms of depression. Take all prescribed medications as directed Self-management Fredis Noble DO Note: This is an individualized self-management goal for Frances Lynch: Please take all prescribed medications as directed. 1. Do not skip doses. If you cannot afford your medications, talk with your doctor. 2. Use a pill reminder system such as a pill box if needed. Your pharmacist can help you with this. 3. Contact your Pharmacy 5 days before your medication runs out. If you cannot take your medications for any reasons, talk with your doctor. 4. Please bring all of your medication bottles and inhalers (or a list of all your medications/inhalers) with you to every visit. Potential barriers to meeting all of your care plan goals will continue to be addressed on an ongoing basis. 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 Yes Order was discussed with: Patient I discussed all options and patient/surrogate requested and agreed to: Full Code Full Code 10/15/2018 4:54 AM 10/19/2018 8:20 PM Does the patient have decision making capacity? Yes Order was discussed with: Patient I discussed all options and patient/surrogate requested and agreed to: Full Code Full Code 05/02/2018 12:12 AM 05/08/2018 8:06 PM Does patient have decision making capacity? yes Order discussed with: Patient I discussed all options and patient/surrogate requested and agreed to: Full Code
--- OUTSIDE RECORDS SUMMARY | 2019-11-29 12:56 | XMS REPORT | Summary of Care ---
:1990 Author Organization [facility] Address [address] [address] Care Team Providers Name Role Phone Bree Fields Primary Care Provider Fredis Drummond-Araceli Pcp Reason for Referral Refer to Department Only (Routine) Status Reason Specialty Diagnoses / Referred By Referred To Procedures Contact Contact Pending Review RHEUMATOLOGY / Diagnoses Knee swelling Crohn's related arthritis (HCC) Abiel Colmenares, Rheumatology [address] [place] [address] Reason for Visit Reason Comments New Patient Left knee pain/swelling. Last seen 2016. Patient complains of left knee pain, swelling, and bruising. No known injury. DOI: 2 days. Refer to Department Only (Routine) Status Reason Specialty Diagnoses / Referred By Referred To Procedures Contact Contact Pending Review Orthopedics Diagnoses Knee swelling Bree Fields NP [address] [place] [address] Encounter Details Date Type Department Care Team Description 11/16/2019 Office Visit [facility] - Abiel Colmenares MD Crohn's related arthritis (HCC) (Primary Dx); [address] Knee swelling [address] [place] [address] [place] [address] [phone] Allergies Active Allergy Reactions Severity Noted Date [...] by mouth 280 mL 0 07/26/2019 Active 942554 UNIT/ML FOUR TIMES DAILY. Mouth/Throat Suspension sertraline [...] 11/03/2019 relatives? How often do you attend congregation or adventist Never 11/03/2019 services? Do you belong to any clubs or organizations such as No 11/03/2019 congregation groups, unions, fraternal or athletic groups, or [...] Sign Reading Time Taken Comments Blood Pressure 121/84 11/16/2019 2:00 PM EST Pulse 93 11/16/2019 2:00 PM EST Temperature - - Respiratory Rate - - Oxygen Saturation - - Inhaled Oxygen Concentration - - Weight 73.5 kg (162 lb) 11/16/2019 2:00 PM EST Height 170.2 cm (5' 7") 11/16/2019 2:00 PM EST Body Mass Index 25.37 11/16/2019 2:00 PM EST documented in this encounter Progress Notes Abiel Colmenares MD - 11/16/2019 2:20 PM EST Name: Frances Lynch : 1990 Date of Service: 11/16/2019 Chief Complaint Patient presents with ? New Patient Left knee pain/swelling. Last seen 2016. Patient complains of left knee pain, swelling, and bruising. No known injury. DOI: 2 days. 29-year-old woman known to me with established diagnosis of inflammatory arthritis related to Crohn's disease. Presents with large left knee effusion. Approximately 2 years ago I saw her for the samesymptoms and aspirated approximately 50 cc of straw-colored fluid after which she did well. Fluid was negative for infection or active disease at that time. Patient subsequently saw rheumatology who felt that she did have inflammatory arthritis related to Crohn's disease. Patient was on medication at that time which I believe was Remicade but she had an allergy to it so had to discontinue. Subsequently patient went out of town for about 9 months and is back. Now on a different medication for Crohn's which patient explained to me does not help arthritis. Patient relates that she has a temperature of about 100 degrees today. I reviewed chart in detail as well as prior x-rays. She had high ESR and C- reactive protein about a year ago . Results from June 2019 show CBC and differential was normal. ESR was 16 and C-reactive protein was normal. Physical exam shows a healthy-appearing woman in no acute distress. Alert and oriented. Observation of knee shows a large effusion. Skin is normal. There is no redness. There is no point tenderness. There is full extension. Flexion to about 90 degrees. No instability. Difficult to test for Dwight sign due to the effusion. Neurovascular status left lower extremity intact. X-rays showed large effusion but no apparent joint line changes or other stigmata of inflammatory arthritis. Procedure: In a sterile fashion, I aspirated approximately 40 cc of straw- colored fluid which will be sent to the lab for Gram stain, aerobic and anaerobic cultures, cell count with differential, crystals. Plan: Return to rheumatology for further evaluation and treatment with respect to joint pain. I will call patient with lab results from knee aspiration. ICD-9-CM ICD-10-CM 1. Crohn's related arthritis (HCC) 555.9 M07.60 REFER TO RHEUMATOLOGY 713.1 K50.90 2. Knee swelling 719.06 M25.469 REFER TO ORTHOPEDICS REFER TO RHEUMATOLOGY Author: Abiel Colmenares MD 11/16/2019 14:20 This record contains sections created with voice recognition software. It has been electronically signed. A reasonable attempt at proofreading has been made. Please call with any questions or corrections. documented in this encounter Plan of Treatment Date Type Specialty Care Team Description 11/16/2019 Ancillary Procedure Radiology Chronic pain of left knee 11/25/2019 Office Visit [facility] Rosa Shearer, Clinic [address] [address] [phone] Name Type Priority Associated Diagnoses Date/Time ANAEROBIC/AEROBIC Lab STAT Crohn's related arthritis 11/16/2019 2:26 PM EST CULTURE W/ GRAM STAIN (HCC) (C&S) CRYSTALS, FLUID Lab Routine Crohn's related arthritis 11/16/2019 2:28 PM EST (HCC) CELL COUNT,BODY FLUID Lab Routine Crohn's related arthritis 11/16/2019 2: 27 PM EST W/REFLEX DIFFEREN* (HCC) Name Type Priority Associated Diagnoses Order Schedule ANAEROBIC/AEROBIC Lab STAT Crohn's related 1 Occurrences starting CULTURE W/ GRAM STAIN arthritis (HCC) 11/16/2019 until (C&S) 05/14/2020 CRYSTALS, FLUID Lab Routine Crohn's related Expected: 11/16/2019 arthritis (HCC) (Approximate), Expires: 05/14/2020 CELL COUNT,BODY FLUID Lab Routine Crohn's related Expected: 11/16/2019 W/REFLEX DIFFEREN* arthritis (HCC) (Approximate), Expires: 05/14/2020 Name Type Priority Associated Diagnoses Order Schedule REFER TO RHEUMATOLOGY Referral Routine Knee swelling Expected: 11/16/2019, Crohn's related Expires: 11/16/2020 arthritis (HCC) Health Maintenance Due Date Last Done Comments [...] 22 No Fredis Drummond screen (PHQ-9) (01/12/2019 DO Joel total score < 5 10:49 AM [...] knee Pain in joint, lower leg Diagnosis Knee swelling Effusion of lower leg joint Crohn's related arthritis (HCC) Regional enteritis of unspecified site documented in this encounter Insurance Payer Benefit Plan / Subscriber ID Effective Dates Phone Address Type Group [address] [facility] [id number] 2015-Present [place] (Work) documented as of this encounter Advance Directives Type Date 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
--- OUTSIDE RECORDS SUMMARY | 2019-11-29 12:56 | XMS REPORT | Summary of Care ---
:1990 Author Organization [facility] Address [address] [facility] [place] [address] [address] Care Team Providers Name Role Phone Bree Fields Primary Care Provider Fredis Drummond-Araceli Pcp Unavailable Reason for Visit Reason Comments Follow Up flare up of Crohn's Encounter Details Date Type Department Care Team Description 11/22/2019 Office Visit [facility]/Charlie Maldonado NP ileum with other tology 1 [facility] complication (HCC) [address] [facility] [address] [address] (Primary Dx) [place] [address] [phone] Allergies Active Allergy Reactions Severity Noted Date Comments Infliximab Swelling High 11/19/2018 Periorbital swelling, wheezing, shortness of breath, headache, dry cough, nausea, vomiting, abdominal pain, dizziness after remicade infusion at infusion center on 11/19/18 documented as of this encounter (statuses as of 11/22/2019) Medications Medication Sig Dispensed Refills Start End Date Status Date acetaminophen Take 1 Tab by 60 Tab 0 Active (TYLENOL) 500 MG mouth EVERY FOUR 8 Oral Tab HOURS NEEDED (for mild to moderate pain). vedolizumab 300 mg by 3 Each 0 Active (ENTYVIO) 300 MG Intravenous 9 Intravenous Recon route Soln DIRECTED for 1 dose. Infuse 300 mg IV at Weeks 0, 2 & 6. Varenicline Take 1 Package 1 Kit 0 Active Tartrate 0.5 MG X by mouth 9 11 & 1 MG X 42 DIRECTED. Oral MiscIndications: Encounter for smoking cessation counseling metroNIDAZOLE 1 applicator at 70 g 0 Active (METROGEL) 0.75 % bedtime 9 Vaginal Gel nystatin Take 5 mL by 280 mL 0 Active (MYCOSTATIN) mouth FOUR TIMES 9 [id number] UNIT/ML DAILY. Mouth/Throat Suspension sertraline Take 1 Tab by 120 Tab 0 Active (ZOLOFT) 100 MG mouth DAILY. 0 Oral TabIndications: Anxiety and depression VALacyclovir 1 g Take 1 Tab by 21 Tab 2 Active Oral mouth EVERY 0 TabIndications: TWELVE HOURS. History of herpes genitalis pantoprazole Take 1 Tab by 30 Tab 5 Active (PROTONIX) 40 MG mouth DAILY. 0 Oral Tab ECIndications: Crohn's disease of ileum with other complication (HCC) sertraline Take 1 Tab by 30 Tab 1 Active (ZOLOFT) 50 MG mouth DAILY. 0 Oral TabIndications: Anxiety and depression zolpidem (AMBIEN) Take 1 Tab by 30 Tab 0 Active 5 MG Oral mouth EVERY 0 TabIndications: BEDTIME Insomnia, NEEDED unspecified type (insomnia). Max Daily Amount: 5 mg. predniSONE Take 2 Tabs by 10 Tab 0 Active (DELTASONE) 20 MG mouth DAILY. 0 Oral TabIndications: Crohn's related arthritis (HCC) predniSONE Take 40 mg daily 30 Tab 0 Active (DELTASONE) 5 MG x 7 days,30 mg 0 Oral Tab daily x 7 days,20 mg daily x 7 days,15 mg daily x 7 days,10 mg daily x 7 days, 5 mg daily x7 days, then stop OXYcodone-acetamin Take 1 Tab by 28 Tab 0 11/29/19 Active ophen (PERCOCET) mouth EVERY SIX 0 20 5-325 MG Oral Tab HOURS NEEDED (pain) for up to 7 days. Max Daily Amount: 4 Tabs. HYDROcodone-acetam Take 1 Tab by 6 Tab 0 11/22/19 Discontinued inophen (NORCO) mouth EVERY 0 20 (Alternative 5-325 MG Oral EIGHT HOURS Therapy) TabIndications: NEEDED (pain). Crohn's related Max Daily arthritis (HCC) Amount: 3 Tabs. documented as of this encounter (statuses as of 11/22/2019) Active Problems Problem Noted Date Allergic reaction [...] as of this encounter (statuses as of 11/22/2019) Resolved Problems Problem Noted Date Resolved Date Anxiety 02/03/2018 Swelling of left knee joint 02/03/2018 Chronic diarrhea 02/03/2018 documented as of this encounter (statuses as of 11/22/2019) Immunizations Name Administration Dates Next Due Influenza [...] 11/03/2019 relatives? How often do you attend sikh or voodoo Never 11/03/2019 services? Do you belong to any clubs or organizations such as No 11/03/2019 sikh groups, unions, fraternal or athletic groups, or [...] Sign Reading Time Taken Comments Blood Pressure 125/81 11/22/2019 2:53 PM EST Pulse 110 11/22/2019 2:53 PM EST Temperature - - Respiratory Rate 20 11/22/2019 2:53 PM EST Oxygen Saturation 98% 11/22/2019 2:53 PM EST Inhaled Oxygen Concentration - - Weight 72.6 kg (160 lb) 11/22/2019 2:53 PM EST Height 167.6 cm (5' 6") 11/22/2019 2:53 PM EST Body Mass Index 25.82 11/22/2019 2:53 PM EST documented in this encounter Patient Instructions Patient InstructionsChaya Anguiano NP - 11/22/2019 3:20 PM EST1. Labs today 2. Stool testing as soon as possible 3. Will plan to restart Entyvio once authorized by your insurance. 4. Prednisone taper ordered, will sent short supply of Percocet until you can be seen by pain clinic. 5. Follow up in 1 month Thank you for choosing the [facility] for your needs today! -Chaya Anguiano N.PHank , Please call if you need to cancel or change your appt. time. Thank you for choosing [facility] for your health care needs, and for consulting with [facility] today. You may receive a survey following this visit, or after an upcoming hospital stay. As easy as it is to feel overloaded with surveys, we are required to send them out randomly and they do provide important feedback so that we may serve your needs in the best way. Please do take the few minutes required to complete the survey if you receive one. We get them too, after seeing the doctor, and they only take a few minutes to complete. documented in this encounter Progress Notes Chaya Anguiano NP - 11/22/2019 3:20 PM EST PATIENT:Frances Lynch : 1990 DATE OF SERVICE:11/22/2019 Chief Complaint Patient presents with ? Follow Up flare up of Crohn's REFERRING PROVIDER: Chaya Anguiano PRIMARY CARE PHYSCIAN: Bree Fields SUBJECTIVE: Frances Lynch is a very pleasant 29-y.o. female who presents for routine follow up of Crohn's disease, has not been seen 06/2019, stopped all Crohn's treatments 01/2019. Recently had a recurrence of the Crohn's in her knee, since that time her ileitis has also started to flair. She was given a 5 day course of Prednisone 20mgs daily and given Hydrocodone for pain. She reports minimal relief with this. Currently she moves her bowels 10 times per day, normal is 1-2 times per day. There has been no blood and nocturnal symptoms. She denies oral ulcers, skin ulcers, back pain, red eyes, burning or itching of eyes, vision changes, fevers, chills, night-sweats, weight loss, nausea, vomiting, melena, hematochezia, hematemesis, dysuria, pyuria, hematuria, acholic or fidencio colored stools or dark urine. Current Therapy: stopped Entyvio 01/2019 Last colonoscopy: 2017 flex sig positive for quiescent colitis of the sigmoid, 2016 colonoscopy positive for ileitis, needs repeat this year Past GI surgeries: none CDAI score = 219 indicating moderate Crohn's activity Past Medical History: Diagnosis Date ? Anxiety ? Chronic diarrhea ? Crohn disease (HCC) ? Depression has been on SSRI ? Insomnia 12/03/2017 ? Smoker ? Swelling of left knee joint ? Tubal Past Surgical History: Procedure Laterality Date ? ND APPENDECTOMY Social History Socioeconomic History ? Marital status: [...] Sexual activity: Yes Partners: Male Comment: off [facility] Lifestyle ? 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 Remicade [infliximab] Current Outpatient Medications Medication Sig ? acetaminophen (TYLENOL) 500 MG Oral Tab Take 1 Tab by mouth EVERY FOUR HOURS NEEDED (formild to moderate pain). ? metroNIDAZOLE (METROGEL) 0.75 % Vaginal Gel 1 applicator at bedtime ? nystatin (MYCOSTATIN) 620519 UNIT/ML Mouth/Throat Suspension Take 5 mL by mouth FOUR TIMES DAILY. ? OXYcodone-acetaminophen (PERCOCET) 5-325 MG Oral Tab Take 1 Tab by mouth EVERY SIX HOURS NEEDED (pain) for up to 7 days. Max Daily Amount: 4 Tabs. ? pantoprazole (PROTONIX) 40 MG Oral Tab EC Take 1 Tab by mouth DAILY. ? predniSONE (DELTASONE) 20 MG Oral Tab Take 2 Tabs by mouth DAILY. ? predniSONE (DELTASONE) 5 MG Oral Tab Take 40 mg daily x 7 days,30 mg daily x 7 days,20 mg daily x 7 days,15 mg daily x 7 days,10 mg daily x 7 days, 5 mg daily x7 days, then stop ? sertraline (ZOLOFT) 100 MG Oral Tab [...] No current facility-administered medications for this visit. REVIEW OF SYSTEMS Negative, except that mentioned above. OBJECTIVE: BP 125/81 (BP Location: Left arm, Patient Position: Sitting) | Pulse 110 | Resp 20 | Ht 5' 6" (1.676 m) | Wt 160 lb (72.6 kg) | SpO2 98% | BMI 25.82 kg /m PHYSICAL EXAM GENERAL: alert, oriented, no acute distress. HEENT: No scleral icterus, MMM Psych: Affect normal Neck: no lymphadenopathy LUNGS: clear to auscultation bilaterally. HEART: regular rhythm, no murmurs, no gallops, no rubs. ABDOMEN: general exam: soft,diffusely tender, non-distended, without masses or organomegaly, normalactive bowel sounds, Vaughn's sign negative. Extrmities: no edema Skin: clear Neuro: gait normal, a&o x 3 RECTAL: exam deferred. IMPRESSION/PLAN ICD-9-CM ICD-10-CM 1. Crohn's disease of ileum with other complication (HCC) 555.0 K50.018 LIVER FUNCTION PROFILE BASIC METABOLIC PANEL CBC WITH DIFFERENTIAL T-SPOT SEDIMENTATION RATE C-REACTIVE PROTEIN CALPROTECTIN, STOOL C. DIFFICILE (STOOL) STOOL CULTURE C-REACTIVE PROTEIN SEDIMENTATION RATE T-SPOT CBC WITH DIFFERENTIAL BASIC METABOLIC PANEL LIVER FUNCTION PROFILE In the past she has required higher doses of Prednisone to treat her ileitis, and had been on 5-10mgOxycontin prn manage her pain, she is due to see Pain clinic this week. Patient Instructions 1. Labs today 2. Stool testing as soon as possible 3. Will plan to restart Entyvio once authorized by your insurance. 4. Prednisone taper 5. Follow up in 1 month Thank you for choosing the [facility] for your needs today! -Chaya Anguiano N.P. , Please call if you need to cancel or change your appt. time. Thank you for choosing [facility] for your health care needs, and for consulting with [facility] today. You may receive a survey following this visit, or after an upcoming hospital stay. As easy as it is to feel overloaded with surveys, we are required to send them out randomly and they do provide important feedback so that we may serve your needs in the best way. Please do take the few minutes required to complete the survey if you receive one. We get them too, after seeing the doctor, and they only take a few minutes to complete. AUTHOR: Chaya Anguiano NP 11/22/2019 15:18 documented in this encounter Plan of Treatment Date Type Specialty Care Team Description 11/25/2019 Office Visit [facility] Rosa Shearer MD Clinic [address] [address] 12/23/2019 Office Visit Gastroenterology Chaya Anguiano NP [address] [address] Name Type Priority Associated Diagnoses Date/Time LIVER FUNCTION PROFILE Lab Routine Crohn's disease of ileum 11/22/2019 3: 18 PM with other complication EST (HCC) BASIC METABOLIC PANEL Lab Routine Crohn's disease of ileum 11/22/2019 3: 18 PM with other complication EST (HCC) CBC WITH DIFFERENTIAL Lab Routine Crohn's disease of ileum 11/22/2019 3: 18 PM with other complication EST (HCC) T-SPOT Lab Routine Crohn's disease of ileum 11/22/2019 3:18 PM with other complication EST (HCC) SEDIMENTATION RATE Lab Routine Crohn's disease of ileum 11/22/2019 3:18 PM with other complication EST (HCC) C-REACTIVE PROTEIN Lab Routine Crohn's disease of ileum 11/22/2019 3:18 PM with other complication EST (HCC) Name Type Priority Associated Diagnoses Order Schedule LIVER FUNCTION PROFILE Lab Routine Crohn's disease of ileum Expected: 11/21 with other complication (Approximate), Expires: (HCC) 12/06/2019 BASIC METABOLIC PANEL Lab Routine Crohn's disease of ileum Expected: 2019 with other complication (Approximate), Expires: (HCC) 12/06/2019 CBC WITH DIFFERENTIAL Lab Routine Crohn's disease of ileum Expected: 2019 with other complication (Approximate), Expires: ([facility]) 12/06/2019 T-SPOT Lab Routine Crohn's disease of ileum Expected: 11/22/2019 with other complication (Approximate), Expires: ([facility]) 11/21/2020 SEDIMENTATION RATE Lab Routine Crohn's disease of ileum Expected: 2019 with other complication (Approximate), Expires: ([facility]) 11/21/2020 C-REACTIVE PROTEIN Lab Routine Crohn's disease of ileum Expected: 2019 with other complication (Approximate), Expires: ([facility]) 11/21/2020 CALPROTECTIN, STOOL Lab Routine Crohn's disease of ileum Expected: 2019 with other complication (Approximate), Expires: ([facility]) 05/24/2020 C. DIFFICILE (STOOL) Lab Routine Crohn's disease of ileum 1 Occurrences starting with other complication 11/22/2019 until ([facility]) 05/20/2020 STOOL CULTURE Lab Routine Crohn's disease of ileum 1 Occurrences starting with other complication 11/22/2019 until ([facility]) 05/24/2020 Health Maintenance Due Date Last Done Comments [...] a regular sleep schedule Lifestyle No Fredis Drummond, DO Note: This is an individualized lifestyle goal for Frances Lynch: Please maintain a regular sleep schedule. This may help with some symptoms of depression. Take all prescribed medications as directed Self-management No Fredis Drummond DO Note: This is an individualized self-management [...] filedocumented in this encounter Visit Diagnoses Diagnosis Crohn's disease of ileum with other complication (HCC) documented in this encounter Insurance Payer Benefit Plan / Subscriber ID Effective Dates Phone Address Type Group [facility] [id number] 2015-Present [place] Guarantor Name Account Type Relation to Date of Phone Billing Patient Address Yuval Lynch Personal/Family [id number] (Home) [place], [id number] (Work) documented as of this encounter Advance Directives Type Date Recorded 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
--- OUTSIDE RECORDS SUMMARY | 2019-11-29 12:56 | XMS REPORT | Summary of Care ---
:1990 Author Organization [facility] Address [address] [place] [address] Care Team Providers Name Role Phone Bree Fields Primary Care Provider Reason for Referral Refer to Department Only (Routine) Status Reason Specialty Diagnoses / Referred By Referred To Procedures Contact Contact Pending Review Orthopedics Diagnoses Knee swelling Bree Fields NP [address] [place] [address] Reason for Visit Reason Comments Establish Care Dr. Drummond pt Encounter Details Date Type Department Care Team Description 11/03/2019 Office Visit [facility] Bree Fields, Crohn's disease of ileum with other complication (HCC) (Primary Dx); Practice [facility] Anxiety and depression; [address] [facility] History of herpes genitalis; [place] [address] [place] [address] Knee swelling; [phone] Insomnia, unspecified type Allergies Active Allergy Reactions Severity Noted Date Comments Infliximab Swelling High 11/19/2018 Periorbital swelling, wheezing, shortness of breath, headache, dry cough, nausea, vomiting, abdominal pain, dizziness after remicade infusion at infusion center on 11/19/18 documented as of this encounter (statuses as of 11/03/2019) Medications Medication Sig Dispensed Refills Start End [...] 0 Active (MYCOSTATIN) mouth FOUR TIMES 9 [id number] UNIT/ML DAILY. Mouth/Throat Suspension sertraline Take 1 [...] type (insomnia). Max Daily Amount: 5 mg. sertraline TAKE ONE TABLET 120 Tab 0 11/03/19 Discontinued (ZOLOFT) 100 MG BY MOUTH EVERY 9 20 (Reorder) Oral DAY TabIndications: Anxiety and depression VALacyclovir 1 g Take 1 Tab by 21 Tab 2 11/03/19 Discontinued Oral mouth EVERY 9 20 (Reorder) TabIndications: TWELVE HOURS. History of herpes genitalis sertraline TAKE ONE TABLET 30 Tab 2 11/03/19 Discontinued (ZOLOFT) 100 MG BY MOUTH EVERY 0 20 (Duplicate Oral DAY Order) TabIndications: Anxiety and depression pantoprazole TAKE ONE TABLET 30 Tab 5 11/03/19 Discontinued (PROTONIX) 40 MG BY MOUTH EVERY 0 20 (Reorder) Oral Tab EC MORNING AT 7AM ON EMPTY STOMACH documented as of this encounter (statuses as of 11/03/2019) Active Problems Problem Noted Date Allergic reaction [...] as of this encounter (statuses as of 11/03/2019) Resolved Problems Problem Noted Date Resolved Date Anxiety 02/03/2018 Swelling of left knee joint 02/03/2018 Chronic diarrhea 02/03/2018 documented as of this encounter (statuses as of 11/03/2019) Immunizations Name Administration Dates Next Due Influenza [...] 11/03/2019 relatives? How often do you attend caodaism or bahai Never 11/03/2019 services? Do you belong to any clubs or organizations such as No 11/03/2019 caodaism groups, unions, fraternal or athletic groups, or [...] Sign Reading Time Taken Comments Blood Pressure 126/72 11/03/2019 1:31 PM EST Pulse 89 11/03/2019 1:31 PM EST Temperature 37.3 11/03/2019 1:31 PM EST C (99.1 F) Respiratory Rate - - Oxygen Saturation 99% 11/03/2019 1:31 PM EST Inhaled Oxygen Concentration - - Weight 73.5 kg (162 lb) 11/03/2019 1:31 PM EST Height 170.2 cm (5' 7") 11/03/2019 1:31 PM EST Body Mass Index 25.37 11/03/2019 1:31 PM EST documented in this encounter Patient Instructions Patient InstructionsBree Fields NP - 11/03/2019 1:20 PM ESTIncrease to 150mg daily (zoloft). Follow up in 3-4 weeks. ambien once nightly (as needed) - 30-60 minutes before bed. Sleep hygiene: No naps during the day No caffeine after 2pm No screens for 2 hours before - or use the blue light filter we discussed Bed is only for sleep and sex - no reading, no phone, no watching tv Go to bed at the same time every day, wake up at the same time every day - even weekends and holidays Dim lights for 2 hours before bed Get adequate exercise - 150 minutes of moderate exercise per week is recommended Consider melatonin over the counter to take before bed. Patient Education Tips for Getting Better Sleep About this topic Sleep is important to keep your body healthy. While you sleep, your body and mind recover from the day's activities. It is important to know how much sleep you need. This is based on many things like your age and health. A regular schedule for sleep and naps promotes good health at all ages. Babies: [place] to 4 months of age: How much sleep they need will vary and they will have an unpredictable sleep pattern. They may sleep as much as 15 to 18 hours each day in short periods of 2 to4 hours each. Infants: 4 months to 1 year old should sleep 12 to 16 hours each day. This will likely include 2 to 3 naps each day. Toddlers: 1 to 2 years old should sleep 11 to 14 hours each day. This will likely include 1 to 2 naps each day. Preschoolers: 3 to 5 years old should sleep 10 to 13 hours each day. This will likely include 1nap each day. Children: 6 to 12 years old should sleep 9 to 12 hours each day. Teenagers: 13 to 18 years old should sleep 8 to 10 hours each day. Adults: 19 to 64 years old and older should sleep 7 to 9 hours each day. Older Adults: 65 or more years old should sleep 7 to 8 hours each day. General Many people have sleep problems and don't get enough sleep. You may not be able to fall asleep rightaway or stay asleep. You may wake up early and not be able to fall back to sleep. Sometimes, when you wake up in the morning you may not feel rested and then you may feel tired or sleepy all day. You may feel grouchy , forget things, or have trouble focusing. Sleep problems can last for a few days, weeks, or even months. For some people, sleep problems may not happen every day but a few times a week. Sleep problems may be caused by stress or a health problem. To improve your sleep, there are some simple things you can try: Teach your body that it is time to sleep. ?? Do the same things each night before you go to bed to help you get ready for sleep. Read a book or listen to music before you fall asleep. Take a warm bath or shower to help relax you. ?? Don't work on the computer or watch TV right before bed. The bright lights make your body think that it is time to be awake. ?? Keep the same sleep schedule. Go to bed and get up at the same time each day , even on weekends. ?? If you cannot fall asleep, get up and do a light activity until you feel sleepy. Try to read, write in a journal, or take deep and relaxing breaths. Create a good sleep area. ?? Sleep in a dark and quiet room at a comfortable temperature. ?? Use a fan or white noise machine to help block out noise. Consider ear plugs if your partner snores. ?? Do not use your bedroom for things other than sleep or sex. ?? Give children and pets their own separate area to sleep. ?? Use a comfortable pillow and mattress. What you do during the day matters when you try to sleep at night. ?? Adults and older children should avoid naps during the day. Taking a nap can make it hard to sleep at night. ?? Avoid scary or violent TV shows, books, and computer games before bedtime. ?? Make a list of things you need to do the next day before you go to bed. This may keep you from worrying about them. ?? Find ways to manage stress. Learn to deep breathe and relax your muscles to help your body slow down and fall asleep. Things like yoga, meditation, or carlos chi may also be helpful. Talk to a counselor about problems. This may help you to learn different ways to deal with and lower stress. ?? Find time to get outside in the sun during the day. Avoid bright lights in the evening. ?? Exercise each day, but not right before you go to bed. It is best to avoid exercise for 2 to 3 hours before bedtime. Encourage children to play quietly before bed. What will the results be? Better able to pay attention Less learning problems Fewer accidents Better overall health What lifestyle changes are needed? Do not drink or eat things with caffeine late in the day and before bedtime. Do not eat large or spicy meals close to bedtime. If you are hungry at bedtime, try a light snack of milk, sliced turkey, or fruit. Do not drink beer, wine, and mixed drinks (alcohol) before bedtime. Do not drink too much liquid before bedtime, including water. This may cause you to wake up during the night to use the bathroom. If you smoke, ask for help to limit or stop smoking. Where can I learn more? [employer] [employer] https://www.healthychildren.org/Liberian/news/Pages/YJE-Qvwxjgqw-Dakceskhr-Sleep- Guidelines.aspx KidsHealth http://kidshealth.org/kid/stay_healthy/body/cant_sleep.html NHS Choices https://www.nhs.uk/livewell/childrenssleep/pages/teensleeptips.aspx Last Reviewed Date 2017-11-07 Consumer Information Use and Disclaimer This information is not specific medical advice and does not replace information you receive from your health care provider. This is only a brief summary of general information. It does NOT include allinformation about conditions, illnesses, injuries, tests, procedures, treatments, therapies, discharge instructions or life-style choices that may apply to you. You must talk with your health care provider for complete information about your health and treatment options. This information should not beused to decide whether or not to accept your health care provider?s advice, instructions or recommendations. Only your health care provider has the knowledge and training to provide advice that is right for you. Copyright Copyright 2019 [employer] and its affiliates and/or licensors. All rights reserved. documented in this encounter Progress Notes Bree Fields NP - 11/03/2019 1:20 PM EST PATIENT: Sisi Lynch : 1990 DATE OF SERVICE: 11/03/2019 CHIEF COMPLAINT: Chief Complaint Patient presents with ? Establish Care Dr. Drummond pt Subjective HISTORY OF PRESENT ILLNESS: Sisi Lynch is a 29-y.o. female. HPI Prior PCP Dr. Drummond. Insomnia - about one hour to fall asleep, then wake up every hour. Feels like she has to do something in her sleep. Taking 100mg benadryl every night. Never any more thn 2 hours. Never dreams. One pepsi per day, no coffee, no caffeine. Does not drink at night. 8pm bedtime. Wake up at 8 am. ? Current Concerns: on 100 mg zoloft and would like to go up. - wasn't viable did d&c at 7 weeks. Obgyn - would like tubes tied, has appnt to discuss today. ? Chronic Conditions: Crohns - Entyvio infusions - every 8 weeks? LFT's done June 2019. ? Results for SISI LYNCH ( ) as of 10/12/2019 20:09 ? Ref. Range 01/25/2019 13:33 02/19/2019 15:26 06/29/2019 14:21 ALKALINE PHOSPHATASE Latest Ref Range: 40 - 150 U/L 56 58 56 AST Latest Ref Range: 15 - 46 U/L 14 (L) 18 21 ALT Latest Ref Range: 9 - 52 U/L 17 17 17 ? Smoking - rx'd Chantix in December: tried - took for 3 weeks and not worked. Nicotine patches increased smoking. Depression and Anxiety: Zoloft 100 mg daily. See above. ? Specialists: GI: See's Chaya Anguiano, [facility] every 6 months for Crohns management. ? Health Maintenance: Pap (2165): 2017 - will be due this year. [facility]. Past Medical History: Diagnosis Date ? Anxiety ? Chronic diarrhea ? Depression has been on SSRI ? Insomnia 12/03/2017 ? Smoker ? Swelling of left knee joint ? Tubal Family History Problem Relation Age of Onset ? Heart Mother 58 [place] ? Stroke Mother 3 strokes in 40's ? Kidney Disease Mother ? Depression/Depressed Father Current Outpatient Medications Medication Sig ? acetaminophen (TYLENOL) 500 MG Oral Tab Take 1 Tab by mouth EVERY FOUR HOURS NEEDED (formild to moderate pain). ? metroNIDAZOLE (METROGEL) 0.75 % Vaginal Gel 1 applicator at bedtime ? nystatin (MYCOSTATIN) [id number] UNIT/ML Mouth/Throat Suspension Take 5 mL by [...] Sexual activity: Yes Partners: Male Comment: off [facility] Lifestyle ? Physical activity Days per week: 3 days Minutes per session: 30 min ? Stress: Not at all Relationships ? Social connections Talks on phone: Three times a week Gets together: Three times a week Attends bahai service: Never Active member of club or [...] REVIEW OF SYSTEMS: Review of Systems Constitutional: Negative for malaise/fatigue. Respiratory: Negative for shortness of breath. Cardiovascular: Negative for chest pain and palpitations. Gastrointestinal: Negative for abdominal pain, nausea and vomiting. Neurological: Negative for dizziness and headaches. Psychiatric/Behavioral: Positive for depression. Negative for substance abuse and suicidal ideas. The patient is nervous/anxious and has insomnia. Objective PHYSICAL EXAM: VITALS: BP 126/72 (BP Location: Right arm, Patient Position: Sitting) | Pulse 89 | Temp 99.1 F (37.3 C) (Tympanic) | Ht 5' 7" (1.702 m) | Wt 162 lb (73.5 kg) | SpO2 99% | BMI 25.37 kg/m Body mass index is 25.37 kg/m . Physical Exam ASSESSMENT / IMPRESSION: ICD-9-CM ICD-10-CM 1. Crohn's disease of ileum with other complication (HCC) 555.0 K50.018 pantoprazole (PROTONIX) 40 MG Oral Tab EC 2. Anxiety and depression 300.00 F41.9 sertraline (ZOLOFT) 100 MG Oral Tab 311 F32.9 sertraline (ZOLOFT) 50 MG Oral Tab 3. History of herpes genitalis V12.09 Z86.19 VALacyclovir 1 g Oral Tab 4. Knee swelling 719.06 M25.469 REFER TO ORTHOPEDICS 5. Insomnia, unspecified type 780.52 G47.00 zolpidem (AMBIEN) 5 MG Oral Tab Plan 1. Anxiety and depression Increase zoloft to 150 mg daily - follow up in 3-4 weeks. - sertraline (ZOLOFT) 100 MG Oral Tab; Take 1 Tab by mouth DAILY. Dispense: 120 Tab; Refill: 0 - sertraline (ZOLOFT) 50 MG Oral Tab; Take 1 Tab by mouth DAILY. Dispense: 30 Tab; Refill: 1 2. History of herpes genitalis refill - VALacyclovir 1 g Oral Tab; Take 1 Tab by mouth EVERY TWELVE HOURS. Dispense: 21 Tab; Refill: 2 3. Crohn's disease of ileum with other complication (HCC) refill - pantoprazole (PROTONIX) 40 MG Oral Tab EC; Take 1 Tab by mouth DAILY. Dispense: 30 Tab; Refill: 5 4. Knee swelling Patient requesting new referral, previously ordered by dr drummond but she didn't schedule at that time,would like to now. - REFER TO ORTHOPEDICS; Future 5. Insomnia, unspecified type Has tried melatonin in past unsuccessfully - will try ambien, plus sleep hygiene. - zolpidem (AMBIEN) 5 MG Oral Tab; Take 1 Tab by mouth EVERY BEDTIME NEEDED ( insomnia). Max DailyAmount: 5 mg. Dispense: 30 Tab; Refill: 0 Author: Bree Fields NP 11/03/2019 15:12 documented in this encounter Plan of Treatment Date Type Specialty Care Team Description 11/25/2019 Office Visit [facility] Rosa Shearer MD [address] [place] [address] Name Type Priority Associated Diagnoses Order Schedule REFER TO ORTHOPEDICS Referral Routine Knee swelling Expected: 11/03/2019, Expires: 11/03/2020 Health Maintenance Due Date Last Done Comments [...] is an individualized treatment (depression) goal for Sisi Lynch: Displayed above is your goal for a depression screening (PHQ-9) score that would indicate good control of your depression. Keep a regular sleep schedule Lifestyle No Fredis Drummond DO Note: This is an individualized lifestyle goal for Sisi Lynch: Please maintain a regular sleep schedule. This may help with some symptoms of depression. Take all prescribed medications as directed Self-management Fredis Noble DO Note: This is an individualized self-management goal for Sisi Lnych: Please take all prescribed medications as directed. [...] filedocumented in this encounter Visit Diagnoses Diagnosis Anxiety and depression Dysthymic disorder History of herpes genitalis Personal history of other infectious and parasitic disease Crohn's disease of ileum with other complication (HCC) Knee swelling Effusion of lower leg joint Insomnia, unspecified type documented in this encounter Insurance Payer Benefit Plan / Subscriber ID Effective Dates Phone Address Type Group [facility] [id number] 2015-Present [place] Guarantor Name Account Type Relation to Date of Phone Billing Patient Address Yuval Lynch Personal/Family 1990 [id number] (Home) [facility] [phone] [place] [id number] (Work) documented as of this encounter Advance Directives Type Date 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
--- NOTE | 2019-11-29 14:01 | ED ---
Lower Extremity - HPI Summary HPI Summary: Patient is a 29 y/o F presenting to the ED for a chief complaint of left knee pain. Patient states she has had frequency in bowel movements, having about 20 bowel movements daily. She also notes intermittent fever and blood in her stool. Patient reports having blood "coming out of everywhere," including her rectum and vagina. She is currently on her menstrual period. Patient believes she is having an exacerbation of her Crohn's disease, as her current symptoms are similar to prior exacerbations. The knee pain worsens with weight bearing, but no alleviating factors are reported. She follows up with a project intern and states she was told she has Crohn's arthritis, with her left knee pain worsening at the same time as her Crohn's disease. Patient has a history of left knee aspiration, with the last aspiration occurring one week ago. Patient takes 50 mg of prednisone, Flagyl, and georges medications for her Crohn's and arthritis. PMHx is significant for rheumatoid arthritis and Crohn's disease. She follows up with a university intern. - History of Current Complaint Chief Complaint: EDGeneral Stated Complaint: LT KNEE PAIN PER PT Time Seen by Provider: 11/29/19 13:57 Hx Obtained From: Patient Hx Last Menstrual Period: 11/29/19 Mechanism Of Injury: Unknown Onset of Pain: Prior to Arrival Onset/Duration: Still Present Severity Initially: Severe Severity Currently: Severe Pain Intensity: 8 Pain Scale Used: 0-10 Numeric Timing: Constant Location: Is Discrete @ - Left knee Associated Signs And Symptoms: Positive: Fever - In vitals, 98.1 F, Knee Pain - Left Aggravating Factor(s): Weight Bearing Alleviating Factor(s): Nothing - Allergies/Home Medications Allergies/Adverse Reactions: Allergies Allergy/AdvReac Type Severity Reaction Status Date / Time infliximab [From Remicade] Allergy Airway Verified 11/29/19 12:50 Obstruction Home Medications: Home Medications Pantoprazole TAB * [Protonix TAB*] 40 mg PO DAILY 08/02/17 [History Confirmed ] Sertraline* [Zoloft*] 225 mg PO DAILY 12/04/17 [History Confirmed 11/29/19] HYDROmorphone TAB* [Dilaudid TAB*] 2 mg PO Q6H PRN #28 tab MDD 4 11/29/19 [Rx] Zolpidem TAB* [Ambien TAB*] 10 mg PO BEDTIME PRN 11/29/19 [History Confirmed 06/11] predniSONE [Prednisone 20 MG TAB] 20 mg PO BID #10 tablet 11/29/19 [Rx] predniSONE [Prednisone 5 MG TAB] 5 mg PO .1-3X/DAY 11/29/19 [History Confirmed 11/29/19] PMH/Surg Hx/FS Hx/Imm Hx Previously Healthy: Yes Endocrine/Hematology History: Denies: Hx Anticoagulant Therapy, Hx Blood Disorders, Hx Bone Marrow Disease , Hx Diabetes, Hx Sickle Cell Disease, Hx Thyroid Disease, Hx Anemia Cardiovascular History: Denies: Hx Hypertension Respiratory History: Denies: Hx Asthma, Hx Chronic Obstructive Pulmonary Disease (COPD) GI History: Reports: Hx Crohn's Disease - flair up q 8 months, Hx Gastroesophageal Reflux Disease Denies: Hx Ulcer History: Denies: Hx Renal Disease Musculoskeletal History: Reports: Hx Rheumatoid Arthritis Sensory History: Denies: Hx Contacts or Glasses, Hx Legally Blind, Hx Deafness, Hx Hearing Aid Opthamlomology History: Denies: Hx Contacts or Glasses, Hx Legally Blind EENT History: Denies: Hx Deafness Psychiatric History: Reports: Hx Anxiety, Hx Depression, Hx Panic Disorder, Other Psychiatric Issues/Disorders - chronic pain, sees Dr. Lr - Cancer History Cancer Type, Location and Year: none Hx Chemotherapy: Yes - Humira for Crohn's - Surgical History Surgical History: Yes Surgery Procedure, Year, and Place: May 2001 Open appy. knee surgery. submandibular abscess drained August 2017 [place] [facility] [place] Hx Anesthesia Reactions: No Infectious Disease History: No Infectious Disease History: Denies: Hx Clostridium Difficile, Hx Hepatitis, Hx Human Immunodeficiency Virus (HIV), Hx of Known/Suspected MRSA, Hx Tuberculosis, History Other Infectious Disease, Traveled Outside the [place] in Last 30 Days - Family History Known Family History: Positive: Cardiac Disease - Mother had CAD - Social History Occupation: Employed Full-time Lives: With Family Alcohol Use: None Alcohol Amount: a few time a week Hx Substance Use: No Substance Use Type: Reports: None Hx Tobacco Use: Yes Smoking Status (MU): Current Every Day Smoker Type: Cigarettes Amount Used/How Often: 1 PPD Review of Systems Positive: Fever - In vitals, 98.1 F Positive: Other - Positive frequency of bowel movements and blood in the stool Positive: Arthralgia - Left knee All Other Systems Reviewed And Are Negative: Yes Physical Exam - Summary Physical Exam Summary: Appearance: The patient is well-nourished in no acute distress and in no acute pain. Skin: The skin is warm and dry, and skin color reflects adequate perfusion. HEENT: The head is normocephalic and atraumatic. The pupils are equal and reactive. The conjunctivae are clear and without drainage. Nares are patent and without drainage. Mouth reveals moist mucous membranes, and the throat is without erythema and exudate. The external ears are intact. The ear canals are patent and without drainage. The tympanic membranes are intact. Neck: The neck is supple with full range of motion and non-tender. There are no carotid bruits. There is no neck vein distension. Respiratory: Chest is non-tender. Lungs are clear to auscultation and breath sounds are symmetrical and equal. Cardiovascular: Heart is regular rate and rhythm. There is no murmur or rub auscultated. There is no peripheral edema and pulses are symmetrical and equal. Abdomen: The abdomen is soft and non-tender. There are normal bowel sounds heard in all four quadrants and there is no organomegaly palpated. Musculoskeletal: There is no back tenderness noted. Extremities are non-tender with full range of motion. There is good capillary refill. There is no peripheral edema or calf tenderness elicited. Mild warmth of the left knee. Neurological: Patient is alert and oriented to person, place and time. The patient has symmetrical motor strength in all four extremities. Cranial nerves are grossly intact. Deep tendon reflexes are symmetrical and equal in all four extremities. Psychiatric: The patient has an appropriate affect and does not exhibit any anxiety or depression. Triage Information Reviewed: Yes Vital Signs On Initial Exam: Initial Vitals Temp Pulse Resp BP Pulse Ox 98.1 F 108 20 136/90 99 11/29/19 12:46 11/29/19 12:46 11/29/19 12:46 11/29/19 12:46 11/29/19 12:46 Vital Signs Reviewed: Yes Procedures - Sedation Patient Received Moderate/Deep Sedation with Procedure: No Diagnostics - Vital Signs Vital Signs Temp Pulse Resp BP Pulse Ox 11/29/19 12:46 98.1 F 108 20 136/90 99 - Laboratory Result Diagrams: 11/29/19 14:14 11/29/19 14:14 Lab Statement: Any lab studies that have been ordered have been reviewed, and results considered in the medical decision making process. Lower Extremity Course/Dx - Course Course Of Treatment: Ms. Lynch came in because she felt that oral prednisone was not working for her and that she needed IV steroids for her Crohn 's flareup. Her primary complaint was left knee pain which she has had with each of her flareups. Her left knee appeared to be inflamed some. She had an elevation of her white count at 11.9 and is taking the steroids. She had no fever. I spoke with the nurse practitioner who takes care of her because I did not think the risk of another knee tap was appropriate. She agreed and was okay with a shorter steroid burst. They have a new medication for the patient in their office and they are planning to have her come in this week. - Diagnoses Provider Diagnoses: Crohn's disease Discharge ED - Sign-Out/Discharge Documenting (check all that apply): Patient Departure - Discharge - Discharge Plan Condition: Stable Disposition: HOME Prescriptions: HYDROmorphone TAB* [Dilaudid TAB*] 2 mg PO Q6H PRN #28 tab MDD 4 PRN Reason: Pain - Severe predniSONE [Prednisone 20 MG TAB] 20 mg PO BID #10 tablet Patient Education Materials: Crohn Disease (ED) Referrals: [facility] [Outside] Additional Instructions: RETURN TO THE EMERGENCY DEPARTMENT FOR CHANGING OR WORSENING SYMPTOMS. Follow up with your primary care physician in 2-3 days. - Billing Disposition and Condition Condition: STABLE Disposition: Home - Attestation Statements Document Initiated by Tom: Yes Documenting Nikosibblanche: Zayra Olea Provider For Whom Tom is Documenting (Include Credential): Erwin Burris MD Scribe Attestation: Zayra Madden, scribed for Erwin Burris MD on 11/29/19 at 2041. Scribe Documentation Reviewed: Yes Provider Attestation: The documentation as recorded by the Zayra buckner accurately reflects the service I personally performed and the decisions made by me, Erwin Burris MD Status of Scribe Document: Viewed
[2019-11-29] MEDS ORDERED: NS 0.9% 1000 ML** 1,000 ML IV ONE (14:09)
[2019-11-29] MEDS ORDERED: HYDROmorphone INJ1* 1 MG/ML SYRINGE IV SLOW PU ONE ×2 (14:27→16:33)
[2019-11-29] MEDS ORDERED: Ondansetron INJ* 2 MG/ML VIAL IV ONE (14:27)
[2019-11-29 14:29] LABS: Hematocrit 35 % (35-47); Hemoglobin 11.4 g/dL (12.0-16.0); Mean Corpuscular HGB Conc 33 g/dL (31-36); Mean Corpuscular Hemoglobin 24 pg (27-31); Mean Corpuscular Volume 74 fL (80-97); Mean Platelet Volume 6.8 fL (7.4-10.4); Platelet Count 505 10^3/uL (150-450); Red Blood Count 4.69 10^6 /uL (3.70-4.87); Red Cell Distribution Width 16 % (10-15); White Blood Count 11.9 10^3/uL (3.5-10.8)
[2019-11-29 14:57] LABS: Albumin 3.9 g/dL (3.2-5.2); Albumin/Globulin Ratio 1.4 (1-3); BUN/Creatinine Ratio 16.9 (8-20); C Reactive Protein 3.12 mg/L (<8.01); Calcium 9.3 mg/dL (8.6-10.3); EGFR African American 129.5 (>60); Globulin 2.8 g/dL (2-4); Potassium 3.6 mmol/L (3.5-5.0); Total Bilirubin 0.3 mg/dL (0.2-1.0); Total Protein 6.7 g/dL (6.4-8.9)
[2019-11-29 15:04] LABS: ABS Basophils 0.1 10^3/ul (0-0.2); ABS Eosinophils 0.2 10^3/ul (0-0.6); ABS Lymphocytes 2.6 10^3/ul (1.0-4.8); ABS Monocytes 0.8 10^3/ul (0-0.8); ABS Neutrophils 8.2 10^3/ul (1.5-7.7); Eosinophil % 1.9 %; Lymphocyte % 21.7 %; Microcytosis 2+
[2019-11-29] MEDS ORDERED: methylPREDNISolone 125 MG* 2 ML VIAL IV ONE (15:53)
[2019-11-29 16:47] VITALS: BP 127/87
[2019-11-29 17:48] LABS: Erythrocyte Sed Rate 16 mm/Hr (0-19)
== END 2019-11-29 17:09 | disposition home or self-care (01) ==
LOC: ED 12:45
DX: K50.90 Crohn's disease, unspecified, without complications (principal); M25.562 Pain in left knee; K21.9 Gastro-esophageal reflux disease without esophagitis; M06.9 Rheumatoid arthritis, unspecified; Z88.8 Allergy status to other drugs, medicaments and biological substances; F17.210 Nicotine dependence, cigarettes, uncomplicated
CPT/HCPCS: 36415; 80053; 85025; 85652; 86140; 96361; 96374; 96375; 96376; 99283; J1170; J2405; J2930

== ENCOUNTER 2022-07-11 10:13 | Observation (INO) ==
[2022-07-11] MEDS ORDERED: NS 0.9% 1000 ml BAG 1,000 ML IV ONE (11:48)
[2022-07-11] MEDS ORDERED: Ondansetron 4 mg VIAL 2 MG/ML 2 ml VIAL IV ONE (12:01)
[2022-07-11] MEDS ORDERED: Morphine 4 MG/ML VIAL (1 ml) IV ONE ×2 (12:01→14:06)
[2022-07-11 12:41] LABS: ABS Basophils 0.1 10^3/ul (0-0.2); ABS Eosinophils 0.1 10^3/ul (0-0.6); ABS Lymphocytes 3.7 10^3/ul (1.0-4.8); ABS Monocytes 0.9 10^3/ul (0-0.8); ABS Neutrophils 8.4 10^3/ul (1.5-7.7); Eosinophil % 0.8 %; Hematocrit 39 % (35-47); Hemoglobin 13.2 g/dL (12.0-16.0); Lymphocyte % 28.2 %; Mean Corpuscular HGB Conc 34 g/dL (31-36); Mean Corpuscular Hemoglobin 26 pg (27-31); Mean Corpuscular Volume 78 fL (80-97); Mean Platelet Volume 7.4 fL (7.4-10.4); Nucleated Red Blood Cells % 0.1; Platelet Count 454 10^3/uL (150-450); Red Blood Count 5.05 10^6 /uL (3.70-4.87); Red Cell Distribution Width 17 % (10-15); White Blood Count 13.2 10^3/uL (3.5-10.8)
[2022-07-11 13:08] LABS: Albumin 4.7 g/dL (3.2-5.2); Albumin/Globulin Ratio 1.7 (1-3); C Reactive Protein 1.99 mg/L (<8.01); Calcium 9.9 mg/dL (8.6-10.3); Globulin 2.8 g/dL (2-4); Potassium 3.5 mmol/L (3.5-5.0); Total Bilirubin 0.7 mg/dL (0.2-1.0); Total Protein 7.5 g/dL (6.4-8.9); eGFR CKD-EPI 122.5 (>60)
[2022-07-11] MEDS ORDERED: Iohexol 350 (CONTRAST) 500 ML MDV IV ONE (13:44)
[2022-07-11] MEDS ORDERED: Dexamethasone IV 4 MG/ML VIAL 1 ml VIAL IV SLOW PU ONE (16:58)
[2022-07-11] MEDS ORDERED: Ciprofloxacin 400mg IVPREMIX 400 MG/200 ML BAG IVPB ONE (16:58)
[2022-07-11] MEDS ORDERED: metroNIDAZOLE IV 500 MG/100ML 500 MG/100 ML BAG IVPB ONE (16:58)
[2022-07-11] MEDS ORDERED: Ondansetron 4 mg VIAL 2 MG/ML 2 ml VIAL IV PRN (18:13)
[2022-07-11] MEDS ORDERED: Lorazepam PYXIS KEY PRN (18:32)
[2022-07-11] MEDS: LORazepam 2 mg VIAL 1 ml IV PUSH PRN (19:35)
[2022-07-11] MEDS: Pantoprazole VIAL 40 MG VIAL IV SCH (19:37)
[2022-07-11] MEDS: HYDROmorphone 1 MG/1 ML SYRINGE IV SLOW PU PRN ×2 (19:40→23:30)
[2022-07-11] MEDS ORDERED: Acetaminophen IV 1 GM/100ML 1,000 MG/100 ML BAG IV PRN (19:46)
[2022-07-11] MEDS: Enoxaparin 40 MG/0.4 ML SYR SUBCUT SCH ×2 (22:28→23:30)
[2022-07-11 22:51] LABS: Urine Appearance Cloudy; Urine Bilirubin Negative (Negative); Urine Blood Negative (Negative); Urine Color Yellow; Urine Glucose Negative (Negative); Urine Ketones Trace (Negative); Urine Nitrite Negative (Negative); Urine Protein Negative (Negative); Urine Specific Gravity 1.046 (1.002-1.030); Urine Urobilinogen Negative (Negative)
[2022-07-12] MEDS: D5W NS 0.9% 40Meq KCL 1000 ml 1,000 ML IV SCH ×2 (01:26→15:15)
[2022-07-12] MEDS: LORazepam 2 mg VIAL 1 ml IV PUSH PRN ×3 (01:46→16:08)
[2022-07-12] MEDS: Magic MouthWash1-BEN/MAAL/LIDO 180 ML BTL SWISH SPIT SCH ×6 (03:28→20:58)
[2022-07-12] MEDS: HYDROmorphone 1 MG/1 ML SYRINGE IV SLOW PU PRN ×5 (03:29→21:07)
[2022-07-12] MEDS ORDERED: Lorazepam PYXIS KEY PRN (05:33)
[2022-07-12] MEDS ORDERED: LORazepam 2 mg VIAL 1 ml IV PUSH ONE ×2 (05:34→20:48)
[2022-07-12] MEDS: Pantoprazole VIAL 40 MG VIAL IV SCH (08:28)
[2022-07-12] MEDS: methylPREDNISolone SOD SUCC 125 mg 2 ML VIAL IV SCH (08:28)
[2022-07-12] MEDS: Nicotine PATCH 7 MG/24 HR PATCH TRANSDERM SCH (08:29)
[2022-07-12 08:41] LABS: ABS Basophils 0.1 10^3/ul (0-0.2); ABS Lymphocytes 3.2 10^3/ul (1.0-4.8); ABS Neutrophils 8.4 10^3/ul (1.5-7.7); Eosinophil % 0.1 %; Hematocrit 38 % (35-47); Hemoglobin 12.7 g/dL (12.0-16.0); Lymphocyte % 25.2 %; Mean Corpuscular HGB Conc 33 g/dL (31-36); Mean Corpuscular Hemoglobin 26 pg (27-31); Mean Corpuscular Volume 79 fL (80-97); Mean Platelet Volume 7.2 fL (7.4-10.4); Platelet Count 430 10^3/uL (150-450); Red Blood Count 4.84 10^6 /uL (3.70-4.87); Red Cell Distribution Width 16 % (10-15); White Blood Count 12.6 10^3/uL (3.5-10.8)
[2022-07-12] MEDS ORDERED: Senna TAB 8.6 mg TAB PO PRN (09:11)
[2022-07-12 09:24] LABS: Calcium 9.6 mg/dL (8.6-10.3); Potassium 3.8 mmol/L (3.5-5.0); eGFR CKD-EPI 123.5 (>60)
[2022-07-12 17:03] LABS: Magnesium 2.1 mg/dL (1.9-2.7)
[2022-07-12] MEDS: Enoxaparin 40 MG/0.4 ML SYR SUBCUT SCH (20:59)
[2022-07-13] MEDS: D5W NS 0.9% 40Meq KCL 1000 ml 1,000 ML IV SCH ×2 (00:09→10:23)
[2022-07-13] MEDS: HYDROmorphone 1 MG/1 ML SYRINGE IV SLOW PU PRN ×2 (02:44→07:46)
[2022-07-13] MEDS: LORazepam 2 mg VIAL 1 ml IV PUSH PRN ×2 (06:14→12:57)
[2022-07-13] MEDS: Pantoprazole VIAL 40 MG VIAL IV SCH (07:48)
[2022-07-13] MEDS: methylPREDNISolone SOD SUCC 125 mg 2 ML VIAL IV SCH (07:48)
[2022-07-13] MEDS: Nicotine PATCH 7 MG/24 HR PATCH TRANSDERM SCH (07:49)
[2022-07-13] MEDS: Magic MouthWash1-BEN/MAAL/LIDO 180 ML BTL SWISH SPIT SCH ×2 (07:50→13:21)
[2022-07-13] MEDS ORDERED: methylPREDNISolone SOD SUCC 40 mg/ml 1 ml VIAL IV SCH (09:00)
[2022-07-13] MEDS ORDERED: Morphine 2 MG/ML SYRINGE IV ONE (14:50)
[2022-07-13] MEDS ORDERED: Al Hydrox/Mg Hydrox/Simet LIQ 30 ML UDC PO ONE (14:50)
[2022-07-13 15:05] VITALS: BP 125/82
== END 2022-07-13 17:00 | disposition home or self-care (01) ==
LOC: EDHOLD 10:13 → ED 10:13 → SUATTDRO 18:13 → EDHOLD 07-12 01:18 → SSU 07-12 01:39
PROVIDERS: ADMIT Internal Medicine; ATTEND Student in an Organized Health Care Education/Training Program

== ENCOUNTER 2024-07-07 14:31 | Inpatient (IN) ==
[2024-07-07 18:29] LABS: ABS Basophils 0.1 10^3/uL (0.0-0.1); ABS Lymphocytes 2.1 10^3/uL (1.0-4.8); ABS Monocytes 0.6 10^3/uL (0.0-0.9); ABS Neutrophils 7.3 10^3/uL (1.5-7.6); ABS Nucleated RBC 0.01 10^3/ul; Eosinophil % 0.1 %; Hematocrit 42.9 % (35-45); Hemoglobin 14.1 g/dL (11.5-14.3); Lymphocyte % 20.8 %; Mean Corpuscular Hemoglobin 26.1 pg (27-33); Mean Corpuscular Volume 79.2 fL (80-97); Mean Platelet Volume 6.9 fL (7.5-11.2); Nucleated Red Blood Cells % 0.1 %/100WBC (0.0-0.8); Platelet Count 474 10^3/uL (150-450); Red Blood Count 5.41 10^6/uL (3.63-4.92); Red Cell Distribution Width 15.1 % (12-17)
[2024-07-07] MEDS: Lactated Ringers 1000 ml BAG 1,000 ML IV ONE ×2 (18:30→20:53)
[2024-07-07 18:43] LABS: Albumin/Globulin Ratio 1.7 (1-3); C Reactive Protein 3.39 mg/L (<8.01); Calcium 10.3 mg/dL (8.6-10.3); Creatinine, Serum 0.57 mg/dL (0.51-0.95); Globulin 2.9 g/dL (2-4); Magnesium 2.1 mg/dL (1.9-2.7); Potassium 3.8 mmol/L (3.5-5.0); Total Bilirubin 0.6 mg/dL (0.2-1.0); Total Protein 7.9 g/dL (6.4-8.9); eGFR CKD-EPI 121.5 (>60)
[2024-07-07] MEDS: Prochlorperazine 5 mg/ml 2 ml VIAL (10 mg) IV ONE (20:53)
[2024-07-07 21:32] LABS: Urine Appearance Clear; Urine Bilirubin Negative (Negative); Urine Blood Negative (Negative); Urine Color Dark-Yellow; Urine Glucose Negative (Negative); Urine Ketones 1+ (Negative); Urine Nitrite Negative (Negative); Urine Protein Negative (Negative); Urine Specific Gravity 1.009 (1.002-1.030); Urine Urobilinogen Negative (Negative); Urine pH 6.5 (5.0-8.0)
[2024-07-07] MEDS: methylPREDNISolone SOD SUCC 125 mg 2 ML VIAL IV ONE (22:40)
[2024-07-07] MEDS ORDERED: Lorazepam PYXIS KEY PRN (23:05)
[2024-07-08] MEDS: Labetalol IV 5 MG/ML 20 ml VIAL IV PUSH PRN (00:03)
[2024-07-08 00:45] LABS: High Sensitivity Troponin 1 Hr 3 pg/mL (<15)
[2024-07-08 01:16] LABS: Urine Benzodiazepine Screen Presumptive Positive (None Detect); Urine Cannabinoids Screen None Detected (None Detect); Urine Opiates Screen Presumptive Positive (None Detect)
[2024-07-08] MEDS ORDERED: Labetalol IV 5 MG/ML 20 ml VIAL IV PUSH PRN (02:02)
[2024-07-08] MEDS: Labetalol IV 5 MG/ML 20 ml VIAL IV PUSH ONE (02:11)
[2024-07-08] MEDS: Scopolamine 1 mg/72hr PATCH TRANSDERM SCH (03:01)
[2024-07-08] MEDS ORDERED: fentaNYL 100 mcg/2 ml 50 MCG/ML VIAL IV SLOW PU PRN (03:02)
[2024-07-08] MEDS: Acetaminophen IV 1 GM/100ML 1,000 MG/100 ML BAG IV SCH (04:06)
[2024-07-08] MEDS: LORazepam 2 mg VIAL 1 ml IV PUSH PRN ×2 (06:43→14:51)
[2024-07-08] MEDS: fentaNYL 100 mcg/2 ml 50 MCG/ML VIAL IV SLOW PU PRN (06:44)
[2024-07-08 07:51] LABS: Hematocrit 36.4 % (35-45); Hemoglobin 12.3 g/dL (11.5-14.3); Mean Corpuscular Hemoglobin 26.7 pg (27-33); Mean Corpuscular Hgb Conc 33.8 g/dL (31-36); Mean Corpuscular Volume 78.8 fL (80-97); Mean Platelet Volume 7.2 fL (7.5-11.2); Platelet Count 357 10^3/uL (150-450); Red Blood Count 4.62 10^6/uL (3.63-4.92); White Blood Count 8.5 10^3/uL (3.8-11.8)
[2024-07-08] MEDS: Pantoprazole VIAL 40 MG VIAL IV SCH (09:41)
[2024-07-08] MEDS: DULoxetine DR 30 mg CAP PO SCH (09:42)
[2024-07-08] MEDS: Nicotine PATCH 14 MG/24 HR PATCH TRANSDERM SCH (09:50)
[2024-07-08] MEDS ORDERED: HYDROmorphone 1 MG/1 ML SYRINGE IV SLOW PU PRN ×2 (10:29→11:05)
[2024-07-08] MEDS ORDERED: Buprenorphine 15 MCG PATCH(NF) 15 MCG/HR PATCH (15 MG TOTAL) TRANSDERM SCH (11:00)
[2024-07-08 11:04] LABS: % Iron Saturation 14 % (15-55); .Transferrin 233 mg/dL (203-362); Iron 45 ug/dL (50-212); Total Iron Binding Capacity 326 mcg/dL (250-450); Unsaturated Iron Binding 281 ug/dL
[2024-07-08] MEDS ORDERED: LORazepam 2 mg VIAL 1 ml IV PUSH PRN ×2 (11:15→11:45)
[2024-07-08 11:26] LABS: Ferritin 34.4 ng/mL (11-307)
[2024-07-08 11:30] LABS: Folate > 20.00 ng/mL (5.90-24.80)
[2024-07-08 11:31] LABS: Vitamin B12 293 pg/mL (180-914)
[2024-07-08] MEDS: HYDROmorphone 1 MG/1 ML SYRINGE IV SLOW PU PRN ×2 (11:50→14:50)
[2024-07-08] MEDS: Buprenorphine 15 MCG PATCH(NF) 15 MCG/HR PATCH (15 MG TOTAL) TRANSDERM SCH (12:18)
[2024-07-09] MEDS: SULFASALAZINE 500 MG PO SCH (11:13)
[2024-07-09] MEDS: Ferric Gluconate IV 250 MG in NS 0.9% 250 ml 200 ML IVPB SCH (11:29)
[2024-07-09] MEDS: oxyCODONE SR 10 mg TAB PO SCH (15:15)
[2024-07-09] MEDS: Ondansetron 4 mg VIAL 2 MG/ML 2 ml VIAL IV PRN (19:44)
[2024-07-09] MEDS ORDERED: oxyCODONE SR 10 mg TAB PO SCH (21:00)
[2024-07-10 06:12] LABS: ABS Basophils 0.1 10^3/uL (0.0-0.1); ABS Eosinophils 0.1 10^3/uL (0.0-0.5); ABS Lymphocytes 2.8 10^3/uL (1.0-4.8); ABS Monocytes 0.6 10^3/uL (0.0-0.9); ABS Neutrophils 4.1 10^3/uL (1.5-7.6); Eosinophil % 1.7 %; Hematocrit 39.8 % (35-45); Hemoglobin 13.2 g/dL (11.5-14.3); Lymphocyte % 36.8 %; Mean Corpuscular Hemoglobin 26.2 pg (27-33); Mean Corpuscular Hgb Conc 33.1 g/dL (31-36); Mean Corpuscular Volume 79.1 fL (80-97); Mean Platelet Volume 6.8 fL (7.5-11.2); Nucleated Red Blood Cells % 0.1 %/100WBC (0.0-0.8); Platelet Count 318 10^3/uL (150-450); Red Blood Count 5.03 10^6/uL (3.63-4.92); Red Cell Distribution Width 14.8 % (12-17); White Blood Count 7.7 10^3/uL (3.8-11.8)
[2024-07-10 06:45] LABS: Calcium 8.9 mg/dL (8.6-10.3); Creatinine, Serum 0.51 mg/dL (0.51-0.95); eGFR CKD-EPI 124.8 (>60)
[2024-07-10] MEDS: KCL premix 10 MEQ/50 ML x 2 BAGS IV SCH ×2 (09:12→14:21)
[2024-07-10] MEDS: HYDROmorphone 1 MG/1 ML SYRINGE IV SLOW PU PRN (10:09)
[2024-07-10 10:43] LABS: Magnesium 1.8 mg/dL (1.9-2.7); Phosphorus 4.2 mg/dL (2.5-5.0)
[2024-07-10] MEDS: Magnesium Sulfate IV 1GM/100ML 1 GM/100 ML BAG IV ONE (14:36)
[2024-07-10] MEDS: Magnesium Sulfate 2 gm BAG 2 GM/50 ML BAG IVPB ONE (15:28)
[2024-07-10] MEDS: Potassium Chlor 20 meq TAB.ER PO ONE (17:00)
[2024-07-10] MEDS: KCL 20 MEQ/100 ML IVPREMIX 20 MEQ/100 ML BAG IV SCH (17:57)
[2024-07-11 06:44] LABS: Calcium 9.2 mg/dL (8.6-10.3); Creatinine, Serum 0.49 mg/dL (0.51-0.95); Magnesium 2.3 mg/dL (1.9-2.7); Potassium 3.6 mmol/L (3.5-5.0)
[2024-07-11] MEDS ORDERED: KCL 20 MEQ/100 ML IVPREMIX 20 MEQ/100 ML BAG IV SCH (09:00)
[2024-07-11] MEDS: Potassium Chlor 20 meq TAB.ER PO ONE (09:57)
[2024-07-11 12:04] LABS: C Reactive Protein 3.46 mg/L (<8.01); Uric Acid 4.5 mg/dL (2.3-6.6)
[2024-07-11] MEDS: methylPREDNISolone SOD SUCC 40 mg/ml 1 ml VIAL IV SCH (14:04)
[2024-07-11] MEDS: HYDROmorphone 1 MG/1 ML SYRINGE IV SLOW PU PRN (15:56)
[2024-07-12 06:52] LABS: ABS Basophils 0.1 10^3/uL (0.0-0.1); ABS Lymphocytes 2.6 10^3/uL (1.0-4.8); ABS Monocytes 0.6 10^3/uL (0.0-0.9); ABS Neutrophils 8.7 10^3/uL (1.5-7.6); Eosinophil % 0.1 %; Hematocrit 41.2 % (35-45); Hemoglobin 13.5 g/dL (11.5-14.3); Lymphocyte % 21.4 %; Mean Corpuscular Hemoglobin 26.4 pg (27-33); Mean Corpuscular Hgb Conc 32.9 g/dL (31-36); Mean Corpuscular Volume 80.3 fL (80-97); Mean Platelet Volume 7.2 fL (7.5-11.2); Platelet Count 373 10^3/uL (150-450); Red Blood Count 5.13 10^6/uL (3.63-4.92); Red Cell Distribution Width 14.9 % (12-17); White Blood Count 12.1 10^3/uL (3.8-11.8)
[2024-07-12 07:11] LABS: Urine Appearance Clear; Urine Bilirubin Negative (Negative); Urine Blood Negative (Negative); Urine Color Light-Yellow; Urine Glucose Negative (Negative); Urine Ketones 1+ (Negative); Urine Nitrite Negative (Negative); Urine Protein Negative (Negative); Urine Specific Gravity 1.009 (1.002-1.030); Urine Urobilinogen Negative (Negative); Urine pH 6.5 (5.0-8.0)
[2024-07-12 07:40] LABS: Calcium 9.8 mg/dL (8.6-10.3); Creatinine, Serum 0.46 mg/dL (0.51-0.95); Potassium 4.2 mmol/L (3.5-5.0); eGFR CKD-EPI 127.9 (>60)
[2024-07-12] MEDS ORDERED: Lorazepam PYXIS KEY PRN ×2 (09:06→10:27)
[2024-07-12] MEDS: LORazepam 2 mg VIAL 1 ml IV PUSH ONE ×2 (09:13→10:51)
[2024-07-12] MEDS: Buprenorphine 10 MCG PATCH(NF) 10 MCG/HR PATCH (10 MG TOTAL) TRANSDERM SCH (10:23)
[2024-07-12 13:18] LABS: Chlamydia trachomatis NAA Negative (Negative); Neisseria gonorrhoeae (GC) NAA Negative (Negative)
[2024-07-12] MEDS ORDERED: Buprenorph Patch Check Q Shift 1 NOTE MISC FOLLOW UP SCH ×3 (16:00→19:00)
[2024-07-12] MEDS: Buprenorph Patch Check Q Shift 1 NOTE MISC FOLLOW UP SCH ×2 (20:29→20:34)
[2024-07-13 06:18] LABS: Hematocrit 38.5 % (35-45); Hemoglobin 12.7 g/dL (11.5-14.3); Mean Corpuscular Hemoglobin 26.5 pg (27-33); Mean Corpuscular Volume 80.2 fL (80-97); Mean Platelet Volume 7.1 fL (7.5-11.2); Platelet Count 325 10^3/uL (150-450); White Blood Count 8.3 10^3/uL (3.8-11.8)
[2024-07-13 06:34] LABS: Calcium 9.4 mg/dL (8.6-10.3); Creatinine, Serum 0.54 mg/dL (0.51-0.95); Magnesium 1.9 mg/dL (1.9-2.7); Potassium 3.8 mmol/L (3.5-5.0); eGFR CKD-EPI 123.1 (>60)
[2024-07-13] MEDS: Magnesium Sulfate IV 1GM/100ML 1 GM/100 ML BAG IV ONE (08:53)
[2024-07-13] MEDS: Potassium Chlor 20 meq TAB.ER PO ONE (08:54)
[2024-07-13] MEDS: HYDROmorphone 1 MG/1 ML SYRINGE IV SLOW PU ONE (12:30)
[2024-07-13] MEDS: Ondansetron ODT 4 mg TAB 4 MG TAB SL PRN (18:22)
[2024-07-14 06:58] LABS: ABS Basophils 0.1 10^3/uL (0.0-0.1); ABS Eosinophils 0.1 10^3/uL (0.0-0.5); ABS Lymphocytes 3.2 10^3/uL (1.0-4.8); ABS Monocytes 0.8 10^3/uL (0.0-0.9); ABS Nucleated RBC 0.01 10^3/ul; Eosinophil % 1.5 %; Hematocrit 40.3 % (35-45); Hemoglobin 13.3 g/dL (11.5-14.3); Lymphocyte % 34.5 %; Mean Corpuscular Hemoglobin 26.7 pg (27-33); Mean Corpuscular Hgb Conc 33.1 g/dL (31-36); Mean Corpuscular Volume 80.5 fL (80-97); Mean Platelet Volume 7.2 fL (7.5-11.2); Nucleated Red Blood Cells % 0.1 %/100WBC (0.0-0.8); Platelet Count 328 10^3/uL (150-450); Red Cell Distribution Width 15.4 % (12-17); White Blood Count 9.2 10^3/uL (3.8-11.8)
[2024-07-14 07:15] LABS: Calcium 9.7 mg/dL (8.6-10.3); Creatinine, Serum 0.53 mg/dL (0.51-0.95); Phosphorus 3.5 mg/dL (2.5-5.0); Potassium 3.7 mmol/L (3.5-5.0); eGFR CKD-EPI 123.6 (>60)
[2024-07-14] MEDS: KCL 20 MEQ/100 ML IVPREMIX 20 MEQ/100 ML BAG IV SCH (08:47)
[2024-07-14] MEDS: Potassium EFFERVES 25 meq TAB PO ONE (10:36)
[2024-07-14 13:59] VITALS: BP 179/116
== END 2024-07-14 15:55 | disposition home or self-care (01) | DRG 897 ==
LOC: ED 14:31 → EDHOLD 14:31 → SUATTDRO 23:31 → MED 07-08 02:01 → SUATTDRO 07-08 11:00 → MED 07-09 06:27
PROVIDERS: ADMIT Internal Medicine; ATTEND Internal Medicine